=== PATIENT | male | born 1960 | race Caucasian/White ===

== ENCOUNTER → 2018-09-19 | Outpatient (CLI) | payer BC ==
--- NOTE | 2018-09-19 14:36 | CT ---
EXAMINATION TYPE: CT chest wo con DATE OF EXAM: 09/19/2018 COMPARISON: None HISTORY: Chest discomfort and difficulty breathing in cold weather. CT DLP: 776.6 mGycm, Automated exposure control for dose reduction was used. CONTRAST: Performed injected with 0 mL of Isovue 300. TECHNIQUE: Axial images were obtained at 5 mm thick sections. Reconstructed images are reviewed on [employer] computer in the coronal plane. FINDINGS: Portion of the thyroid visualized is normal. No suspicious lung nodules or focal infiltrates are present. Pneumatoceles may be within the right mi dlung. There is a 1.2 cm lymph node in the pretracheal space. This is a large fatty hilum and may be reacti ve lymph node. The ascending aorta diameter at the level of the main pulmonary artery is 3.7 cm. The main pulmonary artery diameter at the bifurcation is 3.3 cm. Moderate coronary artery calcifications present Limited CT sections are obtained through the upper abdomen. Cholelithiasis is present. IMPRESSIONS: 1. Cholelithiasis. 2. Enlarged pretracheal lymph node. 3. No suspicious acute abnormality within the chest.
== END ==
LOC: RADCTMAIN 11:30
PROVIDERS: ATTEND Internal Medicine Pulmonary Disease
DX: R59.0 Localized enlarged lymph nodes (principal)
CPT/HCPCS: 71250

== ENCOUNTER 2018-09-23 07:31 | Inpatient (IN) | payer BC ==
[2018-09-23] MEDS ORDERED: HEPARIN SODIUM,PORCINE 5,000 UNIT/ML 1 ML VIAL IV ONE (07:49)
[2018-09-23] MEDS ORDERED: ASPIRIN 81 MG PO STA (07:49)
--- NOTE | 2018-09-23 07:51 | ED ---
General Adult HPI - General Chief complaint: Shortness of Breath Stated complaint: Chest pain, SOB Time Seen by Provider: 09/23/18 07:38 Source: patient Mode of arrival: wheelchair Limitations: no limitations - Related Data Home Medications Medication Instructions Recorded Confirmed Canagliflozin [Invokana] 300 mg PO HS 10/14/15 09/23/18 Glimepiride [Amaryl] 4 mg PO DIRECTED 10/14/15 09/23/18 Losartan Potassium 100 mg PO QAM 10/14/15 09/23/18 metFORMIN HCL [Glucophage] 500 mg PO AC-BRKFST 10/14/15 09/23/18 Omeprazole [PriLOSEC] 20 mg PO BID 06/06/16 09/23/18 Dulaglutide [Trulicity] 1.5 mg SQ HARRISON 09/23/18 09/23/18 Fenofibrate 160 mg PO DAILY 09/23/18 09/23/18 Fexofenadine/Pseudoephedrine 1 tab PO DAILY 09/23/18 09/23/18 [Deysi-D 24 Hour Tablet] Multivitamins, Thera [Multivitamin 1 tab PO DAILY 09/23/18 09/23/18 (formulary)] amLODIPine [Norvasc] 10 mg PO DAILY 09/23/18 09/23/18 Allergies Allergy/AdvReac Type Severity Reaction Status Date / Time Tlhlbbc-Jeb-Lim Reductase AdvReac muscle Verified 09/23/18 09:42 Inhibitor cramps Review of Systems ROS Statement: Those systems with pertinent positive or pertinent negative responses have been documented in the HPI. ROS Other: All systems not noted in ROS Statement are negative. Past Medical History Past Medical History: Diabetes Mellitus, GERD/Reflux, Hyperlipidemia, Hypertension, Osteoarthritis (OA), Sleep Apnea/CPAP/BIPAP Additional Past Medical History / Comment(s): seasonal allergies History of Any Multi-Drug Resistant Organisms: None Reported Past Surgical History: Joint Replacement, Orthopedic Surgery Additional Past Surgical History / Comment(s): right knee replaced, left shoulder surg., right arm surg., pilonidal cyst surg., multiple myringotomies. LEFT TOTAL KNEE ON 05/30/14. screws/plates in right arm Additional Past Anesthesia/Blood Transfusion Reaction / Comment(s): states has small airway, has had problems w/intubation in the past Past Psychological History: No Psychological Hx Reported Smoking Status: Never smoker Past Alcohol Use History: None Reported Past Drug Use History: None Reported - Past Family History Father Family Medical History: Diabetes Mellitus Additional Family Medical History / Comment(s): father at age 74-drowning. Mother Family Medical History: No Reported History Additional Family Medical History / Comment(s): MOTHER AT AGE 70 OF UNKNOWN CAUSES. General Exam Limitations: no limitations Course Vital Signs 09/23/18 09/23/18 09/23/18 07:32 07:44 08:00 Temperature 98.2 F Pulse Rate 77 Respiratory 18 25 H Rate Blood Pressure 113/65 128/69 O2 Sat by Pulse 96 95 98 Oximetry 09/23/18 09/23/18 08:30 09:00 Temperature Pulse Rate Respiratory Rate Blood Pressure 107/73 107/73 O2 Sat by Pulse Oximetry Medical Decision Making - Medical Decision Making Dictation was produced using [employer] dictation software. please excuse any grammatical, word or spelling errors. Chief Complaint: 58-year-old male past medical history of diabetes, hypertension, dyslipidemia, sleep apnea presents with progressive shortness of breath. History of Present Illness: She is a 50-year-old male. He states that he's been having worsening exertional shortness of breath. He reports that his symptoms are rapidly progressing. He states symptoms started initially during the onset of the cold weather. He saw his primary care physician who ordered a computed tomography scan showed no acute processes. Patient reports that over the last couple weeks his shortness of breath has been occurring quicker with exertional activity. Furthermore, patient has been complaining of some chest tightness with exertion. Patient will reports the chest tightness is as of some bloody is sitting on his chest. He does state that it radiates slightly to the shoulder area. No associated diaphoresis. The ROS documented in this emergency department record has been reviewed and confirmed by me. Those systems with pertinent positive or negative responses have been documented in the HPI. All other systems are other negative and/or noncontributory. PHYSICAL EXAM: General Impression: Alert and oriented x3, not in acute distress HEENT: Normocephalic atraumatic, extra-ocular movements intact, pupils equal and reactive to light bilaterally, mucous membranes moist. Cardiovascular: Heart regular rate and rhythm, S1&S2 audible, no murmurs, rubs or gallops Chest: Lungs clear to auscultation bilaterally, no rhonchi, no wheeze, no rales Abdomen: Bowel sounds present, abdomen soft, non-tender, non-distended, no organomegaly Musculoskeletal: Pulses present and equal in all extremities, no peripheral edema Motor: Power 5/5 bilaterally, no focal deficits noted Neurological: CN II-XII grossly intact, no focal motor or sensory deficits noted Skin: Intact with no visualized rashes Psych: Normal affect and mood ED course: 58-year-old male with HPI concerning for unstable angina. Vital signs upon arrival are within acceptable limits. Patient appears well at this time. Physical examination is benign. Laboratory evaluation obtained. CBC, coag panel, d-dimer negative. Blood gases are within acceptable limits. Metabolic panel is negative. Troponin 0.287. B natruretic peptide is 5280. Chest x-ray shows perihilar basilar infiltrate. Patient's symptoms concerning for acute coronary syndrome. Patient reevaluated. Patient is asymptomatic at this time. Patient would benefit from cardiology consultation likely invasive intervention. EKG interpretation: Ventricular rate 78, VT interval 184, care is 124, QTC 471, normal sinus rhythm with left bundle branch block. No scar Boso criteria met.. No VT prolongation, no QTC prolongation, no ST or T-wave changes noted. Overall, this EKG is unremarkable - Lab Data Result diagrams: 09/23/18 08:06 09/23/18 08:06 Lab Results 09/23/18 09/23/18 09/23/18 Range/Units 08:06 08:06 08:06 WBC 6.6 (3.8-10.6) k/uL RBC 5.31 (4.30-5.90) m/uL Hgb 16.1 (13.0-17.5) gm/dL Hct 49.3 (39.0-53.0) % MCV 92.8 (80.0-100.0) fL MCH 30.2 (25.0-35.0) pg MCHC 32.6 (31.0-37.0) g/dL RDW 12.7 (11.5-15.5) % Plt Count 223 (150-450) k/uL Neutrophils % 62 % Lymphocytes % 26 % Monocytes % 6 % Eosinophils % 3 % Basophils % 0 % Neutrophils # 4.1 (1.3-7.7) k/uL Lymphocytes # 1.7 (1.0-4.8) k/uL Monocytes # 0.4 (0-1.0) k/uL Eosinophils # 0.2 (0-0.7) k/uL Basophils # 0.0 (0-0.2) k/uL PT (9.0-12.0) sec INR (<1.2) APTT (22.0-30.0) sec D-Dimer (<0.60) mg/L FEU VBG pH (7.31-7.41) VBG pCO2 (37-51) mmHg VBG HCO3 (24-28) mmol/L Sodium 142 (137-145) mmol/L Potassium 4.6 (3.5-5.1) mmol/L Chloride 109 H (98-107) mmol/L Carbon Dioxide 23 (22-30) mmol/L Anion Gap 10 mmol/L BUN 22 H (9-20) mg/dL Creatinine 1.22 (0.66-1.25) mg/dL Est GFR (CKD-EPI)AfAm 75 (>60 ml/min/1.73 sqM) Est GFR (CKD-EPI)NonAf 65 (>60 ml/min/1.73 sqM) Glucose 145 H (74-99) mg/dL Calcium 10.4 H (8.4-10.2) mg/dL Magnesium 1.9 (1.6-2.3) mg/dL Total Bilirubin 0.8 (0.2-1.3) mg/dL AST 26 (17-59) U/L ALT 30 (21-72) U/L Alkaline Phosphatase 31 L (38-126) U/L Total Creatine Kinase 81 (55-170) U/L CK-MB (CK-2) 2.2 (0.0-2.4) ng/mL CK-MB (CK-2) Rel Index 2.7 Troponin I 0.287 H* (0.000-0.034) ng/mL NT-Pro-B Natriuret Pep pg/mL Total Protein 6.9 (6.3-8.2) g/dL Albumin 4.3 (3.5-5.0) g/dL 09/23/18 09/23/18 09/23/18 Range/Units 08:06 08:06 08:06 WBC (3.8-10.6) k/uL RBC (4.30-5.90) m/uL Hgb (13.0-17.5) gm/dL Hct (39.0-53.0) % MCV (80.0-100.0) fL MCH (25.0-35.0) pg MCHC (31.0-37.0) g/dL RDW (11.5-15.5) % Plt Count (150-450) k/uL Neutrophils % % Lymphocytes % % Monocytes % % Eosinophils % % Basophils % % Neutrophils # (1.3-7.7) k/uL Lymphocytes # (1.0-4.8) k/uL Monocytes # (0-1.0) k/uL Eosinophils # (0-0.7) k/uL Basophils # (0-0.2) k/uL PT 10.4 (9.0-12.0) sec INR 1.0 (<1.2) APTT 22.1 (22.0-30.0) sec D-Dimer 0.32 (<0.60) mg/L FEU VBG pH (7.31-7.41) VBG pCO2 (37-51) mmHg VBG HCO3 (24-28) mmol/L Sodium (137-145) mmol/L Potassium (3.5-5.1) mmol/L Chloride (98-107) mmol/L Carbon Dioxide (22-30) mmol/L Anion Gap mmol/L BUN (9-20) mg/dL Creatinine (0.66-1.25) mg/dL Est GFR (CKD-EPI)AfAm (>60 ml/min/1.73 sqM) Est GFR (CKD-EPI)NonAf (>60 ml/min/1.73 sqM) Glucose (74-99) mg/dL Calcium (8.4-10.2) mg/dL Magnesium (1.6-2.3) mg/dL Total Bilirubin (0.2-1.3) mg/dL AST (17-59) U/L ALT (21-72) U/L Alkaline Phosphatase (38-126) U/L Total Creatine Kinase (55-170) U/L CK-MB (CK-2) (0.0-2.4) ng/mL CK-MB (CK-2) Rel Index Troponin I (0.000-0.034) ng/mL NT-Pro-B Natriuret Pep 5280 pg/mL Total Protein (6.3-8.2) g/dL Albumin (3.5-5.0) g/dL 09/23/18 Range/Units 09:32 WBC (3.8-10.6) k/uL RBC (4.30-5.90) m/uL Hgb (13.0-17.5) gm/dL Hct (39.0-53.0) % MCV (80.0-100.0) fL MCH (25.0-35.0) pg MCHC (31.0-37.0) g/dL RDW (11.5-15.5) % Plt Count (150-450) k/uL Neutrophils % % Lymphocytes % % Monocytes % % Eosinophils % % Basophils % % Neutrophils # (1.3-7.7) k/uL Lymphocytes # (1.0-4.8) k/uL Monocytes # (0-1.0) k/uL Eosinophils # (0-0.7) k/uL Basophils # (0-0.2) k/uL PT (9.0-12.0) sec INR (<1.2) APTT (22.0-30.0) sec D-Dimer (<0.60) mg/L FEU VBG pH 7.41 (7.31-7.41) VBG pCO2 38 (37-51) mmHg VBG HCO3 24 (24-28) mmol/L Sodium (137-145) mmol/L Potassium (3.5-5.1) mmol/L Chloride (98-107) mmol/L Carbon Dioxide (22-30) mmol/L Anion Gap mmol/L BUN (9-20) mg/dL Creatinine (0.66-1.25) mg/dL Est GFR (CKD-EPI)AfAm (>60 ml/min/1.73 sqM) Est GFR (CKD-EPI)NonAf (>60 ml/min/1.73 sqM) Glucose (74-99) mg/dL Calcium (8.4-10.2) mg/dL Magnesium (1.6-2.3) mg/dL Total Bilirubin (0.2-1.3) mg/dL AST (17-59) U/L ALT (21-72) U/L Alkaline Phosphatase (38-126) U/L Total Creatine Kinase (55-170) U/L CK-MB (CK-2) (0.0-2.4) ng/mL CK-MB (CK-2) Rel Index Troponin I (0.000-0.034) ng/mL NT-Pro-B Natriuret Pep pg/mL Total Protein (6.3-8.2) g/dL Albumin (3.5-5.0) g/dL Disposition Clinical Impression: Acute coronary syndrome Disposition: ADMITTED IP TO THIS HOSP Is patient prescribed a controlled substance at d/c from ED?: No Referrals: Ro Duke DO [Primary Care Provider] - 1-2 days Decision Time: 11:11
[2018-09-23] MEDS: HEPARIN SOD,PORK IN 0.45% NACL 25,000 UNIT in 0.45% NACL 1 250ML.BAG IV SCH (08:19)
[2018-09-23 08:26] LABS: Basophils % (A) 0 %; Eosinophils # (A) 0.2 k/uL (0-0.7); Eosinophils % (A) 3 %; HCT 49.3 % (39.0-53.0); HGB 16.1 gm/dL (13.0-17.5); Lymphocytes # (A) 1.7 k/uL (1.0-4.8); Lymphocytes % (A) 26 %; MCH 30.2 pg (25.0-35.0); MCHC 32.6 g/dL (31.0-37.0); MCV 92.8 fL (80.0-100.0); Monocytes # (A) 0.4 k/uL (0-1.0); Monocytes % (A) 6 %; Neutrophils # (A) 4.1 k/uL (1.3-7.7); Neutrophils % (A) 62 %; Platelet Count 223 k/uL (150-450); RBC 5.31 m/uL (4.30-5.90); RDW 12.7 % (11.5-15.5); WBC 6.6 k/uL (3.8-10.6)
[2018-09-23 08:36] LABS: Partial Thromboplastin Time 22.1 sec (22.0-30.0); Prothrombin Time 10.4 sec (9.0-12.0)
[2018-09-23 08:41] LABS: Albumin 4.3 g/dL (3.5-5.0); Calcium 10.4 mg/dL (8.4-10.2); Magnesium 1.9 mg/dL (1.6-2.3); Potassium 4.6 mmol/L (3.5-5.1); Total Bilirubin 0.8 mg/dL (0.2-1.3); Total Protein 6.9 g/dL (6.3-8.2)
--- NOTE | 2018-09-23 08:48 | XR ---
EXAMINATION TYPE: XR chest 2V DATE OF EXAM: 09/23/2018 COMPARISON: NONE HISTORY: Shortness of breath TECHNIQUE: Frontal and lateral views of the chest are obtained. FINDINGS: Scattered senescent parenchymal changes noted. Hyperinflation compatible with COPD. There is patchy perihilar and basilar infiltrate noted. Correlate for underlying pneumonia. Heart size is stable. Mediastinal structures are stable and grossly unremarkable. No evidence for hilar prominence. Degenerative changes dorsal spine. IMPRESSION: 1. There is patchy perihilar and basilar infiltrate noted. Correlate for underlying pneumonia.
[2018-09-23 09:03] LABS: Creatine Kinase MB 2.2 ng/mL (0.0-2.4)
[2018-09-23 09:04] LABS: Troponin I 0.287 ng/mL (0.000-0.034)
[2018-09-23 09:48] LABS: VBG PH 7.41 (7.31-7.41)
[2018-09-23] MEDS ORDERED: NITROGLYCERIN SL TABS 0.4 MG TAB SUBLINGUAL PRN (11:12)
--- NOTE | 2018-09-23 12:45 | P.HPIM ---
History of Present Illness H&P Date: 09/23/18 This is a 58-year-old male patient of Dr. Duke. Patient presented to the emergency room with complaints of chest pain. Patient reports this chest pain has been occurring for over a year. Patient does report that since pain has significantly increased. With chest pain patient also experiences shortness of breath. She does have a past medical history of diverticulitis mellitus, GERD, hyperlipidemia, hypertension, osteoporosis, sleep apnea, seasonal ALLERGIES and ex-smoker. Patient states he quit in . EKG completed emergency room showing normal sinus rhythm, possible left atrial enlargement. Patient also reports that he had seen Dr. SAILAJA Bermeo for pulmonary due to increasing shortness of breath. Chest x-ray completed emergency room showing patchy perihilar and basal infiltrate noted. Correlate for underlying pneumonia. troponin 0.287. [facility]ology services have been consulted. At this time patient is resting comfortably bed. Patient denies any chest pain or shortness breath. Denies nausea vomiting or diarrhea. Patient denies any urinary burning or frequency. Review of Systems Please refer to HPI otherwise unremarkable Past Medical History Past Medical History: Diabetes Mellitus, GERD/Reflux, Hyperlipidemia, Hypertension, Osteoarthritis (OA), Sleep Apnea/CPAP/BIPAP Additional Past Medical History / Comment(s): seasonal allergies History of Any Multi-Drug Resistant Organisms: None Reported Past Surgical History: Joint Replacement, Orthopedic Surgery Additional Past Surgical History / Comment(s): right knee replaced, left shoulder surg., right arm surg., pilonidal cyst surg., multiple myringotomies. LEFT TOTAL KNEE ON 05/30/14. screws/plates in right arm Additional Past Anesthesia/Blood Transfusion Reaction / Comment(s): states has small airway, has had problems w/intubation in the past Past Psychological History: No Psychological Hx Reported Smoking Status: Never smoker Past Alcohol Use History: None Reported Past Drug Use History: None Reported - Past Family History Father Family Medical History: Diabetes Mellitus Additional Family Medical History / Comment(s): father at age 74-drowning. Mother Family Medical History: No Reported History Additional Family Medical History / Comment(s): MOTHER AT AGE 70 OF UNKNOWN CAUSES. Medications and Allergies Home Medications Medication Instructions Recorded Confirmed Type Canagliflozin [Invokana] 300 mg PO HS 10/14/15 09/23/18 History Glimepiride [Amaryl] 4 mg PO DIRECTED 10/14/15 09/23/18 History Losartan Potassium 100 mg PO QAM 10/14/15 09/23/18 History metFORMIN HCL [Glucophage] 500 mg PO AC-BRKFST 10/14/15 09/23/18 History Omeprazole [PriLOSEC] 20 mg PO BID 06/06/16 09/23/18 History Dulaglutide [Trulicity] 1.5 mg SQ HARRISON 09/23/18 09/23/18 History Fenofibrate 160 mg PO DAILY 09/23/18 09/23/18 History Fexofenadine/Pseudoephedrine 1 tab PO DAILY 09/23/18 09/23/18 History [Deysi-D 24 Hour Tablet] Multivitamins, Thera [Multivitamin 1 tab PO DAILY 09/23/18 09/23/18 History (formulary)] amLODIPine [Norvasc] 10 mg PO DAILY 09/23/18 09/23/18 History Allergies Allergy/AdvReac Type Severity Reaction Status Date / Time Tpvtigl-Rrd-Ksl Reductase AdvReac muscle Verified 09/23/18 09:42 Inhibitor cramps Physical Exam Vitals: Vital Signs Temp Pulse Resp BP Pulse Ox 09/23/18 12:23 18 99/60 96 09/23/18 12:00 99/60 96 09/23/18 11:30 84 21 125/70 96 09/23/18 11:00 82 15 112/57 96 09/23/18 10:30 79 12 93/76 95 09/23/18 10:00 107/73 09/23/18 09:30 107/73 09/23/18 09:00 107/73 09/23/18 08:30 107/73 09/23/18 08:00 128/69 98 09/23/18 07:44 25 H 95 09/23/18 07:32 98.2 F 77 18 113/65 96 Intake and Output 09/22/18 09/23/18 09/23/18 22:59 06:59 14:59 Other: Weight 120.202 kg Head normocephalic Neck supple Lungs diminished bilateral Heart regular rate and rhythm S1-S2, no rub or gallop Abdomen is soft nontender nondistended positive bowel sounds no hepatosplenomegaly Extremities no edema Neuro alert and orientated to 3 Results CBC & Chem 7: 09/23/18 08:06 09/23/18 08:06 Labs: Abnormal Lab Results - Last 24 Hours (Table) 09/23/18 09/23/18 Range/Units 08:06 08:06 Chloride 109 H (98-107) mmol/L BUN 22 H (9-20) mg/dL Glucose 145 H (74-99) mg/dL Calcium 10.4 H (8.4-10.2) mg/dL Alkaline Phosphatase 31 L (38-126) U/L Troponin I 0.287 H* (0.000-0.034) ng/mL Assessment and Plan Assessment: 1. Chest pain. EKG completed showing normal sinus rhythm possible left atrial enlargement troponin elevated at 0.32. Cardiology services consulted. Patient started on heparin drip. D-dimer normal at 0.32. 2. Possible pneumonia. completed showing patchy perihilar and basal infiltrate noted. Correlate for underlying pneumonia. Patient currently follows with Dr. SAILAJA Bermeo outpatient. Patient has been started on Rocephin and Zithromax for antibiotics. Dr. SAILAJA Bermeo has been consulted 3. Diabetes mellitus type 2. Pulmonary is currently on hold. Scale insulin ordered. Hemoglobin A1c ordered 4. History of GERD 5. History of essential hypertension. 6. History of hyperlipidemia 7. History of osteoarthritis 8. History of sleep apnea. Patient reports he wears CPAP machine 9. History of seasonal ALLERGIES. Cardiology and pulmonary service is consulted. Labs ordered Time with Patient: Greater than 30 (Greater than 60% of the total time spent in counseling and coordination of care. I performed an examination of the patient and discussed their management with the Nurse Practitioner. I have reviewed the Nurse Practitioner's notes and agree with the documented findings and plan of care)
[2018-09-23 12:51] LABS: Glucose,Whole Blood 111 mg/dL (75-99)
[2018-09-23] MEDS: INSULIN ASPART (NovoLOG) 100 UNIT/ML VIAL SQ SCH ×3 (13:00→20:47)
[2018-09-23] MEDS: HEPARIN SODIUM,PORCINE 5,000 UNIT/ML 1 ML VIAL IV PRN ×2 (14:40→22:18)
[2018-09-23 14:42] LABS: Creatine Kinase MB 1.9 ng/mL (0.0-2.4)
[2018-09-23 14:44] LABS: Troponin I 0.293 ng/mL (0.000-0.034)
[2018-09-23 17:17] LABS: Glucose,Whole Blood 91 mg/dL (75-99)
[2018-09-23] MEDS: NITROGLYCERIN OINT 1 INCH/GM PACKET TOPICAL SCH (17:27)
[2018-09-23] MEDS: PANTOPRAZOLE 40 MG TABLET PO SCH (17:31)
--- NOTE | 2018-09-23 17:50 | CONS ---
CONSULTATION HISTORY: Mr. Kumar is a 58-year-old male with a history of hypertension, hyperlipidemia, diabetes mellitus, who presented with symptoms of progressive dyspnea and chest discomfort. His symptoms started about a year ago in the cold weather, whenever he exerts himself he gets chest tightness and dyspnea. According to him, he has underwent cardiac workup including a stress test and echo and there were no significant abnormalities. He felt better during the warm weather months but started over the last few months complaining of progressive dyspnea with minimal activity as well as tightness in the chest. This morning the discomfort was much worse, radiating across the chest, with the severe dyspnea. He came into the emergency room and was subsequently admitted. The patient was seen by Dr. Roseanna Bermeo recently and underwent a CT scan of the chest on September 19 that showed cholelithiasis with enlarged pretracheal lymph node, with moderate coronary artery calcification. The patient has a cough, nonproductive, that has not increased. He has no fever her. He has no history of documented obstructive lung disease. He has no significant peripheral edema. No clear PND. No orthopnea. No palpitations. No syncope. His coronary risk factors are remarkable for hypertension, hyperlipidemia and diabetes. He has stopped smoking many years ago. MEDICATION: 1. Amaryl. 2. Metformin 500 mg twice a day. 3. Multivitamin. 4. Norvasc 10 mg daily. 5. Prilosec 20 mg twice a day. 6. Losartan 100 mg daily. 7. Fenofibrate 160 mg daily. 8. Trulicity and Invokana 300 mg daily. REVIEW OF SYSTEMS: RESPIRATORY SYSTEM: He has the dyspnea on exertion and cough. GI SYSTEM: He has no recent GI bleed. No peptic ulcer disease. SYSTEM: No dysuria or hematuria. NERVOUS SYSTEM: No stroke or seizure. PHYSICAL EXAMINATION: He is a 58-year-old male, alert, oriented, in no apparent distress. Blood pressure 114/60 with a heart rate in the 80s. HEAD: Normocephalic. Eyes sclerae anicteric. NECK: Good upstroke. No bruit. LUNGS: Few crackles at the bases. HEART: Regular rate and rhythm. S1, S2. No S3. Systolic murmur 2/6, mid peaking. No diastolic murmur, no rub. ABDOMEN: Soft, nontender. Positive bowel sounds. No organomegaly. EXTREMITIES: No edema. +2 distal pulses. DIAGNOSTIC STUDIES: EKG revealed a sinus mechanism with evidence of left ventricle hypertrophy and nonspecific ST-T wave changes. Chest x-ray showed patchy infiltrate. Lab data revealed BUN and creatinine 22 and 1.22. Troponin 0.287 and 0.293. NT proBNP of 5280. Hemoglobin of 16.1. IMPRESSION: 1. Symptoms of progressive dyspnea on exertion with chest discomfort and evidence consistent with non ST-segment elevation myocardial infarction. The patient is in high risk to have significant coronary artery disease. Calcification of his coronary arteries noted on his CT scan. 2. Hypertension. 3. Hyperlipidemia. 4. Diabetes mellitus. RECOMMENDATIONS: I will give the patient IV Lasix at this time. We will obtain echocardiogram and doppler. I will add nitrate to his regimen. An echocardiogram with Doppler will be obtained to evaluate his aortic valve in view of the murmur. I would recommend to proceed with coronary angiography to assess his status and guide his treatment. The rationale behind the procedures as well as the risks and complication were discussed with the patient who is in full understanding and agreement. Thank you for this consult. We will follow with you. MMODL / IJN: [id number] /
[2018-09-23] MEDS ORDERED: AZITHROMYCIN 500 MG in SODIUM CHLORIDE 0.9% 250 ML IVPB SCH (18:00)
[2018-09-23 20:44] LABS: Glucose,Whole Blood 115 mg/dL (75-99)
[2018-09-23] MEDS: METOPROLOL TARTRATE 25 MG TAB PO SCH (20:56)
[2018-09-23] MEDS: FUROSEMIDE 10 MG/ML 4 ML VIAL IV SCH (20:56)
[2018-09-23] MEDS ORDERED: ACETAMINOPHEN TAB 325 MG TAB PO PRN (22:21)
[2018-09-23 22:55] LABS: Troponin I 0.322 ng/mL (0.000-0.034)
[2018-09-24] MEDS: NITROGLYCERIN OINT 1 INCH/GM PACKET TOPICAL SCH ×3 (00:40→16:29)
[2018-09-24] MEDS: HEPARIN SOD,PORK IN 0.45% NACL 25,000 UNIT in 0.45% NACL 1 250ML.BAG IV SCH (02:32)
[2018-09-24 05:14] LABS: Basophils % (A) 0 %; Eosinophils # (A) 0.2 k/uL (0-0.7); Eosinophils % (A) 3 %; HCT 47.9 % (39.0-53.0); HGB 15.4 gm/dL (13.0-17.5); Lymphocytes # (A) 2.4 k/uL (1.0-4.8); Lymphocytes % (A) 30 %; MCH 30.4 pg (25.0-35.0); MCHC 32.2 g/dL (31.0-37.0); MCV 94.4 fL (80.0-100.0); Mean Platelet Volume 7.5; Monocytes # (A) 0.5 k/uL (0-1.0); Monocytes % (A) 7 %; Neutrophils # (A) 4.9 k/uL (1.3-7.7); Neutrophils % (A) 60 %; Platelet Count 204 k/uL (150-450); RBC 5.07 m/uL (4.30-5.90); RDW 12.7 % (11.5-15.5); WBC 8.2 k/uL (3.8-10.6)
[2018-09-24 05:34] LABS: Albumin 3.7 g/dL (3.5-5.0); Total Protein 6.1 g/dL (6.3-8.2)
[2018-09-24 05:42] LABS: Calcium 9.8 mg/dL (8.4-10.2); Total Bilirubin 0.7 mg/dL (0.2-1.3)
[2018-09-24 05:46] LABS: Potassium 4.1 mmol/L (3.5-5.1)
[2018-09-24] MEDS: HEPARIN SODIUM,PORCINE 5,000 UNIT/ML 1 ML VIAL IV PRN (05:51)
[2018-09-24] MEDS: FUROSEMIDE 10 MG/ML 4 ML VIAL IV SCH (07:06)
[2018-09-24 07:31] LABS: Glucose,Whole Blood 139 mg/dL (75-99)
[2018-09-24] MEDS: INSULIN ASPART (NovoLOG) 100 UNIT/ML VIAL SQ SCH ×4 (07:32→21:15)
[2018-09-24] MEDS ORDERED: ALPRAZolam 0.25 MG TAB PO PRN (07:50)
[2018-09-24] MEDS ORDERED: ASPIRIN 325 MG TAB PO STA (07:50)
[2018-09-24] MEDS ORDERED: ALPRAZolam 0.5 MG TAB PO PRN (07:50)
[2018-09-24] MEDS ORDERED: NITROGLYCERIN SL TABS 0.4 MG TAB SUBLINGUAL PRN (07:50)
[2018-09-24] MEDS ORDERED: SODIUM CHLORIDE 0.9% 1,000 ML in EMPTY BAG 1 BAG IV ONE (07:50)
[2018-09-24] MEDS ORDERED: ATORVASTATIN 80 MG TAB PO STA (07:50)
[2018-09-24] MEDS: PANTOPRAZOLE 40 MG TABLET PO SCH ×2 (08:20→17:55)
[2018-09-24] MEDS: METOPROLOL TARTRATE 25 MG TAB PO SCH ×2 (08:24→21:16)
[2018-09-24] MEDS ORDERED: ATORVASTATIN 80 MG TAB PO SCH (09:00)
[2018-09-24] MEDS ORDERED: amLODIPine 10 MG TAB PO SCH (09:00)
[2018-09-24] MEDS ORDERED: FENOFIBRATE 160 MG TAB PO SCH (09:00)
[2018-09-24] MEDS ORDERED: ASPIRIN 325 MG TAB PO SCH (09:00)
[2018-09-24] MEDS ORDERED: ASPIRIN 81 MG PO SCH (09:00)
[2018-09-24] MEDS: LOSARTAN 50 MG TAB PO SCH (09:21)
[2018-09-24] MEDS ORDERED: BIVALIRUDIN 250 MG VIAL IV ONE (09:51)
[2018-09-24] MEDS ORDERED: SODIUM CHLORIDE 0.9% 50 ML BAG ONE (09:51)
[2018-09-24] MEDS ORDERED: VERAPAMIL 2.5 MG/ML 2 ML AMP ONE (10:44)
[2018-09-24] MEDS ORDERED: fentaNYL (PF) 50 MCG/ML 2 ML AMP ONE (10:44)
[2018-09-24] MEDS ORDERED: LIDOCAINE 1% INJ 10MG/ML (20 ML MDV) ONE (10:44)
[2018-09-24] MEDS ORDERED: HEPARIN SODIUM 1,000 UN/ML (10ML VL) ONE (10:44)
--- NOTE | 2018-09-24 11:12 | ECHOF ---
Referral Reason:ky MEASUREMENTS -------- HEIGHT: 180.3 cm WEIGHT: 118.8 kg BP: 112/62 RVIDd: 2.8 cm (< 3.3) IVSd: 1.5 cm (0.6 - 1.1) LVIDd: 6.8 cm (3.9 - 5.3) LVPWd: 1.7 cm (0.6 - 1.1) IVSs: 1.6 cm LVIDs: 5.9 cm LVPWs: 1.9 cm LAESV Index (A-L): 32.73 ml/m Ao Diam: 3.2 cm (2.0 - 3.7) AV Cusp: 1.1 cm (1.5 - 2.6) LA Diam: 4.7 cm (2.7 - 3.8) MV EXCURSION: 25.141 mm (> 18.000) MV EF SLOPE: 233 mm/s (70 - 150) EPSS: 1.8 cm MV E Fred: 0.82 m/s MV DecT: 179 ms MV A Fred: 0.46 m/s MV E/A Ratio: 1.76 AV maxP.20 mmHg AV meanP.41 mmHg AR PHT: 307 ms RAP: 5.00 mmHg RVSP: 22.89 mmHg FINDINGS -------- Sinus rhythm. This was a technically difficult study with suboptimal views. The left ventricle is mildly dilated. There is severe global hypokinesis of LV . Overall left jacek tricular systolic function is severely impaired with, an EF between 25 - 30 %.only basal inf lateral segment is devan. Restrictive LV filling pattern, consistent with elevated LA pressure 15.94. The right ventricle is normal in size and function. LA is midly dilated 29-33ml/m2. The right atrium is normal in size. Lumason used Aortic valve is trileaflet and is severely thickened. There is ykwngcpz-[id number]-wifhws aortic regurgitat ion. There is severe aortic stenosis present. Peak/mean gradient across the Aortic Valve is 54.20 mmHg / 36.41mmHg. Mild mitral regurgitation is present. Mild tricuspid regurgitation present. The right ventricular systolic pressure, as measured by Doppl er, is 22.89mmHg. Pulmonic valve appears structurally normal. The aortic root size is normal. The pericardium is normal. CONCLUSIONS -------- 1. Sinus rhythm. 2. This was a technically difficult study with suboptimal views. 3. The left ventricle is mildly dilated. 4. There is severe global hypokinesis of LV . 5. Overall left ventricular systolic function is severely impaired with, an EF between 25 - 30 %. 6. Restrictive LV filling pattern, consistent with elevated LA pressure 15.94. 7. The right ventricle is normal in size and function. 8. LA is midly dilated 29-33ml/m2. 9. The right atrium is normal in size. 10. Lumason used 11. Aortic valve is trileaflet and is severely thickened. 12. There is lwrjlmiz-xk-kkjcgs aortic regurgitation. 13. There is severe aortic stenosis present. 14. Peak/mean gradient across the Aortic Valve is 54.20mmHg / 36.41mmHg. 15. Mild mitral regurgitation is present. 16. Mild tricuspid regurgitation present. 17. The right ventricular systolic pressure, as measured by Doppler, is 22.89mmHg. 18. Pulmonic valve appears structurally normal. 19. The aortic root size is normal. 20. The pericardium is normal. SEWING MACHINE ATTACHMENT TESTER: Roselia Walker RDCS
[2018-09-24] MEDS ORDERED: fentaNYL (PF) 50 MCG/ML 2 ML AMP IV ONE (11:20)
[2018-09-24] MEDS ORDERED: MIDAZOLAM 2 MG/2 ML VIAL IVP ONE (11:20)
[2018-09-24] MEDS ORDERED: LIDOCAINE 1% INJ 10MG/ML (20 ML MDV) SQ ONE (11:23)
[2018-09-24] MEDS ORDERED: IV FLUID CONTINUATION 900 ML IV ONE (11:25)
[2018-09-24] MEDS ORDERED: VERAPAMIL SYRINGE (5 MG/10 ML) INTRAARTER ONE ×2 (11:25→11:31)
--- NOTE | 2018-09-24 11:25 | P.CNPUL ---
History of Present Illness Consult date: 09/24/18 Requesting physician: Chelo Potts Reason for consult: pneumonia Chief complaint: shortness of breath, chest pain History of present illness: HPI: This is a 58-year-old male patient being seen examined and evaluated today for consultation who is well-known to our services. This patient came into the emergency room yesterday with complaints of chest pain. His chest pain had been ongoing intermittently over the past year. Since the patient has significantly increased. The patient was being worked up in the outpatient setting with pulmonary and cardiology services. His EKG in the emergency room did show normal sinus rhythm. Chest x-ray did show patchy perihilar and basilar infiltrates. He did have elevated troponins and cardiology is following the patient as well. The patient is scheduled to go for a heart catheterization today with cardiology. Upon examination the patient is resting up in bed on room air. He has occasional shortness of breath with exertion. Occasional nonproductive cough. Echocardiogram reviewed and does show an EF of 25-30% with RVSP of 22. He is also noted to have moderate to severe aortic regurgitation and severe aortic stenosis. Daughter is at bedside updated on plan of care. He currently is waiting to go down for his cardiac catheterization. He has been nothing by mouth since midnight. Review of Systems 14 point review of systems was completed and is negative unless noted above in the HPI. Past Medical History Past Medical History: Diabetes Mellitus, GERD/Reflux, Hyperlipidemia, Hypertension, Osteoarthritis (OA), Sleep Apnea/CPAP/BIPAP Additional Past Medical History / Comment(s): seasonal allergies History of Any Multi-Drug Resistant Organisms: None Reported Past Surgical History: Joint Replacement, Orthopedic Surgery Additional Past Surgical History / Comment(s): right knee replaced, left shoulder surg., right arm surg., pilonidal cyst surg., multiple myringotomies. LEFT TOTAL KNEE ON 05/30/14. screws/plates in right arm Additional Past Anesthesia/Blood Transfusion Reaction / Comment(s): states has small airway, has had problems w/intubation in the past Past Psychological History: No Psychological Hx Reported Smoking Status: Former smoker Past Alcohol Use History: None Reported Past Drug Use History: None Reported - Past Family History Father Family Medical History: Diabetes Mellitus Additional Family Medical History / Comment(s): father at age 74-drowning. Mother History Unknown: Yes Family Medical History: No Reported History Additional Family Medical History / Comment(s): MOTHER AT AGE 70 OF UNKNOWN CAUSES. Medications and Allergies Home Medications Medication Instructions Recorded Confirmed Type Canagliflozin [Invokana] 300 mg PO HS 10/14/15 09/23/18 History Glimepiride [Amaryl] 4 mg PO DAILY 10/14/15 09/23/18 History Losartan Potassium 100 mg PO QAM 10/14/15 09/23/18 History metFORMIN HCL [Glucophage] 500 mg PO BID 10/14/15 09/23/18 History Omeprazole [PriLOSEC] 20 mg PO BID 06/06/16 09/23/18 History Dulaglutide [Trulicity] 1.5 mg SQ HARRISON 09/23/18 09/23/18 History Fenofibrate 160 mg PO DAILY 09/23/18 09/23/18 History Glimepiride [Amaryl] 2 mg PO HS 09/23/18 09/23/18 History Multivitamins, Thera [Multivitamin 1 tab PO BID 09/23/18 09/23/18 History (formulary)] amLODIPine [Norvasc] 10 mg PO DAILY 09/23/18 09/23/18 History Allergies Allergy/AdvReac Type Severity Reaction Status Date / Time Ovoiudt-Wih-Uhr Reductase AdvReac muscle Verified 09/23/18 09:42 Inhibitor cramps Physical Exam Vitals: Vital Signs Temp Pulse Resp BP Pulse Ox 09/24/18 04:00 97.9 F 64 16 112/62 94 L 09/24/18 00:00 98.4 F 69 14 100/57 90 L 09/23/18 23:45 71 88/52 09/23/18 23:30 69 09/23/18 23:15 80 09/23/18 23:00 67 09/23/18 22:45 77 09/23/18 22:30 73 09/23/18 22:15 81 09/23/18 22:00 69 09/23/18 21:45 70 09/23/18 21:30 80 09/23/18 21:15 81 09/23/18 21:00 77 09/23/18 20:45 78 09/23/18 20:00 97.9 F 92 16 111/61 09/23/18 16:02 78 18 122/74 95 09/23/18 13:00 98.1 F 87 14 114/64 93 L 09/23/18 12:50 98.2 F 84 18 99/60 96 09/23/18 12:23 18 99/60 96 09/23/18 12:00 99/60 96 09/23/18 11:30 84 21 125/70 96 Intake and Output 09/23/18 09/24/18 09/24/18 22:59 06:59 14:59 Intake Total 889.587 7003.709 Balance 191.856 4309.709 Intake: IV 100 160 NS 100 160 Intake, IV Titration 152.982 129.709 Amount Heparin Sod,Pork in 0.45% 102.982 129.709 NaCl 25,000 unit In 0.45 % NaCl 1 250ml.bag @ 8.3 UNITS/KG/HR 9.97 mls/hr IV .Q24H NANCY Rx#: [id number] cefTRIAXone 1,000 mg In 50 Sodium Chloride 0.9% 50 ml @ 100 mls/hr IVPB Q24H NANCY Rx#:[id number] Oral 1300 Other: # Voids 1 2 Weight 118.9 kg GENERAL EXAM: Alert, comfortable in no apparent distress. HEAD: Normocephalic. EYES: Normal reaction of pupils, equal size. NOSE: Clear with pink turbinates. THROAT: No erythema or exudates. NECK: No masses, no JVD. CHEST: No chest wall deformity. LUNGS: Equal air entry with no crackles, wheeze, rhonchi or dullness. Bases diminished CVS: S1 and S2 normal with no audible mumurs, regular rhythm. ABDOMEN: No hepatosplenomegaly, normal bowel sounds, no guarding or rigidity. EXTREMITIES: No edema noted, pedal pulses palpable. CENTRAL NERVOUS SYSTEM: No focal deficits, tone is normal in all 4 extremities. Results - Laboratory Findings CBC and BMP: 09/24/18 04:32 09/24/18 04:32 PT/INR, D-dimer PT 10.4 sec (9.0-12.0) 09/23/18 08:06 INR 1.0 (<1.2) 09/23/18 08:06 D-Dimer 0.32 mg/L FEU (<0.60) 02/03/19 08:06 Abnormal lab findings: Abnormal Labs 09/23/18 09/23/18 09/23/18 08:06 08:06 12:49 APTT Chloride 109 H BUN 22 H Creatinine Glucose 145 H POC Glucose (mg/dL) 111 H Calcium 10.4 H Alkaline Phosphatase 31 L Troponin I 0.287 H* Total Protein Triglycerides 09/23/18 09/23/18 09/23/18 13:58 20:43 21:21 APTT Chloride BUN Creatinine Glucose POC Glucose (mg/dL) 115 H Calcium Alkaline Phosphatase Troponin I 0.293 H* 0.322 H* Total Protein Triglycerides 09/24/18 09/24/18 09/24/18 04:32 04:32 04:32 APTT 43.6 H Chloride BUN 22 H Creatinine 1.37 H Glucose 143 H POC Glucose (mg/dL) Calcium Alkaline Phosphatase 36 L Troponin I 0.327 H* Total Protein 6.1 L Triglycerides 299 H 09/24/18 07:29 APTT Chloride BUN Creatinine Glucose POC Glucose (mg/dL) 139 H Calcium Alkaline Phosphatase Troponin I Total Protein Triglycerides - Diagnostic Findings Chest x-ray: report reviewed, image reviewed Assessment and Plan Assessment: Acute hypoxic respiratory failure requiring supplemental oxygen NSTEMI Possible early pneumonia Diabetes mellitus type 2 GERD Hypertension Hyperlipidemia Obstructive sleep apnea on CPAP Plan Chest x-ray reviewed and looks more like pulmonary vascular congestion and pulmonary edema, less likely pneumonia Medications have been reviewed and will be continued as ordered. Continue with antibiotics Cardiology on consult patient will be going for a cardiac catheterization today Heparin drip per cardiology Echocardiogram reviewed and does show an EF of 25-30% Initiate and encourage incentive spirometer Continue with pulmonary hygiene, coughing and deep breathing exercises, and supportive care. Supplemental oxygen to maintain oxygen saturations of 92% or better. Continue nebulizer treatments. GI and DVT prophylaxis. We will continue to monitor labs/results and adjust treatment as necessary. Further recommendations pending. I, the signing physician performed an examination of the patient, discussed and directed their management with the nurse practitioner. I have reviewed the nurse practitioner's note and agree with the documented findings, orders and plan of care. Nurse practitioner acting as a scribe for the signing physician.
[2018-09-24] MEDS ORDERED: IOPAMIDOL-370 125ML BTL INJ ONE ×2 (11:51→12:11)
[2018-09-24] MEDS ORDERED: HYDROmorphone 2 MG/ML 1 ML SYRINGE IVP ONE (11:57)
[2018-09-24] MEDS ORDERED: RX INFO: IV CONTRAST WAS GIVEN 1 EACH MISC MISCELLANE PRN (12:35)
[2018-09-24 12:45] LABS: O2 Sat Blood Gas 70.1 %
[2018-09-24] MEDS ORDERED: SODIUM CHLORIDE 0.9% 1,000 ML IV SCH (12:45)
[2018-09-24 12:47] LABS: O2 Sat Blood Gas 66.8 %
[2018-09-24 12:48] LABS: O2 Sat Blood Gas 97.4 %
--- NOTE | 2018-09-24 13:36 | CC ---
CARDIAC CATHETERIZATION REPORT Mr. Kumar is a 58-year-old male with known history of hypertension, hyperlipidemia, diabetes mellitus, who presented with symptoms of progressive dyspnea and mild elevation of troponin. In view of that, recommendation made regarding cardiac catheterization. The procedure as well as the risks and complications were discussed with the patient who is in full understanding and agreement. PROCEDURE: Patient was brought to propagator laborer in a fasting semi-sedated state after receiving fentanyl and Benadryl and achieving moderate conscious sedated state. Using Xylocaine anesthesia in the Seldinger technique, a 6-Guatemalan sheath was introduced in the right radial artery. Attempt to cannulate the coronary arteries using a 5-Guatemalan 3.5 bend right and left Nilay catheter were unsuccessful. Subsequently the left circumflex was cannulated using a 5-Guatemalan 4 bend left Nilay catheter and the LAD was cannulated using a 6-Guatemalan Dottie catheter. The right coronary artery was cannulated using a 6- [place]alan 5 bend right Nilay catheter. Images of the coronary artery including hemiaxial views were obtained. Following that, the aortic valve was crossed and 5-[place]atemalan tight pigtail catheter introduced in the left ventricle and a 30-degree ARCE view of the left ventricle was obtained. Following that, catheters were removed. Following that , using Xylocaine anesthesia in the Seldinger technique 8-Guatemalan sheath was introduced in the right femoral vein. Right heart catheterization was performed using [place]-Shaun catheter. Multiple pressure and samples were obtained. Cardiac output by thermodilution was calculated. Following that, catheter and sheaths were removed. Hemostasis was obtained with compression of the right femoral vein and placement of a TR band on the right radial artery. Of note, the patient received 5000 units of intravenous heparin as well as intra-arterial verapamil. FINDINGS: HEMODYNAMICS: Pulmonary artery systolic pressure of 44 with a diastolic of 26 with a mean of 32 mmHg. Pulmonary capillary wedge pressure A-wave of 21, V-wave of 28 with a mean of 24 mmHg. Right ventricular systolic pressure of 42 with an end- diastolic of 10 mmHg. Right atrial A-wave of 8, V-wave of 8 with a mean of 6 mmHg. Left ventricle end- diastolic pressure of 34 to 38 mmHg. Left ventricle systolic pressure of 160 mmHg with an ascending aortic pressure of 125 mmHg with a peak gradient of 35 mmHg. Cardiac output by thermodilution of 6 L/minute. Right atrial saturation of 70%, pulmonary saturation 69%, arterial saturation of 97%, aortic valve area calculated as 1 centimeter square. CORONARIES: FLUOROSCOPY: There was severe calcification involving the aortic valve. LEFT MAIN: This is a very short size vessel bifurcating immediately to left anterior descending artery and left circumflex. LEFT ANTERIOR DESCENDING ARTERY: This is a large-sized vessel reaching toward the apex tapers down the distal third, giving rise to 2 diagonal branches. After the takeoff of the first diagonal branch, there is a 70% plaque. The rest of the vessel has no evidence of high-grade stenosis. LEFT CIRCUMFLEX: This is a nondominant large vessel giving rise to a large obtuse marginal branch. The obtuse marginal branch has a 70% to 80% plaque in the proximal segment. RIGHT CORONARY ARTERY: This is a dominant vessel, small in caliber. The right coronary artery in mid segment has a tubular long lesion of 95% to 99% stenosis. There is slow flow into the distal PDA and a PLV with some ipsilateral collaterals. LEFT VENTRICULOGRAM: Left ventriculogram is performed in 30-degree ARCE view and revealed a dilated ventricle with severely impaired left ventricular systolic function. The ejection fraction is estimated at 20% to 25%. The ascending aorta appears to be dilated. CONCLUSION: 1. Triple-vessel coronary disease. 2. Severely impaired left ventricular systolic function with severe aortic stenosis. 3. Mild pulmonary hypertension. RECOMMENDATION: In view of findings in the anatomy, I have recommend proceeding with evaluation for coronary artery bypass grafting and aortic valve replacement. The patient will undergo transesophageal echocardiogram to further evaluate his status and guide his treatment. Those findings and recommendation were discussed with the patient and his family who are in full understanding and agreement. Duration of procedure is 68 minutes. MMODL / IJN: [id number] / MTDD
[2018-09-24] MEDS: LORATADINE-PSEUDOEPH 5-120 MG 1 EACH TAB.ER.12H PO SCH (13:38)
[2018-09-24 13:52] LABS: Hemoglobin A1C 7.5 % (4.0-6.0)
--- NOTE | 2018-09-24 14:35 | P.PN ---
Subjective Progress Note Date: 09/24/18 This is a 58-year-old male patient of Dr. Duke. Patient presented to the emergency room with complaints of chest pain. Patient reports this chest pain has been occurring for over a year. Patient does report that since pain has significantly increased. With chest pain patient also experiences shortness of breath. She does have a past medical history of diverticulitis mellitus, GERD, hyperlipidemia, hypertension, osteoporosis, sleep apnea, seasonal ALLERGIES and ex-smoker. Patient states he quit in . EKG completed emergency room showing normal sinus rhythm, possible left atrial enlargement. Patient also reports that he had seen Dr. SAILAJA Bermeo for pulmonary due to increasing shortness of breath. Chest x-ray completed emergency room showing patchy perihilar and basal infiltrate noted. Correlate for underlying pneumonia. troponin 0.287. cardiology services have been consulted. At this time patient is resting comfortably bed. Patient denies any chest pain or shortness breath. Denies nausea vomiting or diarrhea. Patient denies any urinary burning or frequency. 09/24/2018 patient underwent cardiac catheterization today showing triple- vessel coronary disease. Severely impaired left ventricle systolic function with severe aortic stenosis. And mild pulmonary hypertension. Cardiology is recommending proceeding with evaluation for coronary artery bypass grafting and aortic valve replacement. And they have scheduled the patient for a VAISHNAVI. Is currently chest pain-free. He does report he gets pain with activity. Echo shows an EF of 25-30%. Creatinine is at 1.37. He did receive a dose of IV Lasix yesterday for BNP in the 5000. Objective - Vital Signs Vital signs: Vital Signs Temp 97.5 F L 09/24/18 13:15 Pulse 86 09/24/18 13:45 Resp 20 09/24/18 13:45 BP 107/67 09/24/18 13:45 Pulse Ox 94 L 09/24/18 13:45 Intake & Output 09/23/18 09/24/18 09/24/18 18:59 06:59 18:59 Intake Total 296.359 6335.691 Balance 115.849 6728.691 Weight 120.202 kg 118.9 kg Intake: IV 80 200 NS 80 200 Amount of Fluid Infused ( 150 ml) Intake, IV Titration 113.808 232.691 Amount Heparin Sod,Pork in 0.45% 63.808 232.691 NaCl 25,000 unit In 0.45 % NaCl 1 250ml.bag @ 8.3 UNITS/KG/HR 9.97 mls/hr IV .Q24H NANCY Rx#: [id number] cefTRIAXone 1,000 mg In 50 Sodium Chloride 0.9% 50 ml @ 100 mls/hr IVPB Q24H NANCY Rx#:[id number] Oral 1300 Other: # Voids 1 2 3 - Exam Head normocephalic Neck supple Lungs clear to auscultation bilaterally no wheezing or crackles Heart regular rate and rhythm S1-S2, no rub or gallop Abdomen is soft nontender nondistended positive bowel sounds no hepatosplenomegaly Extremities no edema Neuro alert and orientated to 3 - Labs CBC & Chem 7: 09/24/18 04:32 09/24/18 04:32 Labs: Abnormal Lab Results - Last 24 Hours (Table) 09/23/18 09/23/18 09/23/18 Range/Units 13:58 20:43 21:21 APTT (22.0-30.0) sec BUN (9-20) mg/dL Creatinine (0.66-1.25) mg/dL Glucose (74-99) mg/dL POC Glucose (mg/dL) 115 H (75-99) mg/dL Hemoglobin A1c (4.0-6.0) % Alkaline Phosphatase (38-126) U/L Troponin I 0.293 H* 0.322 H* (0.000-0.034) ng/mL Total Protein (6.3-8.2) g/dL Triglycerides (<150) mg/dL 09/24/18 09/24/18 09/24/18 Range/Units 04:32 04:32 04:32 APTT 43.6 H (22.0-30.0) sec BUN 22 H (9-20) mg/dL Creatinine 1.37 H (0.66-1.25) mg/dL Glucose 143 H (74-99) mg/dL POC Glucose (mg/dL) (75-99) mg/dL Hemoglobin A1c 7.5 H (4.0-6.0) % Alkaline Phosphatase 36 L (38-126) U/L Troponin I (0.000-0.034) ng/mL Total Protein 6.1 L (6.3-8.2) g/dL Triglycerides 299 H (<150) mg/dL 09/24/18 09/24/18 Range/Units 04:32 07:29 APTT (22.0-30.0) sec BUN (9-20) mg/dL Creatinine (0.66-1.25) mg/dL Glucose (74-99) mg/dL POC Glucose (mg/dL) 139 H (75-99) mg/dL Hemoglobin A1c (4.0-6.0) % Alkaline Phosphatase (38-126) U/L Troponin I 0.327 H* (0.000-0.034) ng/mL Total Protein (6.3-8.2) g/dL Triglycerides (<150) mg/dL Assessment and Plan Assessment: 1. Chest pain with non-ST elevated myocardial infarction present on admission. Status post heart catheterization with triple-vessel disease and severe aortic stenosis. Echo shows an EF of 25-30%. VAISHNAVI has been ordered. Cardiology is recommending evaluation for coronary artery bypass grafting. 2. Possible pneumonia. completed showing patchy perihilar and basal infiltrate noted. Correlate for underlying pneumonia. Patient currently follows with Dr. SAILAJA Bermeo outpatient. Patient has been started on Rocephin and Zithromax for antibiotics. Dr. SAILAJA Bermeo has been consulted 3. Diabetes mellitus type 2. Pulmonary is currently on hold. Scale insulin ordered. Hemoglobin A1c ordered 4. History of GERD 5. History of essential hypertension. 6. History of hyperlipidemia 7. History of osteoarthritis 8. History of sleep apnea. Patient reports he wears CPAP machine 9. History of seasonal ALLERGIES. 10. Acute kidney injury creatinine is 1.37 patient did receive a dose of IV Lasix yesterday for some fluid overload. Continue with fluid hydration and monitoring kidney functions closely. Patient also underwent heart catheterization today. Continue to monitor effects on the kidneys. GI prophylaxis Protonix and DVT prophylaxis awaiting cardiology recommendations regarding continuing the IV heparin. I performed an examination of the patient and discussed their management with the physician Log Sorting Supervisor. I have reviewed the Physician Log Sorting Supervisor's notes and agree with the documented findings and plan of care
--- NOTE | 2018-09-24 17:38 | US ---
EXAMINATION TYPE: US carotid duplex BILAT DATE OF EXAM: 09/24/2018 COMPARISON: NONE CLINICAL HISTORY: Pre-Op Surgery. Pre op cardiac surgery EXAM MEASUREMENTS: RIGHT: Peak Systolic Velocity (PSV) cm/sec ----- Right CCA: 49.1 ----- Right ICA: 60.3 ----- Right ECA: 83.2 ICA/CCA ratio: 1.23 RIGHT: End Diastole cm/sec ----- Right CCA: 10.6 ----- Right ICA: 21.1 ----- Right ECA: 11.8 LEFT: Peak Systolic Velocity (PSV) cm/sec ----- Left CCA: 67.7 ----- Left ICA: 90.7 ----- Left ECA: 72.1 ICA/CCA ratio: 1.34 LEFT: End Diastole cm/sec ----- Left CCA: 17.4 ----- Left ICA: 27.3 ----- Left ECA: 9.9 VERTEBRALS (direction of flow): Right Vertebral: Antegrade Left Vertebral: Antegrade Rhythm: Normal Tang scale images show mild eccentric plaque bilaterally at carotid bulb level. Velocity measurements and ratios remain within normal limits and visualized portions of both internal carotid arteries. IMPRESSION: No hemodynamically significant stenosis is seen in either internal carotid artery. Criteria for Assigning % of Stenosis / Diameter reduction (Estimation based on the indirect measurements of the internal carotid artery velocities (ICA PSV). 1. Normal (no stenosis)=ICA PSV < 125 cm/s: ratio < 2.0: ICA EDV<40 cm/s. 2. Less than 50% stenosis=ICA PSV < 125 cm/s: ratio < 2.0: ICA EDV<40 cm/s. 3. 50 to 69% stenosis=ICA PSV of 125 to 230 cm/s: ration 2.0 ? 4.0: ICA EDV 40-100 cm/s. 4. Greater than 70% stenosis to near occlusion= ICA PSV > 230 cm/s: ratio > 4.0: ICA EDV > 100 cm/s. 5. Near occlusion= ICA PSV velocities may be low or undetectable: variable ratio and ICA EDV. 6. Total occlusion=unable to detect flow.
[2018-09-24] MEDS: AZITHROMYCIN 500 MG TAB PO SCH (17:55)
[2018-09-24 17:56] LABS: Glucose,Whole Blood 139 mg/dL (75-99)
[2018-09-24 18:12] LABS: Appearance,Urine Clear (Clear); Bilirubin,Urine Negative (Negative); Blood,Urine Negative (Negative); Color,Urine Yellow; Glucose,Urine (UA) 4+ (Negative); Ketones,Urine Negative (Negative); Leukocyte Esterase,Urine Negative (Negative); Nitrite,Urine Negative (Negative); Protein,Urine Negative (Negative); Urobilinogen,Urine <2.0 mg/dL (<2.0)
[2018-09-24 21:12] LABS: Glucose,Whole Blood 188 mg/dL (75-99)
[2018-09-25] MEDS: NITROGLYCERIN OINT 1 INCH/GM PACKET TOPICAL SCH ×3 (01:04→17:16)
[2018-09-25 05:12] LABS: Partial Thromboplastin Time 22.6 sec (22.0-30.0); Prothrombin Time 10.7 sec (9.0-12.0)
[2018-09-25 05:13] LABS: Albumin 3.5 g/dL (3.5-5.0); Calcium 9.5 mg/dL (8.4-10.2); Magnesium 2.1 mg/dL (1.6-2.3); Potassium 4.2 mmol/L (3.5-5.1); Total Bilirubin 0.7 mg/dL (0.2-1.3); Total Protein 5.8 g/dL (6.3-8.2)
[2018-09-25 05:17] LABS: Basophils % (A) 0 %; Eosinophils # (A) 0.2 k/uL (0-0.7); Eosinophils % (A) 3 %; HCT 45.6 % (39.0-53.0); Lymphocytes # (A) 1.7 k/uL (1.0-4.8); Lymphocytes % (A) 27 %; MCV 93.9 fL (80.0-100.0); Monocytes # (A) 0.4 k/uL (0-1.0); Monocytes % (A) 7 %; Neutrophils % (A) 62 %; Platelet Count 207 k/uL (150-450); RBC 4.85 m/uL (4.30-5.90); RDW 12.8 % (11.5-15.5); WBC 6.3 k/uL (3.8-10.6)
[2018-09-25 07:06] LABS: Glucose,Whole Blood 172 mg/dL (75-99)
[2018-09-25] MEDS ORDERED: fentaNYL (PF) 50 MCG/ML 2 ML AMP ONE (07:11)
[2018-09-25] MEDS: INSULIN ASPART (NovoLOG) 100 UNIT/ML VIAL SQ SCH ×4 (07:20→21:52)
[2018-09-25] MEDS: BENZOCAINE SPRAY 1 CAN MUCOUS MEM ONE ×2 (07:25→07:30)
[2018-09-25] MEDS ORDERED: IV FLUID CONTINUATION 100 ML IV ONE (07:30)
[2018-09-25] MEDS ORDERED: fentaNYL (PF) 50 MCG/ML 2 ML AMP IVP ONE (07:32)
[2018-09-25] MEDS ORDERED: MIDAZOLAM 2 MG/2 ML VIAL IVP ONE ×2 (07:32→07:35)
--- NOTE | 2018-09-25 08:16 | PN ---
PROGRESS NOTE Mr. Kumar is a 58-year-old male with history of diabetes, hypertension, who presented to the hospital with symptoms of progressive dyspnea and chest discomfort. He had mild elevation of the troponin. He underwent a transthoracic echocardiogram that revealed a severely impaired left ventricular systolic function with evidence of severe aortic regurgitation and stenosis. Underwent cardiac catheterization, was found to have severe triple-vessel disease with severe aortic stenosis. He is doing well this morning. His breathing is stable. He denies any dizziness, palpitation. Continues to be on aspirin once a day, Lipitor 80 mg daily, metoprolol tartrate 25 mg twice a day, losartan 100 mg daily, nitro paste 1 inch q.8 hours. PHYSICAL EXAMINATION: Blood pressure 109/60 with a heart in the 60s. LUNGS: Clear. HEART: Regular rate and rhythm, S1, S2. No S3 with systolic ejection murmur, mid to late peaking with an early diastolic murmur. ABDOMEN: Soft, nontender, obese. EXTREMITIES: No edema, right radial pulse intact. Right groin, no hematoma. IMPRESSION: 1. Severe triple-vessel coronary artery disease. 2. Severe cardiomyopathy with severe aortic stenosis and regurgitation. 3. Hypertension. 4. Diabetes mellitus. 5. Hyperlipidemia. RECOMMENDATION: Patient will undergo a transesophageal echocardiogram. He will be evaluated by the Cardiovascular Surgical Team to undergo aortic valve replacement and coronary artery bypass grafting. I have discussed those finding with the patient and he is in full understanding. Depending on his progress, further recommendation will be made. MMODL / IJN: [id number] /
--- NOTE | 2018-09-25 08:31 | ECHOT ---
TRANSESOPHAGEAL ECHOCARDIOGRAM INDICATION: Evaluation of aortic valve. PROCEDURE: After explaining the procedure to the patient, its risks and the complications, his blood pressure, heart rate, O2 saturation was monitored. The throat was sprayed with Cetacaine. He received 50 mcg intravenous fentanyl and 4 mg intravenous Versed the probe was introduced into the esophagus without difficulty. Images were obtained. Following that, the probe was removed. There was no immediate complication. FINDINGS: Left atrial size is dilated. Left atrial appendage is normal. Left ventricular size is dilated with evidence of severe global hypokinesis. The estimated ejection fraction is 20% to 25%. The aortic valve revealed severe fibrocalcific changes of the aortic cusp with reduced opening. It appears to be a bicuspid valve with a rhaphe. By planimetry the valve area is measuring 1.4 centimeter square, although the opening was not well visualized. The mitral valve appears to be normal. Tricuspid valve is normal. Descending thoracic aorta appears to be normal. No pericardial effusion was noted. Contrast bubble study revealed no shunting across the interatrial septum. Doppler pulse wave and color Doppler obtained revealed a severe aortic regurgitation with mild mitral and tricuspid regurgitation. The peak gradient across the aortic valve was 51 mmHg with a mean of 39 mmHg. There was no shunting by color Doppler study. CONCLUSION: 1. Dilated to atrium with normal appearance left atrial appendage. 2. Dilated left ventricle with severe global hypokinesis. 3. Severe aortic regurgitation with moderate severe aortic stenosis with a severely calcified valve and the possibility of bicuspid aortic valve with rhaphe. 4. Mild mitral and tricuspid regurgitation. 5. No shunting across the interatrial septum. 6. Normal appearance of the descending thoracic aorta. MMODL / IJN: [id number] /
[2018-09-25] MEDS: LOSARTAN 50 MG TAB PO SCH (08:44)
[2018-09-25] MEDS: METOPROLOL TARTRATE 25 MG TAB PO SCH ×2 (08:49→21:50)
[2018-09-25] MEDS: ATORVASTATIN 80 MG TAB PO SCH (08:49)
[2018-09-25] MEDS: PANTOPRAZOLE 40 MG TABLET PO SCH ×2 (08:49→17:16)
[2018-09-25] MEDS: ASPIRIN 81 MG PO SCH (08:49)
[2018-09-25] MEDS: LORATADINE-PSEUDOEPH 5-120 MG 1 EACH TAB.ER.12H PO SCH (08:51)
--- NOTE | 2018-09-25 11:46 | P.PN ---
Subjective Progress Note Date: 09/25/18 HPI: This is a 58-year-old male patient being seen examined and evaluated today for consultation who is well-known to our services. This patient came into the emergency room yesterday with complaints of chest pain. His chest pain had been ongoing intermittently over the past year. Since the patient has significantly increased. The patient was being worked up in the outpatient setting with pulmonary and cardiology services. His EKG in the emergency room did show normal sinus rhythm. Chest x-ray did show patchy perihilar and basilar infiltrates. He did have elevated troponins and cardiology is following the patient as well. The patient is scheduled to go for a heart catheterization today with cardiology. Upon examination the patient is resting up in bed on room air. He has occasional shortness of breath with exertion. Occasional nonproductive cough. Echocardiogram reviewed and does show an EF of 25-30% with RVSP of 22. He is also noted to have moderate to severe aortic regurgitation and severe aortic stenosis. Daughter is at bedside updated on plan of care. He currently is waiting to go down for his cardiac catheterization. He has been nothing by mouth since midnight. Interval History: 09/25/18- patient is being seen examined and evaluated today on rounds. He did undergo a VAISHNAVI which did show severely impaired left ventricular function with severe aortic regurgitation and stenosis. He has triple-vessel disease and will require a CABG. Cardiothoracic surgeon has been consulted. The patient will go for many preoperative studies including an ultrasound of the renal arteries CT of the chest, CT of the facial bones, vein mapping. The patient did recently have a PFT in our office last Monday. We will have those results faxed over to the hospital. Upon examination is resting up in bed on room air. Does have some shortness of breath with exertion denies any cough or congestion. Afebrile no further complaints. Objective - Vital Signs Vital signs: Vital Signs Temp 98.5 F 09/25/18 08:00 Pulse 67 09/25/18 08:00 Resp 15 09/25/18 08:00 BP 102/64 09/25/18 08:00 Pulse Ox 93 L 09/25/18 08:00 Intake & Output 09/24/18 09/25/18 09/25/18 18:59 06:59 18:59 Intake Total 800 1095 600 Balance 800 1095 600 Weight 119.7 kg Intake: IV 300 375 100 NS 300 375 Oral 500 720 500 Other: # Voids 3 0 1 - Exam GENERAL EXAM: Alert, comfortable in no apparent distress. HEAD: Normocephalic. EYES: Normal reaction of pupils, equal size. NOSE: Clear with pink turbinates. THROAT: No erythema or exudates. NECK: No masses, no JVD. CHEST: No chest wall deformity. LUNGS: Equal air entry with no crackles, wheeze, rhonchi or dullness. Bases diminished CVS: S1 and S2 normal with no audible mumurs, regular rhythm. ABDOMEN: No hepatosplenomegaly, normal bowel sounds, no guarding or rigidity. EXTREMITIES: No edema noted, pedal pulses palpable. CENTRAL NERVOUS SYSTEM: No focal deficits, tone is normal in all 4 extremities. - Labs CBC & Chem 7: 09/25/18 04:45 09/25/18 04:45 Labs: Abnormal Lab Results - Last 24 Hours (Table) 09/24/18 09/24/18 09/24/18 Range/Units 04:32 17:54 18:00 BUN (9-20) mg/dL Glucose (74-99) mg/dL POC Glucose (mg/dL) 139 H (75-99) mg/dL Hemoglobin A1c 7.5 H (4.0-6.0) % Alkaline Phosphatase (38-126) U/L Total Protein (6.3-8.2) g/dL Triglycerides (<150) mg/dL Ur Specific [place] 1.050 H (1.001-1.035) Urine Glucose (UA) 4+ H (Negative) 09/24/18 09/25/18 09/25/18 Range/Units 21:11 04:45 07:05 BUN 26 H (9-20) mg/dL Glucose 147 H (74-99) mg/dL POC Glucose (mg/dL) 188 H 172 H (75-99) mg/dL Hemoglobin A1c (4.0-6.0) % Alkaline Phosphatase 29 L (38-126) U/L Total Protein 5.8 L (6.3-8.2) g/dL Triglycerides 201 H (<150) mg/dL Ur Specific [place] (1.001-1.035) Urine Glucose (UA) (Negative) Microbiology - Last 24 Hours (Table) 09/24/18 20:30 Nasal Screen MRSA/MSSA - Preliminary Nasal Swab 09/24/18 18:00 Urine Culture - Preliminary Urine,Clean Catch Assessment and Plan Assessment: Acute hypoxic respiratory failure requiring supplemental oxygen NSTEMI Possible early pneumonia, however less likely Diabetes mellitus type 2 GERD Hypertension Hyperlipidemia Obstructive sleep apnea on CPAP Plan Chest x-ray reviewed and looks more like pulmonary vascular congestion and pulmonary edema, less likely pneumonia Medications have been reviewed and will be continued as ordered. Continue with antibiotics Cardiology on consult patient will be going for a cardiac catheterization today VAISHNAVI reviewed Echocardiogram reviewed and does show an EF of 25-30% Initiate and encourage incentive spirometer Continue with pulmonary hygiene, coughing and deep breathing exercises, and supportive care. Supplemental oxygen to maintain oxygen saturations of 92% or better. Cardiothoracic workup underway We will have patient's recent PFT results faxed over to the hospital GI and DVT prophylaxis. We will continue to monitor labs/results and adjust treatment as necessary. Further recommendations pending. I, the signing physician performed an examination of the patient, discussed and directed their management with the nurse practitioner. I have reviewed the nurse practitioner's note and agree with the documented findings, orders and plan of care. Nurse practitioner acting as a scribe for the signing physician.
[2018-09-25 11:57] LABS: Glucose,Whole Blood 231 mg/dL (75-99)
--- NOTE | 2018-09-25 12:07 | P.GSCN ---
History of Present Illness Consult date: 09/25/18 Reason for Consult: Coronary artery disease, severe aortic stenosis with aortic insufficiency, surgical recommendations. Requesting physician: Dioni Arce History of present illness: This is a 58-year-old active gentleman who follows on an outpatient basis with Dr. Ro Duke. He has a previous medical history of hypertension, hyperlipidemia, diabetes mellitus, GERD, obstructive sleep apnea with CPAP use, and previous tobacco dependence with FEV1 on recent pulmonary function test 80% of predicted with moderate restriction noted. He presented to [facility] emergency room on September 23 with complaints of shortness of breath and chest pain. He described his symptoms as exertional dyspnea for the previous year, especially in cold weather. Since he has noticed his exertional dyspnea has begun to occur even with minimal activity and he also reports chest tightness radiating across his entire chest. Associated symptoms include nonproductive cough. He denies any fever, edema, paroxysmal nocturnal dyspnea, orthopnea, palpitations, or syncope. He has followed on an outpatient basis with Dr. SAILAJA Bermeo for his shortness of breath, computed tomography scan was completed September 19 demonstrating enlarged pretracheal lymph node 1.2 cm, ascending aorta measuring 3.7 cm, and moderate coronary artery calcification. In the emergency room he had a chest x-ray completed which demonstrated patchy perihilar and basilar infiltrates, questionable pneumonia. He was placed on IV ceftriaxone and Zithromax per Dr. Potts. EKG was performed demonstrating normal sinus rhythm with possible left atrial enlargement and nonspecific STT wave changes. Troponins were drawn and were slightly elevated and the patient was ruled in for non-STEMI. BNP was also elevated at 5280. He was admitted for evaluation and treatment. Transthoracic echocardiogram was completed demonstrating dilated left ventricle with severe global hypokinesis and impaired function with EF 25-30%, dilated left atrium, thickened aortic valve with moderate to severe aortic regurgitation and severe aortic stenosis with peak/mean gradient 54.20 mmHg/36.41 mmHg, mild mitral regurgitation, and mild tricuspid regurgitation. He was recommended to undergo heart catheterization which was completed yesterday by Dr. Arce and which demonstrated triple- vessel coronary artery disease with 70% stenosis of the LAD after the first diagonal branch, obtuse marginal branch of the left circumflex with 70-80% stenosis, mid RCA with a long tubular lesion 95-99%, and LV gram completed demonstrating ejection fraction 20-25%. Dr. Arce performed transesophageal echocardiogram this morning which confirmed left atrial dilation, left ventricular dilation with severe global hypokinesis and ejection fraction 20-25% , bicuspid aortic valve with raphe, severe aortic stenosis with valve area measuring 1.4 cm and peak/mean gradient 51 mmHg/39 mmHg with severe aortic regurgitation, mild mitral and tricuspid regurgitation. Consultation was placed to Dr. Alejandre from cardiothoracic surgery for recommendations regarding aortic valve replacement and coronary artery bypass graft surgery. Of note prior to hospitalization patient was not on aspirin, statin, beta irasema therapy. Review of Systems Review of systems was completed and was negative except as noted. - Cardiovascular Reports chest pain, Reports dyspnea on exertion Past Medical History Past Medical History: Chest Pain / Angina, Diabetes Mellitus, GERD/Reflux, Hyperlipidemia, Hypertension, Osteoarthritis (OA), Sleep Apnea/CPAP/BIPAP Additional Past Medical History / Comment(s): seasonal allergies History of Any Multi-Drug Resistant Organisms: None Reported Past Surgical History: Joint Replacement, Orthopedic Surgery Additional Past Surgical History / Comment(s): right knee replaced, left shoulder surg., right arm surg., pilonidal cyst surg., multiple myringotomies. LEFT TOTAL KNEE ON 05/30/14. screws/plates in right arm Additional Past Anesthesia/Blood Transfusion Reaction / Comm: states has small airway, has had problems w/intubation in the past Past Psychological History: No Psychological Hx Reported Smoking Status: Former smoker Past Alcohol Use History: None Reported Past Drug Use History: None Reported - Past Family History Father Family Medical History: Diabetes Mellitus Additional Family Medical History / Comment(s): father at age 74-drowning. Mother History Unknown: Yes Family Medical History: No Reported History Additional Family Medical History / Comment(s): MOTHER AT AGE 70 OF UNKNOWN CAUSES. Medications and Allergies Home Medications Medication Instructions Recorded Confirmed Type Canagliflozin [Invokana] 300 mg PO HS 10/14/15 09/23/18 History Glimepiride [Amaryl] 4 mg PO DAILY 10/14/15 09/23/18 History Losartan Potassium 100 mg PO QAM 10/14/15 09/23/18 History metFORMIN HCL [Glucophage] 500 mg PO BID 10/14/15 09/23/18 History Omeprazole [PriLOSEC] 20 mg PO BID 06/06/16 09/23/18 History Dulaglutide [Trulicity] 1.5 mg SQ HARRISON 09/23/18 09/23/18 History Fenofibrate 160 mg PO DAILY 09/23/18 09/23/18 History Glimepiride [Amaryl] 2 mg PO HS 09/23/18 09/23/18 History Multivitamins, Thera [Multivitamin 1 tab PO BID 09/23/18 09/23/18 History (formulary)] amLODIPine [Norvasc] 10 mg PO DAILY 09/23/18 09/23/18 History Allergies Allergy/AdvReac Type Severity Reaction Status Date / Time [id number]-[id number] Reductase AdvReac muscle Verified 09/23/18 09:42 Inhibitor cramps Surgical - Exam Vital Signs Temp Pulse Resp BP Pulse Ox 98.2 F 77 18 113/65 96 09/23/18 07:32 09/23/18 07:32 09/23/18 07:32 09/23/18 07:32 09/23/18 07:32 - General well developed, well nourished, no distress, no pain, obese - Eyes PERRL, normal ocular movement - ENT no hearing loss - Neck no masses, no bruits, trachea midline - Respiratory Lungs sounds clear but diminished bilaterally. Respirations even, nonlabored. Currently on 3 L nasal cannula with oxygen saturation 94%. No chest wall deformities. - Cardiovascular S1, S2 present. Systolic murmur heard. Regular rate and rhythm, sinus rhythm on telemetry. Palpable peripheral pulses bilaterally. No edema present. No calf pain or tenderness noted. Negative Antoine's test left radial artery. No varicosities noted. - Abdomen Abdomen: soft, non tender, bowel sounds - Genitourinary Deferred - Rectum Deferred - Integumentary Right radial artery puncture site well approximated, no drainage. no rash, no growths - Neurologic normal coordination, normal sensation - Musculoskeletal normal gait, normal posture - Psychiatric oriented to time, oriented to person, oriented to place, speech is normal, memory intact Results - Labs 09/25/18 04:45 09/25/18 04:45 Abnormal Lab Results - Last 24 Hours (Table) 09/24/18 09/24/18 09/24/18 Range/Units 04:32 17:54 18:00 BUN (9-20) mg/dL Glucose (74-99) mg/dL POC Glucose (mg/dL) 139 H (75-99) mg/dL Hemoglobin A1c 7.5 H (4.0-6.0) % Alkaline Phosphatase (38-126) U/L Total Protein (6.3-8.2) g/dL Triglycerides (<150) mg/dL Ur Specific [place] 1.050 H (1.001-1.035) Urine Glucose (UA) 4+ H (Negative) 09/24/18 09/25/18 09/25/18 Range/Units 21:11 04:45 07:05 BUN 26 H (9-20) mg/dL Glucose 147 H (74-99) mg/dL POC Glucose (mg/dL) 188 H 172 H (75-99) mg/dL Hemoglobin A1c (4.0-6.0) % Alkaline Phosphatase 29 L (38-126) U/L Total Protein 5.8 L (6.3-8.2) g/dL Triglycerides 201 H (<150) mg/dL Ur Specific [place] (1.001-1.035) Urine Glucose (UA) (Negative) Microbiology - Last 24 Hours (Table) 09/24/18 20:30 Nasal Screen MRSA/MSSA - Preliminary Nasal Swab 09/24/18 18:00 Urine Culture - Preliminary Urine,Clean Catch Diabetes panel 09/24/18 09/25/18 Range/Units 04:32 04:45 Sodium 138 (137-145) mmol/L Potassium 4.2 (3.5-5.1) mmol/L Chloride 107 (98-107) mmol/L Carbon Dioxide 24 (22-30) mmol/L BUN 26 H (9-20) mg/dL Creatinine 1.21 (0.66-1.25) mg/dL Glucose 147 H (74-99) mg/dL Hemoglobin A1c 7.5 H (4.0-6.0) % Calcium 9.5 (8.4-10.2) mg/dL AST 19 (17-59) U/L ALT 24 (21-72) U/L Alkaline Phosphatase 29 L (38-126) U/L Total Protein 5.8 L (6.3-8.2) g/dL Albumin 3.5 (3.5-5.0) g/dL Triglycerides 201 H (<150) mg/dL HDL Cholesterol 43 (40-60) mg/dL Thyroid panel 09/25/18 Range/Units 04:45 TSH 2.330 (0.465-4.680) mIU/L Calcium panel 09/25/18 Range/Units 04:45 Calcium 9.5 (8.4-10.2) mg/dL Albumin 3.5 (3.5-5.0) g/dL Pituitary panel 09/25/18 Range/Units 04:45 Sodium 138 (137-145) mmol/L Potassium 4.2 (3.5-5.1) mmol/L Chloride 107 (98-107) mmol/L Carbon Dioxide 24 (22-30) mmol/L BUN 26 H (9-20) mg/dL Creatinine 1.21 (0.66-1.25) mg/dL Glucose 147 H (74-99) mg/dL Calcium 9.5 (8.4-10.2) mg/dL TSH 2.330 (0.465-4.680) mIU/L Adrenal panel 09/25/18 Range/Units 04:45 Sodium 138 (137-145) mmol/L Potassium 4.2 (3.5-5.1) mmol/L Chloride 107 (98-107) mmol/L Carbon Dioxide 24 (22-30) mmol/L BUN 26 H (9-20) mg/dL Creatinine 1.21 (0.66-1.25) mg/dL Glucose 147 H (74-99) mg/dL Calcium 9.5 (8.4-10.2) mg/dL Total Bilirubin 0.7 (0.2-1.3) mg/dL AST 19 (17-59) U/L ALT 24 (21-72) U/L Alkaline Phosphatase 29 L (38-126) U/L Total Protein 5.8 L (6.3-8.2) g/dL Albumin 3.5 (3.5-5.0) g/dL - Imaging Chest x-ray: report reviewed, image reviewed EKG: image reviewed Additional studies: Cardiac catheterization films, echocardiogram films reviewed Assessment and Plan (1) Non-STEMI (non-ST elevated myocardial infarction) Current Visit: Yes Status: Acute Code(s): I21.4 - NON-ST ELEVATION (NSTEMI) MYOCARDIAL INFARCTION SNOMED Code(s): 14248843 (2) Acute systolic heart failure Current Visit: Yes Status: Acute Code(s): I50.21 - ACUTE SYSTOLIC ( CONGESTIVE) HEART FAILURE SNOMED Code(s): 503901506 (3) Severe aortic stenosis Current Visit: Yes Status: Acute Code(s): I35.0 - NONRHEUMATIC AORTIC (VALVE ) STENOSIS SNOMED Code(s): 87234936 (4) Severe aortic insufficiency Current Visit: Yes Status: Acute Code(s): I35.1 - NONRHEUMATIC AORTIC (VALVE ) INSUFFICIENCY SNOMED Code(s): 10219036 Plan: The patient was seen and examined at the bedside with Dr. Alejandre. Chart/ diagnostics reviewed including heart catheterization films, surface echocardiogram, and transesophageal echocardiogram. The usual perioperative course was discussed in detail with the patient and his daughter at the bedside. Risks and benefits were discussed in detail, all questions were answered. Preoperative testing was ordered, radial artery dependency studies and dentist consult for clearance remain pending. We recommend maximizing medical therapy with aspirin, statin, beta irasema therapy, however patient does state that he is completely intolerant of all statins with resultant severe lower extremity muscle pain and inability to walk. Our plan is for aortic valve replacement with coronary artery bypass graft surgery in the early part of next week to allow patient to recover from non-STEMI and to gain time on medical therapy assuming patient receives dental clearance for valve surgery. This was discussed with the patient and his daughter and they are agreeable. To be discussed with Dr. Arce. Continued medical management per Dr. Potts and Dr. Arce. More recommendations to follow. Thank you Dr. Arce for this consult. We look forward to working with you in the care of your patient. Time with Patient: Greater than 30
--- NOTE | 2018-09-25 13:34 | P.PN ---
Subjective Progress Note Date: 09/25/18 This is a 58-year-old male patient of Dr. Duke. Patient presented to the emergency room with complaints of chest pain. Patient reports this chest pain has been occurring for over a year. Patient does report that since pain has significantly increased. With chest pain patient also experiences shortness of breath. She does have a past medical history of diverticulitis mellitus, GERD, hyperlipidemia, hypertension, osteoporosis, sleep apnea, seasonal ALLERGIES and ex-smoker. Patient states he quit in . EKG completed emergency room showing normal sinus rhythm, possible left atrial enlargement. Patient also reports that he had seen Dr. SAILAJA Bermeo for pulmonary due to increasing shortness of breath. Chest x-ray completed emergency room showing patchy perihilar and basal infiltrate noted. Correlate for underlying pneumonia. troponin 0.287. cardiology services have been consulted. At this time patient is resting comfortably bed. Patient denies any chest pain or shortness breath. Denies nausea vomiting or diarrhea. Patient denies any urinary burning or frequency. 09/24/2018 patient underwent cardiac catheterization today showing triple- vessel coronary disease. Severely impaired left ventricle systolic function with severe aortic stenosis. And mild pulmonary hypertension. Cardiology is recommending proceeding with evaluation for coronary artery bypass grafting and aortic valve replacement. And they have scheduled the patient for a VAISHNAVI. Is currently chest pain-free. He does report he gets pain with activity. Echo shows an EF of 25-30%. Creatinine is at 1.37. He did receive a dose of IV Lasix yesterday for BNP in the 5000. 09/25/2018 patient seen by cardiothoracic service. Cardiothoracic has ordered preoperative testing. He also recommending dental clearance consult has already been placed. Patient did have a VAISHNAVI today showing dilated left ventricle with severe global hypokinesis severe aortic regurgitation with moderate to severe aortic stenosis. Carotid Doppler was negative for any significant hemodynamic stenosis. Creatinine has decreased from 1.37-1.21. Blood sugar this morning was 147 blood sugar this afternoon 231. Glipizide 5 mg twice a day has been ordered. Patient remains in the ICU. Currently chest pain-free. Reports a small post bowel movement yesterday. Colace will be added. Objective - Vital Signs Vital signs: Vital Signs Temp 98.4 F 09/25/18 12:00 Pulse 72 09/25/18 12:00 Resp 19 09/25/18 12:00 BP 116/60 09/25/18 12:00 Pulse Ox 93 L 09/25/18 08:00 Intake & Output 09/24/18 09/25/18 09/25/18 18:59 06:59 18:59 Intake Total 800 1095 600 Balance 800 1095 600 Weight 119.7 kg Intake: IV 300 375 100 NS 300 375 Oral 500 720 500 Other: # Voids 3 0 1 - Exam Head normocephalic Neck supple Lungs clear to auscultation bilaterally no wheezing or crackles Heart regular rate and rhythm S1-S2, no rub or gallop Abdomen is soft nontender nondistended positive bowel sounds no hepatosplenomegaly Extremities no edema Neuro alert and orientated to 3 - Labs CBC & Chem 7: 09/25/18 04:45 09/25/18 04:45 Labs: Abnormal Lab Results - Last 24 Hours (Table) 09/24/18 09/24/18 09/24/18 Range/Units 04:32 17:54 18:00 BUN (9-20) mg/dL Glucose (74-99) mg/dL POC Glucose (mg/dL) 139 H (75-99) mg/dL Hemoglobin A1c 7.5 H (4.0-6.0) % Alkaline Phosphatase (38-126) U/L Total Protein (6.3-8.2) g/dL Triglycerides (<150) mg/dL Ur Specific [place] 1.050 H (1.001-1.035) Urine Glucose (UA) 4+ H (Negative) 09/24/18 09/25/18 09/25/18 Range/Units 21:11 04:45 07:05 BUN 26 H (9-20) mg/dL Glucose 147 H (74-99) mg/dL POC Glucose (mg/dL) 188 H 172 H (75-99) mg/dL Hemoglobin A1c (4.0-6.0) % Alkaline Phosphatase 29 L (38-126) U/L Total Protein 5.8 L (6.3-8.2) g/dL Triglycerides 201 H (<150) mg/dL Ur Specific [place] (1.001-1.035) Urine Glucose (UA) (Negative) 09/25/18 Range/Units 11:54 BUN (9-20) mg/dL Glucose (74-99) mg/dL POC Glucose (mg/dL) 231 H (75-99) mg/dL Hemoglobin A1c (4.0-6.0) % Alkaline Phosphatase (38-126) U/L Total Protein (6.3-8.2) g/dL Triglycerides (<150) mg/dL Ur Specific [place] (1.001-1.035) Urine Glucose (UA) (Negative) Microbiology - Last 24 Hours (Table) 09/24/18 20:30 Nasal Screen MRSA/MSSA - Preliminary Nasal Swab 09/24/18 18:00 Urine Culture - Preliminary Urine,Clean Catch Assessment and Plan Assessment: 1. Chest pain with non-ST elevated myocardial infarction present on admission. Status post heart catheterization with triple-vessel disease and severe aortic stenosis. Echo shows an EF of 25-30%. Patient had VAISHNAVI completed today results as stated above. Patient evaluated by cardiothoracic team for possible coronary artery bypass graft. Preoperative testing has been initiated by cardiothoracic team. Patient will require dental clearance prior to any procedures. Continue aspirin, beta irasema and statin 2. Possible pneumonia. completed showing patchy perihilar and basal infiltrate noted. Correlate for underlying pneumonia. Patient currently follows with Dr. SAILAJA Bermeo outpatient. Patient has been started on Rocephin and Zithromax for antibiotics. Dr. SAILAJA Bermeo has been consulted 3. Diabetes mellitus type 2. Continue NovoLog sliding scale coverage. A1c is 7.5. Patient is having some elevated blood sugars. We'll start patient on glipizide 5 mg twice a day and monitor 4. History of GERD 5. History of essential hypertension. 6. History of hyperlipidemia 7. History of osteoarthritis 8. History of sleep apnea. Patient reports he wears CPAP machine 9. History of seasonal ALLERGIES. 10. Acute kidney injury creatinine is 1.37 patient did receive a dose of IV Lasix yesterday for some fluid overload. Continue with fluid hydration and monitoring kidney functions closely. Creatinine is improving it's down to 1.21 I performed an examination of the patient and discussed their management with the physician Economics Analyst. I have reviewed the Physician Economics Analyst's notes and agree with the documented findings and plan of care
[2018-09-25 14:00] LABS: Hepatitis A Antibody IgM Non-Reactive (Non-Reactive); Hepatitis B Core IgM Non-Reactive (Non-Reactive)
--- NOTE | 2018-09-25 14:05 | P.GSCN ---
History of Present Illness Consult date: 09/25/18 Reason for Consult: Dental Clearance for open heart surgery Past Medical History Past Medical History: Chest Pain / Angina, Diabetes Mellitus, GERD/Reflux, Hyperlipidemia, Hypertension, Osteoarthritis (OA), Sleep Apnea/CPAP/BIPAP Additional Past Medical History / Comment(s): seasonal allergies History of Any Multi-Drug Resistant Organisms: None Reported Past Surgical History: Joint Replacement, Orthopedic Surgery Additional Past Surgical History / Comment(s): right knee replaced, left shoulder surg., right arm surg., pilonidal cyst surg., multiple myringotomies. LEFT TOTAL KNEE ON 05/30/14. screws/plates in right arm Additional Past Anesthesia/Blood Transfusion Reaction / Comm: states has small airway, has had problems w/intubation in the past Past Psychological History: No Psychological Hx Reported Smoking Status: Former smoker Past Alcohol Use History: None Reported Past Drug Use History: None Reported - Past Family History Father Family Medical History: Diabetes Mellitus Additional Family Medical History / Comment(s): father at age 74-drowning. Mother History Unknown: Yes Family Medical History: No Reported History Additional Family Medical History / Comment(s): MOTHER AT AGE 70 OF UNKNOWN CAUSES. Medications and Allergies Home Medications Medication Instructions Recorded Confirmed Type Canagliflozin [Invokana] 300 mg PO HS 10/14/15 09/23/18 History Glimepiride [Amaryl] 4 mg PO DAILY 10/14/15 09/23/18 History Losartan Potassium 100 mg PO QAM 10/14/15 09/23/18 History metFORMIN HCL [Glucophage] 500 mg PO BID 10/14/15 09/23/18 History Omeprazole [PriLOSEC] 20 mg PO BID 06/06/16 09/23/18 History Dulaglutide [Trulicity] 1.5 mg SQ HARRISON 09/23/18 09/23/18 History Fenofibrate 160 mg PO DAILY 09/23/18 09/23/18 History Glimepiride [Amaryl] 2 mg PO HS 09/23/18 09/23/18 History Multivitamins, Thera [Multivitamin 1 tab PO BID 09/23/18 09/23/18 History (formulary)] amLODIPine [Norvasc] 10 mg PO DAILY 09/23/18 09/23/18 History Allergies Allergy/AdvReac Type Severity Reaction Status Date / Time Lzubuve-Plk-Lxl Reductase AdvReac muscle Verified 09/23/18 09:42 Inhibitor cramps Surgical - Exam Vital Signs Temp Pulse Resp BP Pulse Ox 98.2 F 77 18 113/65 96 09/23/18 07:32 09/23/18 07:32 09/23/18 07:32 09/23/18 07:32 09/23/18 07:32 Results Patient is not cleared dentally for surgery. Patient currently has an abscess on tooth #18 with a buccal fistula present, that patient reports "drains and fills up over time". Tooth #18 also has a mobile loose gold inlay. The tooth will require extraction prior to open heart surgery. Will schedule for extraction with the hospital as soon as possible. - Labs 09/25/18 04:45 09/25/18 04:45 Abnormal Lab Results - Last 24 Hours (Table) 09/24/18 09/24/18 09/24/18 Range/Units 17:54 18:00 21:11 BUN (9-20) mg/dL Glucose (74-99) mg/dL POC Glucose (mg/dL) 139 H 188 H (75-99) mg/dL Alkaline Phosphatase (38-126) U/L Total Protein (6.3-8.2) g/dL Triglycerides (<150) mg/dL Ur Specific Preston 1.050 H (1.001-1.035) Urine Glucose (UA) 4+ H (Negative) 09/25/18 09/25/18 09/25/18 Range/Units 04:45 07:05 11:54 BUN 26 H (9-20) mg/dL Glucose 147 H (74-99) mg/dL POC Glucose (mg/dL) 172 H 231 H (75-99) mg/dL Alkaline Phosphatase 29 L (38-126) U/L Total Protein 5.8 L (6.3-8.2) g/dL Triglycerides 201 H (<150) mg/dL Ur Specific Preston (1.001-1.035) Urine Glucose (UA) (Negative) Microbiology - Last 24 Hours (Table) 09/24/18 20:30 Nasal Screen MRSA/MSSA - Preliminary Nasal Swab 09/24/18 18:00 Urine Culture - Preliminary Urine,Clean Catch Diabetes panel 09/25/18 Range/Units 04:45 Sodium 138 (137-145) mmol/L Potassium 4.2 (3.5-5.1) mmol/L Chloride 107 (98-107) mmol/L Carbon Dioxide 24 (22-30) mmol/L BUN 26 H (9-20) mg/dL Creatinine 1.21 (0.66-1.25) mg/dL Glucose 147 H (74-99) mg/dL Calcium 9.5 (8.4-10.2) mg/dL AST 19 (17-59) U/L ALT 24 (21-72) U/L Alkaline Phosphatase 29 L (38-126) U/L Total Protein 5.8 L (6.3-8.2) g/dL Albumin 3.5 (3.5-5.0) g/dL Triglycerides 201 H (<150) mg/dL HDL Cholesterol 43 (40-60) mg/dL Thyroid panel 09/25/18 Range/Units 04:45 TSH 2.330 (0.465-4.680) mIU/L Calcium panel 09/25/18 Range/Units 04:45 Calcium 9.5 (8.4-10.2) mg/dL Albumin 3.5 (3.5-5.0) g/dL Pituitary panel 09/25/18 Range/Units 04:45 Sodium 138 (137-145) mmol/L Potassium 4.2 (3.5-5.1) mmol/L Chloride 107 (98-107) mmol/L Carbon Dioxide 24 (22-30) mmol/L BUN 26 H (9-20) mg/dL Creatinine 1.21 (0.66-1.25) mg/dL Glucose 147 H (74-99) mg/dL Calcium 9.5 (8.4-10.2) mg/dL TSH 2.330 (0.465-4.680) mIU/L Adrenal panel 09/25/18 Range/Units 04:45 Sodium 138 (137-145) mmol/L Potassium 4.2 (3.5-5.1) mmol/L Chloride 107 (98-107) mmol/L Carbon Dioxide 24 (22-30) mmol/L BUN 26 H (9-20) mg/dL Creatinine 1.21 (0.66-1.25) mg/dL Glucose 147 H (74-99) mg/dL Calcium 9.5 (8.4-10.2) mg/dL Total Bilirubin 0.7 (0.2-1.3) mg/dL AST 19 (17-59) U/L ALT 24 (21-72) U/L Alkaline Phosphatase 29 L (38-126) U/L Total Protein 5.8 L (6.3-8.2) g/dL Albumin 3.5 (3.5-5.0) g/dL Assessment and Plan Assessment: Abscessed tooth #18 will require extraction prior to surgery
[2018-09-25] MEDS: AZITHROMYCIN 500 MG TAB PO SCH (17:16)
[2018-09-25 17:23] LABS: Glucose,Whole Blood 163 mg/dL (75-99)
[2018-09-25] MEDS ORDERED: glipiZIDE 5 MG TAB PO SCH (17:30)
[2018-09-25] MEDS: PENICILLIN V POTASSIUM 250 MG TAB PO SCH ×2 (17:54→21:50)
[2018-09-25 21:16] LABS: Glucose,Whole Blood 181 mg/dL (75-99)
[2018-09-25] MEDS: GLIMEPIRIDE 2 MG TAB PO SCH (21:51)
[2018-09-25] MEDS: DOCUSATE 100 MG CAP PO SCH (21:51)
[2018-09-25] MEDS: MUPIROCIN 2% OINT 22 GM TUBE TOPICAL SCH (21:52)
--- NOTE | 2018-09-25 22:25 | CT ---
EXAMINATION TYPE: CT facial bones wo con DATE OF EXAM: 09/25/2018 COMPARISON: None HISTORY: Preop valve surgery. Panorex view. CT DLP: 733.6 mGycm Automated exposure control for dose reduction was used. TECHNIQUE: CT scan of the sinuses is performed without contrast, axial and sagittal and coronal image s are obtained; a Panorex view also included. FINDINGS: The paranasal sinuses including the frontal, ethmoid, sphenoid, and maxillary sinuses bila terally are well-aerated without abnormal opacification. The ostiomeatal complex is patent bilateral ly on the coronal images. The middle ear cavities and mastoid air cells are clear. The globes are intact bilaterally. IMPRESSION: No acute process.
[2018-09-26] MEDS: NITROGLYCERIN OINT 1 INCH/GM PACKET TOPICAL SCH
[2018-09-26 05:31] LABS: Potassium 4.3 mmol/L (3.5-5.1)
[2018-09-26 05:32] LABS: Albumin 3.8 g/dL (3.5-5.0); Calcium 9.7 mg/dL (8.4-10.2); Total Bilirubin 0.7 mg/dL (0.2-1.3); Total Protein 6.3 g/dL (6.3-8.2)
[2018-09-26 05:43] LABS: Basophils % (A) 1 %; Eosinophils # (A) 0.2 k/uL (0-0.7); Eosinophils % (A) 3 %; HCT 47.4 % (39.0-53.0); HGB 15.3 gm/dL (13.0-17.5); Lymphocytes # (A) 1.9 k/uL (1.0-4.8); Lymphocytes % (A) 30 %; MCH 30.4 pg (25.0-35.0); MCHC 32.2 g/dL (31.0-37.0); MCV 94.3 fL (80.0-100.0); Mean Platelet Volume 6.5; Monocytes # (A) 0.4 k/uL (0-1.0); Monocytes % (A) 6 %; Neutrophils # (A) 3.7 k/uL (1.3-7.7); Neutrophils % (A) 59 %; Platelet Count 227 k/uL (150-450); RBC 5.02 m/uL (4.30-5.90); RDW 12.7 % (11.5-15.5); WBC 6.3 k/uL (3.8-10.6)
[2018-09-26] MEDS: INSULIN ASPART (NovoLOG) 100 UNIT/ML VIAL SQ SCH ×4 (07:00→21:33)
[2018-09-26 07:11] LABS: Glucose,Whole Blood 133 mg/dL (75-99)
[2018-09-26] MEDS ORDERED: glipiZIDE 5 MG TAB PO SCH (07:30)
--- NOTE | 2018-09-26 07:47 | PN ---
PROGRESS NOTE Mr. Kumar is 58-year-old male who presented with symptoms of progressive dyspnea and chest discomfort, was found to have severe cardiomyopathy in addition to severe aortic stenosis and regurgitation with severe coronary artery disease. He is scheduled to undergo coronary artery bypass grafting. He was found to have an abscess on tooth #18 and scheduled to undergo extraction today. He is doing well. He is denying any chest pain. His breathing has been stable. He denies any dizziness or palpitation. He denies any nausea. He continued to be on aspirin 81 mg daily, Lipitor 80 mg daily, glimepiride, losartan 100 mg daily, metoprolol tartrate 25 mg twice a day, nitro paste. PHYSICAL EXAMINATION: Blood pressure 110/60 with the heart rate in the 60s. LUNGS: Clear. HEART: Regular rate and rhythm. S1, S2 with systolic ejection murmur and a diastolic murmur heard at the base. No rub. ABDOMEN: Soft, nontender, obese. EXTREMITIES: No edema. LAB DATA: Lab data revealed BUN and creatinine 28 and 1.17, potassium 4.3. Hemoglobin 15.3, white blood cell 6.3. IMPRESSION: 1. Severe cardiomyopathy with severe mixed aortic valve disease. 2. Severe coronary artery disease. 3. Hypertension. 4. Hyperlipidemia. 5. Diabetes mellitus. RECOMMENDATION: Patient will undergo the tooth extraction today. Continue on the present therapy. We will increase his level of activity. Depending on his progress, he may be able to be discharged home in 24 to 48 hours to be readmitted electively to undergo surgery early next week. MMODL / IJN: [id number] /
[2018-09-26] MEDS: PENICILLIN V POTASSIUM 250 MG TAB PO SCH ×4 (08:16→22:35)
[2018-09-26] MEDS: ATORVASTATIN 80 MG TAB PO SCH (08:16)
[2018-09-26] MEDS: METOPROLOL TARTRATE 25 MG TAB PO SCH ×2 (08:16→21:32)
[2018-09-26] MEDS: DOCUSATE 100 MG CAP PO SCH ×2 (08:17→21:32)
[2018-09-26] MEDS: PANTOPRAZOLE 40 MG TABLET PO SCH ×2 (08:17→17:08)
[2018-09-26] MEDS: ASPIRIN 81 MG PO SCH (08:17)
[2018-09-26] MEDS: GLIMEPIRIDE 4 MG TAB PO SCH (08:19)
[2018-09-26] MEDS: MUPIROCIN 2% OINT 22 GM TUBE TOPICAL SCH ×2 (08:20→21:33)
[2018-09-26] MEDS: LORATADINE-PSEUDOEPH 5-120 MG 1 EACH TAB.ER.12H PO SCH (08:20)
[2018-09-26] MEDS ORDERED: LACTATED RINGERS 1,000 ML IV ONE (09:12)
--- NOTE | 2018-09-26 09:41 | P.GSCN ---
History of Present Illness Consult date: 09/26/18 Reason for Consult: Pt presented with an absessed tooth #18. Tooth needs to be extracted before scheduling the open heart surgery. Xray was taken yesterday and shows radiolucency on the D root, and clinically shows the active absess. Citanest Forte 4% , 2 carpules, regional block, and local infiltration. -#18 Surgical extraction of an erupted tooth. Post op instructions given verbally and in writing. Patient tolerated the procedure well and was dismissed in a satisfactory manner. Pt was given oral sedation as well. Past Medical History Past Medical History: Chest Pain / Angina, Diabetes Mellitus, GERD/Reflux, Hyperlipidemia, Hypertension, Osteoarthritis (OA), Sleep Apnea/CPAP/BIPAP Additional Past Medical History / Comment(s): seasonal allergies History of Any Multi-Drug Resistant Organisms: None Reported Past Surgical History: Joint Replacement, Orthopedic Surgery Additional Past Surgical History / Comment(s): right knee replaced, left shoulder surg., right arm surg., pilonidal cyst surg., multiple myringotomies. LEFT TOTAL KNEE ON 05/30/14. screws/plates in right arm Additional Past Anesthesia/Blood Transfusion Reaction / Comm: states has small airway, has had problems w/intubation in the past Past Psychological History: No Psychological Hx Reported Smoking Status: Former smoker Past Alcohol Use History: None Reported Past Drug Use History: None Reported - Past Family History Father Family Medical History: Diabetes Mellitus Additional Family Medical History / Comment(s): father at age 74-drowning. Mother History Unknown: Yes Family Medical History: No Reported History Additional Family Medical History / Comment(s): MOTHER AT AGE 70 OF UNKNOWN CAUSES. Medications and Allergies Home Medications Medication Instructions Recorded Confirmed Type Canagliflozin [Invokana] 300 mg PO HS 10/14/15 09/23/18 History Glimepiride [Amaryl] 4 mg PO DAILY 10/14/15 09/23/18 History Losartan Potassium 100 mg PO QAM 10/14/15 09/23/18 History metFORMIN HCL [Glucophage] 500 mg PO BID 10/14/15 09/23/18 History Omeprazole [PriLOSEC] 20 mg PO BID 06/06/16 09/23/18 History Dulaglutide [Trulicity] 1.5 mg SQ HARRISON 09/23/18 09/23/18 History Fenofibrate 160 mg PO DAILY 09/23/18 09/23/18 History Glimepiride [Amaryl] 2 mg PO HS 09/23/18 09/23/18 History Multivitamins, Thera [Multivitamin 1 tab PO BID 09/23/18 09/23/18 History (formulary)] amLODIPine [Norvasc] 10 mg PO DAILY 09/23/18 09/23/18 History Allergies Allergy/AdvReac Type Severity Reaction Status Date / Time Vrqyouv-Lkf-Nea Reductase AdvReac muscle Verified 09/23/18 09:42 Inhibitor cramps Surgical - Exam Vital Signs Temp Pulse Resp BP Pulse Ox 98.2 F 77 18 113/65 96 09/23/18 07:32 09/23/18 07:32 09/23/18 07:32 09/23/18 07:32 09/23/18 07:32 Results - Labs 09/26/18 04:46 09/26/18 04:46 Abnormal Lab Results - Last 24 Hours (Table) 09/25/18 09/25/18 09/25/18 Range/Units 11:54 12:44 17:22 Chloride (98-107) mmol/L BUN (9-20) mg/dL Glucose (74-99) mg/dL POC Glucose (mg/dL) 231 H 163 H (75-99) mg/dL Alkaline Phosphatase (38-126) U/L Troponin I 0.152 H* (0.000-0.034) ng/mL 09/25/18 09/26/18 09/26/18 Range/Units 21:14 04:46 07:09 Chloride 109 H (98-107) mmol/L BUN 28 H (9-20) mg/dL Glucose 146 H (74-99) mg/dL POC Glucose (mg/dL) 181 H 133 H (75-99) mg/dL Alkaline Phosphatase 29 L (38-126) U/L Troponin I (0.000-0.034) ng/mL Microbiology - Last 24 Hours (Table) 09/24/18 18:00 Urine Culture - Final Urine,Clean Catch Diabetes panel 09/26/18 Range/Units 04:46 Sodium 141 (137-145) mmol/L Potassium 4.3 (3.5-5.1) mmol/L Chloride 109 H (98-107) mmol/L Carbon Dioxide 24 (22-30) mmol/L BUN 28 H (9-20) mg/dL Creatinine 1.17 (0.66-1.25) mg/dL Glucose 146 H (74-99) mg/dL Calcium 9.7 (8.4-10.2) mg/dL AST 29 (17-59) U/L ALT 33 (21-72) U/L Alkaline Phosphatase 29 L (38-126) U/L Total Protein 6.3 (6.3-8.2) g/dL Albumin 3.8 (3.5-5.0) g/dL Calcium panel 09/26/18 Range/Units 04:46 Calcium 9.7 (8.4-10.2) mg/dL Albumin 3.8 (3.5-5.0) g/dL Pituitary panel 09/26/18 Range/Units 04:46 Sodium 141 (137-145) mmol/L Potassium 4.3 (3.5-5.1) mmol/L Chloride 109 H (98-107) mmol/L Carbon Dioxide 24 (22-30) mmol/L BUN 28 H (9-20) mg/dL Creatinine 1.17 (0.66-1.25) mg/dL Glucose 146 H (74-99) mg/dL Calcium 9.7 (8.4-10.2) mg/dL Adrenal panel 09/26/18 Range/Units 04:46 Sodium 141 (137-145) mmol/L Potassium 4.3 (3.5-5.1) mmol/L Chloride 109 H (98-107) mmol/L Carbon Dioxide 24 (22-30) mmol/L BUN 28 H (9-20) mg/dL Creatinine 1.17 (0.66-1.25) mg/dL Glucose 146 H (74-99) mg/dL Calcium 9.7 (8.4-10.2) mg/dL Total Bilirubin 0.7 (0.2-1.3) mg/dL AST 29 (17-59) U/L ALT 33 (21-72) U/L Alkaline Phosphatase 29 L (38-126) U/L Total Protein 6.3 (6.3-8.2) g/dL Albumin 3.8 (3.5-5.0) g/dL
--- NOTE | 2018-09-26 10:49 | P.PN ---
Subjective Progress Note Date: 09/26/18 This is a 58-year-old male patient of Dr. Duke. Patient presented to the emergency room with complaints of chest pain. Patient reports this chest pain has been occurring for over a year. Patient does report that since pain has significantly increased. With chest pain patient also experiences shortness of breath. She does have a past medical history of diverticulitis mellitus, GERD, hyperlipidemia, hypertension, osteoporosis, sleep apnea, seasonal ALLERGIES and ex-smoker. Patient states he quit in . EKG completed emergency room showing normal sinus rhythm, possible left atrial enlargement. Patient also reports that he had seen Dr. SAILAJA Bermeo for pulmonary due to increasing shortness of breath. Chest x-ray completed emergency room showing patchy perihilar and basal infiltrate noted. Correlate for underlying pneumonia. troponin 0.287. cardiology services have been consulted. At this time patient is resting comfortably bed. Patient denies any chest pain or shortness breath. Denies nausea vomiting or diarrhea. Patient denies any urinary burning or frequency. 09/24/2018 patient underwent cardiac catheterization today showing triple- vessel coronary disease. Severely impaired left ventricle systolic function with severe aortic stenosis. And mild pulmonary hypertension. Cardiology is recommending proceeding with evaluation for coronary artery bypass grafting and aortic valve replacement. And they have scheduled the patient for a VAISHNAVI. Is currently chest pain-free. He does report he gets pain with activity. Echo shows an EF of 25-30%. Creatinine is at 1.37. He did receive a dose of IV Lasix yesterday for BNP in the 5000. 09/25/2018 patient seen by cardiothoracic service. Cardiothoracic has ordered preoperative testing. He also recommending dental clearance consult has already been placed. Patient did have a VAISHNAVI today showing dilated left ventricle with severe global hypokinesis severe aortic regurgitation with moderate to severe aortic stenosis. Carotid Doppler was negative for any significant hemodynamic stenosis. Creatinine has decreased from 1.37-1.21. Blood sugar this morning was 147 blood sugar this afternoon 231. Glipizide 5 mg twice a day has been ordered. Patient remains in the ICU. Currently chest pain-free. Reports a small post bowel movement yesterday. Colace will be added. 09/26/2018 patient currently resting comfortably in bed. Patient status post tooth extraction with Dr. Gilbert today. Blood sugars have improved. This time patient denies chest pain or shortness breath. Patient denies nausea vomiting or diarrhea. Patient denies any urinary burning or frequency. Objective - Vital Signs Vital signs: Vital Signs Temp 97.8 F 09/26/18 08:00 Pulse 67 09/26/18 08:00 Resp 18 09/26/18 08:00 BP 110/86 09/26/18 08:00 Pulse Ox 95 09/26/18 08:00 Intake & Output 09/25/18 09/26/18 09/26/18 18:59 06:59 18:59 Intake Total 1200 700 250 Output Total 1 Balance 1200 700 249 Weight 120.4 kg Intake: IV 200 250 cefriaxone 100 Oral 1000 700 0 Output: Estimated Blood Loss 1 Other: # Voids 2 1 # Bowel Movements 1 - Exam Head normocephalic Neck supple Lungs clear to auscultation bilaterally no wheezing or crackles Heart regular rate and rhythm S1-S2, no rub or gallop Abdomen is soft nontender nondistended positive bowel sounds no hepatosplenomegaly Extremities no edema Neuro alert and orientated to 3 - Labs CBC & Chem 7: 09/26/18 04:46 09/26/18 04:46 Labs: Abnormal Lab Results - Last 24 Hours (Table) 09/25/18 09/25/18 09/25/18 Range/Units 11:54 12:44 17:22 Chloride (98-107) mmol/L BUN (9-20) mg/dL Glucose (74-99) mg/dL POC Glucose (mg/dL) 231 H 163 H (75-99) mg/dL Alkaline Phosphatase (38-126) U/L Troponin I 0.152 H* (0.000-0.034) ng/mL 09/25/18 09/26/18 09/26/18 Range/Units 21:14 04:46 07:09 Chloride 109 H (98-107) mmol/L BUN 28 H (9-20) mg/dL Glucose 146 H (74-99) mg/dL POC Glucose (mg/dL) 181 H 133 H (75-99) mg/dL Alkaline Phosphatase 29 L (38-126) U/L Troponin I (0.000-0.034) ng/mL Microbiology - Last 24 Hours (Table) 09/24/18 20:30 Nasal Screen MRSA/MSSA - Final Nasal Swab 09/24/18 18:00 Urine Culture - Final Urine,Clean Catch Assessment and Plan Assessment: 1. Chest pain with non-ST elevated myocardial infarction present on admission. Status post heart catheterization with triple-vessel disease and severe aortic stenosis. Echo shows an EF of 25-30%. Patient had VAISHNAVI completed today results as stated above. Patient evaluated by cardiothoracic team for possible coronary artery bypass graft. Preoperative testing has been initiated by cardiothoracic team. Patient will require dental clearance prior to any procedures. Continue aspirin, beta irasema and statin 2. Possible pneumonia. completed showing patchy perihilar and basal infiltrate noted. Correlate for underlying pneumonia. Patient currently follows with Dr. SAILAJA Bermeo outpatient. Patient has been started on Rocephin and Zithromax for antibiotics. Pulmonary services likely pulmonary vascular congestion and pulmonary edema, less likely pneumonia. Antibiotics discontinued 3. Diabetes mellitus type 2. Continue NovoLog sliding scale coverage. A1c is 7.5. Patient is having some elevated blood sugars. We'll start patient on glipizide 5 mg twice a day and monitor 4. History of GERD 5. History of essential hypertension. 6. History of hyperlipidemia 7. History of osteoarthritis 8. History of sleep apnea. Patient reports he wears CPAP machine 9. History of seasonal ALLERGIES. 10. Acute kidney injury creatinine is 1.37 patient did receive a dose of IV Lasix yesterday for some fluid overload. Continue with fluid hydration and monitoring kidney functions closely. Creatinine is improving it's down to 1.17 11. Tooth abscess. #18 surgical extraction of erupted tooth per Dr. Gilbert on 09/26/2018 patient started on Penicillin VK. I performed an examination of the patient and discussed their management with the Nurse Practitioner. I have reviewed the Nurse Practitioner's notes and agree with the documented findings and plan of care
--- NOTE | 2018-09-26 11:00 | P.PN ---
Subjective Progress Note Date: 09/26/18 Principal diagnosis: Non-STEMI, acute systolic heart failure with EF 20-25 %, severe coronary artery disease, severe aortic stenosis with aortic insufficiency, previous medical history of hypertension, hyperlipidemia, diabetes mellitus with hemoglobin A1c 7.5%, GERD, obstructive sleep apnea with CPAP use, and previous tobacco dependence with recent FEV1 80% of predicted, moderate restriction. The patient was ambulating in his room this morning in no acute distress. Denies any pain or shortness of breath. Patient did have infected tooth which was extracted this morning by Dr. Klein. No new questions at this time. Patient has been noncompliant with heart healthy diet, ordered pizza to be delivered from local [employer] yesterday for lunch. Objective - Vital Signs Vital signs: Vital Signs Temp 97.8 F 09/26/18 08:00 Pulse 67 09/26/18 08:00 Resp 18 09/26/18 08:00 BP 110/86 09/26/18 08:00 Pulse Ox 95 09/26/18 08:00 Intake & Output 09/25/18 09/26/18 09/26/18 18:59 06:59 18:59 Intake Total 1200 700 250 Output Total 1 Balance 1200 700 249 Weight 120.4 kg Intake: IV 200 250 cefriaxone 100 Oral 1000 700 0 Output: Estimated Blood Loss 1 Other: # Voids 2 1 # Bowel Movements 1 - Constitutional General appearance: Present: no acute distress, obese - Respiratory Details: Lungs sounds clear but diminished bilaterally. Respirations even, nonlabored. Currently on room air with oxygen saturation 94%. Able to achieve 2500 mL on his incentive spirometry. Strong cough. - Cardiovascular Details: S1, S2 present. Positive systolic murmur. Regular rate and rhythm, sinus rhythm on telemetry. Palpable peripheral pulses bilaterally. No edema present. No calf pain or tenderness noted. - Gastrointestinal Gastrointestinal Comment(s): Abdomen soft, nontender, nondistended. Active bowel sounds present 4 quadrants. Tolerating diet. - Genitourinary Genitourinary Comment(s): Continues to void clear, yellow urine. - Integumentary Integumentary Comment(s): Skin is warm and dry with evidence of good perfusion. - Neurologic Neurologic: Present: CNII-XII intact - Musculoskeletal Musculoskeletal: Present: gait normal, strength equal bilaterally - Psychiatric Psychiatric: Present: A&O x's 3, appropriate affect, intact judgment & insight - Allied health notes Allied health notes reviewed: nursing - Labs CBC & Chem 7: 09/26/18 04:46 09/26/18 04:46 Labs: Abnormal Lab Results - Last 24 Hours (Table) 09/25/18 09/25/18 09/25/18 Range/Units 11:54 12:44 17:22 Chloride (98-107) mmol/L BUN (9-20) mg/dL Glucose (74-99) mg/dL POC Glucose (mg/dL) 231 H 163 H (75-99) mg/dL Alkaline Phosphatase (38-126) U/L Troponin I 0.152 H* (0.000-0.034) ng/mL 09/25/18 09/26/18 09/26/18 Range/Units 21:14 04:46 07:09 Chloride 109 H (98-107) mmol/L BUN 28 H (9-20) mg/dL Glucose 146 H (74-99) mg/dL POC Glucose (mg/dL) 181 H 133 H (75-99) mg/dL Alkaline Phosphatase 29 L (38-126) U/L Troponin I (0.000-0.034) ng/mL Microbiology - Last 24 Hours (Table) 09/24/18 20:30 Nasal Screen MRSA/MSSA - Final Nasal Swab 09/24/18 18:00 Urine Culture - Final Urine,Clean Catch Assessment and Plan (1) Non-STEMI (non-ST elevated myocardial infarction) Current Visit: Yes Status: Acute Code(s): I21.4 - NON-ST ELEVATION (NSTEMI) MYOCARDIAL INFARCTION SNOMED Code(s): 74039671 (2) Acute systolic heart failure Current Visit: Yes Status: Acute Code(s): I50.21 - ACUTE SYSTOLIC ( CONGESTIVE) HEART FAILURE SNOMED Code(s): 346360507 (3) Severe aortic stenosis Current Visit: Yes Status: Acute Code(s): I35.0 - NONRHEUMATIC AORTIC (VALVE ) STENOSIS SNOMED Code(s): 30956674 (4) Severe aortic insufficiency Current Visit: Yes Status: Acute Code(s): I35.1 - NONRHEUMATIC AORTIC (VALVE ) INSUFFICIENCY SNOMED Code(s): 14704647 Plan: 1. Continue aspirin, statin, beta irasema therapy. Patient does state he is not able to tolerate any statin for any length of time due to extreme muscle pain and inability to walk, however he is agreeable to continue on statin for a short time period pre-and postoperatively. 2. Would discontinue ARB 48 hours prior to surgery to reduce hypotension intraoperatively. 3. Encourage incentive spirometry use. 4. Encourage continued smoking cessation. 5. Our plan at this time is for bioprosthetic aortic valve replacement and coronary artery bypass graft surgery early part of next week, likely Monday. This is agreeable to the patient and Dr. Arce. 6. Continue preoperative teaching. 7. From our standpoint patient could be discharged to home to come back in as an outpatient, however we will defer to cardiology for discharge plans. 8. More recommendations to follow. Time with Patient: Greater than 30
--- NOTE | 2018-09-26 11:35 | P.PN ---
Subjective Progress Note Date: 09/26/18 HPI: This is a 58-year-old male patient being seen examined and evaluated today for consultation who is well-known to our services. This patient came into the emergency room yesterday with complaints of chest pain. His chest pain had been ongoing intermittently over the past year. Since the patient has significantly increased. The patient was being worked up in the outpatient setting with pulmonary and cardiology services. His EKG in the emergency room did show normal sinus rhythm. Chest x-ray did show patchy perihilar and basilar infiltrates. He did have elevated troponins and cardiology is following the patient as well. The patient is scheduled to go for a heart catheterization today with cardiology. Upon examination the patient is resting up in bed on room air. He has occasional shortness of breath with exertion. Occasional nonproductive cough. Echocardiogram reviewed and does show an EF of 25-30% with RVSP of 22. He is also noted to have moderate to severe aortic regurgitation and severe aortic stenosis. Daughter is at bedside updated on plan of care. He currently is waiting to go down for his cardiac catheterization. He has been nothing by mouth since midnight. Interval History: 09/25/18- patient is being seen examined and evaluated today on rounds. He did undergo a VAISHNAVI which did show severely impaired left ventricular function with severe aortic regurgitation and stenosis. He has triple-vessel disease and will require a CABG. Cardiothoracic surgeon has been consulted. The patient will go for many preoperative studies including an ultrasound of the renal arteries CT of the chest, CT of the facial bones, vein mapping. The patient did recently have a PFT in our office last Monday. We will have those results faxed over to the hospital. Upon examination is resting up in bed on room air. Does have some shortness of breath with exertion denies any cough or congestion. Afebrile no further complaints. 09/26/18- patient is being seen examined and evaluated today on rounds. He did go for a dental extraction of an abscessed tooth this morning. Please see procedure notes for those details. He is undergoing workup for cardiothoracic surgery in the near future. FEV1 80% of predicted with moderate restriction. All labs and reports have been reviewed. He is hemodynamically stable. Objective - Vital Signs Vital signs: Vital Signs Temp 97.8 F 09/26/18 08:00 Pulse 67 09/26/18 08:00 Resp 18 09/26/18 08:00 BP 110/86 09/26/18 08:00 Pulse Ox 95 09/26/18 08:00 Intake & Output 09/25/18 09/26/18 09/26/18 18:59 06:59 18:59 Intake Total 1200 700 250 Output Total 1 Balance 1200 700 249 Weight 120.4 kg Intake: IV 200 250 cefriaxone 100 Oral 1000 700 0 Output: Estimated Blood Loss 1 Other: # Voids 2 1 # Bowel Movements 1 - Exam GENERAL EXAM: Alert, comfortable in no apparent distress. HEAD: Normocephalic. EYES: Normal reaction of pupils, equal size. NOSE: Clear with pink turbinates. THROAT: No erythema or exudates. NECK: No masses, no JVD. CHEST: No chest wall deformity. LUNGS: Equal air entry with no crackles, wheeze, rhonchi or dullness. Bases diminished CVS: S1 and S2 normal with no audible mumurs, regular rhythm. ABDOMEN: No hepatosplenomegaly, normal bowel sounds, no guarding or rigidity. EXTREMITIES: No edema noted, pedal pulses palpable. CENTRAL NERVOUS SYSTEM: No focal deficits, tone is normal in all 4 extremities. - Labs CBC & Chem 7: 09/26/18 04:46 09/26/18 04:46 Labs: Abnormal Lab Results - Last 24 Hours (Table) 09/25/18 09/25/18 09/25/18 Range/Units 11:54 12:44 17:22 Chloride (98-107) mmol/L BUN (9-20) mg/dL Glucose (74-99) mg/dL POC Glucose (mg/dL) 231 H 163 H (75-99) mg/dL Alkaline Phosphatase (38-126) U/L Troponin I 0.152 H* (0.000-0.034) ng/mL 09/25/18 09/26/18 09/26/18 Range/Units 21:14 04:46 07:09 Chloride 109 H (98-107) mmol/L BUN 28 H (9-20) mg/dL Glucose 146 H (74-99) mg/dL POC Glucose (mg/dL) 181 H 133 H (75-99) mg/dL Alkaline Phosphatase 29 L (38-126) U/L Troponin I (0.000-0.034) ng/mL Microbiology - Last 24 Hours (Table) 09/24/18 20:30 Nasal Screen MRSA/MSSA - Final Nasal Swab 09/24/18 18:00 Urine Culture - Final Urine,Clean Catch Assessment and Plan Assessment: Acute hypoxic respiratory failure requiring supplemental oxygen NSTEMI Possible early pneumonia, however less likely Diabetes mellitus type 2 GERD Hypertension Hyperlipidemia Obstructive sleep apnea on CPAP Plan Status post abscessed tooth extraction Chest x-ray reviewed and looks more like pulmonary vascular congestion and pulmonary edema, less likely pneumonia FEV1 80% of predicted with moderate restriction Medications have been reviewed and will be continued as ordered. Continue with antibiotics Cardiology on consult patient will be going for a cardiac catheterization today VAISHNAVI reviewed Echocardiogram reviewed and does show an EF of 25-30% Initiate and encourage incentive spirometer Continue with pulmonary hygiene, coughing and deep breathing exercises, and supportive care. Supplemental oxygen to maintain oxygen saturations of 92% or better. Cardiothoracic workup underway GI and DVT prophylaxis. We will continue to monitor labs/results and adjust treatment as necessary. Further recommendations pending. I, the signing physician performed an examination of the patient, discussed and directed their management with the nurse practitioner. I have reviewed the nurse practitioner's note and agree with the documented findings, orders and plan of care. Nurse practitioner acting as a scribe for the signing physician.
[2018-09-26 12:09] LABS: Glucose,Whole Blood 119 mg/dL (75-99)
[2018-09-26] MEDS: LOSARTAN 50 MG TAB PO SCH (13:23)
[2018-09-26 17:03] LABS: Glucose,Whole Blood 134 mg/dL (75-99)
[2018-09-26 20:26] LABS: Glucose,Whole Blood 178 mg/dL (75-99)
[2018-09-26] MEDS: GLIMEPIRIDE 2 MG TAB PO SCH (21:32)
[2018-09-27 06:08] LABS: Glucose,Whole Blood 120 mg/dL (75-99)
[2018-09-27 07:45] LABS: Basophils % (A) 0 %; Eosinophils # (A) 0.2 k/uL (0-0.7); Eosinophils % (A) 3 %; HCT 51.5 % (39.0-53.0); HGB 16.1 gm/dL (13.0-17.5); Lymphocytes % (A) 28 %; MCH 29.7 pg (25.0-35.0); MCHC 31.2 g/dL (31.0-37.0); MCV 95.3 fL (80.0-100.0); Mean Platelet Volume 7.3; Monocytes # (A) 0.4 k/uL (0-1.0); Monocytes % (A) 6 %; Neutrophils # (A) 4.5 k/uL (1.3-7.7); Neutrophils % (A) 62 %; Platelet Count 207 k/uL (150-450); RBC 5.41 m/uL (4.30-5.90); RDW 12.9 % (11.5-15.5); WBC 7.3 k/uL (3.8-10.6)
[2018-09-27] MEDS: INSULIN ASPART (NovoLOG) 100 UNIT/ML VIAL SQ SCH ×4 (07:45→20:33)
[2018-09-27] MEDS: LOSARTAN 50 MG TAB PO SCH (07:53)
[2018-09-27] MEDS: PANTOPRAZOLE 40 MG TABLET PO SCH ×2 (07:53→17:08)
[2018-09-27] MEDS: ASPIRIN 81 MG PO SCH (07:53)
--- NOTE | 2018-09-27 07:53 | P.PN ---
Subjective Progress Note Date: 09/27/18 Principal diagnosis: Non-STEMI, acute systolic heart failure with EF 20-25 %, severe coronary artery disease, severe aortic stenosis with aortic insufficiency, previous medical history of hypertension, hyperlipidemia, diabetes mellitus with hemoglobin A1c 7.5%, GERD, obstructive sleep apnea with CPAP use, and previous tobacco dependence with recent FEV1 80% of predicted, moderate restriction. The patient is currently sitting up in a recliner eating breakfast in no acute distress. Was transferred to 3 S cardiac stepdown unit yesterday, also had tooth extracted yesterday. Did complain of episode of shortness of breath when ambulating to the bathroom this morning around 4 am, lasted about an hour, did state he had a little chest tightness, resolved with rest and no other intervention. Of note, patient is not wearing his prescribed CPAP at night, and is wearing 2 LNC at night instead. Objective - Vital Signs Vital signs: Vital Signs Temp 98.3 F 09/27/18 04:00 Pulse 71 09/27/18 04:00 Resp 22 09/27/18 04:00 BP 127/60 09/27/18 04:00 Pulse Ox 97 09/27/18 04:00 Intake & Output 09/26/18 09/27/18 09/27/18 18:59 06:59 18:59 Intake Total 750 100 Output Total 1 1 300 Balance 749 -1 -200 Weight 122.3 kg Intake: IV 250 Oral 500 100 Output: Urine 1 300 Estimated Blood Loss 1 Other: # Voids 1 1 1 - Constitutional General appearance: Present: cooperative, no acute distress, obese - Respiratory Details: Lungs sounds clear but diminished bilaterally. Respirations even, nonlabored. Currently on 2 LNC with oxygen saturation 97%. Able to achieve 2250 mL on his incentive spirometry. Strong productive cough. - Cardiovascular Details: S1, S2 present. Positive systolic murmur. Regular rate and rhythm, sinus rhythm on telemetry. Palpable peripheral pulses bilaterally. No edema present. No calf pain or tenderness noted. - Gastrointestinal Gastrointestinal Comment(s): Abdomen soft, nontender, nondistended, obese. Active bowel sounds present 4 quadrants. Tolerating diet. - Genitourinary Genitourinary Comment(s): Continues to void clear, yellow urine. - Integumentary Integumentary Comment(s): Skin is warm and dry with evidence of good perfusion. - Neurologic Neurologic: Present: CNII-XII intact - Musculoskeletal Musculoskeletal: Present: gait normal, strength equal bilaterally - Psychiatric Psychiatric: Present: A&O x's 3, appropriate affect, intact judgment & insight - Allied health notes Allied health notes reviewed: nursing - Labs CBC & Chem 7: 09/26/18 04:46 09/26/18 04:46 Labs: Abnormal Lab Results - Last 24 Hours (Table) 09/26/18 09/26/18 09/26/18 Range/Units 12:08 16:42 20:25 POC Glucose (mg/dL) 119 H 134 H 178 H (75-99) mg/dL 09/27/18 Range/Units 06:07 POC Glucose (mg/dL) 120 H (75-99) mg/dL Microbiology - Last 24 Hours (Table) 09/24/18 20:30 Nasal Screen MRSA/MSSA - Final Nasal Swab Assessment and Plan (1) Non-STEMI (non-ST elevated myocardial infarction) Current Visit: Yes Status: Acute Code(s): I21.4 - NON-ST ELEVATION (NSTEMI) MYOCARDIAL INFARCTION SNOMED Code(s): 53253067 (2) Acute systolic heart failure Current Visit: Yes Status: Acute Code(s): I50.21 - ACUTE SYSTOLIC ( CONGESTIVE) HEART FAILURE SNOMED Code(s): 534624427 (3) Severe aortic stenosis Current Visit: Yes Status: Acute Code(s): I35.0 - NONRHEUMATIC AORTIC (VALVE ) STENOSIS SNOMED Code(s): 32354341 (4) Severe aortic insufficiency Current Visit: Yes Status: Acute Code(s): I35.1 - NONRHEUMATIC AORTIC (VALVE ) INSUFFICIENCY SNOMED Code(s): 75409172 Plan: 1. Continue aspirin, statin, beta irasema therapy. Patient does state he is not able to tolerate any statin for any length of time due to extreme muscle pain and inability to walk, however he is agreeable to continue on statin for a short time period pre-and postoperatively. 2. Would discontinue ARB 48 hours prior to surgery to reduce hypotension intraoperatively. 3. Encourage incentive spirometry use. 4. Encourage continued smoking cessation. 5. Our plan at this time is for bioprosthetic aortic valve replacement and coronary artery bypass graft surgery with bilateral mammary artery and endovein harvest early part of next week, likely [place]. 6. Continue preoperative teaching. 7. From our standpoint patient could be discharged to home to come back in as an outpatient, however we will defer to cardiology for discharge plans. 8. Encourage healthier diet, preferably the Mediterranean diet. Will consult dietitian for teaching. 9. More recommendations to follow. Time with Patient: Greater than 30
[2018-09-27] MEDS: METOPROLOL TARTRATE 25 MG TAB PO SCH ×3 (07:54→20:28)
[2018-09-27] MEDS: GLIMEPIRIDE 4 MG TAB PO SCH (07:54)
[2018-09-27] MEDS: ATORVASTATIN 80 MG TAB PO SCH (07:54)
[2018-09-27] MEDS: DOCUSATE 100 MG CAP PO SCH ×2 (07:54→20:28)
[2018-09-27] MEDS: MUPIROCIN 2% OINT 22 GM TUBE TOPICAL SCH ×2 (07:55→20:34)
[2018-09-27] MEDS: PENICILLIN V POTASSIUM 250 MG TAB PO SCH ×4 (07:55→20:28)
[2018-09-27 08:07] LABS: Albumin 4.2 g/dL (3.5-5.0); Magnesium 1.9 mg/dL (1.6-2.3); Potassium 4.4 mmol/L (3.5-5.1); Total Bilirubin 0.8 mg/dL (0.2-1.3); Total Protein 6.6 g/dL (6.3-8.2)
--- NOTE | 2018-09-27 10:42 | P.PN ---
Subjective Progress Note Date: 09/27/18 HPI: This is a 58-year-old male patient being seen examined and evaluated today for consultation who is well-known to our services. This patient came into the emergency room yesterday with complaints of chest pain. His chest pain had been ongoing intermittently over the past year. Since the patient has significantly increased. The patient was being worked up in the outpatient setting with pulmonary and cardiology services. His EKG in the emergency room did show normal sinus rhythm. Chest x-ray did show patchy perihilar and basilar infiltrates. He did have elevated troponins and cardiology is following the patient as well. The patient is scheduled to go for a heart catheterization today with cardiology. Upon examination the patient is resting up in bed on room air. He has occasional shortness of breath with exertion. Occasional nonproductive cough. Echocardiogram reviewed and does show an EF of 25-30% with RVSP of 22. He is also noted to have moderate to severe aortic regurgitation and severe aortic stenosis. Daughter is at bedside updated on plan of care. He currently is waiting to go down for his cardiac catheterization. He has been nothing by mouth since midnight. Interval History: 09/25/18- patient is being seen examined and evaluated today on rounds. He did undergo a VAISHNAVI which did show severely impaired left ventricular function with severe aortic regurgitation and stenosis. He has triple-vessel disease and will require a CABG. Cardiothoracic surgeon has been consulted. The patient will go for many preoperative studies including an ultrasound of the renal arteries CT of the chest, CT of the facial bones, vein mapping. The patient did recently have a PFT in our office last Monday. We will have those results faxed over to the hospital. Upon examination is resting up in bed on room air. Does have some shortness of breath with exertion denies any cough or congestion. Afebrile no further complaints. 09/26/18- patient is being seen examined and evaluated today on rounds. He did go for a dental extraction of an abscessed tooth this morning. Please see procedure notes for those details. He is undergoing workup for cardiothoracic surgery in the near future. FEV1 80% of predicted with moderate restriction. All labs and reports have been reviewed. He is hemodynamically stable. 09/27/18- patient is being seen examined and evaluated today on rounds. He was downgraded to the stepdown unit yesterday. He continues his workup for his cardiothoracic surgery potentially scheduled for next Monday10/02/18. The patient has not uses home CPAP overnight he states he is afraid of breaking at when he started on the bedside table. He would feel more comfortable if he had something that was stationary like he does at his house. He is even installed a lip around the outside of his bedside table so that it doesn't fall off when he tosses and turns. The patient states he is very restless when he sleeps and is not willing to risk breaking his CPAP machine. Instead the patient has been using 2 L of supplemental oxygen overnight which seems to be working well for him. He has been able to maintain his oxygen saturations. He is afebrile no further complaints all labs and reports have been reviewed. Objective - Vital Signs Vital signs: Vital Signs Temp 97.3 F L 09/27/18 08:00 Pulse 78 09/27/18 08:14 Resp 20 09/27/18 08:14 BP 131/68 09/27/18 08:00 Pulse Ox 93 L 09/27/18 08:00 Intake & Output 09/26/18 09/27/18 09/27/18 18:59 06:59 18:59 Intake Total 750 340 Output Total 1 1 300 Balance 749 -1 40 Weight 122.3 kg Intake: IV 250 Oral 500 340 Output: Urine 1 300 Estimated Blood Loss 1 Other: Voiding Method Toilet Urinal # Voids 1 1 1 - Exam GENERAL EXAM: Alert, comfortable in no apparent distress. HEAD: Normocephalic. EYES: Normal reaction of pupils, equal size. NOSE: Clear with pink turbinates. THROAT: No erythema or exudates. NECK: No masses, no JVD. CHEST: No chest wall deformity. LUNGS: Equal air entry with no crackles, wheeze, rhonchi or dullness. Bases diminished CVS: S1 and S2 normal with no audible mumurs, regular rhythm. ABDOMEN: No hepatosplenomegaly, normal bowel sounds, no guarding or rigidity. EXTREMITIES: No edema noted, pedal pulses palpable. CENTRAL NERVOUS SYSTEM: No focal deficits, tone is normal in all 4 extremities. - Labs CBC & Chem 7: 09/27/18 06:20 09/27/18 06:20 Labs: Abnormal Lab Results - Last 24 Hours (Table) 09/26/18 09/26/18 09/26/18 Range/Units 12:08 16:42 20:25 BUN (9-20) mg/dL Creatinine (0.66-1.25) mg/dL Glucose (74-99) mg/dL POC Glucose (mg/dL) 119 H 134 H 178 H (75-99) mg/dL Alkaline Phosphatase (38-126) U/L 09/27/18 09/27/18 Range/Units 06:07 06:20 BUN 34 H (9-20) mg/dL Creatinine 1.38 H (0.66-1.25) mg/dL Glucose 136 H (74-99) mg/dL POC Glucose (mg/dL) 120 H (75-99) mg/dL Alkaline Phosphatase 33 L (38-126) U/L Microbiology - Last 24 Hours (Table) 09/24/18 20:30 Nasal Screen MRSA/MSSA - Final Nasal Swab Assessment and Plan Assessment: Acute hypoxic respiratory failure requiring supplemental oxygen NSTEMI Possible early pneumonia, however less likely Diabetes mellitus type 2 GERD Hypertension Hyperlipidemia Obstructive sleep apnea on CPAP Plan Status post abscessed tooth extraction Chest x-ray reviewed and looks more like pulmonary vascular congestion and pulmonary edema, less likely pneumonia FEV1 80% of predicted with moderate restriction Medications have been reviewed and will be continued as ordered. Continue with antibiotics Cardiology on consult patient will be going for a cardiac catheterization today VAISHNAVI reviewed Echocardiogram reviewed and does show an EF of 25-30% Initiate and encourage incentive spirometer Continue with pulmonary hygiene, coughing and deep breathing exercises, and supportive care. Supplemental oxygen to maintain oxygen saturations of 92% or better. Cardiothoracic workup underway GI and DVT prophylaxis. We will continue to monitor labs/results and adjust treatment as necessary. Further recommendations pending. I, the signing physician performed an examination of the patient, discussed and directed their management with the nurse practitioner. I have reviewed the nurse practitioner's note and agree with the documented findings, orders and plan of care. Nurse practitioner acting as a scribe for the signing physician.
[2018-09-27] MEDS: LORATADINE-PSEUDOEPH 5-120 MG 1 EACH TAB.ER.12H PO SCH (11:41)
[2018-09-27 12:11] LABS: Glucose,Whole Blood 161 mg/dL (75-99)
--- NOTE | 2018-09-27 12:39 | P.PN ---
Subjective Progress Note Date: 09/27/18 This is a 58-year-old male patient of Dr. Duke. Patient presented to the emergency room with complaints of chest pain. Patient reports this chest pain has been occurring for over a year. Patient does report that since pain has significantly increased. With chest pain patient also experiences shortness of breath. She does have a past medical history of diverticulitis mellitus, GERD, hyperlipidemia, hypertension, osteoporosis, sleep apnea, seasonal ALLERGIES and ex-smoker. Patient states he quit in . EKG completed emergency room showing normal sinus rhythm, possible left atrial enlargement. Patient also reports that he had seen Dr. SAILAJA Bermeo for pulmonary due to increasing shortness of breath. Chest x-ray completed emergency room showing patchy perihilar and basal infiltrate noted. Correlate for underlying pneumonia. troponin 0.287. cardiology services have been consulted. At this time patient is resting comfortably bed. Patient denies any chest pain or shortness breath. Denies nausea vomiting or diarrhea. Patient denies any urinary burning or frequency. 09/24/2018 patient underwent cardiac catheterization today showing triple- vessel coronary disease. Severely impaired left ventricle systolic function with severe aortic stenosis. And mild pulmonary hypertension. Cardiology is recommending proceeding with evaluation for coronary artery bypass grafting and aortic valve replacement. And they have scheduled the patient for a VAISHNAVI. Is currently chest pain-free. He does report he gets pain with activity. Echo shows an EF of 25-30%. Creatinine is at 1.37. He did receive a dose of IV Lasix yesterday for BNP in the 5000. 09/25/2018 patient seen by cardiothoracic service. Cardiothoracic has ordered preoperative testing. He also recommending dental clearance consult has already been placed. Patient did have a VAISHNAVI today showing dilated left ventricle with severe global hypokinesis severe aortic regurgitation with moderate to severe aortic stenosis. Carotid Doppler was negative for any significant hemodynamic stenosis. Creatinine has decreased from 1.37-1.21. Blood sugar this morning was 147 blood sugar this afternoon 231. Glipizide 5 mg twice a day has been ordered. Patient remains in the ICU. Currently chest pain-free. Reports a small post bowel movement yesterday. Colace will be added. 09/26/2018 patient currently resting comfortably in bed. Patient status post tooth extraction with Dr. Gilbetr today. Blood sugars have improved. This time patient denies chest pain or shortness breath. Patient denies nausea vomiting or diarrhea. Patient denies any urinary burning or frequency. 09/27/2018 patient had shortness of breath and diaphoresis and some chest tightness with ambulating earlier this morning. Cardiology is aware. They recommend that patient remain in the hospital at this time. Patient had his tooth extracted yesterday. Denies any nausea or vomiting. Denies any bowel movement changes or urinary symptoms. Creatinine is up at 1.38. Objective - Vital Signs Vital signs: Vital Signs Temp 97.3 F L 09/27/18 08:00 Pulse 71 09/27/18 12:00 Resp 20 09/27/18 12:00 BP 128/68 09/27/18 11:56 Pulse Ox 97 09/27/18 11:56 Intake & Output 09/26/18 09/27/18 09/27/18 18:59 06:59 18:59 Intake Total 750 340 Output Total 1 1 300 Balance 749 -1 40 Weight 122.3 kg 122.3 kg Intake: IV 250 Oral 500 340 Output: Urine 1 300 Estimated Blood Loss 1 Other: Voiding Method Toilet Urinal # Voids 1 1 1 - Exam Head normocephalic Neck supple Lungs clear to auscultation bilaterally no wheezing or crackles Heart regular rate and rhythm S1-S2, no rub or gallop positive murmur Abdomen is soft nontender nondistended positive bowel sounds no hepatosplenomegaly Extremities no edema Neuro alert and orientated to 3 - Labs CBC & Chem 7: 09/27/18 06:20 09/27/18 06:20 Labs: Abnormal Lab Results - Last 24 Hours (Table) 09/26/18 09/26/18 09/27/18 Range/Units 16:42 20:25 06:07 BUN (9-20) mg/dL Creatinine (0.66-1.25) mg/dL Glucose (74-99) mg/dL POC Glucose (mg/dL) 134 H 178 H 120 H (75-99) mg/dL Alkaline Phosphatase (38-126) U/L 09/27/18 09/27/18 Range/Units 06:20 11:52 BUN 34 H (9-20) mg/dL Creatinine 1.38 H (0.66-1.25) mg/dL Glucose 136 H (74-99) mg/dL POC Glucose (mg/dL) 161 H (75-99) mg/dL Alkaline Phosphatase 33 L (38-126) U/L Microbiology - Last 24 Hours (Table) 09/24/18 20:30 Nasal Screen MRSA/MSSA - Final Nasal Swab Assessment and Plan Assessment: 1. Chest pain with non-ST elevated myocardial infarction present on admission. Status post heart catheterization with triple-vessel disease and severe aortic stenosis. Echo shows an EF of 25-30%. Patient had VAISHNAVI completed today results as stated above. Patient evaluated by cardiothoracic team for possible coronary artery bypass graft. Preoperative testing has been initiated by cardiothoracic team. Patient will require dental clearance prior to any procedures. Continue aspirin, beta irasema and statin. Per cardiothoracic team the planning CABG and aortic valve replacement possibly on Monday 2. Pneumonia ruled out. completed showing patchy perihilar and basal infiltrate noted. Antibiotics discontinued. Palmar service felt likely patient 's symptoms were due to pulmonary vascular congestion and less likely pneumonia 3. Diabetes mellitus type 2. Continue NovoLog sliding scale coverage. A1c is 7.5. But sugars stable. Continue Amaryl 4. History of GERD 5. History of essential hypertension. 6. History of hyperlipidemia 7. History of osteoarthritis 8. History of sleep apnea. Patient reports he wears CPAP machine 9. History of seasonal ALLERGIES. 10. Acute kidney injury creatinine is 1.37 patient did receive a dose of IV Lasix yesterday for some fluid overload. Creatinine is back up to 1.38 continue to monitor kidney functions closely 11. Tooth abscess. #18 surgical extraction of erupted tooth per Dr. Gilbert on 09/26/2018 patient started on Penicillin VK. I performed an examination of the patient and discussed their management with the physician Brake Coupler Dinkey. I have reviewed the Physician Brake Coupler Dinkey's notes and agree with the documented findings and plan of care
[2018-09-27] MEDS ORDERED: HEPARIN SODIUM,PORCINE 5,000 UNIT/ML 1 ML VIAL IV PRN (13:26)
[2018-09-27] MEDS ORDERED: ENOXAPARIN 40 MG/0.4 ML SYRINGE SQ SCH (13:30)
--- NOTE | 2018-09-27 14:00 | PN ---
PROGRESS NOTE Mr. Kumar is a 58-year-old male who presented with non ST-segment elevation myocardial infarction, was found to have severely impaired left ventricular systolic function with severe aortic stenosis and regurgitation as well history of severe triple- vessel coronary disease. He underwent dental extraction for abscess tooth yesterday. He is scheduled to undergo aortic valve replacement and coronary artery bypass grafting. He continues to be quite dyspneic with minimal activity and has occasional chest discomfort. He denies any dizziness or palpitation. He has no syncope. He continues to be at this time on aspirin 81 mg daily, Lipitor 80 mg daily, Lovenox 40 mg subcu daily, glimepiride, losartan 100 mg daily, metoprolol tartrate 25 mg twice a day. PHYSICAL EXAMINATION: Blood pressure 128/60 with a heart rate in the 70s. LUNGS: Clear. HEART: Regular rate and rhythm, S1, S2 with systolic ejection murmur and diastolic murmur and rub at the base. ABDOMEN: Soft, obese, nontender. EXTREMITIES: No edema. LAB DATA: Revealed BUN and creatinine are 34 and 1.38, potassium of 4.4 hemoglobin of 16.1. IMPRESSION: 1. Severe triple-vessel coronary artery disease and severe cardiomyopathy. 2. 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 3. Hypertension. 4. Diabetes mellitus. RECOMMENDATION: I will start the patient on IV heparin. I will stop the Lovenox. I will talk to the surgeon to see if they can do surgery earlier. Patient is very limited in his physical activity and has symptoms with minimal movement. Will follow his renal function closely and depending on his progress, further recommendation will be made. MMODL / IJN: [id number] /
[2018-09-27 14:33] LABS: Basophils % (A) 1 %; Eosinophils # (A) 0.2 k/uL (0-0.7); Eosinophils % (A) 3 %; HCT 51.4 % (39.0-53.0); HGB 16.1 gm/dL (13.0-17.5); Lymphocytes # (A) 1.5 k/uL (1.0-4.8); Lymphocytes % (A) 24 %; MCH 29.9 pg (25.0-35.0); MCHC 31.4 g/dL (31.0-37.0); MCV 95.2 fL (80.0-100.0); Mean Platelet Volume 7.5; Monocytes # (A) 0.3 k/uL (0-1.0); Monocytes % (A) 5 %; Neutrophils # (A) 4.1 k/uL (1.3-7.7); Neutrophils % (A) 67 %; Platelet Count 220 k/uL (150-450); RBC 5.39 m/uL (4.30-5.90); RDW 12.9 % (11.5-15.5); WBC 6.1 k/uL (3.8-10.6)
[2018-09-27 14:37] LABS: Partial Thromboplastin Time 23.3 sec (22.0-30.0); Prothrombin Time 10.4 sec (9.0-12.0)
[2018-09-27] MEDS: HEPARIN SOD,PORK IN 0.45% NACL 25,000 UNIT in 0.45% NACL 1 250ML.BAG IV SCH (15:11)
[2018-09-27 17:06] LABS: Glucose,Whole Blood 132 mg/dL (75-99)
[2018-09-27 20:24] LABS: Glucose,Whole Blood 171 mg/dL (75-99)
[2018-09-27] MEDS: GLIMEPIRIDE 2 MG TAB PO SCH (20:28)
[2018-09-28 01:04] LABS: Glucose,Whole Blood 98 mg/dL (75-99)
[2018-09-28] MEDS ORDERED: NITROGLYCERIN OINT 1 INCH/GM PACKET TOPICAL STA (02:52)
[2018-09-28 06:04] LABS: Glucose,Whole Blood 129 mg/dL (75-99)
[2018-09-28] MEDS: INSULIN ASPART (NovoLOG) 100 UNIT/ML VIAL SQ SCH ×3 (06:08→17:11)
[2018-09-28] MEDS: PANTOPRAZOLE 40 MG TABLET PO SCH ×2 (06:34→17:18)
[2018-09-28] MEDS: GLIMEPIRIDE 4 MG TAB PO SCH (06:35)
[2018-09-28 06:38] LABS: Basophils % (A) 0 %; Eosinophils # (A) 0.2 k/uL (0-0.7); Eosinophils % (A) 3 %; HCT 46.5 % (39.0-53.0); HGB 15.1 gm/dL (13.0-17.5); Lymphocytes % (A) 27 %; MCH 30.6 pg (25.0-35.0); MCHC 32.6 g/dL (31.0-37.0); Mean Platelet Volume 6.6; Monocytes # (A) 0.4 k/uL (0-1.0); Monocytes % (A) 5 %; Neutrophils # (A) 4.7 k/uL (1.3-7.7); Neutrophils % (A) 63 %; Platelet Count 217 k/uL (150-450); RBC 4.95 m/uL (4.30-5.90); RDW 12.7 % (11.5-15.5); WBC 7.5 k/uL (3.8-10.6)
[2018-09-28 07:03] LABS: Albumin 3.4 g/dL (3.5-5.0); Calcium 9.7 mg/dL (8.4-10.2); Magnesium 1.8 mg/dL (1.6-2.3); Potassium 4.4 mmol/L (3.5-5.1); Total Bilirubin 0.7 mg/dL (0.2-1.3); Total Protein 5.7 g/dL (6.3-8.2)
[2018-09-28] MEDS: PENICILLIN V POTASSIUM 250 MG TAB PO SCH ×4 (08:56→21:16)
[2018-09-28] MEDS: LOSARTAN 50 MG TAB PO SCH (08:57)
[2018-09-28] MEDS: METOPROLOL TARTRATE 25 MG TAB PO SCH ×3 (08:57→21:16)
[2018-09-28] MEDS: DOCUSATE 100 MG CAP PO SCH ×2 (08:59→21:27)
[2018-09-28] MEDS: MUPIROCIN 2% OINT 22 GM TUBE TOPICAL SCH ×2 (08:59→21:16)
[2018-09-28] MEDS ORDERED: LOSARTAN 50 MG TAB PO SCH (09:00)
[2018-09-28] MEDS: ASPIRIN 81 MG PO SCH (09:00)
[2018-09-28] MEDS: ATORVASTATIN 80 MG TAB PO SCH (09:00)
[2018-09-28] MEDS: LORATADINE-PSEUDOEPH 5-120 MG 1 EACH TAB.ER.12H PO SCH (09:02)
[2018-09-28] MEDS: FUROSEMIDE 10 MG/ML 2 ML VIAL IV SCH ×2 (09:54→21:16)
--- NOTE | 2018-09-28 10:10 | PN ---
PROGRESS NOTE Mr. Kumar is a 58-year-old male who presented with symptoms of progressive dyspnea and chest discomfort, had evidence of non ST-segment elevation myocardial infarction, underwent cardiac catheterization, was found to have severe triple-vessel coronary artery disease with severely impaired left ventricular systolic function, severe aortic and mitral valve regurgitation. He continues to have dyspnea. No PND or orthopnea. He has dyspnea on exertion with minimal activity and occasional chest discomfort. He denies any pounding. He has no syncope. He has no clear evidence of peripheral edema. He is hemodynamically stable. He continues to be on IV heparin, aspirin 81 mg daily, Lipitor 80 mg daily, glimepiride, metoprolol tartrate 25 mg 3 times a day, losartan 100 mg daily. PHYSICAL EXAMINATION: Blood pressure 101/50 with a heart rate in 90s. LUNGS: A few crackles at the bases. HEART: Regular rate and rhythm, S1, S2. No S3 with systolic murmur, ejection type, no diastolic murmur, no rub. ABDOMEN: Soft, obese, nontender. EXTREMITIES: No edema. LAB DATA: Revealed BUN and creatinine 31 and 1.16, potassium 4.4, hemoglobin of 15.1. IMPRESSION: 1. There is severe coronary artery disease with non ST-segment elevation myocardial infarction. 2. Severe cardiomyopathy. 3. Severe aortic stenosis and regurgitation. 4. Episode of PND and orthopnea with very limited physical activity. RECOMMENDATION: I will cut down the dose of his losartan, start him on diuretics. Will await the input of the surgeon regarding the time of his surgical intervention. MMODL / IJN: [id number] /
--- NOTE | 2018-09-28 10:28 | P.PN ---
Subjective Progress Note Date: 09/28/18 Principal diagnosis: Non-STEMI, acute systolic heart failure with EF 20-25 %, severe coronary artery disease, severe aortic stenosis with aortic insufficiency, previous medical history of hypertension, hyperlipidemia, diabetes mellitus with hemoglobin A1c 7.5%, GERD, obstructive sleep apnea with CPAP use, and previous tobacco dependence with recent FEV1 80% of predicted, moderate restriction. The patient is currently sitting up in a recliner eating breakfast in no acute distress. Patient has had increased episodes of shortness of breath with significant diaphoresis, started out with activity, now occurring at rest. In addition patient had paroxysmal nocturnal dyspnea and orthopnea last night. He did wear his CPAP machine last night. He states every time he starts to fall asleep he feels like he is drowning and like he might in his sleep. IV heparin was started yesterday per cardiology. Objective - Vital Signs Vital signs: Vital Signs Temp 96.6 F L 09/28/18 09:08 Pulse 77 09/28/18 09:09 Resp 20 09/28/18 09:09 BP 110/60 09/28/18 09:08 Pulse Ox 94 L 09/28/18 09:08 Intake & Output 09/27/18 09/28/18 09/28/18 18:59 06:59 18:59 Intake Total 1042 700.785 411.8 Output Total 800 Balance 242 700.785 411.8 Weight 122.3 kg 121.8 kg Intake: IV 240 150 NS 240 150 Intake, IV Titration 70.785 111.8 Amount Heparin Sod,Pork in 0.45% 70.785 111.8 NaCl 25,000 unit In 0.45 % NaCl 1 250ml.bag @ 8.1 UNITS/KG/HR 9.9 mls/hr IV .Q24H [facility] Rx#:[id number] Oral 802 480 300 Output: Urine 800 Other: Voiding Method Toilet Toilet Toilet Urinal Urinal Urinal # Voids 1 3 - Constitutional General appearance: Present: cooperative, no acute distress, obese - Respiratory Details: Lungs sounds diminished bilaterally with coarse breath sounds in the bases. Respirations even, nonlabored at the time of my exam. Currently on room air with oxygen saturation 95%. Able to achieve 1750 mL on his incentive spirometry. Strong productive cough. - Cardiovascular Details: S1, S2 present. Positive systolic murmur. Regular rate and rhythm, sinus rhythm on telemetry. Palpable peripheral pulses bilaterally. No edema present. No calf pain or tenderness noted. - Gastrointestinal Gastrointestinal Comment(s): Abdomen soft, nontender, nondistended, obese. Active bowel sounds present 4 quadrants. Tolerating diet. - Genitourinary Genitourinary Comment(s): Continues to void clear, yellow urine. - Integumentary Integumentary Comment(s): Skin is warm and dry with evidence of good perfusion. - Neurologic Neurologic: Present: CNII-XII intact - Musculoskeletal Musculoskeletal: Present: gait normal, strength equal bilaterally - Psychiatric Psychiatric: Present: A&O x's 3, appropriate affect, intact judgment & insight - Allied health notes Allied health notes reviewed: nursing - Labs CBC & Chem 7: 09/28/18 06:00 09/28/18 06:00 Labs: Abnormal Lab Results - Last 24 Hours (Table) 09/27/18 09/27/18 09/27/18 Range/Units 11:52 16:46 20:22 APTT (22.0-30.0) sec Chloride (98-107) mmol/L BUN (9-20) mg/dL Glucose (74-99) mg/dL POC Glucose (mg/dL) 161 H 132 H 171 H (75-99) mg/dL Alkaline Phosphatase (38-126) U/L Total Protein (6.3-8.2) g/dL Albumin (3.5-5.0) g/dL 09/28/18 09/28/18 09/28/18 Range/Units 06:00 06:00 06:03 APTT 33.9 H (22.0-30.0) sec Chloride 113 H (98-107) mmol/L BUN 31 H (9-20) mg/dL Glucose 144 H (74-99) mg/dL POC Glucose (mg/dL) 129 H (75-99) mg/dL Alkaline Phosphatase 33 L (38-126) U/L Total Protein 5.7 L (6.3-8.2) g/dL Albumin 3.4 L (3.5-5.0) g/dL - Imaging and Cardiology Chest x-ray: pending Assessment and Plan (1) Non-STEMI (non-ST elevated myocardial infarction) Current Visit: Yes Status: Acute Code(s): I21.4 - NON-ST ELEVATION (NSTEMI) MYOCARDIAL INFARCTION SNOMED Code(s): 85058642 (2) Acute systolic heart failure Current Visit: Yes Status: Acute Code(s): I50.21 - ACUTE SYSTOLIC ( CONGESTIVE) HEART FAILURE SNOMED Code(s): 979393965 (3) Severe aortic stenosis Current Visit: Yes Status: Acute Code(s): I35.0 - NONRHEUMATIC AORTIC (VALVE ) STENOSIS SNOMED Code(s): 70946124 (4) Severe aortic insufficiency Current Visit: Yes Status: Acute Code(s): I35.1 - NONRHEUMATIC AORTIC (VALVE ) INSUFFICIENCY SNOMED Code(s): 68756722 Plan: 1. Continue aspirin, statin, beta irasema therapy. Patient does state he is not able to tolerate any statin for any length of time due to extreme muscle pain and inability to walk, however he is agreeable to continue on statin for a short time period pre-and postoperatively. 2. Would discontinue ARB 48 hours prior to surgery to reduce hypotension intraoperatively. 3. Encourage incentive spirometry use. 4. Encourage continued smoking cessation. 5. Our plan at this time is for bioprosthetic aortic valve replacement and coronary artery bypass graft surgery with bilateral mammary artery and endovein harvest. 6. As patient has become symptomatic, we likely will remove his surgery date up. Chest x-ray ordered secondary to shortness of breath. 7. Continue preoperative teaching. 8. Encourage healthier diet, preferably the Mediterranean diet. Dietitian consulted for teaching. 9. More recommendations to follow. Time with Patient: Greater than 30
[2018-09-28] MEDS: HEPARIN SOD,PORK IN 0.45% NACL 25,000 UNIT in 0.45% NACL 1 250ML.BAG IV SCH ×2 (10:42→23:42)
--- NOTE | 2018-09-28 11:05 | XR ---
EXAMINATION TYPE: XR chest 1V portable DATE OF EXAM: 09/28/2018 COMPARISON: 09/23/2018 HISTORY: Shortness of breath TECHNIQUE: Single frontal view of the chest is obtained. FINDINGS: There is improved aeration of the lungs with strand-like densities at the lung bases, like ly atelectasis. Remainder the lungs are clear. Cardiomediastinal silhouette is mildly enlarged. No si zable pneumothorax or pleural effusion. Osseous structures appear intact. IMPRESSION: 1. Improved but minimal remaining strand-like bibasilar subsegmental atelectasis 2. Enlargement of of the cardiomediastinal silhouette, similar to the prior.
--- NOTE | 2018-09-28 11:53 | P.PN ---
<Kinjal Iniguez E - Last Filed: 09/28/18 11:47> Subjective Progress Note Date: 09/28/18 HPI: This is a 58-year-old male patient being seen examined and evaluated today for consultation who is well-known to our services. This patient came into the emergency room yesterday with complaints of chest pain. His chest pain had been ongoing intermittently over the past year. Since [place] the patient has significantly increased. The patient was being worked up in the outpatient setting with pulmonary and cardiology services. His EKG in the emergency room did show normal sinus rhythm. Chest x-ray did show patchy perihilar and basilar infiltrates. He did have elevated troponins and cardiology is following the patient as well. The patient is scheduled to go for a heart catheterization today with cardiology. Upon examination the patient is resting up in bed on room air. He has occasional shortness of breath with exertion. Occasional nonproductive cough. Echocardiogram reviewed and does show an EF of 25-30% with RVSP of 22. He is also noted to have moderate to severe aortic regurgitation and severe aortic stenosis. Daughter is at bedside updated on plan of care. He currently is waiting to go down for his cardiac catheterization. He has been nothing by mouth since midnight. Interval History: 09/25/18- patient is being seen examined and evaluated today on rounds. He did undergo a VAISHNAVI which did show severely impaired left ventricular function with severe aortic regurgitation and stenosis. He has triple-vessel disease and will require a CABG. Cardiothoracic surgeon has been consulted. The patient will go for many preoperative studies including an ultrasound of the renal arteries CT of the chest, CT of the facial bones, vein mapping. The patient did recently have a PFT in our office last Monday. We will have those results faxed over to the hospital. Upon examination is resting up in bed on room air. Does have some shortness of breath with exertion denies any cough or congestion. Afebrile no further complaints. 09/26/18- patient is being seen examined and evaluated today on rounds. He did go for a dental extraction of an abscessed tooth this morning. Please see procedure notes for those details. He is undergoing workup for cardiothoracic surgery in the near future. FEV1 80% of predicted with moderate restriction. All labs and reports have been reviewed. He is hemodynamically stable. 09/27/18- patient is being seen examined and evaluated today on rounds. He was downgraded to the stepdown unit yesterday. He continues his workup for his cardiothoracic surgery potentially scheduled for next Monday10/02/18. The patient has not uses home CPAP overnight he states he is afraid of breaking at when he started on the bedside table. He would feel more comfortable if he had something that was stationary like he does at his house. He is even installed a lip around the outside of his bedside table so that it doesn't fall off when he tosses and turns. The patient states he is very restless when he sleeps and is not willing to risk breaking his CPAP machine. Instead the patient has been using 2 L of supplemental oxygen overnight which seems to be working well for him. He has been able to maintain his oxygen saturations. He is afebrile no further complaints all labs and reports have been reviewed. 09/28/18- patient is being seen examined and evaluated today on rounds. The patient did have some symptomatic episodes of shortness of breath and chest pain yesterday with exertion and again at rest as well. The patient did wear his CPAP machine last night. IV heparin drip was started per cardiology. Cardiothoracic is potentially going to be moving his surgery date sooner rather than later. Awaiting official input. Objective - Vital Signs Vital signs: Vital Signs Temp 97.2 F L 09/28/18 11:22 Pulse 78 09/28/18 11:23 Resp 20 09/28/18 11:23 BP 125/62 09/28/18 11:22 Pulse Ox 97 09/28/18 11:22 Intake & Output 09/27/18 09/28/18 09/28/18 18:59 06:59 18:59 Intake Total 1042 700.785 470.63 Output Total 800 Balance 242 700.785 470.63 Weight 122.3 kg 121.8 kg Intake: IV 240 150 NS 240 150 Intake, IV Titration 70.785 170.63 Amount Heparin Sod,Pork in 0.45% 70.785 170.63 NaCl 25,000 unit In 0.45 % NaCl 1 250ml.bag @ 8.1 UNITS/KG/HR 9.9 mls/hr IV .Q24H [facility] Rx#:[id number] Oral 802 480 300 Output: Urine 800 Other: Voiding Method Toilet Toilet Toilet Urinal Urinal Urinal # Voids 1 3 - Exam GENERAL EXAM: Alert, comfortable in no apparent distress. HEAD: Normocephalic. EYES: Normal reaction of pupils, equal size. NOSE: Clear with pink turbinates. THROAT: No erythema or exudates. NECK: No masses, no JVD. CHEST: No chest wall deformity. LUNGS: Equal air entry with no crackles, wheeze, rhonchi or dullness. Bases diminished CVS: S1 and S2 normal with no audible mumurs, regular rhythm. ABDOMEN: No hepatosplenomegaly, normal bowel sounds, no guarding or rigidity. EXTREMITIES: No edema noted, pedal pulses palpable. CENTRAL NERVOUS SYSTEM: No focal deficits, tone is normal in all 4 extremities. - Labs CBC & Chem 7: 09/28/18 06:00 09/28/18 06:00 Labs: Abnormal Lab Results - Last 24 Hours (Table) 09/27/18 09/27/18 09/27/18 Range/Units 11:52 16:46 20:22 APTT (22.0-30.0) sec Chloride (98-107) mmol/L BUN (9-20) mg/dL Glucose (74-99) mg/dL POC Glucose (mg/dL) 161 H 132 H 171 H (75-99) mg/dL Alkaline Phosphatase (38-126) U/L Total Protein (6.3-8.2) g/dL Albumin (3.5-5.0) g/dL 09/28/18 09/28/18 09/28/18 Range/Units 06:00 06:00 06:03 APTT 33.9 H (22.0-30.0) sec Chloride 113 H (98-107) mmol/L BUN 31 H (9-20) mg/dL Glucose 144 H (74-99) mg/dL POC Glucose (mg/dL) 129 H (75-99) mg/dL Alkaline Phosphatase 33 L (38-126) U/L Total Protein 5.7 L (6.3-8.2) g/dL Albumin 3.4 L (3.5-5.0) g/dL Assessment and Plan Assessment: Acute hypoxic respiratory failure requiring supplemental oxygen NSTEMI Possible early pneumonia, however less likely Diabetes mellitus type 2 GERD Hypertension Hyperlipidemia Obstructive sleep apnea on CPAP Plan Cardiothoracic to determine potential surgical date Status post abscessed tooth extraction Chest x-ray reviewed and looks more like pulmonary vascular congestion and pulmonary edema, less likely pneumonia FEV1 80% of predicted with moderate restriction Medications have been reviewed and will be continued as ordered. Continue with antibiotics Cardiology on consult patient will be going for a cardiac catheterization today VAISHNAVI reviewed Echocardiogram reviewed and does show an EF of 25-30% Initiate and encourage incentive spirometer Continue with pulmonary hygiene, coughing and deep breathing exercises, and supportive care. Supplemental oxygen to maintain oxygen saturations of 92% or better. Cardiothoracic workup underway GI and DVT prophylaxis. We will continue to monitor labs/results and adjust treatment as necessary. Further recommendations pending. I, the signing physician performed an examination of the patient, discussed and directed their management with the nurse practitioner. I have reviewed the nurse practitioner's note and agree with the documented findings, orders and plan of care. Nurse practitioner acting as a scribe for the signing physician. <Mena Keys - Last Filed: 09/28/18 15:33> Objective - Vital Signs Vital signs: Vital Signs Temp 97.4 F L 09/28/18 15:22 Pulse 70 09/28/18 15:22 Resp 20 09/28/18 15:22 BP 121/71 09/28/18 15:22 Pulse Ox 97 09/28/18 15:22 Intake & Output 09/27/18 09/28/18 09/28/18 18:59 06:59 18:59 Intake Total 1042 700.785 975.805 Output Total 800 Balance 242 700.785 975.805 Weight 122.3 kg 121.8 kg 121.8 kg Intake: IV 240 150 240 NS 240 150 240 Intake, IV Titration 70.785 195.805 Amount Heparin Sod,Pork in 0.45% 70.785 195.805 NaCl 25,000 unit In 0.45 % NaCl 1 250ml.bag @ 8.1 UNITS/KG/HR 9.9 mls/hr IV .Q24H [facility] Rx#:[id number] Oral 802 480 540 Output: Urine 800 Other: Voiding Method Toilet Toilet Toilet Urinal Urinal Urinal # Voids 1 3 - Labs CBC & Chem 7: 09/28/18 06:00 09/28/18 06:00 Labs: Abnormal Lab Results - Last 24 Hours (Table) 09/27/18 09/27/18 09/28/18 Range/Units 16:46 20:22 06:00 APTT (22.0-30.0) sec Chloride 113 H (98-107) mmol/L BUN 31 H (9-20) mg/dL Glucose 144 H (74-99) mg/dL POC Glucose (mg/dL) 132 H 171 H (75-99) mg/dL Alkaline Phosphatase 33 L (38-126) U/L Total Protein 5.7 L (6.3-8.2) g/dL Albumin 3.4 L (3.5-5.0) g/dL 09/28/18 09/28/18 09/28/18 Range/Units 06:00 06:03 11:43 APTT 33.9 H 32.4 H (22.0-30.0) sec Chloride (98-107) mmol/L BUN (9-20) mg/dL Glucose (74-99) mg/dL POC Glucose (mg/dL) 129 H (75-99) mg/dL Alkaline Phosphatase (38-126) U/L Total Protein (6.3-8.2) g/dL Albumin (3.5-5.0) g/dL 09/28/18 Range/Units 11:52 APTT (22.0-30.0) sec Chloride (98-107) mmol/L BUN (9-20) mg/dL Glucose (74-99) mg/dL POC Glucose (mg/dL) 169 H (75-99) mg/dL Alkaline Phosphatase (38-126) U/L Total Protein (6.3-8.2) g/dL Albumin (3.5-5.0) g/dL Assessment and Plan Plan: Patient seen and examined. Agree with Lasix. Plan for CABG in a.m. Encourage incentive spirometry. We will follow in the ICU post CABG. ~Mena Keys DO
--- NOTE | 2018-09-28 12:01 | P.PN ---
Subjective Progress Note Date: 09/28/18 This is a 58-year-old male patient of Dr. Duke. Patient presented to the emergency room with complaints of chest pain. Patient reports this chest pain has been occurring for over a year. Patient does report that since pain has significantly increased. With chest pain patient also experiences shortness of breath. She does have a past medical history of diverticulitis mellitus, GERD, hyperlipidemia, hypertension, osteoporosis, sleep apnea, seasonal ALLERGIES and ex-smoker. Patient states he quit in . EKG completed emergency room showing normal sinus rhythm, possible left atrial enlargement. Patient also reports that he had seen Dr. SAILAJA Bermeo for pulmonary due to increasing shortness of breath. Chest x-ray completed emergency room showing patchy perihilar and basal infiltrate noted. Correlate for underlying pneumonia. troponin 0.287. cardiology services have been consulted. At this time patient is resting comfortably bed. Patient denies any chest pain or shortness breath. Denies nausea vomiting or diarrhea. Patient denies any urinary burning or frequency. 09/24/2018 patient underwent cardiac catheterization today showing triple- vessel coronary disease. Severely impaired left ventricle systolic function with severe aortic stenosis. And mild pulmonary hypertension. Cardiology is recommending proceeding with evaluation for coronary artery bypass grafting and aortic valve replacement. And they have scheduled the patient for a VAISHNAVI. Is currently chest pain-free. He does report he gets pain with activity. Echo shows an EF of 25-30%. Creatinine is at 1.37. He did receive a dose of IV Lasix yesterday for BNP in the 5000. 09/25/2018 patient seen by cardiothoracic service. Cardiothoracic has ordered preoperative testing. He also recommending dental clearance consult has already been placed. Patient did have a VAISHNAVI today showing dilated left ventricle with severe global hypokinesis severe aortic regurgitation with moderate to severe aortic stenosis. Carotid Doppler was negative for any significant hemodynamic stenosis. Creatinine has decreased from 1.37-1.21. Blood sugar this morning was 147 blood sugar this afternoon 231. Glipizide 5 mg twice a day has been ordered. Patient remains in the ICU. Currently chest pain-free. Reports a small post bowel movement yesterday. Colace will be added. 09/26/2018 patient currently resting comfortably in bed. Patient status post tooth extraction with Dr. Gilbert today. Blood sugars have improved. This time patient denies chest pain or shortness breath. Patient denies nausea vomiting or diarrhea. Patient denies any urinary burning or frequency. 09/27/2018 patient had shortness of breath and diaphoresis and some chest tightness with ambulating earlier this morning. Cardiology is aware. They recommend that patient remain in the hospital at this time. Patient had his tooth extracted yesterday. Denies any nausea or vomiting. Denies any bowel movement changes or urinary symptoms. Creatinine is up at 1.38. 09/28/2018 patient has had about 4 episodes of shortness of breath with chest pain and diaphoresis with activity and some at rest as well. He was given nitro that did help relieve symptoms. Cardiology is following closely as well as cardiothoracic team. The date of cardiac surgery will likely be sooner than Monday. Cardiology did start IV heparin drip yesterday. Objective - Vital Signs Vital signs: Vital Signs Temp 97.2 F L 09/28/18 11:22 Pulse 78 09/28/18 11:23 Resp 20 09/28/18 11:23 BP 125/62 09/28/18 11:22 Pulse Ox 97 09/28/18 11:22 Intake & Output 09/27/18 09/28/18 09/28/18 18:59 06:59 18:59 Intake Total 1042 700.785 470.63 Output Total 800 Balance 242 700.785 470.63 Weight 122.3 kg 121.8 kg Intake: IV 240 150 NS 240 150 Intake, IV Titration 70.785 170.63 Amount Heparin Sod,Pork in 0.45% 70.785 170.63 NaCl 25,000 unit In 0.45 % NaCl 1 250ml.bag @ 8.1 UNITS/KG/HR 9.9 mls/hr IV .Q24H [facility] Rx#:[id number] Oral 802 480 300 Output: Urine 800 Other: Voiding Method Toilet Toilet Toilet Urinal Urinal Urinal # Voids 1 3 - Exam Head normocephalic Neck supple Lungs clear to auscultation bilaterally no wheezing or crackles Heart regular rate and rhythm S1-S2, no rub or gallop positive murmur Abdomen is soft nontender nondistended positive bowel sounds no hepatosplenomegaly Extremities no edema Neuro alert and orientated to 3 - Labs CBC & Chem 7: 09/28/18 06:00 09/28/18 06:00 Labs: Abnormal Lab Results - Last 24 Hours (Table) 09/27/18 09/27/18 09/27/18 Range/Units 11:52 16:46 20:22 APTT (22.0-30.0) sec Chloride (98-107) mmol/L BUN (9-20) mg/dL Glucose (74-99) mg/dL POC Glucose (mg/dL) 161 H 132 H 171 H (75-99) mg/dL Alkaline Phosphatase (38-126) U/L Total Protein (6.3-8.2) g/dL Albumin (3.5-5.0) g/dL 09/28/18 09/28/18 09/28/18 Range/Units 06:00 06:00 06:03 APTT 33.9 H (22.0-30.0) sec Chloride 113 H (98-107) mmol/L BUN 31 H (9-20) mg/dL Glucose 144 H (74-99) mg/dL POC Glucose (mg/dL) 129 H (75-99) mg/dL Alkaline Phosphatase 33 L (38-126) U/L Total Protein 5.7 L (6.3-8.2) g/dL Albumin 3.4 L (3.5-5.0) g/dL Assessment and Plan Assessment: 1. Chest pain with non-ST elevated myocardial infarction present on admission. Status post heart catheterization with triple-vessel disease and severe aortic stenosis. Echo shows an EF of 25-30%. Patient had VAISHNAVI completed today results as stated above. Patient evaluated by cardiothoracic team for possible coronary artery bypass graft. Preoperative testing has been initiated by cardiothoracic team. Patient will require dental clearance prior to any procedures. Continue aspirin, beta irasema and statin. Per cardiothoracic team the planning CABG and aortic valve replacement. Date of surgery likely be moved up. Patient currently on IV heparin 2. Pneumonia ruled out. completed showing patchy perihilar and basal infiltrate noted. Antibiotics discontinued. Pulmonary service felt likely patient's symptoms were due to pulmonary vascular congestion and less likely pneumonia 3. Diabetes mellitus type 2. Continue NovoLog sliding scale coverage. A1c is 7.5. But sugars stable. Continue Amaryl 4. History of GERD 5. History of essential hypertension. 6. History of hyperlipidemia 7. History of osteoarthritis 8. History of sleep apnea. Patient reports he wears CPAP machine 9. History of seasonal ALLERGIES. 10. Acute kidney injury: Resolved. 11. Tooth abscess. #18 surgical extraction of erupted tooth per Dr. Gilbert on 09/26/2018 patient started on Penicillin VK. I performed an examination of the patient and discussed their management with the physician Retail Wireless Sales Representative. I have reviewed the Physician Retail Wireless Sales Representative's notes and agree with the documented findings and plan of care
[2018-09-28 12:05] LABS: Glucose,Whole Blood 169 mg/dL (75-99)
[2018-09-28] MEDS ORDERED: MD COMMUNICATION TO PHARMACY 1 EACH MISC PO ONE ×2 (13:49→13:54)
[2018-09-28] MEDS: NITROGLYCERIN OINT 1 INCH/GM PACKET TOPICAL SCH ×2 (15:16→23:05)
[2018-09-28 17:30] LABS: Glucose,Whole Blood 93 mg/dL (75-99)
[2018-09-28 21:07] LABS: Glucose,Whole Blood 154 mg/dL (75-99)
[2018-09-28] MEDS: GLIMEPIRIDE 2 MG TAB PO SCH (21:16)
[2018-09-28 21:23] LABS: Glucose,Whole Blood 138 mg/dL (75-99)
[2018-09-29 05:00] LABS: Basophils % (A) 0 %; Eosinophils # (A) 0.2 k/uL (0-0.7); Eosinophils % (A) 3 %; HCT 46.2 % (39.0-53.0); HGB 15.2 gm/dL (13.0-17.5); Lymphocytes # (A) 2.1 k/uL (1.0-4.8); Lymphocytes % (A) 26 %; MCH 30.9 pg (25.0-35.0); MCHC 32.9 g/dL (31.0-37.0); MCV 93.9 fL (80.0-100.0); Mean Platelet Volume 6.5; Monocytes # (A) 0.5 k/uL (0-1.0); Monocytes % (A) 6 %; Neutrophils # (A) 5.1 k/uL (1.3-7.7); Neutrophils % (A) 63 %; Platelet Count 206 k/uL (150-450); RBC 4.92 m/uL (4.30-5.90); RDW 12.8 % (11.5-15.5); WBC 8.1 k/uL (3.8-10.6)
[2018-09-29] MEDS ORDERED: ATORVASTATIN 10 MG TAB PO ONE (05:00)
[2018-09-29] MEDS ORDERED: TRANEXAMIC ACID 2,000 MG in SODIUM CHLORIDE 0.9% 80 ML IV ONE (05:00)
[2018-09-29] MEDS ORDERED: MAGNESIUM SULFATE SYG 4.06 MEQ/ML SYRINGE IV ONE (05:00)
[2018-09-29] MEDS ORDERED: HEPARIN SODIUM,PORCINE 5,000 UNIT in SODIUM CHLORIDE 0.9% 500 ML 500 ML IV ONE (05:00)
[2018-09-29] MEDS ORDERED: HEPARIN SODIUM 1,000 UN/ML (10ML VL) IV ONE (05:00)
[2018-09-29] MEDS ORDERED: METOPROLOL TARTRATE 12.5 MG TAB PO ONE (05:00)
[2018-09-29] MEDS ORDERED: DILTIAZEM 50 MG in SODIUM CHLORIDE 0.9% 40 ML IV SCH (05:00)
[2018-09-29] MEDS ORDERED: PAPAVERINE 360 MG in SODIUM CHLORIDE 0.9% 90 ML IV ONE (05:00)
[2018-09-29] MEDS ORDERED: PROTAMINE SULFATE 10 MG/ML 25 ML VIAL IV ONE (05:00)
[2018-09-29] MEDS ORDERED: ALBUMIN HUMAN 25% 50 ML in EMPTY BAG 1 BAG IVPB ONE (05:00)
[2018-09-29] MEDS ORDERED: CLEVIDIPINE BUTYRATE 25 MG in EMPTY BAG 1 BAG IV ONE (05:00)
[2018-09-29] MEDS ORDERED: DILTIAZEM 125 MG in SODIUM CHLORIDE 0.9% 100 ML IV SCH (05:00)
[2018-09-29] MEDS ORDERED: MANNITOL 25% 12.5 GM/50 ML VIAL IV ONE ×2 (05:00)
[2018-09-29] MEDS ORDERED: PHENYLEPHRINE-0.9% NACL SYG 1 MG/10 ML SYRINGE IV ONE ×4 (05:00)
[2018-09-29] MEDS ORDERED: DEXTROSE 5% IN WATER 1,000 ML with POTASSIUM CHLORIDE 25 MEQ, SODIUM CHLORIDE 2.5MEQ/ML... IV SCH ×6 (05:00)
[2018-09-29] MEDS ORDERED: PHENYLEPHRINE 40 MG in SODIUM CHLORIDE 0.9% 250 ML IV ONE (05:00)
[2018-09-29] MEDS ORDERED: SODIUM BICARB 8.4% 50 ML SYR (1 MEQ/ML) IV ONE (05:00)
[2018-09-29] MEDS ORDERED: CEFAZOLIN IVPB ONE (05:00)
[2018-09-29] MEDS ORDERED: PROPOFOL 1,000 MG in EMPTY BAG 1 BAG IV ONE (05:00)
[2018-09-29] MEDS ORDERED: ALBUMIN HUMAN 5% 500 ML in EMPTY BAG 1 BAG IVPB ONE (05:00)
[2018-09-29] MEDS ORDERED: NITROGLYCERIN-D5W PMX 25 MG/250 ML BTL IV ONE (05:00)
[2018-09-29] MEDS ORDERED: PROTAMINE SULFATE 250 MG in EMPTY BAG 1 BAG IV ONE (05:00)
[2018-09-29] MEDS ORDERED: CHLORHEXIDINE GLUCONATE 15 ML CUP MUCOUS MEM ONE (05:00)
[2018-09-29] MEDS ORDERED: ceFAZolin 3 GM in SODIUM CHLORIDE 0.9% 30 ML IVPB ONE (05:00)
[2018-09-29] MEDS ORDERED: NOREPINEPHRINE 4 MG in SODIUM CHLORIDE 0.9% 250 ML IV SCH (05:00)
[2018-09-29] MEDS ORDERED: LACTATED RINGERS 1,000 ML IV SCH (05:00)
[2018-09-29] MEDS ORDERED: NITROGLYCERIN-D5W PMX 50 MG in DEXTROSE/WATER 1 250ML.BAG IV ONE (05:00)
[2018-09-29] MEDS ORDERED: DEXTROSE 5% IN WATER 1,000 ML with POTASSIUM CHLORIDE 110 MEQ, MAGNESIUM SULFATE 16 MEQ... IV SCH ×5 (05:00)
[2018-09-29] MEDS ORDERED: INSULIN REGULAR 100 UNIT in SODIUM CHLORIDE 0.9% 100 ML IV ONE (05:00)
[2018-09-29] MEDS ORDERED: CALCIUM CHLORIDE 100 MG/ML 10 ML SYRINGE IVP ONE (05:00)
[2018-09-29] MEDS ORDERED: ASPIRIN 325 MG TAB PO ONE (05:00)
[2018-09-29] MEDS ORDERED: ceFAZolin 1,000 MG in SODIUM CHLORIDE 0.9% IRRIGATIO 1,000 ML IRRIGATION ONE (05:00)
[2018-09-29] MEDS ORDERED: SODIUM CHLORIDE 0.9% IVPB ONE (05:00)
[2018-09-29 05:09] LABS: Partial Thromboplastin Time 54.4 sec (22.0-30.0)
[2018-09-29 05:11] LABS: Albumin 3.5 g/dL (3.5-5.0); Calcium 9.7 mg/dL (8.4-10.2); Magnesium 1.8 mg/dL (1.6-2.3); Potassium 4.3 mmol/L (3.5-5.1); Total Bilirubin 0.8 mg/dL (0.2-1.3); Total Protein 5.9 g/dL (6.3-8.2)
[2018-09-29 06:38] LABS: Glucose,Whole Blood 204 mg/dL (75-99)
[2018-09-29] MEDS ORDERED: SODIUM CHLORIDE 0.9% 250 ML BAG ONE (09:11)
[2018-09-29] MEDS ORDERED: MAGNESIUM SULFATE 4 MEQ/ML 10ML VIAL ONE (09:11)
[2018-09-29] MEDS ORDERED: HEPARIN SODIUM,PORCINE 10,000 UNIT/ML 1 ML VIAL ONE (09:11)
[2018-09-29] MEDS ORDERED: LIDOCAINE 2% SYG (PF) 100 MG/5 ML ONE (09:11)
[2018-09-29] MEDS ORDERED: SUCCINYLCHOLINE CHLORIDE VIAL 200 MG/10 ML VIAL IV ONE (09:11)
[2018-09-29] MEDS ORDERED: VECURONIUM 10 MG VIAL IV ONE (09:11)
[2018-09-29] MEDS ORDERED: MIDAZOLAM 2 MG/2 ML VIAL ONE (09:11)
[2018-09-29] MEDS ORDERED: fentaNYL (PF) 50 MCG/ML 50 ML VIAL ONE (09:11)
[2018-09-29] MEDS ORDERED: fentaNYL (PF) 50 MCG/ML 2 ML AMP ONE (09:11)
[2018-09-29] MEDS ORDERED: SODIUM CHLORIDE 0.9% IRRIG 1,000 ML BTL IRRIGATION ONE (09:11)
[2018-09-29] MEDS ORDERED: ELECTROLYTE-R (PH 7.4) 1,000 ML IV.SOLN IV ONE (09:11)
[2018-09-29] MEDS ORDERED: PROPOFOL 10 MG/ML 20 ML VIAL IV ONE (09:11)
[2018-09-29] MEDS ORDERED: TRANEXAMIC ACID 1,000 MG/10 ML VIAL ONE (09:11)
[2018-09-29 09:44] LABS: ABG Base Excess -0.7 mmol/L; ABG HCO3 25 mmol/L (21-25); ABG PCO2 45 mmHg (35-45); ABG PH 7.36 (7.35-7.45); ABG PO2 353 mmHg (83-108); ABG Potassium Whole Blood 4.2 mmol/L (3.4-4.5); ABG Sodium Whole Blood 141 mmol/L (135-146); ABG TCO2 27 mmol/L (19-24)
[2018-09-29 11:23] LABS: ABG Base Excess -2.4 mmol/L; ABG HCO3 25 mmol/L (21-25); ABG Oxygen Saturation 94.7 % (94-97); ABG PCO2 55 mmHg (35-45); ABG PH 7.27 (7.35-7.45); ABG PO2 84 mmHg (83-108); ABG Potassium Whole Blood 4.2 mmol/L (3.4-4.5); ABG Sodium Whole Blood 141 mmol/L (135-146); ABG TCO2 27 mmol/L (19-24)
[2018-09-29 13:03] LABS: ABG Base Excess -2.9 mmol/L; ABG HCO3 23 mmol/L (21-25); ABG PCO2 46 mmHg (35-45); ABG PH 7.31 (7.35-7.45); ABG Potassium Whole Blood 5.3 mmol/L (3.4-4.5); ABG Sodium Whole Blood 138 mmol/L (135-146); ABG TCO2 25 mmol/L (19-24)
[2018-09-29 13:37] LABS: ABG Base Excess -3.9 mmol/L; ABG HCO3 22 mmol/L (21-25); ABG PCO2 42 mmHg (35-45); ABG PH 7.33 (7.35-7.45); ABG PO2 406 mmHg (83-108); ABG Potassium Whole Blood 4.1 mmol/L (3.4-4.5); ABG Sodium Whole Blood 138 mmol/L (135-146); ABG TCO2 23 mmol/L (19-24)
[2018-09-29 14:14] LABS: ABG Base Excess -1.5 mmol/L; ABG HCO3 24 mmol/L (21-25); ABG Oxygen Saturation 99.9 % (94-97); ABG PCO2 44 mmHg (35-45); ABG PH 7.35 (7.35-7.45); ABG PO2 219 mmHg (83-108); ABG Sodium Whole Blood 140 mmol/L (135-146); ABG TCO2 26 mmol/L (19-24)
[2018-09-29 14:49] LABS: ABG Base Excess -1.6 mmol/L; ABG HCO3 24 mmol/L (21-25); ABG PCO2 44 mmHg (35-45); ABG PH 7.35 (7.35-7.45); ABG PO2 313 mmHg (83-108); ABG Potassium Whole Blood 4.4 mmol/L (3.4-4.5); ABG Sodium Whole Blood 139 mmol/L (135-146); ABG TCO2 25 mmol/L (19-24)
--- NOTE | 2018-09-29 15:23 | P.PN ---
Progress Note - Text Progress Note Date: 09/29/18 Attempted to see patient in ICU, patient is still in OR.
[2018-09-29 15:26] LABS: ABG Base Excess -3.4 mmol/L; ABG HCO3 23 mmol/L (21-25); ABG Oxygen Saturation 99.8 % (94-97); ABG PCO2 48 mmHg (35-45); ABG PO2 195 mmHg (83-108); ABG Potassium Whole Blood 4.6 mmol/L (3.4-4.5); ABG Sodium Whole Blood 140 mmol/L (135-146); ABG TCO2 25 mmol/L (19-24)
[2018-09-29 16:27] LABS: ABG Base Excess -2.4 mmol/L; ABG HCO3 25 mmol/L (21-25); ABG Oxygen Saturation 86.8 % (94-97); ABG PCO2 52 mmHg (35-45); ABG PH 7.29 (7.35-7.45); ABG PO2 60 mmHg (83-108); ABG Potassium Whole Blood 3.9 mmol/L (3.4-4.5); ABG Sodium Whole Blood 141 mmol/L (135-146); ABG TCO2 26 mmol/L (19-24)
[2018-09-29 16:35] LABS: ABG PO2 >420 mmHg (83-108)
--- NOTE | 2018-09-29 16:43 | P.PN ---
Subjective Progress Note Date: 09/29/18 Attempted to see patient twice today he is still in the operating room He was not seen or examined by me today Please no billing on this date Objective - Vital Signs Vital signs: Vital Signs Temp 96.9 F L 09/29/18 04:00 Pulse 81 09/29/18 04:00 Resp 18 09/29/18 04:00 BP 122/62 09/29/18 04:00 Pulse Ox 98 09/29/18 04:00 Intake & Output 09/28/18 09/29/18 09/29/18 18:59 06:59 18:59 Intake Total 1205.805 295.775 33 Output Total 800 Balance 1205.805 -504.225 33 Weight 121.8 kg 120.5 kg Intake: IV 240 80 33 NS 240 80 Intake, IV Titration 195.805 215.775 Amount Heparin Sod,Pork in 0.45% 195.805 215.775 NaCl 25,000 unit In 0.45 % NaCl 1 250ml.bag @ 8.1 UNITS/KG/HR 9.9 mls/hr IV .Q24H [facility] Rx#:[id number] Oral 770 Output: Urine 800 Other: Voiding Method Toilet Toilet Urinal Urinal # Voids 1 - Labs CBC & Chem 7: 09/29/18 04:27 09/29/18 04:27 Labs: Abnormal Lab Results - Last 24 Hours (Table) 09/28/18 09/28/18 09/28/18 Range/Units 18:09 18:09 21:06 APTT 46.7 H (22.0-30.0) sec ABG pH (7.35-7.45) ABG pCO2 (35-45) mmHg ABG pO2 (83-108) mmHg ABG Total CO2 (19-24) mmol/L ABG O2 Saturation (94-97) % ABG Hematocrit (34.0-46.0) % ABG Potassium (3.4-4.5) mmol/L ABG Ionized Calcium (4.5-5.3) mg/dL ABG Glucose (75-99) mg/dL ABG Lactic Acid (0.5-1.6) mmol/L Hemoglobin (13.0-17.5) gm/dL Chloride (98-107) mmol/L BUN (9-20) mg/dL Creatinine (0.66-1.25) mg/dL Glucose (74-99) mg/dL POC Glucose (mg/dL) 154 H (75-99) mg/dL Alkaline Phosphatase (38-126) U/L Total Protein (6.3-8.2) g/dL Arterial Blood Potassium (3.4-4.5) mmol/L Arterial Blood Glucose (75-99) mg/dL Crossmatch See Detail 09/28/18 09/29/18 09/29/18 Range/Units 21:09 04:27 04:27 APTT 54.4 H (22.0-30.0) sec ABG pH (7.35-7.45) ABG pCO2 (35-45) mmHg ABG pO2 (83-108) mmHg ABG Total CO2 (19-24) mmol/L ABG O2 Saturation (94-97) % ABG Hematocrit (34.0-46.0) % ABG Potassium (3.4-4.5) mmol/L ABG Ionized Calcium (4.5-5.3) mg/dL ABG Glucose (75-99) mg/dL ABG Lactic Acid (0.5-1.6) mmol/L Hemoglobin (13.0-17.5) gm/dL Chloride 108 H (98-107) mmol/L BUN 32 H (9-20) mg/dL Creatinine 1.31 H (0.66-1.25) mg/dL Glucose 131 H (74-99) mg/dL POC Glucose (mg/dL) 138 H (75-99) mg/dL Alkaline Phosphatase 33 L (38-126) U/L Total Protein 5.9 L (6.3-8.2) g/dL Arterial Blood Potassium (3.4-4.5) mmol/L Arterial Blood Glucose (75-99) mg/dL Crossmatch 09/29/18 09/29/18 09/29/18 Range/Units 06:37 09:43 11:22 APTT (22.0-30.0) sec ABG pH 7.27 L (7.35-7.45) ABG pCO2 55 H (35-45) mmHg ABG pO2 353 H (83-108) mmHg ABG Total CO2 27 H 27 H (19-24) mmol/L ABG O2 Saturation 100.0 H (94-97) % ABG Hematocrit (34.0-46.0) % ABG Potassium (3.4-4.5) mmol/L ABG Ionized Calcium (4.5-5.3) mg/dL ABG Glucose 157 H 172 H (75-99) mg/dL ABG Lactic Acid (0.5-1.6) mmol/L Hemoglobin (13.0-17.5) gm/dL Chloride (98-107) mmol/L BUN (9-20) mg/dL Creatinine (0.66-1.25) mg/dL Glucose (74-99) mg/dL POC Glucose (mg/dL) 204 H (75-99) mg/dL Alkaline Phosphatase (38-126) U/L Total Protein (6.3-8.2) g/dL Arterial Blood Potassium (3.4-4.5) mmol/L Arterial Blood Glucose 157 H 172 H (75-99) mg/dL Crossmatch 09/29/18 09/29/18 09/29/18 Range/Units 13:03 13:36 14:13 APTT (22.0-30.0) sec ABG pH 7.31 L 7.33 L (7.35-7.45) ABG pCO2 46 H (35-45) mmHg ABG pO2 >420 H 406 H 219 H (83-108) mmHg ABG Total CO2 25 H 26 H (19-24) mmol/L ABG O2 Saturation 100.0 H 100.0 H 99.9 H (94-97) % ABG Hematocrit (34.0-46.0) % ABG Potassium 5.3 H (3.4-4.5) mmol/L ABG Ionized Calcium 4.4 L (4.5-5.3) mg/dL ABG Glucose 240 H 241 H 228 H (75-99) mg/dL ABG Lactic Acid (0.5-1.6) mmol/L Hemoglobin 11.1 L 11.7 L 11.3 L (13.0-17.5) gm/dL Chloride (98-107) mmol/L BUN (9-20) mg/dL Creatinine (0.66-1.25) mg/dL Glucose (74-99) mg/dL POC Glucose (mg/dL) (75-99) mg/dL Alkaline Phosphatase (38-126) U/L Total Protein (6.3-8.2) g/dL Arterial Blood Potassium 5.3 H (3.4-4.5) mmol/L Arterial Blood Glucose 240 H 241 H 228 H (75-99) mg/dL Crossmatch 09/29/18 09/29/18 09/29/18 Range/Units 14:49 15:26 16:26 APTT (22.0-30.0) sec ABG pH 7.30 L 7.29 L (7.35-7.45) ABG pCO2 48 H 52 H (35-45) mmHg ABG pO2 313 H 195 H 60 L (83-108) mmHg ABG Total CO2 25 H 25 H 26 H (19-24) mmol/L ABG O2 Saturation 100.0 H 99.8 H 86.8 L (94-97) % ABG Hematocrit 33 L 31 L (34.0-46.0) % ABG Potassium 4.6 H (3.4-4.5) mmol/L ABG Ionized Calcium (4.5-5.3) mg/dL ABG Glucose 216 H 204 H 146 H (75-99) mg/dL ABG Lactic Acid 2.1 H 3.3 H* 2.3 H* (0.5-1.6) mmol/L Hemoglobin 10.8 L 10.0 L 12.6 L (13.0-17.5) gm/dL Chloride (98-107) mmol/L BUN (9-20) mg/dL Creatinine (0.66-1.25) mg/dL Glucose (74-99) mg/dL POC Glucose (mg/dL) (75-99) mg/dL Alkaline Phosphatase (38-126) U/L Total Protein (6.3-8.2) g/dL Arterial Blood Potassium 4.6 H (3.4-4.5) mmol/L Arterial Blood Glucose 216 H 204 H 146 H (75-99) mg/dL Crossmatch
[2018-09-29 16:50] LABS: ABG HCO3 24 mmol/L (21-25); ABG Oxygen Saturation 92.8 % (94-97); ABG PCO2 40 mmHg (35-45); ABG PH 7.39 (7.35-7.45); ABG PO2 66 mmHg (83-108); ABG Potassium Whole Blood 4.2 mmol/L (3.4-4.5); ABG Sodium Whole Blood 140 mmol/L (135-146); ABG TCO2 25 mmol/L (19-24)
[2018-09-29] MEDS ORDERED: NITROGLYCERIN-D5W PMX 50 MG in DEXTROSE/WATER 1 250ML.BAG IV SCH (17:26)
[2018-09-29] MEDS ORDERED: Potassium Replacement Protocol 1 EACH MISC MISCELLANE PRN (17:26)
[2018-09-29] MEDS ORDERED: ONDANSETRON 4 MG/2 ML VIAL IVP PRN (17:26)
[2018-09-29] MEDS ORDERED: BENZOCAINE/MENTHOL LOZENG 1 EACH LOZENGE MUCOUS MEM PRN (17:26)
[2018-09-29] MEDS ORDERED: METOCLOPRAMIDE 5 MG/ML 2 ML VIAL IVP PRN (17:26)
[2018-09-29] MEDS ORDERED: Phosphorus Replacement Protoco 1 EACH MISC MISCELLANE PRN (17:26)
[2018-09-29] MEDS ORDERED: Magnesium Replacement Protocol 1 EACH MISC MISCELLANE PRN (17:26)
[2018-09-29] MEDS ORDERED: IPRATROPIUM-ALBUTEROL 3 ML NEB INHALATION SCH (17:26)
[2018-09-29 17:56] LABS: Glucose,Whole Blood 141 mg/dL (75-99)
[2018-09-29] MEDS ORDERED: AMIODARONE 360 MG in DEXTROSE 5% IN WATER 200 ML IV PRN ×2 (18:00)
[2018-09-29 18:04] LABS: ABG Base Excess -1.8 mmol/L; ABG HCO3 26 mmol/L (21-25); ABG Oxygen Saturation 93.4 % (94-97); ABG PCO2 60 mmHg (35-45); ABG PH 7.24 (7.35-7.45); ABG PO2 79 mmHg (83-108); ABG TCO2 27 mmol/L (19-24)
--- NOTE | 2018-09-29 18:10 | XR ---
EXAMINATION TYPE: XR chest 1V portable DATE OF EXAM: 09/29/2018 COMPARISON: 09/30/2018 HISTORY: Postop cardiac surgery TECHNIQUE: Single frontal view of the chest is obtained. FINDINGS: There is a Cumberland-Shaun catheter with the Sissel tip in the pulmonary outflow tract. Patient status post CABG with median sternotomy wires and mediastinal clips. Left-sided external pacing devic e overlies the left hemidiaphragm. Aortic valvular replacement is noted. Mediastinal drain is questio nably present suboptimally visualized. Endotracheal tube terminates appropriately with the Sissel tip at the level of the aortic arch. Enteric tube has its fenestrated portion beyond the gastroesophagea l junction, appropriately placed. Mild patchy airspace disease is seen likely on the basis of subsegmental atelectasis. Cardiomediastin al silhouette is again enlarged, similar to the prior. IMPRESSION: Line and tube placement as described above status post cardiac surgery. Multifocal subse gmental atelectasis.
[2018-09-29 18:13] LABS: Glucose,Whole Blood 148 mg/dL (75-99)
[2018-09-29 18:16] LABS: Basophils % (A) 0 %; Eosinophils # (A) 0.1 k/uL (0-0.7); Eosinophils % (A) 0 %; HCT 37.4 % (39.0-53.0); Lymphocytes % (A) 9 %; MCH 30.5 pg (25.0-35.0); MCV 95.2 fL (80.0-100.0); Mean Platelet Volume 6.8; Monocytes # (A) 1.1 k/uL (0-1.0); Monocytes % (A) 10 %; Neutrophils # (A) 9.3 k/uL (1.3-7.7); Neutrophils % (A) 80 %; Platelet Count 165 k/uL (150-450); RBC 3.93 m/uL (4.30-5.90); RDW 12.7 % (11.5-15.5); WBC 11.7 k/uL (3.8-10.6)
[2018-09-29 18:18] LABS: Ionized Calcium 5.2 mg/dL (4.5-5.3)
[2018-09-29] MEDS ORDERED: DEXTROSE 5% IN WATER 100 ML with AMIODARONE 150 MG IV PRN (18:20)
[2018-09-29 18:22] LABS: INR 1.2 (<1.2); Partial Thromboplastin Time 29.7 sec (22.0-30.0); Prothrombin Time 12.3 sec (9.0-12.0)
[2018-09-29 18:26] LABS: ALT 41 U/L (21-72); AST 70 U/L (17-59); Albumin 2.4 g/dL (3.5-5.0); Alkaline Phosphatase <20 U/L (38-126); Anion Gap 3 mmol/L; Blood Urea Nitrogen 27 mg/dL (9-20); Calcium 8.2 mg/dL (8.4-10.2); Carbon Dioxide 24 mmol/L (22-30); Chloride 111 mmol/L (98-107); Glucose 145 mg/dL (74-99); Magnesium 2.2 mg/dL (1.6-2.3); Potassium 4.1 mmol/L (3.5-5.1); Sodium 138 mmol/L (137-145); Total Bilirubin 0.9 mg/dL (0.2-1.3); Total Protein 4.2 g/dL (6.3-8.2)
[2018-09-29] MEDS: LACTATED RINGERS 1,000 ML IV SCH (18:38)
[2018-09-29] MEDS: ACETAMINOPHEN IV (For NPO) 1,000 MG in EMPTY BAG 1 BAG IVPB SCH (18:38)
[2018-09-29] MEDS: PROPOFOL 1,000 MG in EMPTY BAG 1 BAG IV SCH ×2 (18:39→21:20)
[2018-09-29] MEDS: INSULIN REGULAR 100 UNIT in SODIUM CHLORIDE 0.9% 100 ML IV SCH ×2 (18:40→21:34)
[2018-09-29] MEDS: CLEVIDIPINE BUTYRATE 25 MG in EMPTY BAG 1 BAG IV SCH (18:49)
[2018-09-29] MEDS ORDERED: CALCIUM CHLORIDE 1 GM in SODIUM CHLORIDE 0.9% 50 ML IVPB PRN (19:00)
[2018-09-29] MEDS: IPRATROPIUM-ALBUTEROL 3 ML NEB INHALATION SCH ×2 (19:09→20:11)
[2018-09-29 19:24] LABS: Glucose,Whole Blood 178 mg/dL (75-99)
[2018-09-29] MEDS: ALBUMIN HUMAN 5% 250 ML in EMPTY BAG 1 BAG IVPB PRN ×4 (19:34→22:19)
[2018-09-29] MEDS: MORPHINE SULFATE 2 MG/ML SYRINGE IVP PRN (19:42)
[2018-09-29 20:08] LABS: ABG Base Excess -1.9 mmol/L; ABG HCO3 24 mmol/L (21-25); ABG Oxygen Saturation 96.1 % (94-97); ABG PCO2 43 mmHg (35-45); ABG PH 7.35 (7.35-7.45); ABG PO2 82 mmHg (83-108); ABG TCO2 25 mmol/L (19-24)
[2018-09-29] MEDS: ceFAZolin 3 GM in SODIUM CHLORIDE 0.9% 100 ML IVPB SCH (20:17)
[2018-09-29 20:32] LABS: Basophils % (A) 0 %; Eosinophils % (A) 0 %; HCT 35.6 % (39.0-53.0); HGB 11.5 gm/dL (13.0-17.5); Lymphocytes # (A) 0.5 k/uL (1.0-4.8); Lymphocytes % (A) 5 %; MCH 30.4 pg (25.0-35.0); MCHC 32.2 g/dL (31.0-37.0); MCV 94.3 fL (80.0-100.0); Mean Platelet Volume 7.6; Monocytes # (A) 0.8 k/uL (0-1.0); Monocytes % (A) 8 %; Neutrophils # (A) 8.8 k/uL (1.3-7.7); Neutrophils % (A) 86 %; Platelet Count 176 k/uL (150-450); RBC 3.78 m/uL (4.30-5.90); RDW 12.9 % (11.5-15.5); WBC 10.2 k/uL (3.8-10.6)
[2018-09-29 20:55] LABS: Glucose,Whole Blood 175 mg/dL (75-99)
[2018-09-29 21:46] LABS: Glucose,Whole Blood 155 mg/dL (75-99)
[2018-09-29 22:46] LABS: ABG Base Excess -1.6 mmol/L; ABG HCO3 23 mmol/L (21-25); ABG Oxygen Saturation 97.9 % (94-97); ABG PCO2 39 mmHg (35-45); ABG PH 7.38 (7.35-7.45); ABG PO2 93 mmHg (83-108); ABG TCO2 25 mmol/L (19-24)
[2018-09-29] MEDS: NOREPINEPHRINE 32 MG in SODIUM CHLORIDE 0.9% 218 ML IV SCH (23:00)
[2018-09-29 23:03] LABS: Glucose,Whole Blood 147 mg/dL (75-99)
[2018-09-29] MEDS: IPRATROPIUM-ALBUTEROL 3 ML NEB INHALATION PRN (23:09)
[2018-09-29 23:48] LABS: Glucose,Whole Blood 168 mg/dL (75-99)
[2018-09-29 23:49] LABS: Calcium 8.3 mg/dL (8.4-10.2); Magnesium 2.1 mg/dL (1.6-2.3); Potassium 4.8 mmol/L (3.5-5.1)
[2018-09-30] MEDS ORDERED: AMIODARONE 300 MG in DEXTROSE 5% IN WATER 250 ML IV PRN ×2
[2018-09-30] MEDS: MORPHINE SULFATE 2 MG/ML SYRINGE IVP PRN ×4 (00:12→18:30)
--- NOTE | 2018-09-30 00:50 | OP ---
OPERATIVE REPORT DATE OF PROCEDURE: 09/29/2018. SURGEON: Dr. Alejandre. VULNERABILITY RESEARCHER: Wyatt Tapia and Stella HERRERA. PREOPERATIVE DIAGNOSES: Severe aortic valve regurgitation with moderate stenosis, severe triple-vessel coronary artery disease, non-ST elevation myocardial infarction, severe left ventricular dysfunction, obesity, hypertension, hyperlipidemia, diabetes, obstructive sleep apnea. POSTOPERATIVE DIAGNOSES: Severe aortic valve regurgitation with moderate stenosis, severe triple-vessel coronary artery disease, non-ST elevation myocardial infarction, severe left ventricular dysfunction, obesity, hypertension, hyperlipidemia, diabetes, obstructive sleep apnea. Bicuspid, heavily calcified aortic valve. PROCEDURE PERFORMED: 1. Triple coronary artery bypass grafting using the left internal mammary artery to the left anterior descending artery, the left radial artery taken as Y- graft from the left internal mammary artery to the 1st obtuse marginal artery, reverse saphenous vein graft from the aorta to the posterior descending artery. 2. Aortic valve replacement using a 29 mm Magna Ease pericardial bioprosthesis. 3. Endoscopic harvesting of the left radial artery. 4. Endoscopic harvesting of the left greater saphenous vein from groin to knee level. 5. Intraoperative transesophageal echocardiogram and epiaortic scanning. 6. Intraoperative graft flow measurements using the locr-Stim system. INDICATION FOR SURGERY: The patient is a 58-year-old gentleman admitted with non ST elevation myocardial infarction with symptoms also of severe shortness of breath. Workup included a 2D echo and a VAISHNAVI that showed severe aortic valve regurgitation and moderate aortic valve stenosis and a bicuspid aortic valve, severe left ventricular dysfunction, mild mitral valve regurgitation. Cardiac catheterization followed and that showed a totally occluded right coronary artery and severe stenosis of the LAD after the takeoff of a 1st diagonal artery, as well as stenosis of the obtuse marginal artery. PLAN: Multiple arterial coronary artery bypass grafting along with a bioprosthesis for the aortic valve. The choice of valve has been discussed with him. The STS risk was discussed with him and his daughter who is a nurse, then they understood it and agreed to proceed. DESCRIPTION OF THE PROCEDURE: The patient in supine position, right internal jugular Gheens-Shaun catheter and right brachial arterial line were placed. The patient cardiac index was 3 and PA pressure was 45/20. Subsequently, he was brought to the operating room where general endotracheal anesthesia was induced uneventfully and the patient received 3 grams of cefazolin intravenously. A Villa catheter was inserted. The chest, abdomen and both lower extremities and left upper extremity were prepped and draped using ChloraPrep. Ioban was used to cover the skin. Transesophageal echocardiogram showed moderate left ventricular dysfunction with inferior hypokinesia to akinesia with mild mitral valve regurgitation and severe aortic valve regurgitation and moderate stenosis. Midline sternotomy was performed and the bone was mildly osteoporotic. No bone wax was used. The left hemisternum was elevated. The left internal mammary artery was harvested in a somewhat skeletonized fashion. The left pleura was intentionally opened in this process and was drained with a 19-Nauruan Gerardo drain. The right pleura remained grossly intact. In the same setting, the left radial artery was harvested using endoscopic technique after clamping trial at the wrist that revealed preserved pulsatile signal at the level of the left index to saturation probe. The forearm incisions was closed over a drain. Also in the same setting, the left greater saphenous vein was harvested endoscopically from groin to knee level after administration of 5000 units of heparin. The branches were tied and the leg incisions were closed over a drain. Mediastinal fat was transected between 2 ties and epiaortic scanning revealed concentric intimal thickening but no protruding atheroma in the ascending aorta. Pericardium was opened in an inverted T-fashion and a pericardial cradle was created. Findings included soft relatively short aorta and enlarged heart. After systemic heparinization and placement of respective pledgeted pursestring , aortic cannulation with a 21-Nauruan soft flow cannula, venous cannulation via the right atrial appendage was performed. Antegrade as well as retrograde cardioplegia catheter were placed. The radial artery was prepared by incising the fascia all along its volar aspect. It was around 2.5 mm in diameter. The vein was also prepared and appeared to be of good quality around 4 mm in diameter. The mammary artery was prepared, was around 2 mm in diameter and had excellent pulsatile flow in it. Cardiopulmonary bypass was initiated and with the heart empty, we looked at the target. It appeared that there was a posterior descending artery that is a good target, the LAD beyond the takeoff of the 2nd diagonal artery and obtuse marginal artery would be the site for bypass. The radial artery would not reach from the aorta to the obtuse marginal artery. For that reason, I elected to anastomose the radial artery to the left internal mammary artery for inflow. We weaned quickly off bypass and with the patient off bypass, I performed the radial to left internal mammary artery anastomosis at the level of the left pericardial reflection using Prolene 7-0 in continuous fashion. There was excellent pulsatile flow from both arterial and at the end of this anastomosis. At this point, we re-initiated cardiopulmonary bypass and allowed the patient temperature to drift down to 34 degrees Celsius. The aorta was clamped and during aortic clamping myocardial protection was achieved with initial dose of 500 mL of antegrade cold blood plegia. However, in view of severe aortic valve regurgitation, we switched to retrograde cardioplegia and achieved adequate arrest at around 800 mL. A total of 1.5 L were given initially. Subsequent doses were given retrograde at 15 minute interval and as well as through the constructed vein graft to the posterior descending artery to achieve optimal right ventricular protection. The first part of the surgery was to perform all distal anastomosis. The 1st anastomosis was between a segment of reverse saphenous vein and the 1.5 mm thin- walled posterior descending artery using Prolene 7-0 in continuous fashion. That vein was connected to the side-arm of the retrograde cardioplegia delivery system as mentioned above. The 2nd distal anastomosis was between the radial artery and the 1.5 mm obtuse marginal artery that was thin-walled using Prolene 7-0 in continuous fashion. The third and last distal anastomosis was between the left internal mammary artery and the left anterior descending artery beyond the takeoff of the 2nd diagonal artery. That artery was around 1.75 mm thin-walled at that level and the anastomosis was completed using Prolene 7-0 in continuous fashion. The left atrial appendage was not excluded with a clip to avoid any potential mechanical compression of the nearby radial artery graft. Attention was moved at this point at performing the aortic valve replacement part. The aorta was opened in a transverse fashion 1 cm above the sinotubular junction. Exploration revealed a heavily calcified bicuspid aortic valve with fusion of the right and the left cusps. There were calcifications into the anulus and the septum. Coronary ostiae were in normal position. We proceeded at a tedious resection of the valve and decalcification of the anulus to pliable tissue. The membranous septum area was spared. Thorough irrigation performed. The valve anulus was sized to a 29 mm Magna Ease, which was selected and was prepared on the back table as we passed a total of 19 sutures of Tycron 2-0 pledgeted in a horizontal mattress fashion with the pledgets on the ventricular side. All those sutures were passed symmetrically into the cuff of the valve which seated nicely supra- annularly. The needles were cut and the suture tied using the core knot device. Both coronary ostia were clear. Thorough irrigation performed one more time. CO2 was flowing over the aorta as long as it was opened. Subsequently, we proceeded at closing the aortotomy using Prolene 3-0 in 2 layers. The 1st layer in a horizontal mattress and the 2nd layer in an [id number] technique. Rewarming was started as we punched out a button of 5 mm each above the aortotomy and performed a single proximal anastomosis of the vein graft to the aorta using Prolene 6-0 in continuous fashion. The patient was loaded with Primacor and was given lidocaine and magnesium before unclamping the aorta. He regained spontaneous sinus rhythm after a period of reperfusion. Two monopolar atrial pacing wires were affixed to the respective pursestring of the right atrium. One bipolar ventricular pacing wire was driven via the inferior aspect of the right ventricle. After a period of reperfusion, we were able to wean off cardiopulmonary bypass with low support on 0.2 Primacor and low -dose Levophed. De-airing was guided by VAISHNAVI, which showed improved left ventricular function and especially improved inferior wall function. The aortic valve prosthesis was functioning normally with no paravalvular leak and minimal gradient. With that , test was then full dose protamine was given. Decannulation followed. The venous cannulation site was reinforced with a running Prolene 4-0. A groove was made in the left pleura pericardial fat to accommodate the mammary artery medial to the lung and away from the posterior sternal table. Two Gerardo drains were placed, 1 substernally and 1 in the posterior pericardium. The pericardial fat was approximated over the heart and grafts. After ensuring adequate hemostasis and hemodynamic and after correct sponge, instrument, and needle count, the sternum was closed using a combination of 3 [place] cables and 3 Tritium plates fixed with 14 mm screws. Thorough irrigation performed. The rest of the closure proceeded in layers. Skin glue was applied. The patient did not receive any blood bank product but received 1 L of Cell Saver blood. He was transferred to the ICU in stable condition. Normal sinus rhythm , PA pressure 26/18, mean arterial pressure of 78 on low-dose Primacor. MMODL / IJN: [id number] / DANII
[2018-09-30] MEDS: ACETAMINOPHEN IV (For NPO) 1,000 MG in EMPTY BAG 1 BAG IVPB SCH ×4 (01:01→18:07)
[2018-09-30 01:11] LABS: Glucose,Whole Blood 179 mg/dL (75-99)
[2018-09-30 02:31] LABS: Glucose,Whole Blood 181 mg/dL (75-99)
[2018-09-30] MEDS: MILRINONE-D5W PMX 20 MG in DEXTROSE/WATER 1 100ML.BAG IV SCH ×2 (02:35→16:11)
[2018-09-30] MEDS: PROPOFOL 1,000 MG in EMPTY BAG 1 BAG IV SCH ×3 (02:36→11:33)
[2018-09-30] MEDS: MUPIROCIN 2% OINT 22 GM TUBE NASAL SCH ×3 (02:37→20:53)
[2018-09-30] MEDS: HEPARIN SODIUM,PORCINE 5,000 UNIT/ML 1 ML VIAL SQ SCH ×3 (02:38→17:16)
[2018-09-30 03:12] LABS: Glucose,Whole Blood 183 mg/dL (75-99)
[2018-09-30] MEDS: IPRATROPIUM-ALBUTEROL 3 ML NEB INHALATION PRN (03:13)
[2018-09-30 04:22] LABS: Glucose,Whole Blood 174 mg/dL (75-99)
[2018-09-30] MEDS: ceFAZolin 3 GM in SODIUM CHLORIDE 0.9% 100 ML IVPB SCH ×3 (04:37→20:52)
[2018-09-30 04:39] LABS: Basophils % (A) 0 %; Eosinophils % (A) 0 %; HCT 26.2 % (39.0-53.0); Lymphocytes # (A) 0.6 k/uL (1.0-4.8); Lymphocytes % (A) 8 %; MCH 31.5 pg (25.0-35.0); MCHC 33.4 g/dL (31.0-37.0); MCV 94.2 fL (80.0-100.0); Mean Platelet Volume 7.6; Monocytes # (A) 0.4 k/uL (0-1.0); Monocytes % (A) 6 %; Neutrophils # (A) 5.9 k/uL (1.3-7.7); Neutrophils % (A) 84 %; Platelet Count 138 k/uL (150-450); RBC 2.78 m/uL (4.30-5.90); RDW 12.9 % (11.5-15.5)
[2018-09-30 04:51] LABS: INR 1.1 (<1.2); Ionized Calcium 4.9 mg/dL (4.5-5.3); Partial Thromboplastin Time 30.9 sec (22.0-30.0); Prothrombin Time 11.7 sec (9.0-12.0)
[2018-09-30 05:05] LABS: ALT 31 U/L (21-72); AST 65 U/L (17-59); Albumin 2.9 g/dL (3.5-5.0); Alkaline Phosphatase <20 U/L (38-126); Anion Gap 5 mmol/L; Blood Urea Nitrogen 32 mg/dL (9-20); Calcium 8.2 mg/dL (8.4-10.2); Carbon Dioxide 23 mmol/L (22-30); Chloride 109 mmol/L (98-107); Glucose 158 mg/dL (74-99); Potassium 4.6 mmol/L (3.5-5.1); Sodium 137 mmol/L (137-145); Total Bilirubin 0.5 mg/dL (0.2-1.3); Total Protein 4.4 g/dL (6.3-8.2)
[2018-09-30 05:12] LABS: Glucose,Whole Blood 155 mg/dL (75-99)
[2018-09-30 05:48] LABS: ABG Base Excess -1.8 mmol/L; ABG HCO3 23 mmol/L (21-25); ABG PCO2 37 mmHg (35-45); ABG PH 7.41 (7.35-7.45); ABG PO2 66 mmHg (83-108); ABG TCO2 24 mmol/L (19-24)
[2018-09-30 06:08] LABS: HGB 8.8 gm/dL (13.0-17.5)
[2018-09-30 06:42] LABS: Glucose,Whole Blood 155 mg/dL (75-99)
[2018-09-30 07:14] LABS: Glucose,Whole Blood 156 mg/dL (75-99)
[2018-09-30] MEDS: ALBUMIN HUMAN 5% 250 ML in EMPTY BAG 1 BAG IVPB PRN ×4 (08:00→14:19)
[2018-09-30 08:17] LABS: Glucose,Whole Blood 160 mg/dL (75-99)
[2018-09-30] MEDS: ASPIRIN 325 MG TAB PO SCH (08:59)
[2018-09-30] MEDS: CLOPIDOGREL 75 MG TAB PO SCH (09:00)
[2018-09-30] MEDS ORDERED: ATORVASTATIN 40 MG TAB PO SCH (09:00)
[2018-09-30] MEDS: METOPROLOL TARTRATE 12.5 MG TAB PO SCH ×2 (09:02→20:52)
[2018-09-30] MEDS: PANTOPRAZOLE 40 MG/10 ML VIAL IVP SCH (09:02)
--- NOTE | 2018-09-30 09:17 | XR ---
EXAMINATION TYPE: XR chest 1V portable DATE OF EXAM: 09/30/2018 COMPARISON: 09/29/2018 INDICATION: Postop cardiac surgery TECHNIQUE: Single frontal view of the chest is obtained. FINDINGS: The heart size is enlarged. The pulmonary vasculature is upper limits of normal. There is opacification at the left lung base. Some silhouetting of the right diaphragm is present at the right. Multiple lines and catheters are present. The endotracheal tube has its tip above the laurita. Nasogas tric tube transverses the thorax the tip in left upper quadrant of the abdomen. Killingworth-Shanu catheter alfaro s the tip in the region of the main pulmonary artery. IMPRESSION: 1. Lines and catheters discussed above. 2. Developing opacification at the bilateral lung bases, more so at the left than the right. Correlat e for pleural effusions. Atelectasis could be considered.
--- NOTE | 2018-09-30 09:23 | P.PN ---
Subjective Progress Note Date: 09/30/18 Principal diagnosis: Non-STEMI, severe left ventricular dysfunction, acute systolic heart failure with EF 20-25 %, severe triple vessel coronary artery disease , severe aortic regurgitation with moderate aortic stenosis, bicuspid, heavily calcified aortic valve, previous medical history of morbid obesity, hypertension, hyperlipidemia , diabetes mellitus with hemoglobin A1c 7.5%, GERD, obstructive sleep apnea with CPAP use, and previous tobacco dependence with recent FEV1 80% of predicted , moderate restriction. POD #1 urgent triple coronary artery bypass grafting using the left internal mammary artery to the left anterior descending artery, the left radial artery taken as a Y graft from the left internal mammary artery to the first obtuse marginal artery, reverse saphenous vein graft from the aorta to the posterior descending artery. Aortic valve replacement using a 29 mm Magna Ease pericardial bioprosthesis. Endoscopic harvesting of the left radial artery. Endoscopic harvesting of the left greater saphenous vein from the groin to the knee level. Intraoperative transesophageal echocardiogram and epi-aortic scanning. Intraoperative graft flow measurements using the Igenicastim system. Postoperative acute blood loss anemia, an expected outcome of surgery given cardiopulmonary bypass pump and hemodilution. The patient is currently lying in bed in the intensive care unit in no acute distress, still mechanically ventilated. Remains on IV Primacor, low-dose levo , nitro, amiodarone. Sinus rhythm with occasional PACs and PVCs. Objective - Vital Signs Vital signs: Vital Signs Temp 99.5 F 09/30/18 04:00 Pulse 75 09/30/18 04:00 Resp 26 H 09/30/18 04:00 BP 104/50 09/30/18 04:00 Pulse Ox 96 09/30/18 04:00 Intake & Output 09/29/18 09/30/18 09/30/18 18:59 06:59 18:59 Intake Total 233 2930.173 359 Output Total 3965 1133 66 Balance -3732 1797.173 293 Weight 132 kg Intake: IV 233 1139 109 ACETAMINOPHEN IV (For NPO 100 200 ) 1,000 mg In Empty Bag 1 bag @ 400 mls/hr IVPB Q6HR NANCY Rx#:[id number] CO/CI 120 30 Lactated Ringers 1,000 ml 100 690 70 @ 50 mls/hr IV .Q20H NANCY Rx#:[id number] Pressure bags 129 9 Intake, IV Titration 1791.173 250 Amount Albumin Human 5% 250 ml 1250 In Empty Bag 1 bag @ 250 mls/hr IVPB Q1HR PRN Rx#: [id number] Amiodarone 360 mg In 169.58 Dextrose 5% in Water 200 ml @ 1 MG/MIN 33.36 mls/ hr IV .Q6H1M PRN Rx#: [id number] Dextrose 5% in Water 100 100 250 ml @ 618 mls/hr IV .Q10M PRN with Amiodarone 150 mg Rx#:[id number] Insulin Regular 100 unit 15.702 In Sodium Chloride 0.9% 100 ml @ Per Protocol IV .Q0M NANCY Rx#:[id number] Norepinephrine 32 mg In 1.973 Sodium Chloride 0.9% 218 ml @ 0.05 MCG/KG/MIN 2.82 mls/hr IV .Q24H NANCY Rx#: [id number] Propofol 1,000 mg In 153.918 Empty Bag 1 bag @ Titrate IV .Q0M NANCY Rx#: [id number] ceFAZolin 3,000 mg In 100 Sodium Chloride 0.9% 30 ml @ 999 mls/hr IVPB ONCE ONE Rx#:[id number] Output: Chest Tube Drainage 570 750 40 Left Pleural 180 340 20 Mediastinal X2 390 410 20 Urine 395 383 26 Estimated Blood Loss 3000 Other: Voiding Method Indwelling Catheter ABP, PAP, CO, CI - Last Documented Arterial Blood Pressure 95/51 Pulmonary Artery Pressure 31/20 Cardiac Output 6.1 Cardiac Index 2.6 - Constitutional General appearance: Present: morbidly obese, no acute distress - Respiratory Details: Lungs sounds diminished bilaterally. Respirations even, nonlabored on mechanical ventilation. Current ventilator settings assist control mode, FiO2 50%, tidal volume 600, respiratory rate 16, PEEP 5. ABGs this morning 7.41/37/ 66/23/94%/-1.8 on 50% FiO2 with 5 of PEEP. 9.0 ET tube present, 24 at the lip. Patient is breathing over the vent at about 24 breaths per minute. Mediastinal chest tube to continuous wall suction, 270 mL serosanguineous drainage overnight, 1050 mL since surgery. Left pleural chest tube to continuous wall suction, 270 mL serosanguineous drainage overnight, 600 mL since surgery. No air leaks present. - Cardiovascular Details: S1, S2 present. Regular rate and rhythm, sinus rhythm on telemetry with occasional PACs and PVCs. Sternum is stable. A/V epicardial pacemaker wires present, connected to generator, VVI mode with backup rate 50 bpm. Palpable peripheral pulses bilaterally. Bilateral trace up her extremity edema present. Right internal jugular Champion/Cordis, right brachial arterial line present. Last CO/CI 5.2/2.2 on 0.2 mcg/kg/min of Primacor, 0.03 mcg/kg/min of levo, 0.5 mg/min of amiodarone, 5 mcg/min of nitro. Heart hugger, antiembolism stockings , SCDs present. - Gastrointestinal Gastrointestinal Comment(s): Abdomen soft, nontender, nondistended, obese. Hypoactive bowel sounds present 4 quadrants. OG tube present to low intermittent suction, minimal drainage. - Genitourinary Genitourinary Comment(s): Villa present draining clear, yellow urine. Urine output 25-30 mL/h overnight. - Integumentary Integumentary Comment(s): Skin is warm and dry with evidence of good perfusion. Anterior chest incision well approximated and covered with dry intact dressing. Left lower extremity EVH site well approximated. Left radial harvest site well approximated, JAYLON drain present with minimal drainage. - Neurologic Neurologic Comment(s): Currently sedated with propofol on mechanical ventilation. Patient is quite restless when taken off sedation. - Labs CBC & Chem 7: 09/30/18 04:00 09/30/18 04:00 Labs: Abnormal Lab Results - Last 24 Hours (Table) 09/28/18 09/29/18 09/29/18 Range/Units 18:09 09:43 11:22 WBC (3.8-10.6) k/uL RBC (4.30-5.90) m/uL Hgb (13.0-17.5) gm/dL Hct (39.0-53.0) % Plt Count (150-450) k/uL Neutrophils # (1.3-7.7) k/uL Lymphocytes # (1.0-4.8) k/uL Monocytes # (0-1.0) k/uL PT (9.0-12.0) sec INR (<1.2) APTT (22.0-30.0) sec ABG pH 7.27 L (7.35-7.45) ABG pCO2 55 H (35-45) mmHg ABG pO2 353 H (83-108) mmHg ABG HCO3 (21-25) mmol/L ABG Total CO2 27 H 27 H (19-24) mmol/L ABG O2 Saturation 100.0 H (94-97) % ABG Hematocrit (34.0-46.0) % ABG Potassium (3.4-4.5) mmol/L ABG Ionized Calcium (4.5-5.3) mg/dL ABG Glucose 157 H 172 H (75-99) mg/dL ABG Lactic Acid (0.5-1.6) mmol/L Hemoglobin (13.0-17.5) gm/dL Chloride (98-107) mmol/L BUN (9-20) mg/dL Creatinine (0.66-1.25) mg/dL Glucose (74-99) mg/dL POC Glucose (mg/dL) (75-99) mg/dL Calcium (8.4-10.2) mg/dL AST (17-59) U/L Alkaline Phosphatase (38-126) U/L Total Protein (6.3-8.2) g/dL Albumin (3.5-5.0) g/dL Arterial Blood Potassium (3.4-4.5) mmol/L Arterial Blood Glucose 157 H 172 H (75-99) mg/dL Crossmatch See Detail 09/29/18 09/29/18 09/29/18 Range/Units 13:03 13:36 14:13 WBC (3.8-10.6) k/uL RBC (4.30-5.90) m/uL Hgb (13.0-17.5) gm/dL Hct (39.0-53.0) % Plt Count (150-450) k/uL Neutrophils # (1.3-7.7) k/uL Lymphocytes # (1.0-4.8) k/uL Monocytes # (0-1.0) k/uL PT (9.0-12.0) sec INR (<1.2) APTT (22.0-30.0) sec ABG pH 7.31 L 7.33 L (7.35-7.45) ABG pCO2 46 H (35-45) mmHg ABG pO2 >420 H 406 H 219 H (83-108) mmHg ABG HCO3 (21-25) mmol/L ABG Total CO2 25 H 26 H (19-24) mmol/L ABG O2 Saturation 100.0 H 100.0 H 99.9 H (94-97) % ABG Hematocrit (34.0-46.0) % ABG Potassium 5.3 H (3.4-4.5) mmol/L ABG Ionized Calcium 4.4 L (4.5-5.3) mg/dL ABG Glucose 240 H 241 H 228 H (75-99) mg/dL ABG Lactic Acid (0.5-1.6) mmol/L Hemoglobin 11.1 L 11.7 L 11.3 L (13.0-17.5) gm/dL Chloride (98-107) mmol/L BUN (9-20) mg/dL Creatinine (0.66-1.25) mg/dL Glucose (74-99) mg/dL POC Glucose (mg/dL) (75-99) mg/dL Calcium (8.4-10.2) mg/dL AST (17-59) U/L Alkaline Phosphatase (38-126) U/L Total Protein (6.3-8.2) g/dL Albumin (3.5-5.0) g/dL Arterial Blood Potassium 5.3 H (3.4-4.5) mmol/L Arterial Blood Glucose 240 H 241 H 228 H (75-99) mg/dL Crossmatch 09/29/18 09/29/18 09/29/18 Range/Units 14:49 15:26 16:26 WBC (3.8-10.6) k/uL RBC (4.30-5.90) m/uL Hgb (13.0-17.5) gm/dL Hct (39.0-53.0) % Plt Count (150-450) k/uL Neutrophils # (1.3-7.7) k/uL Lymphocytes # (1.0-4.8) k/uL Monocytes # (0-1.0) k/uL PT (9.0-12.0) sec INR (<1.2) APTT (22.0-30.0) sec ABG pH 7.30 L 7.29 L (7.35-7.45) ABG pCO2 48 H 52 H (35-45) mmHg ABG pO2 313 H 195 H 60 L (83-108) mmHg ABG HCO3 (21-25) mmol/L ABG Total CO2 25 H 25 H 26 H (19-24) mmol/L ABG O2 Saturation 100.0 H 99.8 H 86.8 L (94-97) % ABG Hematocrit 33 L 31 L (34.0-46.0) % ABG Potassium 4.6 H (3.4-4.5) mmol/L ABG Ionized Calcium (4.5-5.3) mg/dL ABG Glucose 216 H 204 H 146 H (75-99) mg/dL ABG Lactic Acid 2.1 H 3.3 H* 2.3 H* (0.5-1.6) mmol/L Hemoglobin 10.8 L 10.0 L 12.6 L (13.0-17.5) gm/dL Chloride (98-107) mmol/L BUN (9-20) mg/dL Creatinine (0.66-1.25) mg/dL Glucose (74-99) mg/dL POC Glucose (mg/dL) (75-99) mg/dL Calcium (8.4-10.2) mg/dL AST (17-59) U/L Alkaline Phosphatase (38-126) U/L Total Protein (6.3-8.2) g/dL Albumin (3.5-5.0) g/dL Arterial Blood Potassium 4.6 H (3.4-4.5) mmol/L Arterial Blood Glucose 216 H 204 H 146 H (75-99) mg/dL Crossmatch 09/29/18 09/29/18 09/29/18 Range/Units 16:50 17:45 17:45 WBC 11.7 H (3.8-10.6) k/uL RBC 3.93 L (4.30-5.90) m/uL Hgb 12.0 L D (13.0-17.5) gm/dL Hct 37.4 L (39.0-53.0) % Plt Count (150-450) k/uL Neutrophils # 9.3 H (1.3-7.7) k/uL Lymphocytes # (1.0-4.8) k/uL Monocytes # 1.1 H (0-1.0) k/uL PT (9.0-12.0) sec INR (<1.2) APTT (22.0-30.0) sec ABG pH (7.35-7.45) ABG pCO2 (35-45) mmHg ABG pO2 66 L (83-108) mmHg ABG HCO3 (21-25) mmol/L ABG Total CO2 25 H (19-24) mmol/L ABG O2 Saturation 92.8 L (94-97) % ABG Hematocrit (34.0-46.0) % ABG Potassium (3.4-4.5) mmol/L ABG Ionized Calcium (4.5-5.3) mg/dL ABG Glucose 135 H (75-99) mg/dL ABG Lactic Acid 2.2 H* (0.5-1.6) mmol/L Hemoglobin 12.6 L (13.0-17.5) gm/dL Chloride (98-107) mmol/L BUN (9-20) mg/dL Creatinine (0.66-1.25) mg/dL Glucose (74-99) mg/dL POC Glucose (mg/dL) 141 H (75-99) mg/dL Calcium (8.4-10.2) mg/dL AST (17-59) U/L Alkaline Phosphatase (38-126) U/L Total Protein (6.3-8.2) g/dL Albumin (3.5-5.0) g/dL Arterial Blood Potassium (3.4-4.5) mmol/L Arterial Blood Glucose 135 H (75-99) mg/dL Crossmatch 09/29/18 09/29/18 09/29/18 Range/Units 17:45 17:45 18:02 WBC (3.8-10.6) k/uL RBC (4.30-5.90) m/uL Hgb (13.0-17.5) gm/dL Hct (39.0-53.0) % Plt Count (150-450) k/uL Neutrophils # (1.3-7.7) k/uL Lymphocytes # (1.0-4.8) k/uL Monocytes # (0-1.0) k/uL PT 12.3 H (9.0-12.0) sec INR 1.2 H (<1.2) APTT (22.0-30.0) sec ABG pH 7.24 L (7.35-7.45) ABG pCO2 60 H (35-45) mmHg ABG pO2 79 L (83-108) mmHg ABG HCO3 26 H (21-25) mmol/L ABG Total CO2 27 H (19-24) mmol/L ABG O2 Saturation 93.4 L (94-97) % ABG Hematocrit (34.0-46.0) % ABG Potassium (3.4-4.5) mmol/L ABG Ionized Calcium (4.5-5.3) mg/dL ABG Glucose (75-99) mg/dL ABG Lactic Acid (0.5-1.6) mmol/L Hemoglobin (13.0-17.5) gm/dL Chloride 111 H (98-107) mmol/L BUN 27 H (9-20) mg/dL Creatinine (0.66-1.25) mg/dL Glucose 145 H (74-99) mg/dL POC Glucose (mg/dL) (75-99) mg/dL Calcium 8.2 L (8.4-10.2) mg/dL AST 70 H (17-59) U/L Alkaline Phosphatase <20 L (38-126) U/L Total Protein 4.2 L (6.3-8.2) g/dL Albumin 2.4 L (3.5-5.0) g/dL Arterial Blood Potassium (3.4-4.5) mmol/L Arterial Blood Glucose (75-99) mg/dL Crossmatch 09/29/18 09/29/18 09/29/18 Range/Units 18:02 19:13 20:04 WBC (3.8-10.6) k/uL RBC (4.30-5.90) m/uL Hgb (13.0-17.5) gm/dL Hct (39.0-53.0) % Plt Count (150-450) k/uL Neutrophils # (1.3-7.7) k/uL Lymphocytes # (1.0-4.8) k/uL Monocytes # (0-1.0) k/uL PT (9.0-12.0) sec INR (<1.2) APTT (22.0-30.0) sec ABG pH (7.35-7.45) ABG pCO2 (35-45) mmHg ABG pO2 82 L (83-108) mmHg ABG HCO3 (21-25) mmol/L ABG Total CO2 25 H (19-24) mmol/L ABG O2 Saturation (94-97) % ABG Hematocrit (34.0-46.0) % ABG Potassium (3.4-4.5) mmol/L ABG Ionized Calcium (4.5-5.3) mg/dL ABG Glucose (75-99) mg/dL ABG Lactic Acid (0.5-1.6) mmol/L Hemoglobin (13.0-17.5) gm/dL Chloride (98-107) mmol/L BUN (9-20) mg/dL Creatinine (0.66-1.25) mg/dL Glucose (74-99) mg/dL POC Glucose (mg/dL) 148 H 178 H (75-99) mg/dL Calcium (8.4-10.2) mg/dL AST (17-59) U/L Alkaline Phosphatase (38-126) U/L Total Protein (6.3-8.2) g/dL Albumin (3.5-5.0) g/dL Arterial Blood Potassium (3.4-4.5) mmol/L Arterial Blood Glucose (75-99) mg/dL Crossmatch 09/29/18 09/29/18 09/29/18 Range/Units 20:12 20:20 21:15 WBC (3.8-10.6) k/uL RBC 3.78 L (4.30-5.90) m/uL Hgb 11.5 L (13.0-17.5) gm/dL Hct 35.6 L (39.0-53.0) % Plt Count (150-450) k/uL Neutrophils # 8.8 H (1.3-7.7) k/uL Lymphocytes # 0.5 L (1.0-4.8) k/uL Monocytes # (0-1.0) k/uL PT (9.0-12.0) sec INR (<1.2) APTT (22.0-30.0) sec ABG pH (7.35-7.45) ABG pCO2 (35-45) mmHg ABG pO2 (83-108) mmHg ABG HCO3 (21-25) mmol/L ABG Total CO2 (19-24) mmol/L ABG O2 Saturation (94-97) % ABG Hematocrit (34.0-46.0) % ABG Potassium (3.4-4.5) mmol/L ABG Ionized Calcium (4.5-5.3) mg/dL ABG Glucose (75-99) mg/dL ABG Lactic Acid (0.5-1.6) mmol/L Hemoglobin (13.0-17.5) gm/dL Chloride (98-107) mmol/L BUN (9-20) mg/dL Creatinine (0.66-1.25) mg/dL Glucose (74-99) mg/dL POC Glucose (mg/dL) 175 H 155 H (75-99) mg/dL Calcium (8.4-10.2) mg/dL AST (17-59) U/L Alkaline Phosphatase (38-126) U/L Total Protein (6.3-8.2) g/dL Albumin (3.5-5.0) g/dL Arterial Blood Potassium (3.4-4.5) mmol/L Arterial Blood Glucose (75-99) mg/dL Crossmatch 09/29/18 09/29/18 09/29/18 Range/Units 22:18 22:42 23:10 WBC (3.8-10.6) k/uL RBC (4.30-5.90) m/uL Hgb (13.0-17.5) gm/dL Hct (39.0-53.0) % Plt Count (150-450) k/uL Neutrophils # (1.3-7.7) k/uL Lymphocytes # (1.0-4.8) k/uL Monocytes # (0-1.0) k/uL PT (9.0-12.0) sec INR (<1.2) APTT (22.0-30.0) sec ABG pH (7.35-7.45) ABG pCO2 (35-45) mmHg ABG pO2 (83-108) mmHg ABG HCO3 (21-25) mmol/L ABG Total CO2 25 H (19-24) mmol/L ABG O2 Saturation 97.9 H (94-97) % ABG Hematocrit (34.0-46.0) % ABG Potassium (3.4-4.5) mmol/L ABG Ionized Calcium (4.5-5.3) mg/dL ABG Glucose (75-99) mg/dL ABG Lactic Acid (0.5-1.6) mmol/L Hemoglobin (13.0-17.5) gm/dL Chloride 110 H (98-107) mmol/L BUN 30 H (9-20) mg/dL Creatinine 1.54 H (0.66-1.25) mg/dL Glucose 151 H (74-99) mg/dL POC Glucose (mg/dL) 147 H (75-99) mg/dL Calcium 8.3 L (8.4-10.2) mg/dL AST (17-59) U/L Alkaline Phosphatase (38-126) U/L Total Protein (6.3-8.2) g/dL Albumin (3.5-5.0) g/dL Arterial Blood Potassium (3.4-4.5) mmol/L Arterial Blood Glucose (75-99) mg/dL Crossmatch 09/29/18 09/30/18 09/30/18 Range/Units 23:18 00:58 02:20 WBC (3.8-10.6) k/uL RBC (4.30-5.90) m/uL Hgb (13.0-17.5) gm/dL Hct (39.0-53.0) % Plt Count (150-450) k/uL Neutrophils # (1.3-7.7) k/uL Lymphocytes # (1.0-4.8) k/uL Monocytes # (0-1.0) k/uL PT (9.0-12.0) sec INR (<1.2) APTT (22.0-30.0) sec ABG pH (7.35-7.45) ABG pCO2 (35-45) mmHg ABG pO2 (83-108) mmHg ABG HCO3 (21-25) mmol/L ABG Total CO2 (19-24) mmol/L ABG O2 Saturation (94-97) % ABG Hematocrit (34.0-46.0) % ABG Potassium (3.4-4.5) mmol/L ABG Ionized Calcium (4.5-5.3) mg/dL ABG Glucose (75-99) mg/dL ABG Lactic Acid (0.5-1.6) mmol/L Hemoglobin (13.0-17.5) gm/dL Chloride (98-107) mmol/L BUN (9-20) mg/dL Creatinine (0.66-1.25) mg/dL Glucose (74-99) mg/dL POC Glucose (mg/dL) 168 H 179 H 181 H (75-99) mg/dL Calcium (8.4-10.2) mg/dL AST (17-59) U/L Alkaline Phosphatase (38-126) U/L Total Protein (6.3-8.2) g/dL Albumin (3.5-5.0) g/dL Arterial Blood Potassium (3.4-4.5) mmol/L Arterial Blood Glucose (75-99) mg/dL Crossmatch 09/30/18 09/30/18 09/30/18 Range/Units 02:59 04:00 04:00 WBC (3.8-10.6) k/uL RBC 2.78 L (4.30-5.90) m/uL Hgb 8.8 L D (13.0-17.5) gm/dL Hct 26.2 L (39.0-53.0) % Plt Count 138 L (150-450) k/uL Neutrophils # (1.3-7.7) k/uL Lymphocytes # 0.6 L (1.0-4.8) k/uL Monocytes # (0-1.0) k/uL PT (9.0-12.0) sec INR (<1.2) APTT 30.9 H (22.0-30.0) sec ABG pH (7.35-7.45) ABG pCO2 (35-45) mmHg ABG pO2 (83-108) mmHg ABG HCO3 (21-25) mmol/L ABG Total CO2 (19-24) mmol/L ABG O2 Saturation (94-97) % ABG Hematocrit (34.0-46.0) % ABG Potassium (3.4-4.5) mmol/L ABG Ionized Calcium (4.5-5.3) mg/dL ABG Glucose (75-99) mg/dL ABG Lactic Acid (0.5-1.6) mmol/L Hemoglobin (13.0-17.5) gm/dL Chloride (98-107) mmol/L BUN (9-20) mg/dL Creatinine (0.66-1.25) mg/dL Glucose (74-99) mg/dL POC Glucose (mg/dL) 183 H (75-99) mg/dL Calcium (8.4-10.2) mg/dL AST (17-59) U/L Alkaline Phosphatase (38-126) U/L Total Protein (6.3-8.2) g/dL Albumin (3.5-5.0) g/dL Arterial Blood Potassium (3.4-4.5) mmol/L Arterial Blood Glucose (75-99) mg/dL Crossmatch 09/30/18 09/30/18 09/30/18 Range/Units 04:00 04:07 05:01 WBC (3.8-10.6) k/uL RBC (4.30-5.90) m/uL Hgb (13.0-17.5) gm/dL Hct (39.0-53.0) % Plt Count (150-450) k/uL Neutrophils # (1.3-7.7) k/uL Lymphocytes # (1.0-4.8) k/uL Monocytes # (0-1.0) k/uL PT (9.0-12.0) sec INR (<1.2) APTT (22.0-30.0) sec ABG pH (7.35-7.45) ABG pCO2 (35-45) mmHg ABG pO2 (83-108) mmHg ABG HCO3 (21-25) mmol/L ABG Total CO2 (19-24) mmol/L ABG O2 Saturation (94-97) % ABG Hematocrit (34.0-46.0) % ABG Potassium (3.4-4.5) mmol/L ABG Ionized Calcium (4.5-5.3) mg/dL ABG Glucose (75-99) mg/dL ABG Lactic Acid (0.5-1.6) mmol/L Hemoglobin (13.0-17.5) gm/dL Chloride 109 H (98-107) mmol/L BUN 32 H (9-20) mg/dL Creatinine 1.82 H (0.66-1.25) mg/dL Glucose 158 H (74-99) mg/dL POC Glucose (mg/dL) 174 H 155 H (75-99) mg/dL Calcium 8.2 L (8.4-10.2) mg/dL AST 65 H (17-59) U/L Alkaline Phosphatase <20 L (38-126) U/L Total Protein 4.4 L (6.3-8.2) g/dL Albumin 2.9 L (3.5-5.0) g/dL Arterial Blood Potassium (3.4-4.5) mmol/L Arterial Blood Glucose (75-99) mg/dL Crossmatch 09/30/18 09/30/18 09/30/18 Range/Units 05:35 06:13 06:55 WBC (3.8-10.6) k/uL RBC (4.30-5.90) m/uL Hgb (13.0-17.5) gm/dL Hct (39.0-53.0) % Plt Count (150-450) k/uL Neutrophils # (1.3-7.7) k/uL Lymphocytes # (1.0-4.8) k/uL Monocytes # (0-1.0) k/uL PT (9.0-12.0) sec INR (<1.2) APTT (22.0-30.0) sec ABG pH (7.35-7.45) ABG pCO2 (35-45) mmHg ABG pO2 66 L (83-108) mmHg ABG HCO3 (21-25) mmol/L ABG Total CO2 (19-24) mmol/L ABG O2 Saturation (94-97) % ABG Hematocrit (34.0-46.0) % ABG Potassium (3.4-4.5) mmol/L ABG Ionized Calcium (4.5-5.3) mg/dL ABG Glucose (75-99) mg/dL ABG Lactic Acid (0.5-1.6) mmol/L Hemoglobin (13.0-17.5) gm/dL Chloride (98-107) mmol/L BUN (9-20) mg/dL Creatinine (0.66-1.25) mg/dL Glucose (74-99) mg/dL POC Glucose (mg/dL) 155 H 156 H (75-99) mg/dL Calcium (8.4-10.2) mg/dL AST (17-59) U/L Alkaline Phosphatase (38-126) U/L Total Protein (6.3-8.2) g/dL Albumin (3.5-5.0) g/dL Arterial Blood Potassium (3.4-4.5) mmol/L Arterial Blood Glucose (75-99) mg/dL Crossmatch 09/30/18 Range/Units 08:06 WBC (3.8-10.6) k/uL RBC (4.30-5.90) m/uL Hgb (13.0-17.5) gm/dL Hct (39.0-53.0) % Plt Count (150-450) k/uL Neutrophils # (1.3-7.7) k/uL Lymphocytes # (1.0-4.8) k/uL Monocytes # (0-1.0) k/uL PT (9.0-12.0) sec INR (<1.2) APTT (22.0-30.0) sec ABG pH (7.35-7.45) ABG pCO2 (35-45) mmHg ABG pO2 (83-108) mmHg ABG HCO3 (21-25) mmol/L ABG Total CO2 (19-24) mmol/L ABG O2 Saturation (94-97) % ABG Hematocrit (34.0-46.0) % ABG Potassium (3.4-4.5) mmol/L ABG Ionized Calcium (4.5-5.3) mg/dL ABG Glucose (75-99) mg/dL ABG Lactic Acid (0.5-1.6) mmol/L Hemoglobin (13.0-17.5) gm/dL Chloride (98-107) mmol/L BUN (9-20) mg/dL Creatinine (0.66-1.25) mg/dL Glucose (74-99) mg/dL POC Glucose (mg/dL) 160 H (75-99) mg/dL Calcium (8.4-10.2) mg/dL AST (17-59) U/L Alkaline Phosphatase (38-126) U/L Total Protein (6.3-8.2) g/dL Albumin (3.5-5.0) g/dL Arterial Blood Potassium (3.4-4.5) mmol/L Arterial Blood Glucose (75-99) mg/dL Crossmatch - Imaging and Cardiology Chest x-ray: image reviewed Assessment and Plan (1) Non-STEMI (non-ST elevated myocardial infarction) Current Visit: Yes Status: Acute Code(s): I21.4 - NON-ST ELEVATION (NSTEMI) MYOCARDIAL INFARCTION SNOMED Code(s): 41704768 (2) Acute systolic heart failure Current Visit: Yes Status: Acute Code(s): I50.21 - ACUTE SYSTOLIC ( CONGESTIVE) HEART FAILURE SNOMED Code(s): 337942458 (3) Severe aortic stenosis Current Visit: Yes Status: Acute Code(s): I35.0 - NONRHEUMATIC AORTIC (VALVE ) STENOSIS SNOMED Code(s): 94026601 (4) Severe aortic insufficiency Current Visit: Yes Status: Acute Code(s): I35.1 - NONRHEUMATIC AORTIC (VALVE ) INSUFFICIENCY SNOMED Code(s): 86136376 Plan: 1. Continue aspirin, statin, Plavix, beta irasema therapy. Patient should receive beta irasema therapy despite IV levo to suppress ventricular ectopy. Patient will need Polo/ARB prior to discharge when blood pressure tolerates. May need Life Vest, will defer to cardiology. 2. Wean levo as tolerated. Continue Primacor at current rate. Discontinue IV nitro. Continue IV amiodarone. 3. Wean ventilator as tolerated. Management per Dr. Keys. Bronchodilators per pulmonology. 4. Once extubated encourage incentive spirometry use 10 times every hour while awake. Encourage continued smoking cessation. 5. Once extubated Will increase activity as tolerated. PT/OT/cardiac rehab following. 6. Will monitor daily labs and x-rays. Electrolyte replacement per protocol. No transfusion at this point. 7. Insulin management per primary care service. Patient needs tight blood sugar control. 8. Pain control current medication regimen. No Toradol. May use IV morphine until extubation. 9. GI prophylaxis with Protonix. DVT prophylaxis with subcu heparin, SCDs. 10. Keep Champion/Cordis, Villa catheter, chest tubes for another 24 hours. 11. More recommendations to follow as patient progresses. Time with Patient: Greater than 30
[2018-09-30 09:27] LABS: Glucose,Whole Blood 183 mg/dL (75-99)
[2018-09-30] MEDS: IPRATROPIUM-ALBUTEROL 3 ML NEB INHALATION SCH ×4 (09:49→19:58)
[2018-09-30] MEDS: DEXMEDETOMIDINE/0.9% NACL(PMX) 400 MCG in EMPTY BAG 1 BAG IV SCH ×2 (10:01→19:43)
--- NOTE | 2018-09-30 10:51 | PN ---
PROGRESS NOTE Mr. Kumar is a 58-year-old male who presented with non ST-segment elevation myocardial infarction, was found to have severe aortic regurgitation with moderate to severe mitral and aortic stenosis. Severely impaired left ventricular systolic function with severe triple-vessel coronary artery disease. Underwent coronary artery bypass grafting yesterday with aortic valve replacement with placement of a RAO to LAD, Y-graft radial to the first obtuse marginal branch and saphenous vein graft to the PDA. He remains intubated and sedated. Hemodynamically, he is on no pressor. He is on Primacor. He is in sinus mechanism. He had arrhythmia initially with burst of atrial fibrillation and ventricular ectopic activity and has been on IV amiodarone. His urine output is stable. He is in sinus mechanism at this time. PHYSICAL EXAMINATION: Blood pressure 104/47 with a PA pressure in the 30s. Heart rate in the 70s. LUNGS: Clear anteriorly. HEART: Regular rhythm S1, S2. No S3 with systolic murmur. No diastolic murmur no rub. ABDOMEN: Soft. No organomegaly. EXTREMITIES: No edema. LAB DATA: Lab data revealed a hemoglobin of 8.8, BUN and creatinine 32 and 1.82. Potassium 4.6. IMPRESSION: 1. Status post coronary artery bypass grafting with aortic valve replacement. 2. Severe cardiomyopathy. 3. History of diabetes. 4. Hyperlipidemia. 5. Hypertension. 6. Abnormal renal function. RECOMMENDATION: From the cardiac standpoint, we will continue present supportive care. We will continue attempt to wean. Once he is weaned and extubated and depending on his blood pressure, he will need to be re-initiated on the beta irasema and the angiotensin receptor irasema in view of the cardiomyopathy. Depending on his progress, further recommendations will be made. MMODL / IJN: [id number] /
[2018-09-30] MEDS ORDERED: LORazepam 2 MG/ML INJ IV STA (10:55)
[2018-09-30 10:59] LABS: Glucose,Whole Blood 176 mg/dL (75-99)
[2018-09-30] MEDS ORDERED: BISACODYL 10 MG SUPP RECTAL PRN (11:02)
[2018-09-30] MEDS ORDERED: MAGNESIUM HYDROXIDE 2,400 MG/10 ML CUP PO PRN (11:02)
[2018-09-30 11:49] LABS: Glucose,Whole Blood 171 mg/dL (75-99)
--- NOTE | 2018-09-30 12:06 | P.PN ---
Subjective Progress Note Date: 09/30/18 HPI: This is a 58-year-old male patient being seen examined and evaluated today for consultation who is well-known to our services. This patient came into the emergency room yesterday with complaints of chest pain. His chest pain had been ongoing intermittently over the past year. Since the patient has significantly increased. The patient was being worked up in the outpatient setting with pulmonary and cardiology services. His EKG in the emergency room did show normal sinus rhythm. Chest x-ray did show patchy perihilar and basilar infiltrates. He did have elevated troponins and cardiology is following the patient as well. The patient is scheduled to go for a heart catheterization today with cardiology. Upon examination the patient is resting up in bed on room air. He has occasional shortness of breath with exertion. Occasional nonproductive cough. Echocardiogram reviewed and does show an EF of 25-30% with RVSP of 22. He is also noted to have moderate to severe aortic regurgitation and severe aortic stenosis. Daughter is at bedside updated on plan of care. He currently is waiting to go down for his cardiac catheterization. He has been nothing by mouth since midnight. Interval History: 09/25/18- patient is being seen examined and evaluated today on rounds. He did undergo a VAISHNAVI which did show severely impaired left ventricular function with severe aortic regurgitation and stenosis. He has triple-vessel disease and will require a CABG. Cardiothoracic surgeon has been consulted. The patient will go for many preoperative studies including an ultrasound of the renal arteries CT of the chest, CT of the facial bones, vein mapping. The patient did recently have a PFT in our office last Monday. We will have those results faxed over to the hospital. Upon examination is resting up in bed on room air. Does have some shortness of breath with exertion denies any cough or congestion. Afebrile no further complaints. 09/26/18- patient is being seen examined and evaluated today on rounds. He did go for a dental extraction of an abscessed tooth this morning. Please see procedure notes for those details. He is undergoing workup for cardiothoracic surgery in the near future. FEV1 80% of predicted with moderate restriction. All labs and reports have been reviewed. He is hemodynamically stable. 09/27/18- patient is being seen examined and evaluated today on rounds. He was downgraded to the stepdown unit yesterday. He continues his workup for his cardiothoracic surgery potentially scheduled for next Monday10/02/18. The patient has not uses home CPAP overnight he states he is afraid of breaking at when he started on the bedside table. He would feel more comfortable if he had something that was stationary like he does at his house. He is even installed a lip around the outside of his bedside table so that it doesn't fall off when he tosses and turns. The patient states he is very restless when he sleeps and is not willing to risk breaking his CPAP machine. Instead the patient has been using 2 L of supplemental oxygen overnight which seems to be working well for him. He has been able to maintain his oxygen saturations. He is afebrile no further complaints all labs and reports have been reviewed. 09/28/18- patient is being seen examined and evaluated today on rounds. The patient did have some symptomatic episodes of shortness of breath and chest pain yesterday with exertion and again at rest as well. The patient did wear his CPAP machine last night. IV heparin drip was started per cardiology. Cardiothoracic is potentially going to be moving his surgery date sooner rather than later. Awaiting official input. 09/30/2018: Patient seen and examined in the intensive care unit with nursing staff at bedside. The patient did awaken with sedation holiday however he became agitated and diaphoretic. The patient was given Ativan and started on Precedex. He did tolerate CPAP trial on the ventilator. The patient was extubated to BiPAP. He does have a known history of obstructive sleep apnea. Objective - Vital Signs Vital signs: Vital Signs Temp 99.9 F H 09/30/18 08:00 Pulse 67 09/30/18 11:00 Resp 28 H 09/30/18 11:00 BP 96/55 09/30/18 11:00 Pulse Ox 94 L 09/30/18 11:00 Intake & Output 09/29/18 09/30/18 09/30/18 18:59 06:59 18:59 Intake Total 233 3030.173 810.242 Output Total 3965 1133 358 Balance -3732 1897.173 452.242 Weight 132 kg Intake: IV 233 1139 505 ACETAMINOPHEN IV (For NPO 100 200 ) 1,000 mg In Empty Bag 1 bag @ 400 mls/hr IVPB Q6HR [facility] Rx#:[id number] CO/CI 120 30 Lactated Ringers 1,000 ml 100 690 430 @ 50 mls/hr IV .Q20H [facility] Rx#:[id number] Pressure bags 129 45 Intake, IV Titration 1891.173 305.242 Amount Albumin Human 5% 250 ml 1250 In Empty Bag 1 bag @ 250 mls/hr IVPB Q1HR PRN Rx#: [id number] Amiodarone 360 mg In 169.58 Dextrose 5% in Water 200 ml @ 1 MG/MIN 33.36 mls/ hr IV .Q6H1M PRN Rx#: [id number] Dextrose 5% in Water 100 100 250 ml @ 618 mls/hr IV .Q10M PRN with Amiodarone 150 mg Rx#:[id number] Insulin Regular 100 unit 15.702 In Sodium Chloride 0.9% 100 ml @ Per Protocol IV .Q0M [facility] Rx#:[id number] Norepinephrine 32 mg In 1.973 Sodium Chloride 0.9% 218 ml @ 0.05 MCG/KG/MIN 2.82 mls/hr IV .Q24H [facility] Rx#: [id number] Propofol 1,000 mg In 253.918 55.242 Empty Bag 1 bag @ Titrate IV .Q0M [facility] Rx#: [id number] ceFAZolin 3,000 mg In 100 Sodium Chloride 0.9% 30 ml @ 999 mls/hr IVPB ONCE ONE Rx#:[id number] Output: Chest Tube Drainage 570 750 180 Left Pleural 180 340 60 Mediastinal X2 390 410 120 Urine 395 383 178 Estimated Blood Loss 3000 Other: Voiding Method Indwelling Catheter Indwelling Catheter # Voids 1 ABP, PAP, CO, CI - Last Documented Arterial Blood Pressure 86/42 Pulmonary Artery Pressure 33/14 Cardiac Output 5.2 Cardiac Index 2.2 - Exam GENERAL EXAM: Alert, agitated without sedation, patient more comfortable with precedex and Ativan HEAD: Normocephalic. EYES: Normal reaction of pupils, equal size. NOSE: Clear with pink turbinates. THROAT: No erythema or exudates. NECK: No masses, no JVD. CHEST: No chest wall deformity. LUNGS: Equal air entry with no crackles, wheeze, rhonchi or dullness. Bases diminished CVS: S1 and S2 normal with no audible mumurs, regular rhythm. ABDOMEN: No hepatosplenomegaly, normal bowel sounds, no guarding or rigidity. EXTREMITIES: No edema noted, pedal pulses palpable. CENTRAL NERVOUS SYSTEM: No focal deficits, tone is normal in all 4 extremities. - Labs CBC & Chem 7: 09/30/18 04:00 09/30/18 04:00 Labs: Abnormal Lab Results - Last 24 Hours (Table) 09/28/18 09/29/18 09/29/18 Range/Units 18:09 09:43 11:22 WBC (3.8-10.6) k/uL RBC (4.30-5.90) m/uL Hgb (13.0-17.5) gm/dL Hct (39.0-53.0) % Plt Count (150-450) k/uL Neutrophils # (1.3-7.7) k/uL Lymphocytes # (1.0-4.8) k/uL Monocytes # (0-1.0) k/uL PT (9.0-12.0) sec INR (<1.2) APTT (22.0-30.0) sec ABG pH 7.27 L (7.35-7.45) ABG pCO2 55 H (35-45) mmHg ABG pO2 353 H (83-108) mmHg ABG HCO3 (21-25) mmol/L ABG Total CO2 27 H 27 H (19-24) mmol/L ABG O2 Saturation 100.0 H (94-97) % ABG Hematocrit (34.0-46.0) % ABG Potassium (3.4-4.5) mmol/L ABG Ionized Calcium (4.5-5.3) mg/dL ABG Glucose 157 H 172 H (75-99) mg/dL ABG Lactic Acid (0.5-1.6) mmol/L Hemoglobin (13.0-17.5) gm/dL Chloride (98-107) mmol/L BUN (9-20) mg/dL Creatinine (0.66-1.25) mg/dL Glucose (74-99) mg/dL POC Glucose (mg/dL) (75-99) mg/dL Calcium (8.4-10.2) mg/dL AST (17-59) U/L Alkaline Phosphatase (38-126) U/L Total Protein (6.3-8.2) g/dL Albumin (3.5-5.0) g/dL Arterial Blood Potassium (3.4-4.5) mmol/L Arterial Blood Glucose 157 H 172 H (75-99) mg/dL Crossmatch See Detail 09/29/18 09/29/18 09/29/18 Range/Units 13:03 13:36 14:13 WBC (3.8-10.6) k/uL RBC (4.30-5.90) m/uL Hgb (13.0-17.5) gm/dL Hct (39.0-53.0) % Plt Count (150-450) k/uL Neutrophils # (1.3-7.7) k/uL Lymphocytes # (1.0-4.8) k/uL Monocytes # (0-1.0) k/uL PT (9.0-12.0) sec INR (<1.2) APTT (22.0-30.0) sec ABG pH 7.31 L 7.33 L (7.35-7.45) ABG pCO2 46 H (35-45) mmHg ABG pO2 >420 H 406 H 219 H (83-108) mmHg ABG HCO3 (21-25) mmol/L ABG Total CO2 25 H 26 H (19-24) mmol/L ABG O2 Saturation 100.0 H 100.0 H 99.9 H (94-97) % ABG Hematocrit (34.0-46.0) % ABG Potassium 5.3 H (3.4-4.5) mmol/L ABG Ionized Calcium 4.4 L (4.5-5.3) mg/dL ABG Glucose 240 H 241 H 228 H (75-99) mg/dL ABG Lactic Acid (0.5-1.6) mmol/L Hemoglobin 11.1 L 11.7 L 11.3 L (13.0-17.5) gm/dL Chloride (98-107) mmol/L BUN (9-20) mg/dL Creatinine (0.66-1.25) mg/dL Glucose (74-99) mg/dL POC Glucose (mg/dL) (75-99) mg/dL Calcium (8.4-10.2) mg/dL AST (17-59) U/L Alkaline Phosphatase (38-126) U/L Total Protein (6.3-8.2) g/dL Albumin (3.5-5.0) g/dL Arterial Blood Potassium 5.3 H (3.4-4.5) mmol/L Arterial Blood Glucose 240 H 241 H 228 H (75-99) mg/dL Crossmatch 09/29/18 09/29/18 09/29/18 Range/Units 14:49 15:26 16:26 WBC (3.8-10.6) k/uL RBC (4.30-5.90) m/uL Hgb (13.0-17.5) gm/dL Hct (39.0-53.0) % Plt Count (150-450) k/uL Neutrophils # (1.3-7.7) k/uL Lymphocytes # (1.0-4.8) k/uL Monocytes # (0-1.0) k/uL PT (9.0-12.0) sec INR (<1.2) APTT (22.0-30.0) sec ABG pH 7.30 L 7.29 L (7.35-7.45) ABG pCO2 48 H 52 H (35-45) mmHg ABG pO2 313 H 195 H 60 L (83-108) mmHg ABG HCO3 (21-25) mmol/L ABG Total CO2 25 H 25 H 26 H (19-24) mmol/L ABG O2 Saturation 100.0 H 99.8 H 86.8 L (94-97) % ABG Hematocrit 33 L 31 L (34.0-46.0) % ABG Potassium 4.6 H (3.4-4.5) mmol/L ABG Ionized Calcium (4.5-5.3) mg/dL ABG Glucose 216 H 204 H 146 H (75-99) mg/dL ABG Lactic Acid 2.1 H 3.3 H* 2.3 H* (0.5-1.6) mmol/L Hemoglobin 10.8 L 10.0 L 12.6 L (13.0-17.5) gm/dL Chloride (98-107) mmol/L BUN (9-20) mg/dL Creatinine (0.66-1.25) mg/dL Glucose (74-99) mg/dL POC Glucose (mg/dL) (75-99) mg/dL Calcium (8.4-10.2) mg/dL AST (17-59) U/L Alkaline Phosphatase (38-126) U/L Total Protein (6.3-8.2) g/dL Albumin (3.5-5.0) g/dL Arterial Blood Potassium 4.6 H (3.4-4.5) mmol/L Arterial Blood Glucose 216 H 204 H 146 H (75-99) mg/dL Crossmatch 09/29/18 09/29/18 09/29/18 Range/Units 16:50 17:45 17:45 WBC 11.7 H (3.8-10.6) k/uL RBC 3.93 L (4.30-5.90) m/uL Hgb 12.0 L D (13.0-17.5) gm/dL Hct 37.4 L (39.0-53.0) % Plt Count (150-450) k/uL Neutrophils # 9.3 H (1.3-7.7) k/uL Lymphocytes # (1.0-4.8) k/uL Monocytes # 1.1 H (0-1.0) k/uL PT (9.0-12.0) sec INR (<1.2) APTT (22.0-30.0) sec ABG pH (7.35-7.45) ABG pCO2 (35-45) mmHg ABG pO2 66 L (83-108) mmHg ABG HCO3 (21-25) mmol/L ABG Total CO2 25 H (19-24) mmol/L ABG O2 Saturation 92.8 L (94-97) % ABG Hematocrit (34.0-46.0) % ABG Potassium (3.4-4.5) mmol/L ABG Ionized Calcium (4.5-5.3) mg/dL ABG Glucose 135 H (75-99) mg/dL ABG Lactic Acid 2.2 H* (0.5-1.6) mmol/L Hemoglobin 12.6 L (13.0-17.5) gm/dL Chloride (98-107) mmol/L BUN (9-20) mg/dL Creatinine (0.66-1.25) mg/dL Glucose (74-99) mg/dL POC Glucose (mg/dL) 141 H (75-99) mg/dL Calcium (8.4-10.2) mg/dL AST (17-59) U/L Alkaline Phosphatase (38-126) U/L Total Protein (6.3-8.2) g/dL Albumin (3.5-5.0) g/dL Arterial Blood Potassium (3.4-4.5) mmol/L Arterial Blood Glucose 135 H (75-99) mg/dL Crossmatch 09/29/18 09/29/18 09/29/18 Range/Units 17:45 17:45 18:02 WBC (3.8-10.6) k/uL RBC (4.30-5.90) m/uL Hgb (13.0-17.5) gm/dL Hct (39.0-53.0) % Plt Count (150-450) k/uL Neutrophils # (1.3-7.7) k/uL Lymphocytes # (1.0-4.8) k/uL Monocytes # (0-1.0) k/uL PT 12.3 H (9.0-12.0) sec INR 1.2 H (<1.2) APTT (22.0-30.0) sec ABG pH 7.24 L (7.35-7.45) ABG pCO2 60 H (35-45) mmHg ABG pO2 79 L (83-108) mmHg ABG HCO3 26 H (21-25) mmol/L ABG Total CO2 27 H (19-24) mmol/L ABG O2 Saturation 93.4 L (94-97) % ABG Hematocrit (34.0-46.0) % ABG Potassium (3.4-4.5) mmol/L ABG Ionized Calcium (4.5-5.3) mg/dL ABG Glucose (75-99) mg/dL ABG Lactic Acid (0.5-1.6) mmol/L Hemoglobin (13.0-17.5) gm/dL Chloride 111 H (98-107) mmol/L BUN 27 H (9-20) mg/dL Creatinine (0.66-1.25) mg/dL Glucose 145 H (74-99) mg/dL POC Glucose (mg/dL) (75-99) mg/dL Calcium 8.2 L (8.4-10.2) mg/dL AST 70 H (17-59) U/L Alkaline Phosphatase <20 L (38-126) U/L Total Protein 4.2 L (6.3-8.2) g/dL Albumin 2.4 L (3.5-5.0) g/dL Arterial Blood Potassium (3.4-4.5) mmol/L Arterial Blood Glucose (75-99) mg/dL Crossmatch 09/29/18 09/29/18 09/29/18 Range/Units 18:02 19:13 20:04 WBC (3.8-10.6) k/uL RBC (4.30-5.90) m/uL Hgb (13.0-17.5) gm/dL Hct (39.0-53.0) % Plt Count (150-450) k/uL Neutrophils # (1.3-7.7) k/uL Lymphocytes # (1.0-4.8) k/uL Monocytes # (0-1.0) k/uL PT (9.0-12.0) sec INR (<1.2) APTT (22.0-30.0) sec ABG pH (7.35-7.45) ABG pCO2 (35-45) mmHg ABG pO2 82 L (83-108) mmHg ABG HCO3 (21-25) mmol/L ABG Total CO2 25 H (19-24) mmol/L ABG O2 Saturation (94-97) % ABG Hematocrit (34.0-46.0) % ABG Potassium (3.4-4.5) mmol/L ABG Ionized Calcium (4.5-5.3) mg/dL ABG Glucose (75-99) mg/dL ABG Lactic Acid (0.5-1.6) mmol/L Hemoglobin (13.0-17.5) gm/dL Chloride (98-107) mmol/L BUN (9-20) mg/dL Creatinine (0.66-1.25) mg/dL Glucose (74-99) mg/dL POC Glucose (mg/dL) 148 H 178 H (75-99) mg/dL Calcium (8.4-10.2) mg/dL AST (17-59) U/L Alkaline Phosphatase (38-126) U/L Total Protein (6.3-8.2) g/dL Albumin (3.5-5.0) g/dL Arterial Blood Potassium (3.4-4.5) mmol/L Arterial Blood Glucose (75-99) mg/dL Crossmatch 09/29/18 09/29/18 09/29/18 Range/Units 20:12 20:20 21:15 WBC (3.8-10.6) k/uL RBC 3.78 L (4.30-5.90) m/uL Hgb 11.5 L (13.0-17.5) gm/dL Hct 35.6 L (39.0-53.0) % Plt Count (150-450) k/uL Neutrophils # 8.8 H (1.3-7.7) k/uL Lymphocytes # 0.5 L (1.0-4.8) k/uL Monocytes # (0-1.0) k/uL PT (9.0-12.0) sec INR (<1.2) APTT (22.0-30.0) sec ABG pH (7.35-7.45) ABG pCO2 (35-45) mmHg ABG pO2 (83-108) mmHg ABG HCO3 (21-25) mmol/L ABG Total CO2 (19-24) mmol/L ABG O2 Saturation (94-97) % ABG Hematocrit (34.0-46.0) % ABG Potassium (3.4-4.5) mmol/L ABG Ionized Calcium (4.5-5.3) mg/dL ABG Glucose (75-99) mg/dL ABG Lactic Acid (0.5-1.6) mmol/L Hemoglobin (13.0-17.5) gm/dL Chloride (98-107) mmol/L BUN (9-20) mg/dL Creatinine (0.66-1.25) mg/dL Glucose (74-99) mg/dL POC Glucose (mg/dL) 175 H 155 H (75-99) mg/dL Calcium (8.4-10.2) mg/dL AST (17-59) U/L Alkaline Phosphatase (38-126) U/L Total Protein (6.3-8.2) g/dL Albumin (3.5-5.0) g/dL Arterial Blood Potassium (3.4-4.5) mmol/L Arterial Blood Glucose (75-99) mg/dL Crossmatch 09/29/18 09/29/18 09/29/18 Range/Units 22:18 22:42 23:10 WBC (3.8-10.6) k/uL RBC (4.30-5.90) m/uL Hgb (13.0-17.5) gm/dL Hct (39.0-53.0) % Plt Count (150-450) k/uL Neutrophils # (1.3-7.7) k/uL Lymphocytes # (1.0-4.8) k/uL Monocytes # (0-1.0) k/uL PT (9.0-12.0) sec INR (<1.2) APTT (22.0-30.0) sec ABG pH (7.35-7.45) ABG pCO2 (35-45) mmHg ABG pO2 (83-108) mmHg ABG HCO3 (21-25) mmol/L ABG Total CO2 25 H (19-24) mmol/L ABG O2 Saturation 97.9 H (94-97) % ABG Hematocrit (34.0-46.0) % ABG Potassium (3.4-4.5) mmol/L ABG Ionized Calcium (4.5-5.3) mg/dL ABG Glucose (75-99) mg/dL ABG Lactic Acid (0.5-1.6) mmol/L Hemoglobin (13.0-17.5) gm/dL Chloride 110 H (98-107) mmol/L BUN 30 H (9-20) mg/dL Creatinine 1.54 H (0.66-1.25) mg/dL Glucose 151 H (74-99) mg/dL POC Glucose (mg/dL) 147 H (75-99) mg/dL Calcium 8.3 L (8.4-10.2) mg/dL AST (17-59) U/L Alkaline Phosphatase (38-126) U/L Total Protein (6.3-8.2) g/dL Albumin (3.5-5.0) g/dL Arterial Blood Potassium (3.4-4.5) mmol/L Arterial Blood Glucose (75-99) mg/dL Crossmatch 09/29/18 09/30/18 09/30/18 Range/Units 23:18 00:58 02:20 WBC (3.8-10.6) k/uL RBC (4.30-5.90) m/uL Hgb (13.0-17.5) gm/dL Hct (39.0-53.0) % Plt Count (150-450) k/uL Neutrophils # (1.3-7.7) k/uL Lymphocytes # (1.0-4.8) k/uL Monocytes # (0-1.0) k/uL PT (9.0-12.0) sec INR (<1.2) APTT (22.0-30.0) sec ABG pH (7.35-7.45) ABG pCO2 (35-45) mmHg ABG pO2 (83-108) mmHg ABG HCO3 (21-25) mmol/L ABG Total CO2 (19-24) mmol/L ABG O2 Saturation (94-97) % ABG Hematocrit (34.0-46.0) % ABG Potassium (3.4-4.5) mmol/L ABG Ionized Calcium (4.5-5.3) mg/dL ABG Glucose (75-99) mg/dL ABG Lactic Acid (0.5-1.6) mmol/L Hemoglobin (13.0-17.5) gm/dL Chloride (98-107) mmol/L BUN (9-20) mg/dL Creatinine (0.66-1.25) mg/dL Glucose (74-99) mg/dL POC Glucose (mg/dL) 168 H 179 H 181 H (75-99) mg/dL Calcium (8.4-10.2) mg/dL AST (17-59) U/L Alkaline Phosphatase (38-126) U/L Total Protein (6.3-8.2) g/dL Albumin (3.5-5.0) g/dL Arterial Blood Potassium (3.4-4.5) mmol/L Arterial Blood Glucose (75-99) mg/dL Crossmatch 09/30/18 09/30/18 09/30/18 Range/Units 02:59 04:00 04:00 WBC (3.8-10.6) k/uL RBC 2.78 L (4.30-5.90) m/uL Hgb 8.8 L D (13.0-17.5) gm/dL Hct 26.2 L (39.0-53.0) % Plt Count 138 L (150-450) k/uL Neutrophils # (1.3-7.7) k/uL Lymphocytes # 0.6 L (1.0-4.8) k/uL Monocytes # (0-1.0) k/uL PT (9.0-12.0) sec INR (<1.2) APTT 30.9 H (22.0-30.0) sec ABG pH (7.35-7.45) ABG pCO2 (35-45) mmHg ABG pO2 (83-108) mmHg ABG HCO3 (21-25) mmol/L ABG Total CO2 (19-24) mmol/L ABG O2 Saturation (94-97) % ABG Hematocrit (34.0-46.0) % ABG Potassium (3.4-4.5) mmol/L ABG Ionized Calcium (4.5-5.3) mg/dL ABG Glucose (75-99) mg/dL ABG Lactic Acid (0.5-1.6) mmol/L Hemoglobin (13.0-17.5) gm/dL Chloride (98-107) mmol/L BUN (9-20) mg/dL Creatinine (0.66-1.25) mg/dL Glucose (74-99) mg/dL POC Glucose (mg/dL) 183 H (75-99) mg/dL Calcium (8.4-10.2) mg/dL AST (17-59) U/L Alkaline Phosphatase (38-126) U/L Total Protein (6.3-8.2) g/dL Albumin (3.5-5.0) g/dL Arterial Blood Potassium (3.4-4.5) mmol/L Arterial Blood Glucose (75-99) mg/dL Crossmatch 09/30/18 09/30/18 09/30/18 Range/Units 04:00 04:07 05:01 WBC (3.8-10.6) k/uL RBC (4.30-5.90) m/uL Hgb (13.0-17.5) gm/dL Hct (39.0-53.0) % Plt Count (150-450) k/uL Neutrophils # (1.3-7.7) k/uL Lymphocytes # (1.0-4.8) k/uL Monocytes # (0-1.0) k/uL PT (9.0-12.0) sec INR (<1.2) APTT (22.0-30.0) sec ABG pH (7.35-7.45) ABG pCO2 (35-45) mmHg ABG pO2 (83-108) mmHg ABG HCO3 (21-25) mmol/L ABG Total CO2 (19-24) mmol/L ABG O2 Saturation (94-97) % ABG Hematocrit (34.0-46.0) % ABG Potassium (3.4-4.5) mmol/L ABG Ionized Calcium (4.5-5.3) mg/dL ABG Glucose (75-99) mg/dL ABG Lactic Acid (0.5-1.6) mmol/L Hemoglobin (13.0-17.5) gm/dL Chloride 109 H (98-107) mmol/L BUN 32 H (9-20) mg/dL Creatinine 1.82 H (0.66-1.25) mg/dL Glucose 158 H (74-99) mg/dL POC Glucose (mg/dL) 174 H 155 H (75-99) mg/dL Calcium 8.2 L (8.4-10.2) mg/dL AST 65 H (17-59) U/L Alkaline Phosphatase <20 L (38-126) U/L Total Protein 4.4 L (6.3-8.2) g/dL Albumin 2.9 L (3.5-5.0) g/dL Arterial Blood Potassium (3.4-4.5) mmol/L Arterial Blood Glucose (75-99) mg/dL Crossmatch 09/30/18 09/30/18 09/30/18 Range/Units 05:35 06:13 06:55 WBC (3.8-10.6) k/uL RBC (4.30-5.90) m/uL Hgb (13.0-17.5) gm/dL Hct (39.0-53.0) % Plt Count (150-450) k/uL Neutrophils # (1.3-7.7) k/uL Lymphocytes # (1.0-4.8) k/uL Monocytes # (0-1.0) k/uL PT (9.0-12.0) sec INR (<1.2) APTT (22.0-30.0) sec ABG pH (7.35-7.45) ABG pCO2 (35-45) mmHg ABG pO2 66 L (83-108) mmHg ABG HCO3 (21-25) mmol/L ABG Total CO2 (19-24) mmol/L ABG O2 Saturation (94-97) % ABG Hematocrit (34.0-46.0) % ABG Potassium (3.4-4.5) mmol/L ABG Ionized Calcium (4.5-5.3) mg/dL ABG Glucose (75-99) mg/dL ABG Lactic Acid (0.5-1.6) mmol/L Hemoglobin (13.0-17.5) gm/dL Chloride (98-107) mmol/L BUN (9-20) mg/dL Creatinine (0.66-1.25) mg/dL Glucose (74-99) mg/dL POC Glucose (mg/dL) 155 H 156 H (75-99) mg/dL Calcium (8.4-10.2) mg/dL AST (17-59) U/L Alkaline Phosphatase (38-126) U/L Total Protein (6.3-8.2) g/dL Albumin (3.5-5.0) g/dL Arterial Blood Potassium (3.4-4.5) mmol/L Arterial Blood Glucose (75-99) mg/dL Crossmatch 09/30/18 09/30/18 09/30/18 Range/Units 08:06 09:15 10:29 WBC (3.8-10.6) k/uL RBC (4.30-5.90) m/uL Hgb (13.0-17.5) gm/dL Hct (39.0-53.0) % Plt Count (150-450) k/uL Neutrophils # (1.3-7.7) k/uL Lymphocytes # (1.0-4.8) k/uL Monocytes # (0-1.0) k/uL PT (9.0-12.0) sec INR (<1.2) APTT (22.0-30.0) sec ABG pH (7.35-7.45) ABG pCO2 (35-45) mmHg ABG pO2 (83-108) mmHg ABG HCO3 (21-25) mmol/L ABG Total CO2 (19-24) mmol/L ABG O2 Saturation (94-97) % ABG Hematocrit (34.0-46.0) % ABG Potassium (3.4-4.5) mmol/L ABG Ionized Calcium (4.5-5.3) mg/dL ABG Glucose (75-99) mg/dL ABG Lactic Acid (0.5-1.6) mmol/L Hemoglobin (13.0-17.5) gm/dL Chloride (98-107) mmol/L BUN (9-20) mg/dL Creatinine (0.66-1.25) mg/dL Glucose (74-99) mg/dL POC Glucose (mg/dL) 160 H 183 H 176 H (75-99) mg/dL Calcium (8.4-10.2) mg/dL AST (17-59) U/L Alkaline Phosphatase (38-126) U/L Total Protein (6.3-8.2) g/dL Albumin (3.5-5.0) g/dL Arterial Blood Potassium (3.4-4.5) mmol/L Arterial Blood Glucose (75-99) mg/dL Crossmatch 09/30/18 Range/Units 11:36 WBC (3.8-10.6) k/uL RBC (4.30-5.90) m/uL Hgb (13.0-17.5) gm/dL Hct (39.0-53.0) % Plt Count (150-450) k/uL Neutrophils # (1.3-7.7) k/uL Lymphocytes # (1.0-4.8) k/uL Monocytes # (0-1.0) k/uL PT (9.0-12.0) sec INR (<1.2) APTT (22.0-30.0) sec ABG pH (7.35-7.45) ABG pCO2 (35-45) mmHg ABG pO2 (83-108) mmHg ABG HCO3 (21-25) mmol/L ABG Total CO2 (19-24) mmol/L ABG O2 Saturation (94-97) % ABG Hematocrit (34.0-46.0) % ABG Potassium (3.4-4.5) mmol/L ABG Ionized Calcium (4.5-5.3) mg/dL ABG Glucose (75-99) mg/dL ABG Lactic Acid (0.5-1.6) mmol/L Hemoglobin (13.0-17.5) gm/dL Chloride (98-107) mmol/L BUN (9-20) mg/dL Creatinine (0.66-1.25) mg/dL Glucose (74-99) mg/dL POC Glucose (mg/dL) 171 H (75-99) mg/dL Calcium (8.4-10.2) mg/dL AST (17-59) U/L Alkaline Phosphatase (38-126) U/L Total Protein (6.3-8.2) g/dL Albumin (3.5-5.0) g/dL Arterial Blood Potassium (3.4-4.5) mmol/L Arterial Blood Glucose (75-99) mg/dL Crossmatch Assessment and Plan Assessment: s/p CABG NSTEMI Possible early pneumonia, however less likely Diabetes mellitus type 2 GERD Hypertension Hyperlipidemia Obstructive sleep apnea on CPAP Plan Chest x-ray reviewed Patient given Ativan and Precedex initiated Patient tolerated SBT, following commands, extubated to bipap Initiate and encourage incentive spirometer once patient is more alert Continue with pulmonary hygiene, coughing and deep breathing exercises, and supportive care. Supplemental oxygen to maintain oxygen saturations of 92% or better. Cardiothoracic to manage chest tubes, hemodynamics GI and DVT prophylaxis.
[2018-09-30 12:37] LABS: Glucose,Whole Blood 139 mg/dL (75-99)
[2018-09-30 13:21] LABS: Glucose,Whole Blood 161 mg/dL (75-99)
[2018-09-30] MEDS: HALOPERIDOL LACTATE 5 MG/ML 1 ML VIAL IVP PRN (13:40)
[2018-09-30] MEDS: LACTATED RINGERS 1,000 ML IV SCH (13:53)
[2018-09-30 13:57] LABS: ABG Base Excess -3.6 mmol/L; ABG HCO3 21 mmol/L (21-25); ABG Oxygen Saturation 93.6 % (94-97); ABG PCO2 31 mmHg (35-45); ABG PH 7.43 (7.35-7.45); ABG PO2 65 mmHg (83-108); ABG TCO2 22 mmol/L (19-24)
[2018-09-30 14:21] LABS: Glucose,Whole Blood 156 mg/dL (75-99)
[2018-09-30 15:22] LABS: Glucose,Whole Blood 146 mg/dL (75-99)
--- NOTE | 2018-09-30 15:57 | P.PN ---
Subjective Progress Note Date: 09/30/18 This is a 58-year-old male patient of Dr. Duke. Patient presented to the emergency room with complaints of chest pain. Patient reports this chest pain has been occurring for over a year. Patient does report that since pain has significantly increased. With chest pain patient also experiences shortness of breath. She does have a past medical history of diverticulitis mellitus, GERD, hyperlipidemia, hypertension, osteoporosis, sleep apnea, seasonal ALLERGIES and ex-smoker. Patient states he quit in . EKG completed emergency room showing normal sinus rhythm, possible left atrial enlargement. Patient also reports that he had seen Dr. SAILAJA Bermeo for pulmonary due to increasing shortness of breath. Chest x-ray completed emergency room showing patchy perihilar and basal infiltrate noted. Correlate for underlying pneumonia. troponin 0.287. cardiology services have been consulted. At this time patient is resting comfortably bed. Patient denies any chest pain or shortness breath. Denies nausea vomiting or diarrhea. Patient denies any urinary burning or frequency. 09/24/2018 patient underwent cardiac catheterization today showing triple- vessel coronary disease. Severely impaired left ventricle systolic function with severe aortic stenosis. And mild pulmonary hypertension. Cardiology is recommending proceeding with evaluation for coronary artery bypass grafting and aortic valve replacement. And they have scheduled the patient for a VAISHNAVI. Is currently chest pain-free. He does report he gets pain with activity. Echo shows an EF of 25-30%. Creatinine is at 1.37. He did receive a dose of IV Lasix yesterday for BNP in the 5000. 09/25/2018 patient seen by cardiothoracic service. Cardiothoracic has ordered preoperative testing. He also recommending dental clearance consult has already been placed. Patient did have a VAISHNAVI today showing dilated left ventricle with severe global hypokinesis severe aortic regurgitation with moderate to severe aortic stenosis. Carotid Doppler was negative for any significant hemodynamic stenosis. Creatinine has decreased from 1.37-1.21. Blood sugar this morning was 147 blood sugar this afternoon 231. Glipizide 5 mg twice a day has been ordered. Patient remains in the ICU. Currently chest pain-free. Reports a small post bowel movement yesterday. Colace will be added. 09/26/2018 patient currently resting comfortably in bed. Patient status post tooth extraction with Dr. Gilbert today. Blood sugars have improved. This time patient denies chest pain or shortness breath. Patient denies nausea vomiting or diarrhea. Patient denies any urinary burning or frequency. 09/27/2018 patient had shortness of breath and diaphoresis and some chest tightness with ambulating earlier this morning. Cardiology is aware. They recommend that patient remain in the hospital at this time. Patient had his tooth extracted yesterday. Denies any nausea or vomiting. Denies any bowel movement changes or urinary symptoms. Creatinine is up at 1.38. 09/28/2018 patient has had about 4 episodes of shortness of breath with chest pain and diaphoresis with activity and some at rest as well. He was given nitro that did help relieve symptoms. Cardiology is following closely as well as cardiothoracic team. The date of cardiac surgery will likely be sooner than Monday. Cardiology did start IV heparin drip yesterday. On 09/30/2018 patient was seen and examined in the ICU he is laying in bed he has BiPAP mask on he had episodes of agitation through the night blood pressure is marginal with mean blood pressure of around 55 patient denies any chest pain there is no fever or chills no headache or dizziness he has occasional cough no nausea or vomiting no abdominal pain no diarrhea and no urinary symptoms Objective - Vital Signs Vital signs: Vital Signs Temp 100 F H 09/30/18 12:00 Pulse 68 09/30/18 15:00 Resp 22 09/30/18 15:00 BP 79/43 09/30/18 15:00 Pulse Ox 99 09/30/18 15:00 Intake & Output 09/29/18 09/30/18 09/30/18 18:59 06:59 18:59 Intake Total 233 3030.173 2608.330 Output Total 3965 1133 728 Balance -3732 9527.831 2770.330 Weight 132 kg Intake: IV 233 1139 2101 ACETAMINOPHEN IV (For NPO 100 200 100 ) 1,000 mg In Empty Bag 1 bag @ 400 mls/hr IVPB Q6HR [facility] Rx#:[id number] Albumin Human 5% 500 ml 1000 In Empty Bag 1 bag @ 250 mls/hr IVPB ONCE ONE Rx#: [id number] CO/CI 120 70 Lactated Ringers 1,000 ml 100 690 750 @ 50 mls/hr IV .Q20H [facility] Rx#:[id number] Pressure bags 129 81 ceFAZolin 3 gm In Sodium 100 Chloride 0.9% 100 ml @ 100 mls/hr IVPB Q8H [facility] Rx#:[id number] Intake, IV Titration 1891.173 507.330 Amount Albumin Human 5% 250 ml 1250 In Empty Bag 1 bag @ 250 mls/hr IVPB Q1HR PRN Rx#: [id number] Amiodarone 360 mg In 169.58 Dextrose 5% in Water 200 ml @ 1 MG/MIN 33.36 mls/ hr IV .Q6H1M PRN Rx#: [id number] Dexmedetomidine/0.9% NaCl 45.677 (Pmx) 400 mcg In Empty Bag 1 bag @ Titrate IV . Q0M [facility] Rx#:[id number] Dextrose 5% in Water 100 100 250 ml @ 618 mls/hr IV .Q10M PRN with Amiodarone 150 mg Rx#:[id number] Insulin Regular 100 unit 15.702 51.575 In Sodium Chloride 0.9% 100 ml @ Per Protocol IV .Q0M [facility] Rx#:[id number] Norepinephrine 32 mg In 1.973 100.678 Sodium Chloride 0.9% 218 ml @ 0.05 MCG/KG/MIN 2.82 mls/hr IV .Q24H [facility] Rx#: [id number] Propofol 1,000 mg In 253.918 59.400 Empty Bag 1 bag @ Titrate IV .Q0M [facility] Rx#: [id number] ceFAZolin 3,000 mg In 100 Sodium Chloride 0.9% 30 ml @ 999 mls/hr IVPB ONCE ONE Rx#:[id number] Output: Chest Tube Drainage 570 750 390 Left Pleural 180 340 210 Mediastinal X2 390 410 180 Urine 395 383 338 Estimated Blood Loss 3000 Other: Voiding Method Indwelling Catheter Indwelling Catheter # Voids 1 ABP, PAP, CO, CI - Last Documented Arterial Blood Pressure 92/47 Pulmonary Artery Pressure 35/16 Cardiac Output 7.3 Cardiac Index 3.1 - Exam In general patient is alert and oriented slightly agitated in no apparent distress HEENT head normocephalic and atraumatic Neck is supple no JVD no goiter Chest exam reveals a few scattered rhonchi bilaterally no wheezing Cardiac exam reveals regular heart sounds S1 and S2 no gallops no murmurs Abdomen is soft nontender no organomegaly was normal bowel sounds Extremity exam reveals no edema no cyanosis or clubbing ulcers are palpable neurological examination reveals mild agitation otherwise no focal deficit - Labs CBC & Chem 7: 09/30/18 04:00 09/30/18 04:00 Labs: Abnormal Lab Results - Last 24 Hours (Table) 09/28/18 09/29/18 09/29/18 Range/Units 18:09 09:43 11:22 WBC (3.8-10.6) k/uL RBC (4.30-5.90) m/uL Hgb (13.0-17.5) gm/dL Hct (39.0-53.0) % Plt Count (150-450) k/uL Neutrophils # (1.3-7.7) k/uL Lymphocytes # (1.0-4.8) k/uL Monocytes # (0-1.0) k/uL PT (9.0-12.0) sec INR (<1.2) APTT (22.0-30.0) sec ABG pH 7.27 L (7.35-7.45) ABG pCO2 55 H (35-45) mmHg ABG pO2 353 H (83-108) mmHg ABG HCO3 (21-25) mmol/L ABG Total CO2 27 H 27 H (19-24) mmol/L ABG O2 Saturation 100.0 H (94-97) % ABG Hematocrit (34.0-46.0) % ABG Potassium (3.4-4.5) mmol/L ABG Ionized Calcium (4.5-5.3) mg/dL ABG Glucose 157 H 172 H (75-99) mg/dL ABG Lactic Acid (0.5-1.6) mmol/L Hemoglobin (13.0-17.5) gm/dL Chloride (98-107) mmol/L BUN (9-20) mg/dL Creatinine (0.66-1.25) mg/dL Glucose (74-99) mg/dL POC Glucose (mg/dL) (75-99) mg/dL Calcium (8.4-10.2) mg/dL AST (17-59) U/L Alkaline Phosphatase (38-126) U/L Total Protein (6.3-8.2) g/dL Albumin (3.5-5.0) g/dL Arterial Blood Potassium (3.4-4.5) mmol/L Arterial Blood Glucose 157 H 172 H (75-99) mg/dL Crossmatch See Detail 09/29/18 09/29/18 09/29/18 Range/Units 13:03 13:36 14:13 WBC (3.8-10.6) k/uL RBC (4.30-5.90) m/uL Hgb (13.0-17.5) gm/dL Hct (39.0-53.0) % Plt Count (150-450) k/uL Neutrophils # (1.3-7.7) k/uL Lymphocytes # (1.0-4.8) k/uL Monocytes # (0-1.0) k/uL PT (9.0-12.0) sec INR (<1.2) APTT (22.0-30.0) sec ABG pH 7.31 L 7.33 L (7.35-7.45) ABG pCO2 46 H (35-45) mmHg ABG pO2 >420 H 406 H 219 H (83-108) mmHg ABG HCO3 (21-25) mmol/L ABG Total CO2 25 H 26 H (19-24) mmol/L ABG O2 Saturation 100.0 H 100.0 H 99.9 H (94-97) % ABG Hematocrit (34.0-46.0) % ABG Potassium 5.3 H (3.4-4.5) mmol/L ABG Ionized Calcium 4.4 L (4.5-5.3) mg/dL ABG Glucose 240 H 241 H 228 H (75-99) mg/dL ABG Lactic Acid (0.5-1.6) mmol/L Hemoglobin 11.1 L 11.7 L 11.3 L (13.0-17.5) gm/dL Chloride (98-107) mmol/L BUN (9-20) mg/dL Creatinine (0.66-1.25) mg/dL Glucose (74-99) mg/dL POC Glucose (mg/dL) (75-99) mg/dL Calcium (8.4-10.2) mg/dL AST (17-59) U/L Alkaline Phosphatase (38-126) U/L Total Protein (6.3-8.2) g/dL Albumin (3.5-5.0) g/dL Arterial Blood Potassium 5.3 H (3.4-4.5) mmol/L Arterial Blood Glucose 240 H 241 H 228 H (75-99) mg/dL Crossmatch 09/29/18 09/29/18 09/29/18 Range/Units 14:49 15:26 16:26 WBC (3.8-10.6) k/uL RBC (4.30-5.90) m/uL Hgb (13.0-17.5) gm/dL Hct (39.0-53.0) % Plt Count (150-450) k/uL Neutrophils # (1.3-7.7) k/uL Lymphocytes # (1.0-4.8) k/uL Monocytes # (0-1.0) k/uL PT (9.0-12.0) sec INR (<1.2) APTT (22.0-30.0) sec ABG pH 7.30 L 7.29 L (7.35-7.45) ABG pCO2 48 H 52 H (35-45) mmHg ABG pO2 313 H 195 H 60 L (83-108) mmHg ABG HCO3 (21-25) mmol/L ABG Total CO2 25 H 25 H 26 H (19-24) mmol/L ABG O2 Saturation 100.0 H 99.8 H 86.8 L (94-97) % ABG Hematocrit 33 L 31 L (34.0-46.0) % ABG Potassium 4.6 H (3.4-4.5) mmol/L ABG Ionized Calcium (4.5-5.3) mg/dL ABG Glucose 216 H 204 H 146 H (75-99) mg/dL ABG Lactic Acid 2.1 H 3.3 H* 2.3 H* (0.5-1.6) mmol/L Hemoglobin 10.8 L 10.0 L 12.6 L (13.0-17.5) gm/dL Chloride (98-107) mmol/L BUN (9-20) mg/dL Creatinine (0.66-1.25) mg/dL Glucose (74-99) mg/dL POC Glucose (mg/dL) (75-99) mg/dL Calcium (8.4-10.2) mg/dL AST (17-59) U/L Alkaline Phosphatase (38-126) U/L Total Protein (6.3-8.2) g/dL Albumin (3.5-5.0) g/dL Arterial Blood Potassium 4.6 H (3.4-4.5) mmol/L Arterial Blood Glucose 216 H 204 H 146 H (75-99) mg/dL Crossmatch 09/29/18 09/29/18 09/29/18 Range/Units 16:50 17:45 17:45 WBC 11.7 H (3.8-10.6) k/uL RBC 3.93 L (4.30-5.90) m/uL Hgb 12.0 L D (13.0-17.5) gm/dL Hct 37.4 L (39.0-53.0) % Plt Count (150-450) k/uL Neutrophils # 9.3 H (1.3-7.7) k/uL Lymphocytes # (1.0-4.8) k/uL Monocytes # 1.1 H (0-1.0) k/uL PT (9.0-12.0) sec INR (<1.2) APTT (22.0-30.0) sec ABG pH (7.35-7.45) ABG pCO2 (35-45) mmHg ABG pO2 66 L (83-108) mmHg ABG HCO3 (21-25) mmol/L ABG Total CO2 25 H (19-24) mmol/L ABG O2 Saturation 92.8 L (94-97) % ABG Hematocrit (34.0-46.0) % ABG Potassium (3.4-4.5) mmol/L ABG Ionized Calcium (4.5-5.3) mg/dL ABG Glucose 135 H (75-99) mg/dL ABG Lactic Acid 2.2 H* (0.5-1.6) mmol/L Hemoglobin 12.6 L (13.0-17.5) gm/dL Chloride (98-107) mmol/L BUN (9-20) mg/dL Creatinine (0.66-1.25) mg/dL Glucose (74-99) mg/dL POC Glucose (mg/dL) 141 H (75-99) mg/dL Calcium (8.4-10.2) mg/dL AST (17-59) U/L Alkaline Phosphatase (38-126) U/L Total Protein (6.3-8.2) g/dL Albumin (3.5-5.0) g/dL Arterial Blood Potassium (3.4-4.5) mmol/L Arterial Blood Glucose 135 H (75-99) mg/dL Crossmatch 09/29/18 09/29/18 09/29/18 Range/Units 17:45 17:45 18:02 WBC (3.8-10.6) k/uL RBC (4.30-5.90) m/uL Hgb (13.0-17.5) gm/dL Hct (39.0-53.0) % Plt Count (150-450) k/uL Neutrophils # (1.3-7.7) k/uL Lymphocytes # (1.0-4.8) k/uL Monocytes # (0-1.0) k/uL PT 12.3 H (9.0-12.0) sec INR 1.2 H (<1.2) APTT (22.0-30.0) sec ABG pH 7.24 L (7.35-7.45) ABG pCO2 60 H (35-45) mmHg ABG pO2 79 L (83-108) mmHg ABG HCO3 26 H (21-25) mmol/L ABG Total CO2 27 H (19-24) mmol/L ABG O2 Saturation 93.4 L (94-97) % ABG Hematocrit (34.0-46.0) % ABG Potassium (3.4-4.5) mmol/L ABG Ionized Calcium (4.5-5.3) mg/dL ABG Glucose (75-99) mg/dL ABG Lactic Acid (0.5-1.6) mmol/L Hemoglobin (13.0-17.5) gm/dL Chloride 111 H (98-107) mmol/L BUN 27 H (9-20) mg/dL Creatinine (0.66-1.25) mg/dL Glucose 145 H (74-99) mg/dL POC Glucose (mg/dL) (75-99) mg/dL Calcium 8.2 L (8.4-10.2) mg/dL AST 70 H (17-59) U/L Alkaline Phosphatase <20 L (38-126) U/L Total Protein 4.2 L (6.3-8.2) g/dL Albumin 2.4 L (3.5-5.0) g/dL Arterial Blood Potassium (3.4-4.5) mmol/L Arterial Blood Glucose (75-99) mg/dL Crossmatch 09/29/18 09/29/18 09/29/18 Range/Units 18:02 19:13 20:04 WBC (3.8-10.6) k/uL RBC (4.30-5.90) m/uL Hgb (13.0-17.5) gm/dL Hct (39.0-53.0) % Plt Count (150-450) k/uL Neutrophils # (1.3-7.7) k/uL Lymphocytes # (1.0-4.8) k/uL Monocytes # (0-1.0) k/uL PT (9.0-12.0) sec INR (<1.2) APTT (22.0-30.0) sec ABG pH (7.35-7.45) ABG pCO2 (35-45) mmHg ABG pO2 82 L (83-108) mmHg ABG HCO3 (21-25) mmol/L ABG Total CO2 25 H (19-24) mmol/L ABG O2 Saturation (94-97) % ABG Hematocrit (34.0-46.0) % ABG Potassium (3.4-4.5) mmol/L ABG Ionized Calcium (4.5-5.3) mg/dL ABG Glucose (75-99) mg/dL ABG Lactic Acid (0.5-1.6) mmol/L Hemoglobin (13.0-17.5) gm/dL Chloride (98-107) mmol/L BUN (9-20) mg/dL Creatinine (0.66-1.25) mg/dL Glucose (74-99) mg/dL POC Glucose (mg/dL) 148 H 178 H (75-99) mg/dL Calcium (8.4-10.2) mg/dL AST (17-59) U/L Alkaline Phosphatase (38-126) U/L Total Protein (6.3-8.2) g/dL Albumin (3.5-5.0) g/dL Arterial Blood Potassium (3.4-4.5) mmol/L Arterial Blood Glucose (75-99) mg/dL Crossmatch 09/29/18 09/29/18 09/29/18 Range/Units 20:12 20:20 21:15 WBC (3.8-10.6) k/uL RBC 3.78 L (4.30-5.90) m/uL Hgb 11.5 L (13.0-17.5) gm/dL Hct 35.6 L (39.0-53.0) % Plt Count (150-450) k/uL Neutrophils # 8.8 H (1.3-7.7) k/uL Lymphocytes # 0.5 L (1.0-4.8) k/uL Monocytes # (0-1.0) k/uL PT (9.0-12.0) sec INR (<1.2) APTT (22.0-30.0) sec ABG pH (7.35-7.45) ABG pCO2 (35-45) mmHg ABG pO2 (83-108) mmHg ABG HCO3 (21-25) mmol/L ABG Total CO2 (19-24) mmol/L ABG O2 Saturation (94-97) % ABG Hematocrit (34.0-46.0) % ABG Potassium (3.4-4.5) mmol/L ABG Ionized Calcium (4.5-5.3) mg/dL ABG Glucose (75-99) mg/dL ABG Lactic Acid (0.5-1.6) mmol/L Hemoglobin (13.0-17.5) gm/dL Chloride (98-107) mmol/L BUN (9-20) mg/dL Creatinine (0.66-1.25) mg/dL Glucose (74-99) mg/dL POC Glucose (mg/dL) 175 H 155 H (75-99) mg/dL Calcium (8.4-10.2) mg/dL AST (17-59) U/L Alkaline Phosphatase (38-126) U/L Total Protein (6.3-8.2) g/dL Albumin (3.5-5.0) g/dL Arterial Blood Potassium (3.4-4.5) mmol/L Arterial Blood Glucose (75-99) mg/dL Crossmatch 09/29/18 09/29/18 09/29/18 Range/Units 22:18 22:42 23:10 WBC (3.8-10.6) k/uL RBC (4.30-5.90) m/uL Hgb (13.0-17.5) gm/dL Hct (39.0-53.0) % Plt Count (150-450) k/uL Neutrophils # (1.3-7.7) k/uL Lymphocytes # (1.0-4.8) k/uL Monocytes # (0-1.0) k/uL PT (9.0-12.0) sec INR (<1.2) APTT (22.0-30.0) sec ABG pH (7.35-7.45) ABG pCO2 (35-45) mmHg ABG pO2 (83-108) mmHg ABG HCO3 (21-25) mmol/L ABG Total CO2 25 H (19-24) mmol/L ABG O2 Saturation 97.9 H (94-97) % ABG Hematocrit (34.0-46.0) % ABG Potassium (3.4-4.5) mmol/L ABG Ionized Calcium (4.5-5.3) mg/dL ABG Glucose (75-99) mg/dL ABG Lactic Acid (0.5-1.6) mmol/L Hemoglobin (13.0-17.5) gm/dL Chloride 110 H (98-107) mmol/L BUN 30 H (9-20) mg/dL Creatinine 1.54 H (0.66-1.25) mg/dL Glucose 151 H (74-99) mg/dL POC Glucose (mg/dL) 147 H (75-99) mg/dL Calcium 8.3 L (8.4-10.2) mg/dL AST (17-59) U/L Alkaline Phosphatase (38-126) U/L Total Protein (6.3-8.2) g/dL Albumin (3.5-5.0) g/dL Arterial Blood Potassium (3.4-4.5) mmol/L Arterial Blood Glucose (75-99) mg/dL Crossmatch 09/29/18 09/30/18 09/30/18 Range/Units 23:18 00:58 02:20 WBC (3.8-10.6) k/uL RBC (4.30-5.90) m/uL Hgb (13.0-17.5) gm/dL Hct (39.0-53.0) % Plt Count (150-450) k/uL Neutrophils # (1.3-7.7) k/uL Lymphocytes # (1.0-4.8) k/uL Monocytes # (0-1.0) k/uL PT (9.0-12.0) sec INR (<1.2) APTT (22.0-30.0) sec ABG pH (7.35-7.45) ABG pCO2 (35-45) mmHg ABG pO2 (83-108) mmHg ABG HCO3 (21-25) mmol/L ABG Total CO2 (19-24) mmol/L ABG O2 Saturation (94-97) % ABG Hematocrit (34.0-46.0) % ABG Potassium (3.4-4.5) mmol/L ABG Ionized Calcium (4.5-5.3) mg/dL ABG Glucose (75-99) mg/dL ABG Lactic Acid (0.5-1.6) mmol/L Hemoglobin (13.0-17.5) gm/dL Chloride (98-107) mmol/L BUN (9-20) mg/dL Creatinine (0.66-1.25) mg/dL Glucose (74-99) mg/dL POC Glucose (mg/dL) 168 H 179 H 181 H (75-99) mg/dL Calcium (8.4-10.2) mg/dL AST (17-59) U/L Alkaline Phosphatase (38-126) U/L Total Protein (6.3-8.2) g/dL Albumin (3.5-5.0) g/dL Arterial Blood Potassium (3.4-4.5) mmol/L Arterial Blood Glucose (75-99) mg/dL Crossmatch 09/30/18 09/30/18 09/30/18 Range/Units 02:59 04:00 04:00 WBC (3.8-10.6) k/uL RBC 2.78 L (4.30-5.90) m/uL Hgb 8.8 L D (13.0-17.5) gm/dL Hct 26.2 L (39.0-53.0) % Plt Count 138 L (150-450) k/uL Neutrophils # (1.3-7.7) k/uL Lymphocytes # 0.6 L (1.0-4.8) k/uL Monocytes # (0-1.0) k/uL PT (9.0-12.0) sec INR (<1.2) APTT 30.9 H (22.0-30.0) sec ABG pH (7.35-7.45) ABG pCO2 (35-45) mmHg ABG pO2 (83-108) mmHg ABG HCO3 (21-25) mmol/L ABG Total CO2 (19-24) mmol/L ABG O2 Saturation (94-97) % ABG Hematocrit (34.0-46.0) % ABG Potassium (3.4-4.5) mmol/L ABG Ionized Calcium (4.5-5.3) mg/dL ABG Glucose (75-99) mg/dL ABG Lactic Acid (0.5-1.6) mmol/L Hemoglobin (13.0-17.5) gm/dL Chloride (98-107) mmol/L BUN (9-20) mg/dL Creatinine (0.66-1.25) mg/dL Glucose (74-99) mg/dL POC Glucose (mg/dL) 183 H (75-99) mg/dL Calcium (8.4-10.2) mg/dL AST (17-59) U/L Alkaline Phosphatase (38-126) U/L Total Protein (6.3-8.2) g/dL Albumin (3.5-5.0) g/dL Arterial Blood Potassium (3.4-4.5) mmol/L Arterial Blood Glucose (75-99) mg/dL Crossmatch 09/30/18 09/30/18 09/30/18 Range/Units 04:00 04:07 05:01 WBC (3.8-10.6) k/uL RBC (4.30-5.90) m/uL Hgb (13.0-17.5) gm/dL Hct (39.0-53.0) % Plt Count (150-450) k/uL Neutrophils # (1.3-7.7) k/uL Lymphocytes # (1.0-4.8) k/uL Monocytes # (0-1.0) k/uL PT (9.0-12.0) sec INR (<1.2) APTT (22.0-30.0) sec ABG pH (7.35-7.45) ABG pCO2 (35-45) mmHg ABG pO2 (83-108) mmHg ABG HCO3 (21-25) mmol/L ABG Total CO2 (19-24) mmol/L ABG O2 Saturation (94-97) % ABG Hematocrit (34.0-46.0) % ABG Potassium (3.4-4.5) mmol/L ABG Ionized Calcium (4.5-5.3) mg/dL ABG Glucose (75-99) mg/dL ABG Lactic Acid (0.5-1.6) mmol/L Hemoglobin (13.0-17.5) gm/dL Chloride 109 H (98-107) mmol/L BUN 32 H (9-20) mg/dL Creatinine 1.82 H (0.66-1.25) mg/dL Glucose 158 H (74-99) mg/dL POC Glucose (mg/dL) 174 H 155 H (75-99) mg/dL Calcium 8.2 L (8.4-10.2) mg/dL AST 65 H (17-59) U/L Alkaline Phosphatase <20 L (38-126) U/L Total Protein 4.4 L (6.3-8.2) g/dL Albumin 2.9 L (3.5-5.0) g/dL Arterial Blood Potassium (3.4-4.5) mmol/L Arterial Blood Glucose (75-99) mg/dL Crossmatch 09/30/18 09/30/18 09/30/18 Range/Units 05:35 06:13 06:55 WBC (3.8-10.6) k/uL RBC (4.30-5.90) m/uL Hgb (13.0-17.5) gm/dL Hct (39.0-53.0) % Plt Count (150-450) k/uL Neutrophils # (1.3-7.7) k/uL Lymphocytes # (1.0-4.8) k/uL Monocytes # (0-1.0) k/uL PT (9.0-12.0) sec INR (<1.2) APTT (22.0-30.0) sec ABG pH (7.35-7.45) ABG pCO2 (35-45) mmHg ABG pO2 66 L (83-108) mmHg ABG HCO3 (21-25) mmol/L ABG Total CO2 (19-24) mmol/L ABG O2 Saturation (94-97) % ABG Hematocrit (34.0-46.0) % ABG Potassium (3.4-4.5) mmol/L ABG Ionized Calcium (4.5-5.3) mg/dL ABG Glucose (75-99) mg/dL ABG Lactic Acid (0.5-1.6) mmol/L Hemoglobin (13.0-17.5) gm/dL Chloride (98-107) mmol/L BUN (9-20) mg/dL Creatinine (0.66-1.25) mg/dL Glucose (74-99) mg/dL POC Glucose (mg/dL) 155 H 156 H (75-99) mg/dL Calcium (8.4-10.2) mg/dL AST (17-59) U/L Alkaline Phosphatase (38-126) U/L Total Protein (6.3-8.2) g/dL Albumin (3.5-5.0) g/dL Arterial Blood Potassium (3.4-4.5) mmol/L Arterial Blood Glucose (75-99) mg/dL Crossmatch 09/30/18 09/30/18 09/30/18 Range/Units 08:06 09:15 10:29 WBC (3.8-10.6) k/uL RBC (4.30-5.90) m/uL Hgb (13.0-17.5) gm/dL Hct (39.0-53.0) % Plt Count (150-450) k/uL Neutrophils # (1.3-7.7) k/uL Lymphocytes # (1.0-4.8) k/uL Monocytes # (0-1.0) k/uL PT (9.0-12.0) sec INR (<1.2) APTT (22.0-30.0) sec ABG pH (7.35-7.45) ABG pCO2 (35-45) mmHg ABG pO2 (83-108) mmHg ABG HCO3 (21-25) mmol/L ABG Total CO2 (19-24) mmol/L ABG O2 Saturation (94-97) % ABG Hematocrit (34.0-46.0) % ABG Potassium (3.4-4.5) mmol/L ABG Ionized Calcium (4.5-5.3) mg/dL ABG Glucose (75-99) mg/dL ABG Lactic Acid (0.5-1.6) mmol/L Hemoglobin (13.0-17.5) gm/dL Chloride (98-107) mmol/L BUN (9-20) mg/dL Creatinine (0.66-1.25) mg/dL Glucose (74-99) mg/dL POC Glucose (mg/dL) 160 H 183 H 176 H (75-99) mg/dL Calcium (8.4-10.2) mg/dL AST (17-59) U/L Alkaline Phosphatase (38-126) U/L Total Protein (6.3-8.2) g/dL Albumin (3.5-5.0) g/dL Arterial Blood Potassium (3.4-4.5) mmol/L Arterial Blood Glucose (75-99) mg/dL Crossmatch 09/30/18 09/30/18 09/30/18 Range/Units 11:36 12:26 13:05 WBC (3.8-10.6) k/uL RBC (4.30-5.90) m/uL Hgb (13.0-17.5) gm/dL Hct (39.0-53.0) % Plt Count (150-450) k/uL Neutrophils # (1.3-7.7) k/uL Lymphocytes # (1.0-4.8) k/uL Monocytes # (0-1.0) k/uL PT (9.0-12.0) sec INR (<1.2) APTT (22.0-30.0) sec ABG pH (7.35-7.45) ABG pCO2 (35-45) mmHg ABG pO2 (83-108) mmHg ABG HCO3 (21-25) mmol/L ABG Total CO2 (19-24) mmol/L ABG O2 Saturation (94-97) % ABG Hematocrit (34.0-46.0) % ABG Potassium (3.4-4.5) mmol/L ABG Ionized Calcium (4.5-5.3) mg/dL ABG Glucose (75-99) mg/dL ABG Lactic Acid (0.5-1.6) mmol/L Hemoglobin (13.0-17.5) gm/dL Chloride (98-107) mmol/L BUN (9-20) mg/dL Creatinine (0.66-1.25) mg/dL Glucose (74-99) mg/dL POC Glucose (mg/dL) 171 H 139 H 161 H (75-99) mg/dL Calcium (8.4-10.2) mg/dL AST (17-59) U/L Alkaline Phosphatase (38-126) U/L Total Protein (6.3-8.2) g/dL Albumin (3.5-5.0) g/dL Arterial Blood Potassium (3.4-4.5) mmol/L Arterial Blood Glucose (75-99) mg/dL Crossmatch 09/30/18 09/30/18 09/30/18 Range/Units 13:55 14:09 15:04 WBC (3.8-10.6) k/uL RBC (4.30-5.90) m/uL Hgb (13.0-17.5) gm/dL Hct (39.0-53.0) % Plt Count (150-450) k/uL Neutrophils # (1.3-7.7) k/uL Lymphocytes # (1.0-4.8) k/uL Monocytes # (0-1.0) k/uL PT (9.0-12.0) sec INR (<1.2) APTT (22.0-30.0) sec ABG pH (7.35-7.45) ABG pCO2 31 L (35-45) mmHg ABG pO2 65 L (83-108) mmHg ABG HCO3 (21-25) mmol/L ABG Total CO2 (19-24) mmol/L ABG O2 Saturation 93.6 L (94-97) % ABG Hematocrit (34.0-46.0) % ABG Potassium (3.4-4.5) mmol/L ABG Ionized Calcium (4.5-5.3) mg/dL ABG Glucose (75-99) mg/dL ABG Lactic Acid (0.5-1.6) mmol/L Hemoglobin (13.0-17.5) gm/dL Chloride (98-107) mmol/L BUN (9-20) mg/dL Creatinine (0.66-1.25) mg/dL Glucose (74-99) mg/dL POC Glucose (mg/dL) 156 H 146 H (75-99) mg/dL Calcium (8.4-10.2) mg/dL AST (17-59) U/L Alkaline Phosphatase (38-126) U/L Total Protein (6.3-8.2) g/dL Albumin (3.5-5.0) g/dL Arterial Blood Potassium (3.4-4.5) mmol/L Arterial Blood Glucose (75-99) mg/dL Crossmatch Assessment and Plan Plan: 1. Chest pain with non-ST elevated myocardial infarction present on admission. Status post heart catheterization with triple-vessel disease and severe aortic stenosis. Echo shows an EF of 25-30%. Patient had VAISHNAVI completed today results as stated above. Patient evaluated by cardiothoracic team for possible coronary artery bypass graft. Preoperative testing has been initiated by cardiothoracic team. Patient will require dental clearance prior to any procedures. Continue aspirin, beta irasema and statin. Patient underwent CABG and aortic valve replacement yesterday he was seen postoperatively today in ICU 2. Pneumonia ruled out. completed showing patchy perihilar and basal infiltrate noted. Antibiotics discontinued. Pulmonary service felt likely patient's symptoms were due to pulmonary vascular congestion and less likely pneumonia 3. Diabetes mellitus type 2. Continue NovoLog sliding scale coverage. A1c is 7.5. But sugars stable. Continue Amaryl 4. History of GERD 5. History of essential hypertension. 6. History of hyperlipidemia 7. History of osteoarthritis 8. History of sleep apnea. Patient reports he wears CPAP machine 9. History of seasonal ALLERGIES. 10. Acute kidney injury: Resolved. 11. Tooth abscess. #18 surgical extraction of erupted tooth per Dr. Gilbert on 09/26/2018 patient started on Penicillin VK.
[2018-09-30 16:19] LABS: Glucose,Whole Blood 159 mg/dL (75-99)
[2018-09-30 17:19] LABS: Glucose,Whole Blood 152 mg/dL (75-99)
[2018-09-30] MEDS: CLEVIDIPINE BUTYRATE 25 MG in EMPTY BAG 1 BAG IV SCH (18:25)
[2018-09-30 18:41] LABS: Glucose,Whole Blood 145 mg/dL (75-99)
[2018-09-30 19:19] LABS: Glucose,Whole Blood 153 mg/dL (75-99)
[2018-09-30 20:29] LABS: Glucose,Whole Blood 132 mg/dL (75-99)
[2018-09-30] MEDS: SENNOSIDES-DOCUSATE SODIUM 1 EACH TAB PO SCH (20:51)
[2018-09-30] MEDS: HYDROcodone/APAP 5-325MG 1 EACH TAB PO PRN (20:55)
[2018-09-30 21:17] LABS: Glucose,Whole Blood 123 mg/dL (75-99)
[2018-09-30] MEDS: NOREPINEPHRINE 32 MG in SODIUM CHLORIDE 0.9% 218 ML IV SCH (22:20)
[2018-09-30 23:08] LABS: Glucose,Whole Blood 128 mg/dL (75-99)
[2018-10-01] MEDS: MORPHINE SULFATE 2 MG/ML SYRINGE IVP PRN ×3 (00:04→10:01)
[2018-10-01 00:18] LABS: Glucose,Whole Blood 111 mg/dL (75-99)
[2018-10-01] MEDS: HEPARIN SODIUM,PORCINE 5,000 UNIT/ML 1 ML VIAL SQ SCH ×3 (00:36→18:23)
[2018-10-01 01:17] LABS: Glucose,Whole Blood 102 mg/dL (75-99)
[2018-10-01 02:21] LABS: Glucose,Whole Blood 119 mg/dL (75-99)
[2018-10-01] MEDS: HYDROcodone/APAP 5-325MG 1 EACH TAB PO PRN ×2 (02:24→20:27)
[2018-10-01] MEDS ORDERED: HALOPERIDOL LACTATE 5 MG/ML 1 ML VIAL IVP PRN (02:48)
[2018-10-01] MEDS: INSULIN REGULAR 100 UNIT in SODIUM CHLORIDE 0.9% 100 ML IV SCH (03:20)
[2018-10-01] MEDS: HALOPERIDOL LACTATE 5 MG/ML 1 ML VIAL IVP PRN ×5 (03:24→22:13)
[2018-10-01 03:30] LABS: Glucose,Whole Blood 140 mg/dL (75-99)
[2018-10-01] MEDS: ceFAZolin 3 GM in SODIUM CHLORIDE 0.9% 100 ML IVPB SCH (03:51)
[2018-10-01 04:17] LABS: Glucose,Whole Blood 139 mg/dL (75-99)
[2018-10-01] MEDS: MILRINONE-D5W PMX 20 MG in DEXTROSE/WATER 1 100ML.BAG IV SCH (05:14)
[2018-10-01 05:19] LABS: Glucose,Whole Blood 136 mg/dL (75-99)
[2018-10-01] MEDS: DEXMEDETOMIDINE/0.9% NACL(PMX) 400 MCG in EMPTY BAG 1 BAG IV SCH ×2 (05:23→14:45)
[2018-10-01 05:38] LABS: MCH 31.7 pg (25.0-35.0); MCHC 33.4 g/dL (31.0-37.0); MCV 94.8 fL (80.0-100.0); Mean Platelet Volume 7.8; RBC 2.21 m/uL (4.30-5.90); RDW 13.1 % (11.5-15.5)
[2018-10-01 06:03] LABS: Band Neutrophils % 10 %; Lymphocytes # (M) 1.38 k/uL (1.0-4.8); Neutrophils % (M) 62 %; Nucleated Red Blood Cells 0 /100 WBC (0-0); Total Cells Counted 100
[2018-10-01 06:04] LABS: Platelet Count 82 k/uL (150-450)
[2018-10-01 06:09] LABS: Ionized Calcium 4.8 mg/dL (4.5-5.3)
[2018-10-01 06:12] LABS: Glucose,Whole Blood 126 mg/dL (75-99)
[2018-10-01 06:28] LABS: Calcium 8.1 mg/dL (8.4-10.2); Potassium 4.2 mmol/L (3.5-5.1); Total Bilirubin 1.9 mg/dL (0.2-1.3); Total Protein 4.8 g/dL (6.3-8.2)
[2018-10-01] MEDS ORDERED: FUROSEMIDE 10 MG/ML 4 ML VIAL IV STA (06:32)
[2018-10-01] MEDS: IPRATROPIUM-ALBUTEROL 3 ML NEB INHALATION SCH ×4 (07:12→19:02)
[2018-10-01 07:14] LABS: Glucose,Whole Blood 118 mg/dL (75-99)
--- NOTE | 2018-10-01 07:45 | XR ---
EXAMINATION TYPE: XR chest 1V portable DATE OF EXAM: 10/01/2018 COMPARISON: 09/30/2018 INDICATION: Postoperative cardiac surgery TECHNIQUE: Single frontal view of the chest is obtained. FINDINGS: The heart size is mildly prominent. The pulmonary vasculature is normal. Mild infiltrate is at the right base. Improving infiltrate is at the left base [place] catheter is present with the tip in the region of the main pulmonary artery. Sternotomy wir es from the cardiac valve surgery are evident. Nasogastric tube and endotracheal tube have been remov ed. IMPRESSION: 1. Mild improving bibasilar infiltrates. 2. [place] catheter remains present.
--- NOTE | 2018-10-01 07:46 | PN ---
PROGRESS NOTE Mr. Kumar is a 58-year-old male who presented with non ST-segment elevation myocardial infarction, underwent a cardiac catheterization that revealed severe triple- vessel disease with severe aortic regurgitation and moderate severe aortic stenosis and severely impaired left ventricular systolic function. He underwent coronary artery bypass grafting with a bypass to the LAD, obtuse marginal branch and the RCA with aortic valve replacement. He is extubated, awake, alert, anxious. In sinus mechanism on low-dose norepinephrine and continues to be on Primacor. He has some ventricular ectopic activity but no evidence of atrial fibrillation. He continued to be on aspirin, Lipitor 40 mg daily, Plavix 75 mg daily, metoprolol tartrate 12.5 mg twice a day. PHYSICAL EXAMINATION: Blood pressure running in the 120s with a heart rate in the 70s. Lungs with few crackles. HEART: Regular rate and rhythm, S1, S2. No S3. No rub appreciated. ABDOMEN: Soft, obese, nontender. EXTREMITIES: No significant edema. Chest x-ray consistent with fluid overload. LAB DATA: Revealed a BUN and creatinine 39 and 2.13. Potassium 4.2, ALT of 1289, hemoglobin of 7. IMPRESSION: 1. Status post aortic valve replacement and coronary artery bypass grafting. 2. Severe cardiomyopathy. 3. Anxiety. 4. Elevated liver function tests, probably related to congestion. 5. History of diabetes. 6. Hyperlipidemia. RECOMMENDATION: From the cardiac standpoint, I will try to wean the IV norepinephrine off. Continue incentive spirometry. I will increase the dose of his beta irasema and depending on his progress, further recommendation will be made. MMODL / IJN: [id number] /
[2018-10-01 08:16] LABS: Glucose,Whole Blood 98 mg/dL (75-99)
[2018-10-01] MEDS ORDERED: QUEtiapine 25 MG TAB PO SCH (09:00)
[2018-10-01] MEDS: PANTOPRAZOLE 40 MG/10 ML VIAL IVP SCH (09:07)
[2018-10-01] MEDS: CLOPIDOGREL 75 MG TAB PO SCH (09:07)
[2018-10-01] MEDS: ASPIRIN 325 MG TAB PO SCH (09:07)
[2018-10-01] MEDS: MUPIROCIN 2% OINT 22 GM TUBE NASAL SCH ×2 (09:16→20:29)
[2018-10-01 09:30] LABS: Glucose,Whole Blood 122 mg/dL (75-99)
[2018-10-01] MEDS: LACTATED RINGERS 1,000 ML IV SCH (09:53)
[2018-10-01] MEDS: METOPROLOL TARTRATE 25 MG TAB PO SCH ×2 (09:55→20:25)
[2018-10-01 10:39] LABS: Glucose,Whole Blood 118 mg/dL (75-99)
[2018-10-01 11:20] LABS: ABG Base Excess -5.9 mmol/L; ABG HCO3 18 mmol/L (21-25); ABG Oxygen Saturation 95.4 % (94-97); ABG PCO2 27 mmHg (35-45); ABG PH 7.44 (7.35-7.45); ABG PO2 74 mmHg (83-108); ABG TCO2 19 mmol/L (19-24)
[2018-10-01 11:47] LABS: Glucose,Whole Blood 132 mg/dL (75-99)
--- NOTE | 2018-10-01 12:01 | P.PN ---
Subjective Progress Note Date: 10/01/18 This is a 58-year-old male patient of Dr. Duke. Patient presented to the emergency room with complaints of chest pain. Patient reports this chest pain has been occurring for over a year. Patient does report that since pain has significantly increased. With chest pain patient also experiences shortness of breath. She does have a past medical history of diverticulitis mellitus, GERD, hyperlipidemia, hypertension, osteoporosis, sleep apnea, seasonal ALLERGIES and ex-smoker. Patient states he quit in . EKG completed emergency room showing normal sinus rhythm, possible left atrial enlargement. Patient also reports that he had seen Dr. SAILAJA Bermeo for pulmonary due to increasing shortness of breath. Chest x-ray completed emergency room showing patchy perihilar and basal infiltrate noted. Correlate for underlying pneumonia. troponin 0.287. cardiology services have been consulted. At this time patient is resting comfortably bed. Patient denies any chest pain or shortness breath. Denies nausea vomiting or diarrhea. Patient denies any urinary burning or frequency. 09/24/2018 patient underwent cardiac catheterization today showing triple- vessel coronary disease. Severely impaired left ventricle systolic function with severe aortic stenosis. And mild pulmonary hypertension. Cardiology is recommending proceeding with evaluation for coronary artery bypass grafting and aortic valve replacement. And they have scheduled the patient for a VAISHNAVI. Is currently chest pain-free. He does report he gets pain with activity. Echo shows an EF of 25-30%. Creatinine is at 1.37. He did receive a dose of IV Lasix yesterday for BNP in the 5000. 09/25/2018 patient seen by cardiothoracic service. Cardiothoracic has ordered preoperative testing. He also recommending dental clearance consult has already been placed. Patient did have a VAISHNAVI today showing dilated left ventricle with severe global hypokinesis severe aortic regurgitation with moderate to severe aortic stenosis. Carotid Doppler was negative for any significant hemodynamic stenosis. Creatinine has decreased from 1.37-1.21. Blood sugar this morning was 147 blood sugar this afternoon 231. Glipizide 5 mg twice a day has been ordered. Patient remains in the ICU. Currently chest pain-free. Reports a small post bowel movement yesterday. Colace will be added. 09/26/2018 patient currently resting comfortably in bed. Patient status post tooth extraction with Dr. Gilbert today. Blood sugars have improved. This time patient denies chest pain or shortness breath. Patient denies nausea vomiting or diarrhea. Patient denies any urinary burning or frequency. 09/27/2018 patient had shortness of breath and diaphoresis and some chest tightness with ambulating earlier this morning. Cardiology is aware. They recommend that patient remain in the hospital at this time. Patient had his tooth extracted yesterday. Denies any nausea or vomiting. Denies any bowel movement changes or urinary symptoms. Creatinine is up at 1.38. 09/28/2018 patient has had about 4 episodes of shortness of breath with chest pain and diaphoresis with activity and some at rest as well. He was given nitro that did help relieve symptoms. Cardiology is following closely as well as cardiothoracic team. The date of cardiac surgery will likely be sooner than Monday. Cardiology did start IV heparin drip yesterday. On 09/30/2018 patient was seen and examined in the ICU he is laying in bed he has BiPAP mask on he had episodes of agitation through the night blood pressure is marginal with mean blood pressure of around 55 patient denies any chest pain there is no fever or chills no headache or dizziness he has occasional cough no nausea or vomiting no abdominal pain no diarrhea and no urinary symptoms 10/01/2018. Patient was extubated yesterday and is currently on BiPAP mask. He had triple coronary artery bypass grafting and aortic valve replacement on . Patient is currently off the Levophed. He is still confused and agitated. He appears that he cannot comfortable. Seroquel was added to her [facility] thoracic team. Also patient is receiving pain medication. Radiology did increase the beta irasema for patient. Patient did have a temp of 100 and yesterday. Chest x-ray showing mild improving by basilar infiltrates. Hemoglobin is 7.0. Platelets are 82 and hit has been ordered. Creatinine has gone up to 2.13. Liver enzymes are elevated at AST is 3054 and ALT is 1289 total bili 1.9. Lipitor was discontinued antibiotics discontinued. Patient was given a dose of IV Lasix per cardiothoracic team. Objective - Vital Signs Vital signs: Vital Signs Temp 100 F H 09/30/18 16:00 Pulse 72 10/01/18 11:00 Resp 33 H 10/01/18 11:00 BP 119/77 10/01/18 09:30 Pulse Ox 99 10/01/18 11:00 Intake & Output 09/30/18 10/01/18 10/01/18 18:59 06:59 18:59 Intake Total 3128.557 1491.088 864.361 Output Total 923 1134 740 Balance 2205.557 357.088 124.361 Weight 136.3 kg Intake: IV 2468 968 236 ACETAMINOPHEN IV (For NPO 200 ) 1,000 mg In Empty Bag 1 bag @ 400 mls/hr IVPB Q6HR NANCY Rx#:[id number] Albumin Human 5% 500 ml 1000 In Empty Bag 1 bag @ 250 mls/hr IVPB ONCE ONE Rx#: [id number] CO/CI 100 60 Lactated Ringers 1,000 ml 960 600 200 @ 20 mls/hr IV .Q24H NANCY Rx#:[id number] Pressure bags 108 108 36 ceFAZolin 3 gm In Sodium 100 200 Chloride 0.9% 100 ml @ 100 mls/hr IVPB Q8H NANCY Rx#:[id number] Intake, IV Titration 660.557 523.088 28.361 Amount Amiodarone 300 mg In 256 Dextrose 5% in Water 250 ml @ 0.5 MG/MIN 25.6 mls/ hr IV .Q10H PRN Rx#: [id number] Dexmedetomidine/0.9% NaCl 63.250 110.23 (Pmx) 400 mcg In Empty Bag 1 bag @ Titrate IV . Q0M NANCY Rx#:[id number] Dextrose 5% in Water 100 250 ml @ 618 mls/hr IV .Q10M PRN with Amiodarone 150 mg Rx#:[id number] Insulin Regular 100 unit 71.970 24.788 27.657 In Sodium Chloride 0.9% 100 ml @ Per Protocol IV .Q0M NANCY Rx#:[id number] Milrinone-D5w Pmx 20 mg 98.328 104.836 In Dextrose/Water 1 100ml .bag @ 0.1 MCG/KG/MIN 3. 61 mls/hr IV .Q24H NANCY Rx #:[id number] Norepinephrine 32 mg In 117.609 27.234 0.704 Sodium Chloride 0.9% 218 ml @ 0.05 MCG/KG/MIN 2.82 mls/hr IV .Q24H NANCY Rx#: [id number] Propofol 1,000 mg In 59.400 Empty Bag 1 bag @ Titrate IV .Q0M NANCY Rx#: [id number] Oral 600 Output: Chest Tube Drainage 440 640 180 Left Pleural 250 430 130 Mediastinal X2 190 210 50 Drainage 30 Left Wrist 30 Urine 483 464 560 Other: Voiding Method Indwelling Catheter Indwelling Catheter # Voids 1 ABP, PAP, CO, CI - Last Documented Arterial Blood Pressure 136/65 Pulmonary Artery Pressure 46/20 Cardiac Output 8.4 Cardiac Index 3.1 - Exam Head normocephalic Neck supple Lungs clear to auscultation bilaterally no wheezing or crackles Heart regular rate and rhythm S1-S2, no rub or gallop positive murmur. Has [address] Abdomen is soft nontender nondistended positive bowel sounds no hepatosplenomegaly Extremities no edema Neuro alert and orientated to 3 - Labs CBC & Chem 7: 10/01/18 05:00 10/01/18 05:00 Labs: Abnormal Lab Results - Last 24 Hours (Table) 09/30/18 09/30/18 09/30/18 Range/Units 12:26 13:05 13:55 RBC (4.30-5.90) m/uL Hgb (13.0-17.5) gm/dL Hct (39.0-53.0) % Plt Count (150-450) k/uL ABG pCO2 31 L (35-45) mmHg ABG pO2 65 L (83-108) mmHg ABG HCO3 (21-25) mmol/L ABG O2 Saturation 93.6 L (94-97) % Chloride (98-107) mmol/L Carbon Dioxide (22-30) mmol/L BUN (9-20) mg/dL Creatinine (0.66-1.25) mg/dL Glucose (74-99) mg/dL POC Glucose (mg/dL) 139 H 161 H (75-99) mg/dL Calcium (8.4-10.2) mg/dL Total Bilirubin (0.2-1.3) mg/dL AST (17-59) U/L ALT (21-72) U/L Total Protein (6.3-8.2) g/dL Albumin (3.5-5.0) g/dL 09/30/18 09/30/18 09/30/18 Range/Units 14:09 15:04 16:07 RBC (4.30-5.90) m/uL Hgb (13.0-17.5) gm/dL Hct (39.0-53.0) % Plt Count (150-450) k/uL ABG pCO2 (35-45) mmHg ABG pO2 (83-108) mmHg ABG HCO3 (21-25) mmol/L ABG O2 Saturation (94-97) % Chloride (98-107) mmol/L Carbon Dioxide (22-30) mmol/L BUN (9-20) mg/dL Creatinine (0.66-1.25) mg/dL Glucose (74-99) mg/dL POC Glucose (mg/dL) 156 H 146 H 159 H (75-99) mg/dL Calcium (8.4-10.2) mg/dL Total Bilirubin (0.2-1.3) mg/dL AST (17-59) U/L ALT (21-72) U/L Total Protein (6.3-8.2) g/dL Albumin (3.5-5.0) g/dL 09/30/18 09/30/18 09/30/18 Range/Units 17:08 18:30 19:07 RBC (4.30-5.90) m/uL Hgb (13.0-17.5) gm/dL Hct (39.0-53.0) % Plt Count (150-450) k/uL ABG pCO2 (35-45) mmHg ABG pO2 (83-108) mmHg ABG HCO3 (21-25) mmol/L ABG O2 Saturation (94-97) % Chloride (98-107) mmol/L Carbon Dioxide (22-30) mmol/L BUN (9-20) mg/dL Creatinine (0.66-1.25) mg/dL Glucose (74-99) mg/dL POC Glucose (mg/dL) 152 H 145 H 153 H (75-99) mg/dL Calcium (8.4-10.2) mg/dL Total Bilirubin (0.2-1.3) mg/dL AST (17-59) U/L ALT (21-72) U/L Total Protein (6.3-8.2) g/dL Albumin (3.5-5.0) g/dL 09/30/18 09/30/18 09/30/18 Range/Units 20:17 21:05 22:57 RBC (4.30-5.90) m/uL Hgb (13.0-17.5) gm/dL Hct (39.0-53.0) % Plt Count (150-450) k/uL ABG pCO2 (35-45) mmHg ABG pO2 (83-108) mmHg ABG HCO3 (21-25) mmol/L ABG O2 Saturation (94-97) % Chloride (98-107) mmol/L Carbon Dioxide (22-30) mmol/L BUN (9-20) mg/dL Creatinine (0.66-1.25) mg/dL Glucose (74-99) mg/dL POC Glucose (mg/dL) 132 H 123 H 128 H (75-99) mg/dL Calcium (8.4-10.2) mg/dL Total Bilirubin (0.2-1.3) mg/dL AST (17-59) U/L ALT (21-72) U/L Total Protein (6.3-8.2) g/dL Albumin (3.5-5.0) g/dL 10/01/18 10/01/18 10/01/18 Range/Units 00:03 01:06 02:08 RBC (4.30-5.90) m/uL Hgb (13.0-17.5) gm/dL Hct (39.0-53.0) % Plt Count (150-450) k/uL ABG pCO2 (35-45) mmHg ABG pO2 (83-108) mmHg ABG HCO3 (21-25) mmol/L ABG O2 Saturation (94-97) % Chloride (98-107) mmol/L Carbon Dioxide (22-30) mmol/L BUN (9-20) mg/dL Creatinine (0.66-1.25) mg/dL Glucose (74-99) mg/dL POC Glucose (mg/dL) 111 H 102 H 119 H (75-99) mg/dL Calcium (8.4-10.2) mg/dL Total Bilirubin (0.2-1.3) mg/dL AST (17-59) U/L ALT (21-72) U/L Total Protein (6.3-8.2) g/dL Albumin (3.5-5.0) g/dL 10/01/18 10/01/18 10/01/18 Range/Units 03:19 04:05 05:00 RBC (4.30-5.90) m/uL Hgb (13.0-17.5) gm/dL Hct (39.0-53.0) % Plt Count (150-450) k/uL ABG pCO2 (35-45) mmHg ABG pO2 (83-108) mmHg ABG HCO3 (21-25) mmol/L ABG O2 Saturation (94-97) % Chloride 109 H (98-107) mmol/L Carbon Dioxide 21 L (22-30) mmol/L BUN 39 H (9-20) mg/dL Creatinine 2.13 H (0.66-1.25) mg/dL Glucose 127 H (74-99) mg/dL POC Glucose (mg/dL) 140 H 139 H (75-99) mg/dL Calcium 8.1 L (8.4-10.2) mg/dL Total Bilirubin 1.9 H (0.2-1.3) mg/dL AST 3059 H (17-59) U/L ALT 1289 H (21-72) U/L Total Protein 4.8 L (6.3-8.2) g/dL Albumin 3.0 L (3.5-5.0) g/dL 10/01/18 10/01/18 10/01/18 Range/Units 05:00 05:07 06:01 RBC 2.21 L (4.30-5.90) m/uL Hgb 7.0 L D (13.0-17.5) gm/dL Hct 21.0 L (39.0-53.0) % Plt Count 82 L (150-450) k/uL ABG pCO2 (35-45) mmHg ABG pO2 (83-108) mmHg ABG HCO3 (21-25) mmol/L ABG O2 Saturation (94-97) % Chloride (98-107) mmol/L Carbon Dioxide (22-30) mmol/L BUN (9-20) mg/dL Creatinine (0.66-1.25) mg/dL Glucose (74-99) mg/dL POC Glucose (mg/dL) 136 H 126 H (75-99) mg/dL Calcium (8.4-10.2) mg/dL Total Bilirubin (0.2-1.3) mg/dL AST (17-59) U/L ALT (21-72) U/L Total Protein (6.3-8.2) g/dL Albumin (3.5-5.0) g/dL 10/01/18 10/01/18 10/01/18 Range/Units 07:03 09:19 10:27 RBC (4.30-5.90) m/uL Hgb (13.0-17.5) gm/dL Hct (39.0-53.0) % Plt Count (150-450) k/uL ABG pCO2 (35-45) mmHg ABG pO2 (83-108) mmHg ABG HCO3 (21-25) mmol/L ABG O2 Saturation (94-97) % Chloride (98-107) mmol/L Carbon Dioxide (22-30) mmol/L BUN (9-20) mg/dL Creatinine (0.66-1.25) mg/dL Glucose (74-99) mg/dL POC Glucose (mg/dL) 118 H 122 H 118 H (75-99) mg/dL Calcium (8.4-10.2) mg/dL Total Bilirubin (0.2-1.3) mg/dL AST (17-59) U/L ALT (21-72) U/L Total Protein (6.3-8.2) g/dL Albumin (3.5-5.0) g/dL 10/01/18 10/01/18 Range/Units 11:15 11:18 RBC (4.30-5.90) m/uL Hgb (13.0-17.5) gm/dL Hct (39.0-53.0) % Plt Count (150-450) k/uL ABG pCO2 27 L (35-45) mmHg ABG pO2 74 L (83-108) mmHg ABG HCO3 18 L (21-25) mmol/L ABG O2 Saturation (94-97) % Chloride (98-107) mmol/L Carbon Dioxide (22-30) mmol/L BUN (9-20) mg/dL Creatinine (0.66-1.25) mg/dL Glucose (74-99) mg/dL POC Glucose (mg/dL) 132 H (75-99) mg/dL Calcium (8.4-10.2) mg/dL Total Bilirubin (0.2-1.3) mg/dL AST (17-59) U/L ALT (21-72) U/L Total Protein (6.3-8.2) g/dL Albumin (3.5-5.0) g/dL Assessment and Plan Assessment: 1. Chest pain with non-ST elevated myocardial infarction present on admission. Status post heart catheterization with triple-vessel disease and severe aortic stenosis. Echo shows an EF of 25-30%. Status post coronary artery bypass graft and aortic valve replacement on 09/29/2018 2. Pneumonia ruled out. completed showing patchy perihilar and basal infiltrate noted. Antibiotics discontinued. Pulmonary service felt likely patient's symptoms were due to pulmonary vascular congestion and less likely pneumonia 3. Diabetes mellitus type 2. Continue NovoLog sliding scale coverage. A1c is 7.5. But sugars stable. Continue Amaryl 4. History of GERD 5. History of essential hypertension. 6. History of hyperlipidemia 7. History of osteoarthritis 8. History of sleep apnea. Patient reports he wears CPAP machine 9. History of seasonal ALLERGIES. 10. Acute kidney injury: Kidney functions are worsening. Creatinine is at 2.13 11. Tooth abscess. #18 surgical extraction of erupted tooth per Dr. Gilbert on 09/26/2018 patient started on Penicillin VK. 12. Expected acute blood loss Anemia secondary to surgery. Hemoglobin is 7.0. Continue to monitor hemoglobin 13. Thrombocytopenia: HIT test has been ordered per cardiothoracic team 14. Elevated LFTs possibly related to fluid congestion or medications. Patient was given Lasix. Also Lipitor and Tylenol have been discontinued. Continue to monitor. DVT prophylaxis subcu heparin I performed an examination of the patient and discussed their management with the physician Candy Catcher. I have reviewed the Physician Candy Catcher's notes and agree with the documented findings and plan of care
[2018-10-01] MEDS ORDERED: SODIUM BICARB 8.4% 50 ML SYR (1 MEQ/ML) IV ONE (12:13)
[2018-10-01 12:29] LABS: Glucose,Whole Blood 122 mg/dL (75-99)
[2018-10-01 13:02] LABS: Lactic Acid, Venous 2.8 mmol/L (0.7-2.0)
--- NOTE | 2018-10-01 13:55 | P.PN ---
Subjective Progress Note Date: 10/01/18 Principal diagnosis: Non-STEMI, severe left ventricular dysfunction, acute systolic heart failure with EF 20-25 %, severe triple vessel coronary artery disease , severe aortic valve regurgitation with moderate aortic valve stenosis, bicuspid aortic valve, heavily calcified aortic valve, morbid obesity with a BMI of 43.1 kg/m, hypertension, hyperlipidemia, diabetes mellitus with hemoglobin A1c 7.5%, GERD, obstructive sleep apnea with CPAP use, and previous tobacco dependence with recent FEV1 80% of predicted, moderate restriction. POD #2 urgent triple coronary artery bypass grafting using the left internal mammary artery to the left anterior descending artery, the left radial artery taken as a Y graft from the left internal mammary artery to the first obtuse marginal artery, a reverse greater saphenous vein graft from the aorta to the posterior descending artery. Aortic valve replacement using a 29 mm Magna Ease pericardial bioprosthesis. Endoscopic harvesting of the left radial artery. Endoscopic harvesting of the left greater saphenous vein from the groin to the knee level. Intraoperative transesophageal echocardiogram and epi-aortic scanning. Intraoperative graft flow measurements using the [email or web address] system. Postoperative acute blood loss anemia, an expected outcome of surgery given cardiopulmonary bypass pump and hemodilution. The patient is currently lying in bed in the intensive care unit in no acute distress. The patient is restless and agitated, complaining of lower back pain rating his pain 10 out of 10 on the pain scale. He denies any complaints of shortness of breath. He remains on 8 L high flow nasal cannula. Remains on IV Primacor drip. Norepinephrine is off. Bedside telemetry showing normal sinus rhythm with bundle branch block and occasional PACs with a heart rate 89 BPM. Patient remains on Precedex drip. Objective - Vital Signs Vital signs: Vital Signs Temp 100 F H 09/30/18 16:00 Pulse 76 10/01/18 09:00 Resp 14 10/01/18 09:00 BP 119/77 10/01/18 08:00 Pulse Ox 97 10/01/18 09:00 Intake & Output 09/30/18 10/01/18 10/01/18 18:59 06:59 18:59 Intake Total 3128.557 1491.088 805.361 Output Total 923 1134 600 Balance 2205.557 357.088 205.361 Weight 136.3 kg Intake: IV 2468 968 177 ACETAMINOPHEN IV (For NPO 200 ) 1,000 mg In Empty Bag 1 bag @ 400 mls/hr IVPB Q6HR NANCY Rx#:[id number] Albumin Human 5% 500 ml 1000 In Empty Bag 1 bag @ 250 mls/hr IVPB ONCE ONE Rx#: [id number] CO/CI 100 60 Lactated Ringers 1,000 ml 960 600 150 @ 20 mls/hr IV .Q24H NANCY Rx#:[id number] Pressure bags 108 108 27 ceFAZolin 3 gm In Sodium 100 200 Chloride 0.9% 100 ml @ 100 mls/hr IVPB Q8H NANCY Rx#:[id number] Intake, IV Titration 660.557 523.088 28.361 Amount Amiodarone 300 mg In 256 Dextrose 5% in Water 250 ml @ 0.5 MG/MIN 25.6 mls/ hr IV .Q10H PRN Rx#: [id number] Dexmedetomidine/0.9% NaCl 63.250 110.23 (Pmx) 400 mcg In Empty Bag 1 bag @ Titrate IV . Q0M [facility] Rx#:[id number] Dextrose 5% in Water 100 250 ml @ 618 mls/hr IV .Q10M PRN with Amiodarone 150 mg Rx#:[id number] Insulin Regular 100 unit 71.970 24.788 27.657 In Sodium Chloride 0.9% 100 ml @ Per Protocol IV .Q0M NANCY Rx#:[id number] Milrinone-D5w Pmx 20 mg 98.328 104.836 In Dextrose/Water 1 100ml .bag @ 0.1 MCG/KG/MIN 3. 61 mls/hr IV .Q24H [facility] Rx #:[id number] Norepinephrine 32 mg In 117.609 27.234 0.704 Sodium Chloride 0.9% 218 ml @ 0.05 MCG/KG/MIN 2.82 mls/hr IV .Q24H [facility]ANC[facility] Rx#: [id number] Propofol 1,000 mg In 59.400 Empty Bag 1 bag @ Titrate IV .Q0M NANCY Rx#: [id number] Oral 600 Output: Chest Tube Drainage 440 640 140 Left Pleural 250 430 100 Mediastinal X2 190 210 40 Drainage 30 Left Wrist 30 Urine 483 464 460 Other: Voiding Method Indwelling Catheter Indwelling Catheter # Voids 1 ABP, PAP, CO, CI - Last Documented Arterial Blood Pressure 127/67 Pulmonary Artery Pressure 46/24 Cardiac Output 8.4 Cardiac Index 3.1 - Constitutional General appearance: Present: cooperative, morbidly obese, no acute distress - Respiratory Details: Lung sounds are diminished throughout, few scattered crackles to his bilateral bases. Respirations are symmetrical and nonlabored. Oxygen saturation are 97% on 8 L high flow nasal cannula. Achieving 250 mL on his incentive spirometry with much encouragement. Mediastinal and left pleural chest tubes in place to low continuous wall suction -20 cm H2O. No air leak is present. Draining thin serosanguineous drainage. Left pleural chest tube with 245 mL output in the last 8 hours, 700 mL output in the last 24 hours. Mediastinal chest tubes with 110 mL output in the last 8 hours, 400 mL output in the last 24 hours. - Cardiovascular Details: Regular rhythm and rate. S1 and S2 present, negative for S3, gallop or murmur. Bedside telemetry showing normal sinus rhythm with bundle branch block and occasional PACs, heart rate 89. Sternum is stable. Heart hugger is in place. Right IJ Cordis with [place]-Shaun catheter in place and functioning. Current cardiac output 8.4, cardiac index 3.6, PA pressures 52/28, CVP 18 mmHg. Right brachial arterial line in place and functioning. Primacor drip remains at 0.01 mcg/kg/m. Knee-high JUWAN hose and sequential compression devices in place to his bilateral lower extremities. Atrial and ventricular epicardial pacemaker wires in place and connected to bedside pacemaker generator VVI 50. - Gastrointestinal Gastrointestinal Comment(s): Abdomen is soft, nontender and nondistended. Hypoactive bowel sounds present on 4 abdominal quadrants. Obese. No guarding or rigidity. No organomegaly. - Genitourinary Genitourinary Comment(s): Villa catheter for accurate I&O. Draining clear yellow urine. 300 mL output in the last 8 hours. - Integumentary Integumentary Comment(s): Skin is warm and dry. No clubbing or cyanosis is present. Midline sternal incision is clean, dry and approximated. No drainage or redness present. Gauze dressing is clean and dry. Left lower extremity EVH sites clean, dry and approximated. No drainage or redness present. Left radial harvest sites clean , dry and approximated. No drainage or redness present. Left arm JAYLON drain in place draining thin serosanguineous drainage. - Neurologic Neurologic: Present: CNII-XII intact - Musculoskeletal Musculoskeletal: Present: generalized weakness, strength equal bilaterally - Psychiatric Psychiatric Comment(s): The patient is restless, agitated with episodes of confusion. Reports the year is 2019. - Allied health notes Allied health notes reviewed: nursing - Labs CBC & Chem 7: 10/01/18 05:00 10/01/18 12:12 Labs: Abnormal Lab Results - Last 24 Hours (Table) 09/30/18 09/30/18 09/30/18 Range/Units 10:29 11:36 12:26 RBC (4.30-5.90) m/uL Hgb (13.0-17.5) gm/dL Hct (39.0-53.0) % Plt Count (150-450) k/uL ABG pCO2 (35-45) mmHg ABG pO2 (83-108) mmHg ABG O2 Saturation (94-97) % Chloride (98-107) mmol/L Carbon Dioxide (22-30) mmol/L BUN (9-20) mg/dL Creatinine (0.66-1.25) mg/dL Glucose (74-99) mg/dL POC Glucose (mg/dL) 176 H 171 H 139 H (75-99) mg/dL Calcium (8.4-10.2) mg/dL Total Bilirubin (0.2-1.3) mg/dL AST (17-59) U/L ALT (21-72) U/L Total Protein (6.3-8.2) g/dL Albumin (3.5-5.0) g/dL 09/30/18 09/30/18 09/30/18 Range/Units 13:05 13:55 14:09 RBC (4.30-5.90) m/uL Hgb (13.0-17.5) gm/dL Hct (39.0-53.0) % Plt Count (150-450) k/uL ABG pCO2 31 L (35-45) mmHg ABG pO2 65 L (83-108) mmHg ABG O2 Saturation 93.6 L (94-97) % Chloride (98-107) mmol/L Carbon Dioxide (22-30) mmol/L BUN (9-20) mg/dL Creatinine (0.66-1.25) mg/dL Glucose (74-99) mg/dL POC Glucose (mg/dL) 161 H 156 H (75-99) mg/dL Calcium (8.4-10.2) mg/dL Total Bilirubin (0.2-1.3) mg/dL AST (17-59) U/L ALT (21-72) U/L Total Protein (6.3-8.2) g/dL Albumin (3.5-5.0) g/dL 09/30/18 09/30/18 09/30/18 Range/Units 15:04 16:07 17:08 RBC (4.30-5.90) m/uL Hgb (13.0-17.5) gm/dL Hct (39.0-53.0) % Plt Count (150-450) k/uL ABG pCO2 (35-45) mmHg ABG pO2 (83-108) mmHg ABG O2 Saturation (94-97) % Chloride (98-107) mmol/L Carbon Dioxide (22-30) mmol/L BUN (9-20) mg/dL Creatinine (0.66-1.25) mg/dL Glucose (74-99) mg/dL POC Glucose (mg/dL) 146 H 159 H 152 H (75-99) mg/dL Calcium (8.4-10.2) mg/dL Total Bilirubin (0.2-1.3) mg/dL AST (17-59) U/L ALT (21-72) U/L Total Protein (6.3-8.2) g/dL Albumin (3.5-5.0) g/dL 09/30/18 09/30/18 09/30/18 Range/Units 18:30 19:07 20:17 RBC (4.30-5.90) m/uL Hgb (13.0-17.5) gm/dL Hct (39.0-53.0) % Plt Count (150-450) k/uL ABG pCO2 (35-45) mmHg ABG pO2 (83-108) mmHg ABG O2 Saturation (94-97) % Chloride (98-107) mmol/L Carbon Dioxide (22-30) mmol/L BUN (9-20) mg/dL Creatinine (0.66-1.25) mg/dL Glucose (74-99) mg/dL POC Glucose (mg/dL) 145 H 153 H 132 H (75-99) mg/dL Calcium (8.4-10.2) mg/dL Total Bilirubin (0.2-1.3) mg/dL AST (17-59) U/L ALT (21-72) U/L Total Protein (6.3-8.2) g/dL Albumin (3.5-5.0) g/dL 09/30/18 09/30/18 10/01/18 Range/Units 21:05 22:57 00:03 RBC (4.30-5.90) m/uL Hgb (13.0-17.5) gm/dL Hct (39.0-53.0) % Plt Count (150-450) k/uL ABG pCO2 (35-45) mmHg ABG pO2 (83-108) mmHg ABG O2 Saturation (94-97) % Chloride (98-107) mmol/L Carbon Dioxide (22-30) mmol/L BUN (9-20) mg/dL Creatinine (0.66-1.25) mg/dL Glucose (74-99) mg/dL POC Glucose (mg/dL) 123 H 128 H 111 H (75-99) mg/dL Calcium (8.4-10.2) mg/dL Total Bilirubin (0.2-1.3) mg/dL AST (17-59) U/L ALT (21-72) U/L Total Protein (6.3-8.2) g/dL Albumin (3.5-5.0) g/dL 10/01/18 10/01/18 10/01/18 Range/Units 01:06 02:08 03:19 RBC (4.30-5.90) m/uL Hgb (13.0-17.5) gm/dL Hct (39.0-53.0) % Plt Count (150-450) k/uL ABG pCO2 (35-45) mmHg ABG pO2 (83-108) mmHg ABG O2 Saturation (94-97) % Chloride (98-107) mmol/L Carbon Dioxide (22-30) mmol/L BUN (9-20) mg/dL Creatinine (0.66-1.25) mg/dL Glucose (74-99) mg/dL POC Glucose (mg/dL) 102 H 119 H 140 H (75-99) mg/dL Calcium (8.4-10.2) mg/dL Total Bilirubin (0.2-1.3) mg/dL AST (17-59) U/L ALT (21-72) U/L Total Protein (6.3-8.2) g/dL Albumin (3.5-5.0) g/dL 10/01/18 10/01/18 10/01/18 Range/Units 04:05 05:00 05:00 RBC 2.21 L (4.30-5.90) m/uL Hgb 7.0 L D (13.0-17.5) gm/dL Hct 21.0 L (39.0-53.0) % Plt Count 82 L (150-450) k/uL ABG pCO2 (35-45) mmHg ABG pO2 (83-108) mmHg ABG O2 Saturation (94-97) % Chloride 109 H (98-107) mmol/L Carbon Dioxide 21 L (22-30) mmol/L BUN 39 H (9-20) mg/dL Creatinine 2.13 H (0.66-1.25) mg/dL Glucose 127 H (74-99) mg/dL POC Glucose (mg/dL) 139 H (75-99) mg/dL Calcium 8.1 L (8.4-10.2) mg/dL Total Bilirubin 1.9 H (0.2-1.3) mg/dL AST 3059 H (17-59) U/L ALT 1289 H (21-72) U/L Total Protein 4.8 L (6.3-8.2) g/dL Albumin 3.0 L (3.5-5.0) g/dL 10/01/18 10/01/18 10/01/18 Range/Units 05:07 06:01 07:03 RBC (4.30-5.90) m/uL Hgb (13.0-17.5) gm/dL Hct (39.0-53.0) % Plt Count (150-450) k/uL ABG pCO2 (35-45) mmHg ABG pO2 (83-108) mmHg ABG O2 Saturation (94-97) % Chloride (98-107) mmol/L Carbon Dioxide (22-30) mmol/L BUN (9-20) mg/dL Creatinine (0.66-1.25) mg/dL Glucose (74-99) mg/dL POC Glucose (mg/dL) 136 H 126 H 118 H (75-99) mg/dL Calcium (8.4-10.2) mg/dL Total Bilirubin (0.2-1.3) mg/dL AST (17-59) U/L ALT (21-72) U/L Total Protein (6.3-8.2) g/dL Albumin (3.5-5.0) g/dL 10/01/18 Range/Units 09:19 RBC (4.30-5.90) m/uL Hgb (13.0-17.5) gm/dL Hct (39.0-53.0) % Plt Count (150-450) k/uL ABG pCO2 (35-45) mmHg ABG pO2 (83-108) mmHg ABG O2 Saturation (94-97) % Chloride (98-107) mmol/L Carbon Dioxide (22-30) mmol/L BUN (9-20) mg/dL Creatinine (0.66-1.25) mg/dL Glucose (74-99) mg/dL POC Glucose (mg/dL) 122 H (75-99) mg/dL Calcium (8.4-10.2) mg/dL Total Bilirubin (0.2-1.3) mg/dL AST (17-59) U/L ALT (21-72) U/L Total Protein (6.3-8.2) g/dL Albumin (3.5-5.0) g/dL - Imaging and Cardiology Chest x-ray: report reviewed, image reviewed Assessment and Plan (1) Hypertension Current Visit: Yes Status: Chronic Code(s): I10 - ESSENTIAL (PRIMARY) HYPERTENSION SNOMED Code(s): 37648108 (2) Hyperlipidemia Current Visit: Yes Status: Chronic Code(s): E78.5 - HYPERLIPIDEMIA, UNSPECIFIED SNOMED Code(s): 02781386 (3) GERD (gastroesophageal reflux disease) Current Visit: Yes Status: Chronic Code(s): K21.9 - GASTRO-ESOPHAGEAL REFLUX DISEASE WITHOUT ESOPHAGITIS SNOMED Code(s): 369287912 (4) Obstructive sleep apnea Current Visit: Yes Status: Acute Code(s): G47.33 - OBSTRUCTIVE SLEEP APNEA ( ADULT) (PEDIATRIC) SNOMED Code(s): 31052239 (5) Morbid obesity with BMI of 40.0-44.9, adult Current Visit: Yes Status: Chronic Code(s): E66.01 - MORBID (SEVERE) OBESITY DUE TO EXCESS CALORIES; Z68.41 - BODY MASS INDEX (BMI) 40.0-44.9, ADULT SNOMED Code(s): 712128079 (6) Diabetes mellitus Current Visit: Yes Status: Chronic Code(s): E11.9 - TYPE 2 DIABETES MELLITUS WITHOUT COMPLICATIONS SNOMED Code(s): 94954996 (7) Acute systolic heart failure Current Visit: Yes Status: Acute Code(s): I50.21 - ACUTE SYSTOLIC ( CONGESTIVE) HEART FAILURE SNOMED Code(s): 359468049 (8) Non-STEMI (non-ST elevated myocardial infarction) Current Visit: Yes Status: Acute Code(s): I21.4 - NON-ST ELEVATION (NSTEMI) MYOCARDIAL INFARCTION SNOMED Code(s): 77180177 (9) Severe aortic insufficiency Current Visit: Yes Status: Acute Code(s): I35.1 - NONRHEUMATIC AORTIC (VALVE ) INSUFFICIENCY SNOMED Code(s): 75968206 (10) Severe aortic stenosis Current Visit: Yes Status: Acute Code(s): I35.0 - NONRHEUMATIC AORTIC (VALVE ) STENOSIS SNOMED Code(s): 51956867 Plan: 1. Continue aspirin, Plavix and beta irasema. We will increase the beta irasema as tolerated. The Patient will need an [place]o/ARB prior to discharge when blood pressure tolerates. May need Life Vest, preoperative ejection fraction 20 -25%, will defer to cardiology. 2. Continue Primacor at current rate. Once Primacor has been discontinued, we will need to start the patient on oral Norvasc to prevent radial artery spasm. 3. Bronchodilators per pulmonology management. 4. Encourage incentive spirometry use 10 times every hour while awake. Encourage continued smoking cessation. 5. Increase activity as tolerated. PT/OT/cardiac rehab following. 6. Will monitor daily labs and x-rays. Electrolyte replacement per protocol. 7. Insulin management per primary care service. The Patient needs tight blood sugar control. 8. Pain control current medication regimen. No Toradol due to his elevated BUN and creatinine. Discontinue morphine. 9. GI prophylaxis with Protonix. DVT prophylaxis with subcu heparin, SCDs. 10. Keep Hudson/Cordis, Villa catheter, chest tubes for another 24 hours. 11. Discontinue Lipitor due to his elevated AST/ALT. 12. Lasix 40 mg 1 now. 13. Use CPAP when sleeping. 14. Start Seroquel 25 mg by mouth daily, discontinue Haldol. 15. Avoid nephrotoxic agents. 16. Send HIT Assay. 17. More recommendations to follow based on patient's clinical course. Time with Patient: Greater than 30
[2018-10-01 14:28] LABS: Glucose,Whole Blood 123 mg/dL (75-99)
--- NOTE | 2018-10-01 14:36 | XR ---
EXAMINATION TYPE: XR chest 1V portable DATE OF EXAM: 10/01/2018 COMPARISON: 10/01/2018 earlier exam INDICATION: Shortness of breath TECHNIQUE: Single frontal view of the chest is obtained. FINDINGS: The heart size is enlarged. The pulmonary vasculature is normal. There is improving aeration present. Some residual remains at the lung bases. Small right pleural eff usion may be present. IMPRESSION: 1. Improving bibasilar infiltrates. 2. Stable appearance of the [place]-Shaun catheter. 3. Cardiomegaly
--- NOTE | 2018-10-01 15:04 | PN ---
PROGRESS NOTE DATE OF SERVICE: 10/01/2018 The patient is a 58-year-old male who is seen lying in bed, sleeping but arouses easily. Daughter is at the bedside. When patient does wake up, he does get agitated very easily. Daughter states that he feels like he cannot breathe so he freaks out when he wakes up. The patient is on BiPAP at this time and he is again sleeping and calm. Vital signs have been reviewed. PHYSICAL EXAM: GENERAL: He is an obese 58-year-old male who is seen lying in bed, sleeping on BiPAP. Vital signs: Temp is 100.2, heart rate is 76, respiratory rate is 18, blood pressure is 119/77, O2 saturation is 96% on high-flow oxygen, FiO2 50%. Head is normocephalic, atraumatic. Neck is short, thick, supple. Trachea is midline. Lungs diminished at the bases. No clear rales or wheezes. Heart S1, S2 heard. Intermittently tachycardic. ABDOMEN: Soft. Bowel sounds are heard. Extremities with trace edema. NEUROLOGIC: Patient is sleeping but easily arousable. LABS: White count 6.0, hemoglobin 7.0, hematocrit 21.0 with 82,000 platelets, sodium is 139, potassium is 4.2, chloride is 109, CO2 is 21, anion gap is 9, BUN is 39, creatinine is 2.13, glucose is 127, calcium is 8.1, ionized calcium is 4.8, magnesium is 2.0, total bilirubin 1.9, AST is 3059, ALT is 1289, alkaline phosphatase is 54, total protein 4.8, albumin is 3.0. Chest x-ray done this a.m. shows mild improving bibasilar infiltrates, [place] Shaun catheter remains present. ASSESSMENT: 1. Status post coronary artery bypass graft. 2. Non ST elevation myocardial infarction. 3. Elevated liver enzymes. 4. Possible early pneumonia less likely. 5. Diabetes mellitus type 2. 6. Gastroesophageal reflux disease. 7. Hypertension. 8. Hyperlipidemia. 9. Obstructive sleep apnea on CPAP. PLAN: Continue current medications which have been reviewed. Continue with pulmonary hygiene, coughing and deep breathing, incentive spirometry, and supportive care. Continue supplemental oxygen to maintain saturations greater and equal to 92%. Continue GI and DVT prophylaxis and we will follow patient closely with you making further changes as necessary. I performed a History & Physical Examination of the patient and discussed their management with nurse practitioner. I reviewed the nurse practitioner's note and agree with the documented findings and plan of care. JIMMY / ERIKA: [id number] /
[2018-10-01] MEDS: amLODIPine 2.5 MG TAB PO SCH (15:05)
[2018-10-01 16:07] LABS: Glucose,Whole Blood 107 mg/dL (75-99)
--- NOTE | 2018-10-01 16:49 | P.PN ---
Progress Note - Text Progress Note Date: 10/01/18 Patient seen and examined in the intensive care unit with nursing staff and family at bedside. The patient was restarted on Precedex, given Seroquel, and Haldol. The patient is still agitated but less so than earlier today. The patient does appear to have delirium, recommend Seroquel with haldol PRN breakthrough. His ABGs reviewed. The patient is maintaining oxygenation on BiPAP. He was given a dose of Lasix today. See full nursing notes for further recommendations.
[2018-10-01 17:20] LABS: Glucose,Whole Blood 120 mg/dL (75-99)
[2018-10-01 18:11] LABS: Glucose,Whole Blood 111 mg/dL (75-99)
[2018-10-01 19:21] LABS: Glucose,Whole Blood 108 mg/dL (75-99)
[2018-10-01] MEDS: SENNOSIDES-DOCUSATE SODIUM 1 EACH TAB PO SCH (20:26)
[2018-10-01 20:57] LABS: Glucose,Whole Blood 132 mg/dL (75-99)
[2018-10-01 22:23] LABS: Glucose,Whole Blood 140 mg/dL (75-99)
[2018-10-02 00:01] LABS: Glucose,Whole Blood 111 mg/dL (75-99)
[2018-10-02 01:21] LABS: Glucose,Whole Blood 117 mg/dL (75-99)
[2018-10-02] MEDS: HALOPERIDOL LACTATE 5 MG/ML 1 ML VIAL IVP PRN ×3 (01:31→08:46)
[2018-10-02] MEDS: NOREPINEPHRINE 32 MG in SODIUM CHLORIDE 0.9% 218 ML IV SCH ×2 (02:45→23:47)
[2018-10-02] MEDS: DEXMEDETOMIDINE/0.9% NACL(PMX) 400 MCG in EMPTY BAG 1 BAG IV SCH (03:15)
[2018-10-02] MEDS: INSULIN REGULAR 100 UNIT in SODIUM CHLORIDE 0.9% 100 ML IV SCH (03:24)
[2018-10-02 03:40] LABS: Glucose,Whole Blood 132 mg/dL (75-99)
[2018-10-02] MEDS: HEPARIN SODIUM,PORCINE 5,000 UNIT/ML 1 ML VIAL SQ SCH (03:59)
[2018-10-02 05:05] LABS: Basophils % (A) 0 %; Eosinophils # (A) 0.1 k/uL (0-0.7); Eosinophils % (A) 1 %; HCT 21.5 % (39.0-53.0); Lymphocytes # (A) 0.9 k/uL (1.0-4.8); Lymphocytes % (A) 17 %; MCH 31.3 pg (25.0-35.0); MCHC 32.7 g/dL (31.0-37.0); MCV 95.6 fL (80.0-100.0); Mean Platelet Volume 9.2; Monocytes # (A) 0.3 k/uL (0-1.0); Monocytes % (A) 5 %; Neutrophils # (A) 4.2 k/uL (1.3-7.7); Neutrophils % (A) 75 %; RBC 2.25 m/uL (4.30-5.90); RDW 13.7 % (11.5-15.5); WBC 5.7 k/uL (3.8-10.6)
[2018-10-02 05:27] LABS: Albumin 2.9 g/dL (3.5-5.0); Calcium 8.2 mg/dL (8.4-10.2); Potassium 4.1 mmol/L (3.5-5.1); Total Bilirubin 2.3 mg/dL (0.2-1.3); Total Protein 4.7 g/dL (6.3-8.2)
[2018-10-02 05:29] LABS: Platelet Count 52 k/uL (150-450)
[2018-10-02 05:33] LABS: Glucose,Whole Blood 128 mg/dL (75-99)
[2018-10-02 06:55] LABS: Glucose,Whole Blood 131 mg/dL (75-99)
[2018-10-02] MEDS ORDERED: FUROSEMIDE 10 MG/ML 4 ML VIAL IV STA (07:20)
[2018-10-02] MEDS: IPRATROPIUM-ALBUTEROL 3 ML NEB INHALATION SCH ×4 (07:43→19:57)
--- NOTE | 2018-10-02 08:21 | PN ---
PROGRESS NOTE Mr. Kumar is a 58-year-old male who presented with non ST-segment elevation myocardial infarction, was found to have severe triple-vessel coronary artery disease with severe aortic regurgitation and aortic stenosis and severely impaired left ventricular systolic function. Underwent coronary artery bypass grafting with aortic valve replacement. Postoperatively, he was extubated but he had episode of panic attack and delirium. He appears more sedated and more appropriate this morning. Hemodynamically, he is stable. He has no evidence of atrial fibrillation. He is somewhat drowsy, but answering questions appropriately and following commands. There is no evidence of malignant arrhythmia. He continues to be at this time on aspirin once a day, amlodipine 2.5 mg daily, Plavix 75 mg daily, metoprolol tartrate 25 mg twice a day. PHYSICAL EXAMINATION: Blood pressure running in the one teens with the heart rate in the 60s. LUNGS: A few crackles at the bases. HEART: Regular rate and rhythm. S1, S2 with systolic murmur. No diastolic murmur. ABDOMEN: Soft, obese, nontender. EXTREMITIES: No significant edema. LAB DATA: revealed improvement in the congestion. Lab data revealed a BUN and creatinine of 53 and 1.89, potassium 4.1. AST of 2160, total bilirubin 2.3. Hemoglobin of 7. IMPRESSION: 1. Status post aortic valve replacement and coronary artery bypass grafting. 2. Ischemic cardiomyopathy. 3. Delirium and panic attacks. 4. Renal failure, improving. 5. Elevated liver functions, improving, probably related to congestion and surgery. 6. History of hypertension. 7. Hyperlipidemia. 8. Diabetes mellitus. RECOMMENDATION: I will stop the amlodipine because of his LV dysfunction and if needed I will use a hydralazine until his renal function stabilizes. I am hoping they will be able to pull his [place]-Shaun catheter out as well as his Villa catheter, increase his activity. We will follow his renal function closely. The patient will receive 1 dose of diuretics and depending on his progress, further recommendation will be made. MMODL / IJN: [id number] /
--- NOTE | 2018-10-02 08:29 | XR ---
EXAMINATION TYPE: XR chest 1V portable DATE OF EXAM: 10/02/2018 Comparison: 10/01/2018 Clinical History: 58-year-old male post cardiac surgery Findings: Right IJ [place]-Shaun catheter obscured by multiple overlying lines. This may be at the level of the pro ximal right main pulmonary artery. Median sternotomy fixation with post-CABG clips and prosthetic aor tic valve. Heart remains enlarged. Mediastinal drains and left pleural drain remain in place. Diffuse interstitial and vascular prominence is similar. Trace effusion suggested. Impression: Stable to some improvement with mild pulmonary vascular congestion. Trace effusions.
[2018-10-02] MEDS ORDERED: QUEtiapine 25 MG TAB PO SCH ×2 (09:00→21:00)
[2018-10-02 09:06] LABS: Glucose,Whole Blood 130 mg/dL (75-99)
[2018-10-02] MEDS: amLODIPine 2.5 MG TAB PO SCH (09:48)
[2018-10-02] MEDS: HYDROcodone/APAP 5-325MG 1 EACH TAB PO PRN ×2 (09:50→20:16)
[2018-10-02] MEDS: FONDAPARINUX 2.5 MG/0.5 ML SYRINGE SQ SCH (09:51)
[2018-10-02] MEDS: PANTOPRAZOLE 40 MG/10 ML VIAL IVP SCH (09:51)
[2018-10-02] MEDS: ASPIRIN 81 MG PO SCH (09:51)
[2018-10-02] MEDS: CLOPIDOGREL 75 MG TAB PO SCH (09:51)
[2018-10-02] MEDS: MUPIROCIN 2% OINT 22 GM TUBE NASAL SCH ×2 (09:55→20:20)
--- NOTE | 2018-10-02 10:17 | P.PN ---
Subjective Progress Note Date: 10/02/18 Principal diagnosis: Non-STEMI, severe left ventricular dysfunction, acute systolic heart failure with EF 20-25 %, severe triple vessel coronary artery disease , severe aortic regurgitation with moderate aortic stenosis, bicuspid, heavily calcified aortic valve, previous medical history of morbid obesity, hypertension, hyperlipidemia , diabetes mellitus with hemoglobin A1c 7.5%, GERD, obstructive sleep apnea with CPAP use, and previous tobacco dependence with recent FEV1 80% of predicted , moderate restriction. POD #3 urgent triple coronary artery bypass grafting using the left internal mammary artery to the left anterior descending artery, the left radial artery taken as a Y graft from the left internal mammary artery to the first obtuse marginal artery, reverse saphenous vein graft from the aorta to the posterior descending artery. Aortic valve replacement using a 29 mm Magna Ease pericardial bioprosthesis. Endoscopic harvesting of the left radial artery. Endoscopic harvesting of the left greater saphenous vein from the groin to the knee level. Intraoperative transesophageal echocardiogram and epi-aortic scanning. Intraoperative graft flow measurements using the Access Closure[employer] system. Postoperative acute blood loss anemia, an expected outcome of surgery given cardiopulmonary bypass pump and hemodilution. Postoperative thrombocytopenia, an unexpected outcome, HIT panel sent. Patient's currently laying in bed in the intensive care unit in no acute distress. Sleepy but arousable, oriented to person, place, time, and situation. Does become anxious and agitated at times requiring reinitiation of Precedex, much more cooperative on Precedex. Hemodynamically stable on no inotropes or pressors. Remains in sinus bradycardia. Does complain of back pain when asked, occasional shortness of breath. Complained to the midnight nurse that he wants his Villa catheter out. Was on high flow oxygen all-night, no BiPAP. Objective - Vital Signs Vital signs: Vital Signs Temp 99.3 F 10/02/18 04:00 Pulse 59 L 10/02/18 06:00 Resp 21 10/02/18 06:00 BP 88/55 10/02/18 04:00 Pulse Ox 100 10/02/18 06:00 Intake & Output 10/01/18 10/02/18 10/02/18 18:59 06:59 18:59 Intake Total 5619.499 8064.457 Output Total 1245 995 Balance 137.946 692.457 Weight 137 kg Intake: IV 708 847 CO/CI 80 Lactated Ringers 1,000 ml 600 650 @ 20 mls/hr IV .Q24H NANCY Rx#:[id number] Pressure bags 108 117 Intake, IV Titration 74.946 120.457 Amount Dexmedetomidine/0.9% NaCl 15.22 84.780 (Pmx) 400 mcg In Empty Bag 1 bag @ Titrate IV . Q0M NANCY Rx#:[id number] Insulin Regular 100 unit 58.630 25.700 In Sodium Chloride 0.9% 100 ml @ Per Protocol IV .Q0M NANCY Rx#:[id number] Norepinephrine 32 mg In 1.096 9.977 Sodium Chloride 0.9% 218 ml @ 0.05 MCG/KG/MIN 2.82 mls/hr IV .Q24H NANCY Rx#: [id number] Oral 600 720 Output: Chest Tube Drainage 350 320 Left Pleural 250 290 Mediastinal X2 100 30 Urine 895 675 Other: Voiding Method Indwelling Catheter Indwelling Catheter # Voids 1 ABP, PAP, CO, CI - Last Documented Arterial Blood Pressure 119/59 Pulmonary Artery Pressure 43/23 Cardiac Output 6 Cardiac Index 2.4 - Constitutional General appearance: Present: cooperative, morbidly obese, no acute distress - Respiratory Details: Lungs sounds diminished bilaterally with coarse breath sounds in the bases. Respirations even, nonlabored. Currently on 10 L high flow nasal cannula with oxygen saturation 97%. Only able to achieve 500 mL on his incentive spirometry. Strong, productive cough with thick, hernandes sputum. Mediastinal chest tube to continuous wall suction, 30 mL serosanguineous drainage overnight , 200 mL in the last 24 hours. Left pleural chest tube to continuous wall suction, 150 mL serosanguineous drainage overnight, 600 mL in the last 24 hours. No air leaks present. - Cardiovascular Details: S1, S2 present. Slow but regular rate and rhythm, sinus bradycardia on telemetry. Sternum stable. A/V epicardial pacemaker wires present, connected to generator, AAI mode with backup rate 45 bpm. Palpable peripheral pulses bilaterally. Trace bilateral lower extremity edema present. No calf pain or tenderness noted. Right internal jugular Rudyard/Cordis, right brachial arterial line present. Last CO/CI 6.0/2.4 on no inotropes or pressors. Heart hugger in place with patient occasionally demonstrating appropriate use. Antiembolism stockings, SCDs present. - Gastrointestinal Gastrointestinal Comment(s): Abdomen soft, nontender, nondistended, obese. Active bowel sounds present 4 quadrants. Tolerating diet. Negative bowel movement. - Genitourinary Genitourinary Comment(s): Villa present draining clear, yellow urine. Output 30-50 mL per hour overnight. - Integumentary Integumentary Comment(s): Skin is warm and dry with evidence of good perfusion. Anterior chest incision well approximated and covered with dry intact dressing. Left lower extremity EVH site well approximated with Dermabond. - Neurologic Neurologic: Present: CNII-XII intact - Musculoskeletal Musculoskeletal: Present: strength equal bilaterally - Psychiatric Psychiatric Comment(s): Sleepy but arousable. Oriented to person, place, time, situation. More cooperative than yesterday, however still anxious/agitated at times. - Allied health notes Allied health notes reviewed: nursing - Labs CBC & Chem 7: 10/02/18 04:15 10/02/18 04:15 Labs: Abnormal Lab Results - Last 24 Hours (Table) 10/01/18 10/01/18 10/01/18 Range/Units 09:19 10:27 11:15 RBC (4.30-5.90) m/uL Hgb (13.0-17.5) gm/dL Hct (39.0-53.0) % Plt Count (150-450) k/uL Lymphocytes # (1.0-4.8) k/uL ABG pCO2 27 L (35-45) mmHg ABG pO2 74 L (83-108) mmHg ABG HCO3 18 L (21-25) mmol/L Chloride (98-107) mmol/L Carbon Dioxide (22-30) mmol/L BUN (9-20) mg/dL Creatinine (0.66-1.25) mg/dL Glucose (74-99) mg/dL POC Glucose (mg/dL) 122 H 118 H (75-99) mg/dL Plasma Lactic Acid Alirio (0.7-2.0) mmol/L Calcium (8.4-10.2) mg/dL Total Bilirubin (0.2-1.3) mg/dL AST (17-59) U/L ALT (21-72) U/L Alkaline Phosphatase (38-126) U/L Ammonia (<30) umol/L Total Protein (6.3-8.2) g/dL Albumin (3.5-5.0) g/dL 10/01/18 10/01/18 10/01/18 Range/Units 11:18 12:12 12:16 RBC (4.30-5.90) m/uL Hgb (13.0-17.5) gm/dL Hct (39.0-53.0) % Plt Count (150-450) k/uL Lymphocytes # (1.0-4.8) k/uL ABG pCO2 (35-45) mmHg ABG pO2 (83-108) mmHg ABG HCO3 (21-25) mmol/L Chloride (98-107) mmol/L Carbon Dioxide (22-30) mmol/L BUN (9-20) mg/dL Creatinine (0.66-1.25) mg/dL Glucose (74-99) mg/dL POC Glucose (mg/dL) 132 H 122 H (75-99) mg/dL Plasma Lactic Acid Alirio 2.8 H* (0.7-2.0) mmol/L Calcium (8.4-10.2) mg/dL Total Bilirubin (0.2-1.3) mg/dL AST (17-59) U/L ALT (21-72) U/L Alkaline Phosphatase (38-126) U/L Ammonia 30 H (<30) umol/L Total Protein (6.3-8.2) g/dL Albumin (3.5-5.0) g/dL 10/01/18 10/01/18 10/01/18 Range/Units 14:16 15:55 17:08 RBC (4.30-5.90) m/uL Hgb (13.0-17.5) gm/dL Hct (39.0-53.0) % Plt Count (150-450) k/uL Lymphocytes # (1.0-4.8) k/uL ABG pCO2 (35-45) mmHg ABG pO2 (83-108) mmHg ABG HCO3 (21-25) mmol/L Chloride (98-107) mmol/L Carbon Dioxide (22-30) mmol/L BUN (9-20) mg/dL Creatinine (0.66-1.25) mg/dL Glucose (74-99) mg/dL POC Glucose (mg/dL) 123 H 107 H 120 H (75-99) mg/dL Plasma Lactic Acid Alirio (0.7-2.0) mmol/L Calcium (8.4-10.2) mg/dL Total Bilirubin (0.2-1.3) mg/dL AST (17-59) U/L ALT (21-72) U/L Alkaline Phosphatase (38-126) U/L Ammonia (<30) umol/L Total Protein (6.3-8.2) g/dL Albumin (3.5-5.0) g/dL 10/01/18 10/01/18 10/01/18 Range/Units 18:00 19:10 20:44 RBC (4.30-5.90) m/uL Hgb (13.0-17.5) gm/dL Hct (39.0-53.0) % Plt Count (150-450) k/uL Lymphocytes # (1.0-4.8) k/uL ABG pCO2 (35-45) mmHg ABG pO2 (83-108) mmHg ABG HCO3 (21-25) mmol/L Chloride (98-107) mmol/L Carbon Dioxide (22-30) mmol/L BUN (9-20) mg/dL Creatinine (0.66-1.25) mg/dL Glucose (74-99) mg/dL POC Glucose (mg/dL) 111 H 108 H 132 H (75-99) mg/dL Plasma Lactic Acid Alirio (0.7-2.0) mmol/L Calcium (8.4-10.2) mg/dL Total Bilirubin (0.2-1.3) mg/dL AST (17-59) U/L ALT (21-72) U/L Alkaline Phosphatase (38-126) U/L Ammonia (<30) umol/L Total Protein (6.3-8.2) g/dL Albumin (3.5-5.0) g/dL 10/01/18 10/01/18 10/02/18 Range/Units 22:11 23:50 01:10 RBC (4.30-5.90) m/uL Hgb (13.0-17.5) gm/dL Hct (39.0-53.0) % Plt Count (150-450) k/uL Lymphocytes # (1.0-4.8) k/uL ABG pCO2 (35-45) mmHg ABG pO2 (83-108) mmHg ABG HCO3 (21-25) mmol/L Chloride (98-107) mmol/L Carbon Dioxide (22-30) mmol/L BUN (9-20) mg/dL Creatinine (0.66-1.25) mg/dL Glucose (74-99) mg/dL POC Glucose (mg/dL) 140 H 111 H 117 H (75-99) mg/dL Plasma Lactic Acid Alirio (0.7-2.0) mmol/L Calcium (8.4-10.2) mg/dL Total Bilirubin (0.2-1.3) mg/dL AST (17-59) U/L ALT (21-72) U/L Alkaline Phosphatase (38-126) U/L Ammonia (<30) umol/L Total Protein (6.3-8.2) g/dL Albumin (3.5-5.0) g/dL 10/02/18 10/02/18 10/02/18 Range/Units 03:14 04:15 04:15 RBC 2.25 L (4.30-5.90) m/uL Hgb 7.0 L (13.0-17.5) gm/dL Hct 21.5 L (39.0-53.0) % Plt Count 52 L (150-450) k/uL Lymphocytes # 0.9 L (1.0-4.8) k/uL ABG pCO2 (35-45) mmHg ABG pO2 (83-108) mmHg ABG HCO3 (21-25) mmol/L Chloride 108 H (98-107) mmol/L Carbon Dioxide 21 L (22-30) mmol/L BUN 53 H (9-20) mg/dL Creatinine 1.89 H (0.66-1.25) mg/dL Glucose 127 H (74-99) mg/dL POC Glucose (mg/dL) 132 H (75-99) mg/dL Plasma Lactic Acid Alirio (0.7-2.0) mmol/L Calcium 8.2 L (8.4-10.2) mg/dL Total Bilirubin 2.3 H (0.2-1.3) mg/dL AST 2160 H (17-59) U/L ALT 764 H (21-72) U/L Alkaline Phosphatase 146 H (38-126) U/L Ammonia (<30) umol/L Total Protein 4.7 L (6.3-8.2) g/dL Albumin 2.9 L (3.5-5.0) g/dL 10/02/18 10/02/18 Range/Units 05:22 06:44 RBC (4.30-5.90) m/uL Hgb (13.0-17.5) gm/dL Hct (39.0-53.0) % Plt Count (150-450) k/uL Lymphocytes # (1.0-4.8) k/uL ABG pCO2 (35-45) mmHg ABG pO2 (83-108) mmHg ABG HCO3 (21-25) mmol/L Chloride (98-107) mmol/L Carbon Dioxide (22-30) mmol/L BUN (9-20) mg/dL Creatinine (0.66-1.25) mg/dL Glucose (74-99) mg/dL POC Glucose (mg/dL) 128 H 131 H (75-99) mg/dL Plasma Lactic Acid Alirio (0.7-2.0) mmol/L Calcium (8.4-10.2) mg/dL Total Bilirubin (0.2-1.3) mg/dL AST (17-59) U/L ALT (21-72) U/L Alkaline Phosphatase (38-126) U/L Ammonia (<30) umol/L Total Protein (6.3-8.2) g/dL Albumin (3.5-5.0) g/dL - Imaging and Cardiology Chest x-ray: report reviewed, image reviewed Assessment and Plan (1) Non-STEMI (non-ST elevated myocardial infarction) Current Visit: Yes Status: Acute Code(s): I21.4 - NON-ST ELEVATION (NSTEMI) MYOCARDIAL INFARCTION SNOMED Code(s): 10718472 (2) Acute systolic heart failure Current Visit: Yes Status: Acute Code(s): I50.21 - ACUTE SYSTOLIC ( CONGESTIVE) HEART FAILURE SNOMED Code(s): 890487319 (3) Severe aortic stenosis Current Visit: Yes Status: Acute Code(s): I35.0 - NONRHEUMATIC AORTIC (VALVE ) STENOSIS SNOMED Code(s): 44553052 (4) Severe aortic insufficiency Current Visit: Yes Status: Acute Code(s): I35.1 - NONRHEUMATIC AORTIC (VALVE ) INSUFFICIENCY SNOMED Code(s): 05729412 Plan: 1. Continue low-dose aspirin, Plavix, beta irasema therapy. Patient will need Polo/ARB prior to discharge when blood pressure tolerates. May need Life Vest, preoperative impaired LV function with EF 20-25%, will defer to cardiology. 2. Statin on hold secondary to elevated liver enzymes. 3. Continue Norvasc for radial artery spasm. 4. Bronchodilators per pulmonology. IV Lasix ordered per 5. Encourage incentive spirometry use 10 times every hour while awake. Encourage continued smoking cessation. 6. Increase activity as tolerated. PT/OT/cardiac rehab following. 7. Will monitor daily labs and x-rays. Electrolyte replacement per protocol. No transfusion at this point. 8. Insulin management per primary care service. Patient needs tight blood sugar control. 9. Pain control current medication regimen. No Toradol. 10. GI prophylaxis with Protonix. DVT prophylaxis with Aritxra, SCDs. Subcu heparin stopped secondary to thrombocytopenia, HIT panel sent, results pending. 11. Discontinue Rudyard, connect Cordis to continue CVP monitoring. Discontinue Villa catheter. Discontinue mediastinal chest tube, keep left pleural chest tube for another 24 hours. 12. Wean Precedex. Seroquel increased to twice daily. 1:1 sitter at bedside. 13. More recommendations to follow as patient progresses. Time with Patient: Greater than 30
[2018-10-02] MEDS: LACTATED RINGERS 1,000 ML IV SCH (11:14)
[2018-10-02 11:16] LABS: Glucose,Whole Blood 131 mg/dL (75-99)
--- NOTE | 2018-10-02 11:44 | P.PN ---
Subjective Progress Note Date: 10/02/18 HPI: This is a 58-year-old male patient being seen examined and evaluated today for consultation who is well-known to our services. This patient came into the emergency room yesterday with complaints of chest pain. His chest pain had been ongoing intermittently over the past year. Since the patient has significantly increased. The patient was being worked up in the outpatient setting with pulmonary and cardiology services. His EKG in the emergency room did show normal sinus rhythm. Chest x-ray did show patchy perihilar and basilar infiltrates. He did have elevated troponins and cardiology is following the patient as well. The patient is scheduled to go for a heart catheterization today with cardiology. Upon examination the patient is resting up in bed on room air. He has occasional shortness of breath with exertion. Occasional nonproductive cough. Echocardiogram reviewed and does show an EF of 25-30% with RVSP of 22. He is also noted to have moderate to severe aortic regurgitation and severe aortic stenosis. Daughter is at bedside updated on plan of care. He currently is waiting to go down for his cardiac catheterization. He has been nothing by mouth since midnight. Interval History: 09/25/18- patient is being seen examined and evaluated today on rounds. He did undergo a VAISHNAVI which did show severely impaired left ventricular function with severe aortic regurgitation and stenosis. He has triple-vessel disease and will require a CABG. Cardiothoracic surgeon has been consulted. The patient will go for many preoperative studies including an ultrasound of the renal arteries CT of the chest, CT of the facial bones, vein mapping. The patient did recently have a PFT in our office last Monday. We will have those results faxed over to the hospital. Upon examination is resting up in bed on room air. Does have some shortness of breath with exertion denies any cough or congestion. Afebrile no further complaints. 09/26/18- patient is being seen examined and evaluated today on rounds. He did go for a dental extraction of an abscessed tooth this morning. Please see procedure notes for those details. He is undergoing workup for cardiothoracic surgery in the near future. FEV1 80% of predicted with moderate restriction. All labs and reports have been reviewed. He is hemodynamically stable. 09/27/18- patient is being seen examined and evaluated today on rounds. He was downgraded to the stepdown unit yesterday. He continues his workup for his cardiothoracic surgery potentially scheduled for next Monday10/02/18. The patient has not uses home CPAP overnight he states he is afraid of breaking at when he started on the bedside table. He would feel more comfortable if he had something that was stationary like he does at his house. He is even installed a lip around the outside of his bedside table so that it doesn't fall off when he tosses and turns. The patient states he is very restless when he sleeps and is not willing to risk breaking his CPAP machine. Instead the patient has been using 2 L of supplemental oxygen overnight which seems to be working well for him. He has been able to maintain his oxygen saturations. He is afebrile no further complaints all labs and reports have been reviewed. 09/28/18- patient is being seen examined and evaluated today on rounds. The patient did have some symptomatic episodes of shortness of breath and chest pain yesterday with exertion and again at rest as well. The patient did wear his CPAP machine last night. IV heparin drip was started per cardiology. Cardiothoracic is potentially going to be moving his surgery date sooner rather than later. Awaiting official input. 09/30/2018: Patient seen and examined in the intensive care unit with nursing staff at bedside. The patient did awaken with sedation holiday however he became agitated and diaphoretic. The patient was given Ativan and started on Precedex. He did tolerate CPAP trial on the ventilator. The patient was extubated to BiPAP. He does have a known history of obstructive sleep apnea. 10/02/2018: Patient seen and examined in the intensive care unit with nursing staff at bedside. The patient's mentation is improving today. He was given Haldol at 8:00 this morning as well as Irvine for pain. He is calm and comfortable and answering questions appropriately. The patient's chest tubes and Remer have been removed. The patient's Villa catheter has been removed. The plan is to get the patient up with physical therapy later today. Objective - Vital Signs Vital signs: Vital Signs Temp 97.4 F L 10/02/18 08:00 Pulse 59 L 10/02/18 11:00 Resp 18 10/02/18 11:00 BP 88/55 10/02/18 08:00 Pulse Ox 98 10/02/18 11:00 Intake & Output 10/01/18 10/02/18 10/02/18 18:59 06:59 18:59 Intake Total 5760.720 0277.457 264 Output Total 1245 995 100 Balance 137.946 692.457 164 Weight 137 kg Intake: IV 708 847 164 CO/CI 80 Lactated Ringers 1,000 ml 600 650 140 @ 20 mls/hr IV .Q24H NANCY Rx#:[id number] Pressure bags 108 117 24 Intake, IV Titration 74.946 120.457 100 Amount Dexmedetomidine/0.9% NaCl 15.22 84.780 100 (Pmx) 400 mcg In Empty Bag 1 bag @ Titrate IV . Q0M NANCY Rx#:[id number] Insulin Regular 100 unit 58.630 25.700 In Sodium Chloride 0.9% 100 ml @ Per Protocol IV .Q0M NANCY Rx#:[id number] Norepinephrine 32 mg In 1.096 9.977 Sodium Chloride 0.9% 218 ml @ 0.05 MCG/KG/MIN 2.82 mls/hr IV .Q24H NANCY Rx#: [id number] Oral 600 720 Output: Chest Tube Drainage 350 320 25 Left Pleural 250 290 25 Mediastinal X2 100 30 Urine 895 675 75 Other: Voiding Method Indwelling Catheter Indwelling Catheter # Voids 1 ABP, PAP, CO, CI - Last Documented Arterial Blood Pressure 116/57 Pulmonary Artery Pressure 30/9 Cardiac Output 6 Cardiac Index 2.4 - Exam GENERAL EXAM: Alert, calm at this time, patient more comfortable HEAD: Normocephalic. EYES: Normal reaction of pupils, equal size. NOSE: Clear with pink turbinates. THROAT: No erythema or exudates. NECK: No masses, no JVD. CHEST: No chest wall deformity. LUNGS: Equal air entry with no crackles, wheeze, rhonchi or dullness. Bases diminished CVS: S1 and S2 normal with no audible mumurs, regular rhythm. ABDOMEN: No hepatosplenomegaly, normal bowel sounds, no guarding or rigidity. EXTREMITIES: No edema noted, pedal pulses palpable. CENTRAL NERVOUS SYSTEM: No focal deficits, tone is normal in all 4 extremities. - Labs CBC & Chem 7: 10/02/18 04:15 10/02/18 04:15 Labs: Abnormal Lab Results - Last 24 Hours (Table) 10/01/18 10/01/18 10/01/18 Range/Units 11:18 12:12 12:16 RBC (4.30-5.90) m/uL Hgb (13.0-17.5) gm/dL Hct (39.0-53.0) % Plt Count (150-450) k/uL Lymphocytes # (1.0-4.8) k/uL Chloride (98-107) mmol/L Carbon Dioxide (22-30) mmol/L BUN (9-20) mg/dL Creatinine (0.66-1.25) mg/dL Glucose (74-99) mg/dL POC Glucose (mg/dL) 132 H 122 H (75-99) mg/dL Plasma Lactic Acid Alirio 2.8 H* (0.7-2.0) mmol/L Calcium (8.4-10.2) mg/dL Total Bilirubin (0.2-1.3) mg/dL AST (17-59) U/L ALT (21-72) U/L Alkaline Phosphatase (38-126) U/L Ammonia 30 H (<30) umol/L Total Protein (6.3-8.2) g/dL Albumin (3.5-5.0) g/dL 10/01/18 10/01/18 10/01/18 Range/Units 14:16 15:55 17:08 RBC (4.30-5.90) m/uL Hgb (13.0-17.5) gm/dL Hct (39.0-53.0) % Plt Count (150-450) k/uL Lymphocytes # (1.0-4.8) k/uL Chloride (98-107) mmol/L Carbon Dioxide (22-30) mmol/L BUN (9-20) mg/dL Creatinine (0.66-1.25) mg/dL Glucose (74-99) mg/dL POC Glucose (mg/dL) 123 H 107 H 120 H (75-99) mg/dL Plasma Lactic Acid Alirio (0.7-2.0) mmol/L Calcium (8.4-10.2) mg/dL Total Bilirubin (0.2-1.3) mg/dL AST (17-59) U/L ALT (21-72) U/L Alkaline Phosphatase (38-126) U/L Ammonia (<30) umol/L Total Protein (6.3-8.2) g/dL Albumin (3.5-5.0) g/dL 10/01/18 10/01/18 10/01/18 Range/Units 18:00 19:10 20:44 RBC (4.30-5.90) m/uL Hgb (13.0-17.5) gm/dL Hct (39.0-53.0) % Plt Count (150-450) k/uL Lymphocytes # (1.0-4.8) k/uL Chloride (98-107) mmol/L Carbon Dioxide (22-30) mmol/L BUN (9-20) mg/dL Creatinine (0.66-1.25) mg/dL Glucose (74-99) mg/dL POC Glucose (mg/dL) 111 H 108 H 132 H (75-99) mg/dL Plasma Lactic Acid Alirio (0.7-2.0) mmol/L Calcium (8.4-10.2) mg/dL Total Bilirubin (0.2-1.3) mg/dL AST (17-59) U/L ALT (21-72) U/L Alkaline Phosphatase (38-126) U/L Ammonia (<30) umol/L Total Protein (6.3-8.2) g/dL Albumin (3.5-5.0) g/dL 10/01/18 10/01/18 10/02/18 Range/Units 22:11 23:50 01:10 RBC (4.30-5.90) m/uL Hgb (13.0-17.5) gm/dL Hct (39.0-53.0) % Plt Count (150-450) k/uL Lymphocytes # (1.0-4.8) k/uL Chloride (98-107) mmol/L Carbon Dioxide (22-30) mmol/L BUN (9-20) mg/dL Creatinine (0.66-1.25) mg/dL Glucose (74-99) mg/dL POC Glucose (mg/dL) 140 H 111 H 117 H (75-99) mg/dL Plasma Lactic Acid Alirio (0.7-2.0) mmol/L Calcium (8.4-10.2) mg/dL Total Bilirubin (0.2-1.3) mg/dL AST (17-59) U/L ALT (21-72) U/L Alkaline Phosphatase (38-126) U/L Ammonia (<30) umol/L Total Protein (6.3-8.2) g/dL Albumin (3.5-5.0) g/dL 10/02/18 10/02/18 10/02/18 Range/Units 03:14 04:15 04:15 RBC 2.25 L (4.30-5.90) m/uL Hgb 7.0 L (13.0-17.5) gm/dL Hct 21.5 L (39.0-53.0) % Plt Count 52 L (150-450) k/uL Lymphocytes # 0.9 L (1.0-4.8) k/uL Chloride 108 H (98-107) mmol/L Carbon Dioxide 21 L (22-30) mmol/L BUN 53 H (9-20) mg/dL Creatinine 1.89 H (0.66-1.25) mg/dL Glucose 127 H (74-99) mg/dL POC Glucose (mg/dL) 132 H (75-99) mg/dL Plasma Lactic Acid Alirio (0.7-2.0) mmol/L Calcium 8.2 L (8.4-10.2) mg/dL Total Bilirubin 2.3 H (0.2-1.3) mg/dL AST 2160 H (17-59) U/L ALT 764 H (21-72) U/L Alkaline Phosphatase 146 H (38-126) U/L Ammonia (<30) umol/L Total Protein 4.7 L (6.3-8.2) g/dL Albumin 2.9 L (3.5-5.0) g/dL 10/02/18 10/02/18 10/02/18 Range/Units 05:22 06:44 08:55 RBC (4.30-5.90) m/uL Hgb (13.0-17.5) gm/dL Hct (39.0-53.0) % Plt Count (150-450) k/uL Lymphocytes # (1.0-4.8) k/uL Chloride (98-107) mmol/L Carbon Dioxide (22-30) mmol/L BUN (9-20) mg/dL Creatinine (0.66-1.25) mg/dL Glucose (74-99) mg/dL POC Glucose (mg/dL) 128 H 131 H 130 H (75-99) mg/dL Plasma Lactic Acid Alirio (0.7-2.0) mmol/L Calcium (8.4-10.2) mg/dL Total Bilirubin (0.2-1.3) mg/dL AST (17-59) U/L ALT (21-72) U/L Alkaline Phosphatase (38-126) U/L Ammonia (<30) umol/L Total Protein (6.3-8.2) g/dL Albumin (3.5-5.0) g/dL 10/02/18 Range/Units 11:04 RBC (4.30-5.90) m/uL Hgb (13.0-17.5) gm/dL Hct (39.0-53.0) % Plt Count (150-450) k/uL Lymphocytes # (1.0-4.8) k/uL Chloride (98-107) mmol/L Carbon Dioxide (22-30) mmol/L BUN (9-20) mg/dL Creatinine (0.66-1.25) mg/dL Glucose (74-99) mg/dL POC Glucose (mg/dL) 131 H (75-99) mg/dL Plasma Lactic Acid Alirio (0.7-2.0) mmol/L Calcium (8.4-10.2) mg/dL Total Bilirubin (0.2-1.3) mg/dL AST (17-59) U/L ALT (21-72) U/L Alkaline Phosphatase (38-126) U/L Ammonia (<30) umol/L Total Protein (6.3-8.2) g/dL Albumin (3.5-5.0) g/dL Assessment and Plan Assessment: s/p CABG NSTEMI Possible early pneumonia, however less likely Metabolic encephalopathy Diabetes mellitus type 2 GERD Hypertension Hyperlipidemia Obstructive sleep apnea on CPAP Plan Chest x-ray reviewed Continue Haldol PRN Pain control Initiate and encourage incentive spirometer once patient is more alert Continue with pulmonary hygiene, coughing and deep breathing exercises, and supportive care. Supplemental oxygen to maintain oxygen saturations of 92% or better. PT and OT GI and DVT prophylaxis.
[2018-10-02] MEDS: METOPROLOL TARTRATE 25 MG TAB PO SCH ×2 (12:30→20:18)
--- NOTE | 2018-10-02 12:59 | P.PN ---
Subjective Progress Note Date: 10/02/18 This is a 58-year-old male patient of Dr. Duke. Patient presented to the emergency room with complaints of chest pain. Patient reports this chest pain has been occurring for over a year. Patient does report that since pain has significantly increased. With chest pain patient also experiences shortness of breath. She does have a past medical history of diverticulitis mellitus, GERD, hyperlipidemia, hypertension, osteoporosis, sleep apnea, seasonal ALLERGIES and ex-smoker. Patient states he quit in . EKG completed emergency room showing normal sinus rhythm, possible left atrial enlargement. Patient also reports that he had seen Dr. SAILAJA Bermeo for pulmonary due to increasing shortness of breath. Chest x-ray completed emergency room showing patchy perihilar and basal infiltrate noted. Correlate for underlying pneumonia. troponin 0.287. cardiology services have been consulted. At this time patient is resting comfortably bed. Patient denies any chest pain or shortness breath. Denies nausea vomiting or diarrhea. Patient denies any urinary burning or frequency. 09/24/2018 patient underwent cardiac catheterization today showing triple- vessel coronary disease. Severely impaired left ventricle systolic function with severe aortic stenosis. And mild pulmonary hypertension. Cardiology is recommending proceeding with evaluation for coronary artery bypass grafting and aortic valve replacement. And they have scheduled the patient for a VAISHNAVI. Is currently chest pain-free. He does report he gets pain with activity. Echo shows an EF of 25-30%. Creatinine is at 1.37. He did receive a dose of IV Lasix yesterday for BNP in the 5000. 09/25/2018 patient seen by cardiothoracic service. Cardiothoracic has ordered preoperative testing. He also recommending dental clearance consult has already been placed. Patient did have a VAISHNAVI today showing dilated left ventricle with severe global hypokinesis severe aortic regurgitation with moderate to severe aortic stenosis. Carotid Doppler was negative for any significant hemodynamic stenosis. Creatinine has decreased from 1.37-1.21. Blood sugar this morning was 147 blood sugar this afternoon 231. Glipizide 5 mg twice a day has been ordered. Patient remains in the ICU. Currently chest pain-free. Reports a small post bowel movement yesterday. Colace will be added. 09/26/2018 patient currently resting comfortably in bed. Patient status post tooth extraction with Dr. Amaral today. Blood sugars have improved. This time patient denies chest pain or shortness breath. Patient denies nausea vomiting or diarrhea. Patient denies any urinary burning or frequency. 09/27/2018 patient had shortness of breath and diaphoresis and some chest tightness with ambulating earlier this morning. Cardiology is aware. They recommend that patient remain in the hospital at this time. Patient had his tooth extracted yesterday. Denies any nausea or vomiting. Denies any bowel movement changes or urinary symptoms. Creatinine is up at 1.38. 09/28/2018 patient has had about 4 episodes of shortness of breath with chest pain and diaphoresis with activity and some at rest as well. He was given nitro that did help relieve symptoms. Cardiology is following closely as well as cardiothoracic team. The date of cardiac surgery will likely be sooner than Monday. Cardiology did start IV heparin drip yesterday. On 09/30/2018 patient was seen and examined in the ICU he is laying in bed he has BiPAP mask on he had episodes of agitation through the night blood pressure is marginal with mean blood pressure of around 55 patient denies any chest pain there is no fever or chills no headache or dizziness he has occasional cough no nausea or vomiting no abdominal pain no diarrhea and no urinary symptoms 10/01/2018. Patient was extubated yesterday and is currently on BiPAP mask. He had triple coronary artery bypass grafting and aortic valve replacement on . Patient is currently off the Levophed. He is still confused and agitated. He appears that he cannot comfortable. Seroquel was added to her [facility] thoracic team. Also patient is receiving pain medication. Radiology did increase the beta irasema for patient. Patient did have a temp of 100 and yesterday. Chest x-ray showing mild improving by basilar infiltrates. Hemoglobin is 7.0. Platelets are 82 and hit has been ordered. Creatinine has gone up to 2.13. Liver enzymes are elevated at AST is 3054 and ALT is 1289 total bili 1.9. Lipitor was discontinued antibiotics discontinued. Patient was given a dose of IV Lasix per cardiothoracic team. 10/02/2018 patient currently on nasal cannula and off of the BiPAP. Had one chest tube removed and Villa catheter removed today. He was able to work with physical therapy and get out of bed and take a few steps to the bedside chair. He did have a low-grade temp of 100.2. Creatinine has decreased from 2.13- 1.88. Chest x-ray showing mild peripheral vascular congestion. He is receiving IV Lasix. Subcu heparin discontinued and patient started on Arixtra. His hospital delirium is showing improvement.'s less confused today. Less agitated today. Hemoglobin is 7 and platelets 52 Objective - Vital Signs Vital signs: Vital Signs Temp 97.7 F 10/02/18 12:00 Pulse 57 L 10/02/18 12:00 Resp 18 10/02/18 12:00 BP 88/55 10/02/18 08:00 Pulse Ox 99 10/02/18 12:00 Intake & Output 10/01/18 10/02/18 10/02/18 18:59 06:59 18:59 Intake Total 0505.391 2172.457 287 Output Total 1245 995 100 Balance 137.946 692.457 187 Weight 137 kg Intake: IV 708 847 187 CO/CI 80 Lactated Ringers 1,000 ml 600 650 160 @ 20 mls/hr IV .Q24H NANCY Rx#:[id number] Pressure bags 108 117 27 Intake, IV Titration 74.946 120.457 100 Amount Dexmedetomidine/0.9% NaCl 15.22 84.780 100 (Pmx) 400 mcg In Empty Bag 1 bag @ Titrate IV . Q0M NANCY Rx#:[id number] Insulin Regular 100 unit 58.630 25.700 In Sodium Chloride 0.9% 100 ml @ Per Protocol IV .Q0M NANCY Rx#:[id number] Norepinephrine 32 mg In 1.096 9.977 Sodium Chloride 0.9% 218 ml @ 0.05 MCG/KG/MIN 2.82 mls/hr IV .Q24H NANCY Rx#: [id number] Oral 600 720 Output: Chest Tube Drainage 350 320 25 Left Pleural 250 290 25 Mediastinal X2 100 30 Urine 895 675 75 Other: Voiding Method Indwelling Catheter Indwelling Catheter # Voids 1 ABP, PAP, CO, CI - Last Documented Arterial Blood Pressure 109/47 Pulmonary Artery Pressure 30/9 Cardiac Output 6 Cardiac Index 2.4 - Exam Head normocephalic Neck supple Lungs clear to auscultation bilaterally no wheezing or crackles Heart regular rate and rhythm S1-S2, no rub or gallop positive murmur. Has [address] Abdomen is soft nontender nondistended positive bowel sounds no hepatosplenomegaly Extremities no edema Neuro patient is awake and following commands. Still having some confusion - Labs CBC & Chem 7: 10/02/18 04:15 10/02/18 04:15 Labs: Abnormal Lab Results - Last 24 Hours (Table) 10/01/18 10/01/18 10/01/18 Range/Units 12:12 14:16 15:55 RBC (4.30-5.90) m/uL Hgb (13.0-17.5) gm/dL Hct (39.0-53.0) % Plt Count (150-450) k/uL Lymphocytes # (1.0-4.8) k/uL Chloride (98-107) mmol/L Carbon Dioxide (22-30) mmol/L BUN (9-20) mg/dL Creatinine (0.66-1.25) mg/dL Glucose (74-99) mg/dL POC Glucose (mg/dL) 123 H 107 H (75-99) mg/dL Plasma Lactic Acid Alirio 2.8 H* (0.7-2.0) mmol/L Calcium (8.4-10.2) mg/dL Total Bilirubin (0.2-1.3) mg/dL AST (17-59) U/L ALT (21-72) U/L Alkaline Phosphatase (38-126) U/L Ammonia 30 H (<30) umol/L Total Protein (6.3-8.2) g/dL Albumin (3.5-5.0) g/dL 10/01/18 10/01/18 10/01/18 Range/Units 17:08 18:00 19:10 RBC (4.30-5.90) m/uL Hgb (13.0-17.5) gm/dL Hct (39.0-53.0) % Plt Count (150-450) k/uL Lymphocytes # (1.0-4.8) k/uL Chloride (98-107) mmol/L Carbon Dioxide (22-30) mmol/L BUN (9-20) mg/dL Creatinine (0.66-1.25) mg/dL Glucose (74-99) mg/dL POC Glucose (mg/dL) 120 H 111 H 108 H (75-99) mg/dL Plasma Lactic Acid Alirio (0.7-2.0) mmol/L Calcium (8.4-10.2) mg/dL Total Bilirubin (0.2-1.3) mg/dL AST (17-59) U/L ALT (21-72) U/L Alkaline Phosphatase (38-126) U/L Ammonia (<30) umol/L Total Protein (6.3-8.2) g/dL Albumin (3.5-5.0) g/dL 10/01/18 10/01/18 10/01/18 Range/Units 20:44 22:11 23:50 RBC (4.30-5.90) m/uL Hgb (13.0-17.5) gm/dL Hct (39.0-53.0) % Plt Count (150-450) k/uL Lymphocytes # (1.0-4.8) k/uL Chloride (98-107) mmol/L Carbon Dioxide (22-30) mmol/L BUN (9-20) mg/dL Creatinine (0.66-1.25) mg/dL Glucose (74-99) mg/dL POC Glucose (mg/dL) 132 H 140 H 111 H (75-99) mg/dL Plasma Lactic Acid Alirio (0.7-2.0) mmol/L Calcium (8.4-10.2) mg/dL Total Bilirubin (0.2-1.3) mg/dL AST (17-59) U/L ALT (21-72) U/L Alkaline Phosphatase (38-126) U/L Ammonia (<30) umol/L Total Protein (6.3-8.2) g/dL Albumin (3.5-5.0) g/dL 10/02/18 10/02/18 10/02/18 Range/Units 01:10 03:14 04:15 RBC (4.30-5.90) m/uL Hgb (13.0-17.5) gm/dL Hct (39.0-53.0) % Plt Count (150-450) k/uL Lymphocytes # (1.0-4.8) k/uL Chloride 108 H (98-107) mmol/L Carbon Dioxide 21 L (22-30) mmol/L BUN 53 H (9-20) mg/dL Creatinine 1.89 H (0.66-1.25) mg/dL Glucose 127 H (74-99) mg/dL POC Glucose (mg/dL) 117 H 132 H (75-99) mg/dL Plasma Lactic Acid Alirio (0.7-2.0) mmol/L Calcium 8.2 L (8.4-10.2) mg/dL Total Bilirubin 2.3 H (0.2-1.3) mg/dL AST 2160 H (17-59) U/L ALT 764 H (21-72) U/L Alkaline Phosphatase 146 H (38-126) U/L Ammonia (<30) umol/L Total Protein 4.7 L (6.3-8.2) g/dL Albumin 2.9 L (3.5-5.0) g/dL 10/02/18 10/02/18 10/02/18 Range/Units 04:15 05:22 06:44 RBC 2.25 L (4.30-5.90) m/uL Hgb 7.0 L (13.0-17.5) gm/dL Hct 21.5 L (39.0-53.0) % Plt Count 52 L (150-450) k/uL Lymphocytes # 0.9 L (1.0-4.8) k/uL Chloride (98-107) mmol/L Carbon Dioxide (22-30) mmol/L BUN (9-20) mg/dL Creatinine (0.66-1.25) mg/dL Glucose (74-99) mg/dL POC Glucose (mg/dL) 128 H 131 H (75-99) mg/dL Plasma Lactic Acid Alirio (0.7-2.0) mmol/L Calcium (8.4-10.2) mg/dL Total Bilirubin (0.2-1.3) mg/dL AST (17-59) U/L ALT (21-72) U/L Alkaline Phosphatase (38-126) U/L Ammonia (<30) umol/L Total Protein (6.3-8.2) g/dL Albumin (3.5-5.0) g/dL 10/02/18 10/02/18 Range/Units 08:55 11:04 RBC (4.30-5.90) m/uL Hgb (13.0-17.5) gm/dL Hct (39.0-53.0) % Plt Count (150-450) k/uL Lymphocytes # (1.0-4.8) k/uL Chloride (98-107) mmol/L Carbon Dioxide (22-30) mmol/L BUN (9-20) mg/dL Creatinine (0.66-1.25) mg/dL Glucose (74-99) mg/dL POC Glucose (mg/dL) 130 H 131 H (75-99) mg/dL Plasma Lactic Acid Alirio (0.7-2.0) mmol/L Calcium (8.4-10.2) mg/dL Total Bilirubin (0.2-1.3) mg/dL AST (17-59) U/L ALT (21-72) U/L Alkaline Phosphatase (38-126) U/L Ammonia (<30) umol/L Total Protein (6.3-8.2) g/dL Albumin (3.5-5.0) g/dL Assessment and Plan Assessment: 1. Chest pain with non-ST elevated myocardial infarction present on admission. Status post heart catheterization with triple-vessel disease and severe aortic stenosis. Echo shows an EF of 25-30%. Status post coronary artery bypass graft and aortic valve replacement on 09/29/2018 2. Pneumonia ruled out. completed showing patchy perihilar and basal infiltrate noted. Antibiotics discontinued. Pulmonary service felt likely patient's symptoms were due to pulmonary vascular congestion and less likely pneumonia 3. Diabetes mellitus type 2. A1c is 7.5. On insulin drip per protocol 4. History of GERD 5. History of essential hypertension. 6. History of hyperlipidemia 7. History of osteoarthritis 8. History of sleep apnea. Patient reports he wears CPAP machine 9. History of seasonal ALLERGIES. 10. Acute kidney injury: Kidney function some improvement. Creatinine is 1.88 11. Tooth abscess. #18 surgical extraction of erupted tooth per Dr. Amaral on 09/26/2018 patient started on Penicillin VK. 12. Expected acute blood loss Anemia secondary to surgery. Hemoglobin is 7.0. Continue to monitor hemoglobin 13. Thrombocytopenia: HIT test negative. Cardiothoracic did discontinue the subcu heparin and added Arixtra. Continue to monitor platelets 14. Elevated LFTs possibly related to fluid congestion, medications or shocked liver due to hypotension.. Patient was given Lasix. Also Lipitor and Tylenol have been discontinued. LFTs are trending down DVT prophylaxis subcu heparin I performed an examination of the patient and discussed their management with the physician Dietetics Director. I have reviewed the Physician Dietetics Director's notes and agree with the documented findings and plan of care
[2018-10-02 13:28] LABS: Glucose,Whole Blood 118 mg/dL (75-99)
[2018-10-02 15:20] LABS: Glucose,Whole Blood 128 mg/dL (75-99)
[2018-10-02 17:34] LABS: Glucose,Whole Blood 133 mg/dL (75-99)
[2018-10-02 19:25] LABS: Glucose,Whole Blood 148 mg/dL (75-99)
[2018-10-02] MEDS: SENNOSIDES-DOCUSATE SODIUM 1 EACH TAB PO SCH (20:17)
[2018-10-02 23:02] LABS: Glucose,Whole Blood 142 mg/dL (75-99)
[2018-10-03] MEDS: HYDROcodone/APAP 5-325MG 1 EACH TAB PO PRN ×3 (00:35→20:05)
[2018-10-03 01:08] LABS: Glucose,Whole Blood 135 mg/dL (75-99)
[2018-10-03] MEDS: INSULIN REGULAR 100 UNIT in SODIUM CHLORIDE 0.9% 100 ML IV SCH (03:15)
[2018-10-03 03:53] LABS: Glucose,Whole Blood 133 mg/dL (75-99)
[2018-10-03 05:27] LABS: Glucose,Whole Blood 139 mg/dL (75-99)
[2018-10-03 05:55] LABS: Basophils % (A) 0 %; Eosinophils # (A) 0.2 k/uL (0-0.7); Eosinophils % (A) 4 %; HCT 22.2 % (39.0-53.0); Lymphocytes # (A) 0.8 k/uL (1.0-4.8); Lymphocytes % (A) 17 %; MCH 30.8 pg (25.0-35.0); MCHC 31.8 g/dL (31.0-37.0); MCV 96.7 fL (80.0-100.0); Mean Platelet Volume 8.2; Monocytes # (A) 0.3 k/uL (0-1.0); Monocytes % (A) 6 %; Neutrophils # (A) 3.6 k/uL (1.3-7.7); Neutrophils % (A) 72 %; RBC 2.29 m/uL (4.30-5.90); RDW 13.7 % (11.5-15.5)
[2018-10-03 05:56] LABS: Albumin 2.9 g/dL (3.5-5.0); Calcium 8.5 mg/dL (8.4-10.2); Magnesium 2.2 mg/dL (1.6-2.3); Potassium 3.9 mmol/L (3.5-5.1); Total Bilirubin 1.6 mg/dL (0.2-1.3); Total Protein 4.8 g/dL (6.3-8.2)
[2018-10-03 05:57] LABS: Platelet Count 71 k/uL (150-450)
[2018-10-03] MEDS ORDERED: Potassium Replacement Protocol 1 EACH MISC MISCELLANE PRN (06:46)
[2018-10-03] MEDS ORDERED: POTASSIUM CHLORIDE ER 20 MEQ TAB.ER PO SCH (07:00)
[2018-10-03 07:21] LABS: Glucose,Whole Blood 127 mg/dL (75-99)
[2018-10-03] MEDS ORDERED: FUROSEMIDE 10 MG/ML 4 ML VIAL IV STA (07:23)
--- NOTE | 2018-10-03 07:26 | XR ---
EXAMINATION TYPE: XR chest 1V portable DATE OF EXAM: 10/03/2018 COMPARISON: 10/02/2018 HISTORY: Shortness of breath FINDINGS: Right IJ sheath is in place. No evidence of pneumothorax. Median sternotomy changes. Noted is pulmonary venous congestion with scattered infiltrates. There is also cardiomegaly and small effusions. IMPRESSION: Stable chest. Findings compatible with congestive failure. Infiltrates of other etiology are not exc luded. Clinical correlation and progress studies are recommended.
[2018-10-03] MEDS: IPRATROPIUM-ALBUTEROL 3 ML NEB INHALATION SCH ×4 (07:45→19:53)
--- NOTE | 2018-10-03 09:00 | P.PN ---
Subjective Progress Note Date: 10/03/18 Principal diagnosis: Non-STEMI, severe left ventricular dysfunction, acute systolic heart failure with EF 20-25 %, severe triple vessel coronary artery disease , severe aortic regurgitation with moderate aortic stenosis, bicuspid, heavily calcified aortic valve, previous medical history of morbid obesity, hypertension, hyperlipidemia , diabetes mellitus with hemoglobin A1c 7.5%, GERD, obstructive sleep apnea with CPAP use, and previous tobacco dependence with recent FEV1 80% of predicted , moderate restriction. POD #4 urgent triple coronary artery bypass grafting using the left internal mammary artery to the left anterior descending artery, the left radial artery taken as a Y graft from the left internal mammary artery to the first obtuse marginal artery, reverse saphenous vein graft from the aorta to the posterior descending artery. Aortic valve replacement using a 29 mm Magna Ease pericardial bioprosthesis. Endoscopic harvesting of the left radial artery. Endoscopic harvesting of the left greater saphenous vein from the groin to the knee level. Intraoperative transesophageal echocardiogram and epi-aortic scanning. Intraoperative graft flow measurements using the [employer] system. Postoperative acute blood loss anemia, an expected outcome of surgery given cardiopulmonary bypass pump and hemodilution. Postoperative thrombocytopenia, an unexpected outcome, HIT panel sent, negative. Postoperative transaminitis, unexpected, likely due to hypotension intra/post operative, resolving. Patient's currently sitting up in a recliner in the intensive care unit in no acute distress. More alert this morning, oriented to person, place, time, and situation. Does become anxious and agitated at times. Hemodynamically stable on no inotropes or pressors. Remains in sinus rhythm. Does complain of back pain when asked, occasional shortness of breath. Patient being weaned on his FiO2 requirements. Not cooperating with staff. Objective - Vital Signs Vital signs: Vital Signs Temp 98.6 F 10/03/18 04:00 Pulse 78 10/03/18 07:58 Resp 21 10/03/18 07:00 BP 88/55 10/02/18 08:00 Pulse Ox 97 10/03/18 07:46 Intake & Output 10/02/18 10/03/18 10/03/18 18:59 06:59 18:59 Intake Total 449.948 449.184 26 Output Total 1050 1015 0 Balance -600.052 -565.816 26 Intake: IV 325 309 26 Lactated Ringers 1,000 ml 280 240 20 @ 20 mls/hr IV .Q24H NANCY Rx#:[id number] Pressure bags 45 69 6 Intake, IV Titration 124.948 40.184 Amount Dexmedetomidine/0.9% NaCl 100 (Pmx) 400 mcg In Empty Bag 1 bag @ Titrate IV . Q0M NANYC Rx#:[id number] Insulin Regular 100 unit 24.948 40.184 In Sodium Chloride 0.9% 100 ml @ Per Protocol IV .Q0M NANCY Rx#:[id number] Oral 100 Output: Chest Tube Drainage 25 115 Left Pleural 25 115 Urine 1025 900 0 Other: Voiding Method Urinal Bedside Commode Urinal ABP, PAP, CO, CI - Last Documented Arterial Blood Pressure 151/60 Pulmonary Artery Pressure 30/9 Cardiac Output 6 Cardiac Index 2.4 - Constitutional Constitutional Comment(s): Uncooperative at times General appearance: Present: morbidly obese - Respiratory Details: Lungs sounds diminished bilaterally with coarse breath sounds in the bases. Respirations even, nonlabored. Currently on 4 L high flow nasal cannula with oxygen saturation 97%. Able to achieve 1000 mL on his incentive spirometry. Strong, productive cough with thick, hernandes sputum. Left pleural chest tube to continuous wall suction, 450 mL serosanguinous drainage in the last 24 hours. No air leaks present. - Cardiovascular Details: S1, S2 present. Regular rate and rhythm, sinus rhythm on telemetry. Sternum stable. A/V epicardial pacemaker wires present, grounded. Palpable peripheral pulses bilaterally. Trace bilateral lower extremity edema present. No calf pain or tenderness noted. Right internal jugular Cordis, right brachial arterial line present. Heart hugger in place with patient occasionally demonstrating appropriate use. Antiembolism stockings, SCDs present. - Gastrointestinal Gastrointestinal Comment(s): Abdomen soft, nontender, nondistended, obese. Active bowel sounds present 4 quadrants. Tolerating diet. Negative bowel movement. - Genitourinary Genitourinary Comment(s): Villa discontinued yesterday. Pt continues to void clear yellow urine, output overnight 750 mL. - Integumentary Integumentary Comment(s): Skin is warm and dry with evidence of good perfusion. Anterior chest incision well approximated and covered with dry intact dressing. Left lower extremity EVH site well approximated with Dermabond. - Neurologic Neurologic: Present: CNII-XII intact - Musculoskeletal Musculoskeletal: Present: strength equal bilaterally - Psychiatric Psychiatric: Present: A&O x's 3, appropriate affect, intact judgment & insight - Allied health notes Allied health notes reviewed: nursing - Labs CBC & Chem 7: 10/03/18 05:15 10/03/18 05:15 Labs: Abnormal Lab Results - Last 24 Hours (Table) 10/02/18 10/02/18 10/02/18 Range/Units 08:55 11:04 13:17 RBC (4.30-5.90) m/uL Hgb (13.0-17.5) gm/dL Hct (39.0-53.0) % Plt Count (150-450) k/uL Lymphocytes # (1.0-4.8) k/uL BUN (9-20) mg/dL Creatinine (0.66-1.25) mg/dL Glucose (74-99) mg/dL POC Glucose (mg/dL) 130 H 131 H 118 H (75-99) mg/dL Total Bilirubin (0.2-1.3) mg/dL AST (17-59) U/L ALT (21-72) U/L Alkaline Phosphatase (38-126) U/L Total Protein (6.3-8.2) g/dL Albumin (3.5-5.0) g/dL 10/02/18 10/02/18 10/02/18 Range/Units 15:09 17:22 19:13 RBC (4.30-5.90) m/uL Hgb (13.0-17.5) gm/dL Hct (39.0-53.0) % Plt Count (150-450) k/uL Lymphocytes # (1.0-4.8) k/uL BUN (9-20) mg/dL Creatinine (0.66-1.25) mg/dL Glucose (74-99) mg/dL POC Glucose (mg/dL) 128 H 133 H 148 H (75-99) mg/dL Total Bilirubin (0.2-1.3) mg/dL AST (17-59) U/L ALT (21-72) U/L Alkaline Phosphatase (38-126) U/L Total Protein (6.3-8.2) g/dL Albumin (3.5-5.0) g/dL 10/02/18 10/03/18 10/03/18 Range/Units 22:50 00:56 03:42 RBC (4.30-5.90) m/uL Hgb (13.0-17.5) gm/dL Hct (39.0-53.0) % Plt Count (150-450) k/uL Lymphocytes # (1.0-4.8) k/uL BUN (9-20) mg/dL Creatinine (0.66-1.25) mg/dL Glucose (74-99) mg/dL POC Glucose (mg/dL) 142 H 135 H 133 H (75-99) mg/dL Total Bilirubin (0.2-1.3) mg/dL AST (17-59) U/L ALT (21-72) U/L Alkaline Phosphatase (38-126) U/L Total Protein (6.3-8.2) g/dL Albumin (3.5-5.0) g/dL 10/03/18 10/03/18 10/03/18 Range/Units 05:15 05:15 05:16 RBC 2.29 L (4.30-5.90) m/uL Hgb 7.0 L (13.0-17.5) gm/dL Hct 22.2 L (39.0-53.0) % Plt Count 71 L (150-450) k/uL Lymphocytes # 0.8 L (1.0-4.8) k/uL BUN 50 H (9-20) mg/dL Creatinine 1.34 H (0.66-1.25) mg/dL Glucose 130 H (74-99) mg/dL POC Glucose (mg/dL) 139 H (75-99) mg/dL Total Bilirubin 1.6 H (0.2-1.3) mg/dL AST 747 H (17-59) U/L ALT 556 H (21-72) U/L Alkaline Phosphatase 181 H (38-126) U/L Total Protein 4.8 L (6.3-8.2) g/dL Albumin 2.9 L (3.5-5.0) g/dL 10/03/18 Range/Units 07:09 RBC (4.30-5.90) m/uL Hgb (13.0-17.5) gm/dL Hct (39.0-53.0) % Plt Count (150-450) k/uL Lymphocytes # (1.0-4.8) k/uL BUN (9-20) mg/dL Creatinine (0.66-1.25) mg/dL Glucose (74-99) mg/dL POC Glucose (mg/dL) 127 H (75-99) mg/dL Total Bilirubin (0.2-1.3) mg/dL AST (17-59) U/L ALT (21-72) U/L Alkaline Phosphatase (38-126) U/L Total Protein (6.3-8.2) g/dL Albumin (3.5-5.0) g/dL - Imaging and Cardiology Chest x-ray: report reviewed, image reviewed Assessment and Plan (1) Non-STEMI (non-ST elevated myocardial infarction) Current Visit: Yes Status: Acute Code(s): I21.4 - NON-ST ELEVATION (NSTEMI) MYOCARDIAL INFARCTION SNOMED Code(s): 27944354 (2) Acute systolic heart failure Current Visit: Yes Status: Acute Code(s): I50.21 - ACUTE SYSTOLIC ( CONGESTIVE) HEART FAILURE SNOMED Code(s): 627532922 (3) Severe aortic stenosis Current Visit: Yes Status: Acute Code(s): I35.0 - NONRHEUMATIC AORTIC (VALVE ) STENOSIS SNOMED Code(s): 30208256 (4) Severe aortic insufficiency Current Visit: Yes Status: Acute Code(s): I35.1 - NONRHEUMATIC AORTIC (VALVE ) INSUFFICIENCY SNOMED Code(s): 27148882 Plan: 1. Continue low-dose aspirin, Plavix, beta irasema therapy. Hydralazine added per Dr. Arce. Patient will need Polo/ARB prior to discharge when blood pressure tolerates. May need Life Vest, preoperative impaired LV function with EF 20-25%, will defer to cardiology. 2. Statin on hold secondary to elevated liver enzymes. Zetia added per Dr. Arce. 3. Continue Norvasc for radial artery spasm, increased to 5 mg daily. 4. Bronchodilators per pulmonology. IV Lasix ordered per Dr. Arce. 5. Encourage incentive spirometry use 10 times every hour while awake. Encourage continued smoking cessation. 6. Increase activity as tolerated. PT/OT/cardiac rehab following. 7. Will monitor daily labs and x-rays. Electrolyte replacement per protocol. No transfusion at this point. 8. Insulin management per primary care service. Patient needs tight blood sugar control. 9. Pain control current medication regimen. No Toradol. 10. GI prophylaxis with Protonix. DVT prophylaxis with Aritxra, SCDs. Subcu heparin stopped secondary to thrombocytopenia, HIT panel sent, negative. 11. Discontinue Cordis, left pleural chest tube. 12. Seroquel increased to 25 mg twice daily. 13. Will place transfer orders for 3 [facility] cardiac stepdown unit. 14. More recommendations to follow as patient progresses. Time with Patient: Greater than 30
[2018-10-03] MEDS: EZETIMIBE 10 MG TAB PO SCH (09:05)
[2018-10-03] MEDS: CLOPIDOGREL 75 MG TAB PO SCH (09:05)
[2018-10-03] MEDS: FONDAPARINUX 2.5 MG/0.5 ML SYRINGE SQ SCH (09:06)
[2018-10-03] MEDS: QUEtiapine 25 MG TAB PO SCH ×2 (09:06→22:22)
[2018-10-03] MEDS: METOPROLOL TARTRATE 25 MG TAB PO SCH ×3 (09:06→22:22)
[2018-10-03] MEDS: hydrALAZINE HCL 25 MG TAB PO SCH ×2 (09:06→22:21)
[2018-10-03] MEDS: ASPIRIN 81 MG PO SCH ×2 (09:06→09:35)
[2018-10-03] MEDS: INSULIN ASPART (NovoLOG) 100 UNIT/ML VIAL SQ SCH ×5 (09:18→22:22)
[2018-10-03] MEDS: PANTOPRAZOLE 40 MG TABLET PO SCH ×2 (09:33→09:36)
[2018-10-03] MEDS: ATORVASTATIN 80 MG TAB PO SCH (09:35)
[2018-10-03] MEDS: NITROGLYCERIN OINT 1 INCH/GM PACKET TOPICAL SCH (09:35)
[2018-10-03] MEDS: GLIMEPIRIDE 4 MG TAB PO SCH (09:36)
[2018-10-03] MEDS: PENICILLIN V POTASSIUM 250 MG TAB PO SCH (09:37)
[2018-10-03] MEDS: FUROSEMIDE 10 MG/ML 2 ML VIAL IV SCH (09:37)
[2018-10-03] MEDS: DOCUSATE 100 MG CAP PO SCH (09:37)
[2018-10-03] MEDS: LORATADINE-PSEUDOEPH 5-120 MG 1 EACH TAB.ER.12H PO SCH (09:37)
[2018-10-03] MEDS: MUPIROCIN 2% OINT 22 GM TUBE TOPICAL SCH (09:37)
--- NOTE | 2018-10-03 09:42 | P.PN ---
Subjective Progress Note Date: 10/03/18 This is a 58-year-old male patient of Dr. Duke. Patient presented to the emergency room with complaints of chest pain. Patient reports this chest pain has been occurring for over a year. Patient does report that since pain has significantly increased. With chest pain patient also experiences shortness of breath. She does have a past medical history of diverticulitis mellitus, GERD, hyperlipidemia, hypertension, osteoporosis, sleep apnea, seasonal ALLERGIES and ex-smoker. Patient states he quit in . EKG completed emergency room showing normal sinus rhythm, possible left atrial enlargement. Patient also reports that he had seen Dr. SAILAJA Bermeo for pulmonary due to increasing shortness of breath. Chest x-ray completed emergency room showing patchy perihilar and basal infiltrate noted. Correlate for underlying pneumonia. troponin 0.287. cardiology services have been consulted. At this time patient is resting comfortably bed. Patient denies any chest pain or shortness breath. Denies nausea vomiting or diarrhea. Patient denies any urinary burning or frequency. 09/24/2018 patient underwent cardiac catheterization today showing triple- vessel coronary disease. Severely impaired left ventricle systolic function with severe aortic stenosis. And mild pulmonary hypertension. Cardiology is recommending proceeding with evaluation for coronary artery bypass grafting and aortic valve replacement. And they have scheduled the patient for a VAISHNAVI. Is currently chest pain-free. He does report he gets pain with activity. Echo shows an EF of 25-30%. Creatinine is at 1.37. He did receive a dose of IV Lasix yesterday for BNP in the 5000. 09/25/2018 patient seen by cardiothoracic service. Cardiothoracic has ordered preoperative testing. He also recommending dental clearance consult has already been placed. Patient did have a VAISHNAVI today showing dilated left ventricle with severe global hypokinesis severe aortic regurgitation with moderate to severe aortic stenosis. Carotid Doppler was negative for any significant hemodynamic stenosis. Creatinine has decreased from 1.37-1.21. Blood sugar this morning was 147 blood sugar this afternoon 231. Glipizide 5 mg twice a day has been ordered. Patient remains in the ICU. Currently chest pain-free. Reports a small post bowel movement yesterday. Colace will be added. 09/26/2018 patient currently resting comfortably in bed. Patient status post tooth extraction with Dr. Amaral today. Blood sugars have improved. This time patient denies chest pain or shortness breath. Patient denies nausea vomiting or diarrhea. Patient denies any urinary burning or frequency. 09/27/2018 patient had shortness of breath and diaphoresis and some chest tightness with ambulating earlier this morning. Cardiology is aware. They recommend that patient remain in the hospital at this time. Patient had his tooth extracted yesterday. Denies any nausea or vomiting. Denies any bowel movement changes or urinary symptoms. Creatinine is up at 1.38. 09/28/2018 patient has had about 4 episodes of shortness of breath with chest pain and diaphoresis with activity and some at rest as well. He was given nitro that did help relieve symptoms. Cardiology is following closely as well as cardiothoracic team. The date of cardiac surgery will likely be sooner than Monday. Cardiology did start IV heparin drip yesterday. On 09/30/2018 patient was seen and examined in the ICU he is laying in bed he has BiPAP mask on he had episodes of agitation through the night blood pressure is marginal with mean blood pressure of around 55 patient denies any chest pain there is no fever or chills no headache or dizziness he has occasional cough no nausea or vomiting no abdominal pain no diarrhea and no urinary symptoms 10/01/2018. Patient was extubated yesterday and is currently on BiPAP mask. He had triple coronary artery bypass grafting and aortic valve replacement on . Patient is currently off the Levophed. He is still confused and agitated. He appears that he cannot comfortable. Seroquel was added to her [facility] thoracic team. Also patient is receiving pain medication. Radiology did increase the beta irasema for patient. Patient did have a temp of 100 and yesterday. Chest x-ray showing mild improving by basilar infiltrates. Hemoglobin is 7.0. Platelets are 82 and hit has been ordered. Creatinine has gone up to 2.13. Liver enzymes are elevated at AST is 3054 and ALT is 1289 total bili 1.9. Lipitor was discontinued antibiotics discontinued. Patient was given a dose of IV Lasix per cardiothoracic team. 10/02/2018 patient currently on nasal cannula and off of the BiPAP. Had one chest tube removed and Villa catheter removed today. He was able to work with physical therapy and get out of bed and take a few steps to the bedside chair. He did have a low-grade temp of 100.2. Creatinine has decreased from 2.13- 1.88. Chest x-ray showing mild peripheral vascular congestion. He is receiving IV Lasix. Subcu heparin discontinued and patient started on Arixtra. His hospital delirium is showing improvement.'s less confused today. Less agitated today. Hemoglobin is 7 and platelets 52 On 10/03/2018 patient is currently on 2 L nasal cannula. Patient remains slightly less confused today. Patient up walking with nursing staff. Hemoglobin 7.0. Creatinine improving to 1.34. Liver enzymes also trending down. Seroquel has been increased per cardiothoracic team. At this time she is complaining of shortness of breath post ambulation. Patient denies nausea vomiting or diarrhea. Patient denies any urinary burning or frequency Objective - Vital Signs Vital signs: Vital Signs Temp 98.6 F 10/03/18 04:00 Pulse 78 10/03/18 07:58 Resp 21 10/03/18 07:00 BP 88/55 10/02/18 08:00 Pulse Ox 97 10/03/18 07:46 Intake & Output 10/02/18 10/03/18 10/03/18 18:59 06:59 18:59 Intake Total 449.948 449.184 26 Output Total 1050 1015 0 Balance -600.052 -565.816 26 Intake: IV 325 309 26 Lactated Ringers 1,000 ml 280 240 20 @ 20 mls/hr IV .Q24H NANCY Rx#:[id number] Pressure bags 45 69 6 Intake, IV Titration 124.948 40.184 Amount Dexmedetomidine/0.9% NaCl 100 (Pmx) 400 mcg In Empty Bag 1 bag @ Titrate IV . Q0M NANCY Rx#:[id number] Insulin Regular 100 unit 24.948 40.184 In Sodium Chloride 0.9% 100 ml @ Per Protocol IV .Q0M NANCY Rx#:[id number] Oral 100 Output: Chest Tube Drainage 25 115 Left Pleural 25 115 Urine 1025 900 0 Other: Voiding Method Urinal Bedside Commode Urinal ABP, PAP, CO, CI - Last Documented Arterial Blood Pressure 151/60 Pulmonary Artery Pressure 30/9 Cardiac Output 6 Cardiac Index 2.4 - Exam Head normocephalic Neck supple Lungs clear to auscultation bilaterally no wheezing or crackles Heart regular rate and rhythm S1-S2, no rub or gallop Abdomen is soft nontender nondistended positive bowel sounds no hepatosplenomegaly Extremities no edema Neuro patient is awake and following commands. Still having some confusion - Labs CBC & Chem 7: 10/03/18 05:15 10/03/18 05:15 Labs: Abnormal Lab Results - Last 24 Hours (Table) 10/02/18 10/02/18 10/02/18 Range/Units 11:04 13:17 15:09 RBC (4.30-5.90) m/uL Hgb (13.0-17.5) gm/dL Hct (39.0-53.0) % Plt Count (150-450) k/uL Lymphocytes # (1.0-4.8) k/uL BUN (9-20) mg/dL Creatinine (0.66-1.25) mg/dL Glucose (74-99) mg/dL POC Glucose (mg/dL) 131 H 118 H 128 H (75-99) mg/dL Total Bilirubin (0.2-1.3) mg/dL AST (17-59) U/L ALT (21-72) U/L Alkaline Phosphatase (38-126) U/L Total Protein (6.3-8.2) g/dL Albumin (3.5-5.0) g/dL 10/02/18 10/02/18 10/02/18 Range/Units 17:22 19:13 22:50 RBC (4.30-5.90) m/uL Hgb (13.0-17.5) gm/dL Hct (39.0-53.0) % Plt Count (150-450) k/uL Lymphocytes # (1.0-4.8) k/uL BUN (9-20) mg/dL Creatinine (0.66-1.25) mg/dL Glucose (74-99) mg/dL POC Glucose (mg/dL) 133 H 148 H 142 H (75-99) mg/dL Total Bilirubin (0.2-1.3) mg/dL AST (17-59) U/L ALT (21-72) U/L Alkaline Phosphatase (38-126) U/L Total Protein (6.3-8.2) g/dL Albumin (3.5-5.0) g/dL 10/03/18 10/03/1810/03/19 Range/Units 00:56 03:42 05:15 RBC 2.29 L (4.30-5.90) m/uL Hgb 7.0 L (13.0-17.5) gm/dL Hct 22.2 L (39.0-53.0) % Plt Count 71 L (150-450) k/uL Lymphocytes # 0.8 L (1.0-4.8) k/uL BUN (9-20) mg/dL Creatinine (0.66-1.25) mg/dL Glucose (74-99) mg/dL POC Glucose (mg/dL) 135 H 133 H (75-99) mg/dL Total Bilirubin (0.2-1.3) mg/dL AST (17-59) U/L ALT (21-72) U/L Alkaline Phosphatase (38-126) U/L Total Protein (6.3-8.2) g/dL Albumin (3.5-5.0) g/dL 10/03/18 10/03/18 10/03/18 Range/Units 05:15 05:16 07:09 RBC (4.30-5.90) m/uL Hgb (13.0-17.5) gm/dL Hct (39.0-53.0) % Plt Count (150-450) k/uL Lymphocytes # (1.0-4.8) k/uL BUN 50 H (9-20) mg/dL Creatinine 1.34 H (0.66-1.25) mg/dL Glucose 130 H (74-99) mg/dL POC Glucose (mg/dL) 139 H 127 H (75-99) mg/dL Total Bilirubin 1.6 H (0.2-1.3) mg/dL AST 747 H (17-59) U/L ALT 556 H (21-72) U/L Alkaline Phosphatase 181 H (38-126) U/L Total Protein 4.8 L (6.3-8.2) g/dL Albumin 2.9 L (3.5-5.0) g/dL Assessment and Plan Assessment: 1. Chest pain with non-ST elevated myocardial infarction present on admission. Status post heart catheterization with triple-vessel disease and severe aortic stenosis. Echo shows an EF of 25-30%. Status post coronary artery bypass graft and aortic valve replacement on 09/29/2018 2. Pneumonia ruled out. completed showing patchy perihilar and basal infiltrate noted. Antibiotics discontinued. Pulmonary service felt likely patient's symptoms were due to pulmonary vascular congestion and less likely pneumonia 3. Diabetes mellitus type 2. A1c is 7.5. Patient has been transitioned from insulin drip to subcu before meals at bedtime insulin 4. History of GERD 5. History of essential hypertension. 6. History of hyperlipidemia 7. History of osteoarthritis 8. History of sleep apnea. Patient reports he wears CPAP machine 9. History of seasonal ALLERGIES. 10. Acute kidney injury: Kidney function some improvement. Creatinine is 1.32 11. Tooth abscess. #18 surgical extraction of erupted tooth per Dr. Amaral on 09/26/2018 patient started on Penicillin VK. 12. Expected acute blood loss Anemia secondary to surgery. Hemoglobin is 7.0. Continue to monitor hemoglobin 13. Thrombocytopenia: HIT test negative. Cardiothoracic did discontinue the subcu heparin and added Arixtra. Continue to monitor platelets. Platelets are improving to 71 14. Elevated LFTs possibly related to fluid congestion, medications or shocked liver due to hypotension.. Patient was given Lasix. Also Lipitor and Tylenol have been discontinued. LFTs continued to trend down I performed an examination of the patient and discussed their management with the Nurse Practitioner. I have reviewed the Nurse Practitioner's notes and agree with the documented findings and plan of care
--- NOTE | 2018-10-03 10:01 | PN ---
PROGRESS NOTE Mr. Kumar is a 58-year-old male who has underwent an aortic valve placement, coronary artery bypass grafting for severe aortic stenosis, triple-vessel disease and severe cardiomyopathy. He has had episode of delirium and anxiety and panic post surgery. He is much better at this time, more appropriate, calmer, hemodynamically stable, in sinus mechanism, sitting up in the chair. He has some chest soreness. No dizziness. No palpitation. He is coughing. He had no evidence of ventricular tachycardia or atrial fibrillation. He continues to be at this time on aspirin once a day, Plavix 75 mg daily, metoprolol tartrate 25 mg twice a day. PHYSICAL EXAMINATION: Blood pressure 150/60 with a heart rate in the 80s. LUNGS: Crackles at the bases. HEART: Regular rate and rhythm, S1, S2 with a systolic ejection murmur, no diastolic murmur. ABDOMEN: Soft, obese, nontender. EXTREMITIES: +1 edema noted. LAB DATA: Revealed BUN and creatinine of 50 and 1.34. That is improved compared to yesterday. Potassium 3.9. His liver function tests have improved. Hemoglobin of 7. IMPRESSION: 1. Status post aortic valve replacement and coronary artery bypass grafting. 2. Severe ischemic cardiomyopathy. 3. Hypertension. 4. Renal failure, improved. 5. Panic attack, resolving. 6. Hyperlipidemia. RECOMMENDATION: From the cardiac standpoint, I will start him on hydralazine for his blood pressure and cardiomyopathy. Continue with the beta irasema. I will add to his regimen. Patient could not tolerate statin in the past. Will follow his renal function. Continue incentive spirometry and depending on his progress, further recommendation will be made. MMODL / IJN: [id number] /
--- NOTE | 2018-10-03 10:19 | P.VSCSTY ---
Greater Saphenous Vein Mapping This is bilateral lower extremity greater saphenous vein mapping. Date of service 09/24/2018 Vein quality and ultrasound appearance no intraluminal thrombus or wall changes are seen. Vein size groin right 5.4 x 5.5 groin left 7.7 x 7.2 High thigh right 3.4 x 4.0 high thigh left 4.6 x 4.8 Mid thigh right 3.1 x 3.2 mid thigh left 4.2 x 4.9 Above-knee right 3.0 x 3.4 above-knee left 3.5 x 4.2 Below knee right 2.1 x 2.4 below-knee left 3.4 x 3.2 Mid calf right 1.7 x 2.3 mid calf left to 2.6 x 3.3 Ankle right 1.5 x 1.9 ankle left 2.8 x 4.1 Impression usable bilateral greater saphenous vein. Lower leg on the right is probably too small for use..
--- NOTE | 2018-10-03 10:24 | P.ARTDOP ---
Arterial Doppler Study performed: Bilateral radial artery testing Date of study: 09/25/2018 Reason for study: Preop CABG Doppler assessment shows no significant right to left or segmental pressure gradient. Digital plethysmography with radial artery compression shows no significant pressure change. The right radial ranges between 4.4 x 3.8 mm proximally and 3.9 x 3.4 mm distally left radial ranges between 3.4 x 3.6 mm proximally and 3.6 x 3.5 mm distally Impression: Both radial arteries are suitable for use as conduit.
[2018-10-03 11:54] LABS: Glucose,Whole Blood 159 mg/dL (75-99)
[2018-10-03] MEDS: amLODIPine 5 MG TAB PO SCH (12:20)
--- NOTE | 2018-10-03 13:25 | P.PN ---
Subjective Progress Note Date: 10/03/18 HPI: This is a 58-year-old male patient being seen examined and evaluated today for consultation who is well-known to our services. This patient came into the emergency room yesterday with complaints of chest pain. His chest pain had been ongoing intermittently over the past year. Since the patient has significantly increased. The patient was being worked up in the outpatient setting with pulmonary and cardiology services. His EKG in the emergency room did show normal sinus rhythm. Chest x-ray did show patchy perihilar and basilar infiltrates. He did have elevated troponins and cardiology is following the patient as well. The patient is scheduled to go for a heart catheterization today with cardiology. Upon examination the patient is resting up in bed on room air. He has occasional shortness of breath with exertion. Occasional nonproductive cough. Echocardiogram reviewed and does show an EF of 25-30% with RVSP of 22. He is also noted to have moderate to severe aortic regurgitation and severe aortic stenosis. Daughter is at bedside updated on plan of care. He currently is waiting to go down for his cardiac catheterization. He has been nothing by mouth since midnight. Interval History: 09/25/18- patient is being seen examined and evaluated today on rounds. He did undergo a VAISHNAVI which did show severely impaired left ventricular function with severe aortic regurgitation and stenosis. He has triple-vessel disease and will require a CABG. Cardiothoracic surgeon has been consulted. The patient will go for many preoperative studies including an ultrasound of the renal arteries CT of the chest, CT of the facial bones, vein mapping. The patient did recently have a PFT in our office last Monday. We will have those results faxed over to the hospital. Upon examination is resting up in bed on room air. Does have some shortness of breath with exertion denies any cough or congestion. Afebrile no further complaints. 09/26/18- patient is being seen examined and evaluated today on rounds. He did go for a dental extraction of an abscessed tooth this morning. Please see procedure notes for those details. He is undergoing workup for cardiothoracic surgery in the near future. FEV1 80% of predicted with moderate restriction. All labs and reports have been reviewed. He is hemodynamically stable. 09/27/18- patient is being seen examined and evaluated today on rounds. He was downgraded to the stepdown unit yesterday. He continues his workup for his cardiothoracic surgery potentially scheduled for next Monday10/02/18. The patient has not uses home CPAP overnight he states he is afraid of breaking at when he started on the bedside table. He would feel more comfortable if he had something that was stationary like he does at his house. He is even installed a lip around the outside of his bedside table so that it doesn't fall off when he tosses and turns. The patient states he is very restless when he sleeps and is not willing to risk breaking his CPAP machine. Instead the patient has been using 2 L of supplemental oxygen overnight which seems to be working well for him. He has been able to maintain his oxygen saturations. He is afebrile no further complaints all labs and reports have been reviewed. 09/28/18- patient is being seen examined and evaluated today on rounds. The patient did have some symptomatic episodes of shortness of breath and chest pain yesterday with exertion and again at rest as well. The patient did wear his CPAP machine last night. IV heparin drip was started per cardiology. Cardiothoracic is potentially going to be moving his surgery date sooner rather than later. Awaiting official input. 09/30/2018: Patient seen and examined in the intensive care unit with nursing staff at bedside. The patient did awaken with sedation holiday however he became agitated and diaphoretic. The patient was given Ativan and started on Precedex. He did tolerate CPAP trial on the ventilator. The patient was extubated to BiPAP. He does have a known history of obstructive sleep apnea. 10/02/2018: Patient seen and examined in the intensive care unit with nursing staff at bedside. The patient's mentation is improving today. He was given Haldol at 8:00 this morning as well as Purcell for pain. He is calm and comfortable and answering questions appropriately. The patient's chest tubes and Hawthorne have been removed. The patient's Villa catheter has been removed. The plan is to get the patient up with physical therapy later today. 10/03/2017: Patient seen and examined. Patient has been transferred from the intensive care unit. He is currently working with physical therapy. The patient is answering questions appropriately. He has been quite cantankerous with the nursing staff. He does not want to follow directions. It is explained multiple times that getting up on his own is unsafe. Objective - Vital Signs Vital signs: Vital Signs Temp 97.3 F L 10/03/18 11:26 Pulse 73 10/03/18 11:28 Resp 20 10/03/18 11:28 BP 119/71 10/03/18 11:26 Pulse Ox 97 10/03/18 11:26 Intake & Output 10/02/18 10/03/18 10/03/18 18:59 06:59 18:59 Intake Total 449.948 449.184 418 Output Total 1050 1015 575 Balance -600.052 -565.816 -157 Intake: IV 325 309 78 Lactated Ringers 1,000 ml 280 240 60 @ 20 mls/hr IV .Q24H NANCY Rx#:[id number] Pressure bags 45 69 18 Intake, IV Titration 124.948 40.184 Amount Dexmedetomidine/0.9% NaCl 100 (Pmx) 400 mcg In Empty Bag 1 bag @ Titrate IV . Q0M NANCY Rx#:[id number] Insulin Regular 100 unit 24.948 40.184 In Sodium Chloride 0.9% 100 ml @ Per Protocol IV .Q0M NANCY Rx#:[id number] Oral 100 340 Output: Chest Tube Drainage 25 115 Left Pleural 25 115 Urine 1025 900 575 Other: Voiding Method Urinal Bedside Commode Bedside Commode Urinal Urinal # Voids 1 ABP, PAP, CO, CI - Last Documented Arterial Blood Pressure 137/75 Pulmonary Artery Pressure 30/9 Cardiac Output 6 Cardiac Index 2.4 - Exam GENERAL EXAM: Alert and oriented 3, patient easily agitated HEAD: Normocephalic. EYES: Normal reaction of pupils, equal size. NOSE: Clear with pink turbinates. THROAT: No erythema or exudates. NECK: No masses, no JVD. CHEST: No chest wall deformity. LUNGS: Equal air entry with no crackles, wheeze, rhonchi or dullness. Bases diminished CVS: S1 and S2 normal with no audible mumurs, regular rhythm. ABDOMEN: No hepatosplenomegaly, normal bowel sounds, no guarding or rigidity. EXTREMITIES: No edema noted, pedal pulses palpable. CENTRAL NERVOUS SYSTEM: No focal deficits, tone is normal in all 4 extremities. - Labs CBC & Chem 7: 10/03/18 05:15 10/03/18 05:15 Labs: Abnormal Lab Results - Last 24 Hours (Table) 10/02/18 10/02/18 10/02/18 Range/Units 13:17 15:09 17:22 RBC (4.30-5.90) m/uL Hgb (13.0-17.5) gm/dL Hct (39.0-53.0) % Plt Count (150-450) k/uL Lymphocytes # (1.0-4.8) k/uL BUN (9-20) mg/dL Creatinine (0.66-1.25) mg/dL Glucose (74-99) mg/dL POC Glucose (mg/dL) 118 H 128 H 133 H (75-99) mg/dL Total Bilirubin (0.2-1.3) mg/dL AST (17-59) U/L ALT (21-72) U/L Alkaline Phosphatase (38-126) U/L Total Protein (6.3-8.2) g/dL Albumin (3.5-5.0) g/dL 10/02/18 10/02/18 10/03/18 Range/Units 19:13 22:50 00:56 RBC (4.30-5.90) m/uL Hgb (13.0-17.5) gm/dL Hct (39.0-53.0) % Plt Count (150-450) k/uL Lymphocytes # (1.0-4.8) k/uL BUN (9-20) mg/dL Creatinine (0.66-1.25) mg/dL Glucose (74-99) mg/dL POC Glucose (mg/dL) 148 H 142 H 135 H (75-99) mg/dL Total Bilirubin (0.2-1.3) mg/dL AST (17-59) U/L ALT (21-72) U/L Alkaline Phosphatase (38-126) U/L Total Protein (6.3-8.2) g/dL Albumin (3.5-5.0) g/dL 10/03/18 10/03/18 10/03/18 Range/Units 03:42 05:15 05:15 RBC 2.29 L (4.30-5.90) m/uL Hgb 7.0 L (13.0-17.5) gm/dL Hct 22.2 L (39.0-53.0) % Plt Count 71 L (150-450) k/uL Lymphocytes # 0.8 L (1.0-4.8) k/uL BUN 50 H (9-20) mg/dL Creatinine 1.34 H (0.66-1.25) mg/dL Glucose 130 H (74-99) mg/dL POC Glucose (mg/dL) 133 H (75-99) mg/dL Total Bilirubin 1.6 H (0.2-1.3) mg/dL AST 747 H (17-59) U/L ALT 556 H (21-72) U/L Alkaline Phosphatase 181 H (38-126) U/L Total Protein 4.8 L (6.3-8.2) g/dL Albumin 2.9 L (3.5-5.0) g/dL 10/03/18 10/03/18 10/03/18 Range/Units 05:16 07:09 11:33 RBC (4.30-5.90) m/uL Hgb (13.0-17.5) gm/dL Hct (39.0-53.0) % Plt Count (150-450) k/uL Lymphocytes # (1.0-4.8) k/uL BUN (9-20) mg/dL Creatinine (0.66-1.25) mg/dL Glucose (74-99) mg/dL POC Glucose (mg/dL) 139 H 127 H 159 H (75-99) mg/dL Total Bilirubin (0.2-1.3) mg/dL AST (17-59) U/L ALT (21-72) U/L Alkaline Phosphatase (38-126) U/L Total Protein (6.3-8.2) g/dL Albumin (3.5-5.0) g/dL Assessment and Plan Assessment: s/p CABG NSTEMI Possible early pneumonia, however less likely Metabolic encephalopathy Diabetes mellitus type 2 GERD Hypertension Hyperlipidemia Obstructive sleep apnea on CPAP Plan Chest x-ray reviewed Continue Haldol PRN and Seroquel Pain control Initiate and encourage incentive spirometer once patient is more alert Continue with pulmonary hygiene, coughing and deep breathing exercises, and supportive care. Supplemental oxygen to maintain oxygen saturations of 92% or better. PT and OT GI and DVT prophylaxis. Continue PT and OT, patient is progressing
[2018-10-03 17:07] LABS: Glucose,Whole Blood 151 mg/dL (75-99)
[2018-10-03 21:00] LABS: Glucose,Whole Blood 154 mg/dL (75-99)
[2018-10-03] MEDS: SENNOSIDES-DOCUSATE SODIUM 1 EACH TAB PO SCH (22:22)
[2018-10-04 02:27] LABS: Glucose,Whole Blood 170 mg/dL (75-99)
[2018-10-04 05:46] LABS: Glucose,Whole Blood 177 mg/dL (75-99)
--- NOTE | 2018-10-04 06:20 | P.CONS ---
History of Present Illness - Chief Complaint Cardiac debility - History of Present Illness I had the opportunity to see patient for inpatient rehab consultation with regard to cardiac debility. He was admitted to [facility] September 23 with chest pain. Workup revealed coronary artery disease as well as severe aortic stenosis. Seen in consultation by Drs. lo and will. Patient did undergo aVR and CABG 2 vessel. Chest x-rays followed for CHF. PT reports two-person assistance for bed mobility and transfer. Moderate assistance for gait 60 feet , hand-held. OT reports minimal assistance for upper dressing and maximal assistance in 2 person for lower dressing. Moderate assistance for bathing, maximal assistance for toileting and two-person moderate assistance for transfers. Previous functional history as elicited from patient: 58-year-old right-handed white male who is lives in one floor home with . 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 Patient independent with driving, standing shower and gait without device. History smoking remote past. Very rare drink. Dr. Duke is regular doctor. Family history of cardiac disease both parents. Review of Systems Review of systems: ENT: Denies sneezes or discharge. Eyes: Denies discharge or photophobia. Cardiac: Some sternal discomfort. Pulmonary: Mild to moderate shortness of breath. Gastrointestinal: Denies nausea, emesis, constipation, diarrhea. Genitourinary: Denies discharge or frequency. Musculoskeletal: Denies muscle or bone aches. Neurologic: Generalized weakness. Endocrine: Denies shakes or sweats. Oncology: Denies cancers. Dermatologic: Denies rash, itching, pruritus. ALLERGY/immunology: Denies sneezes, rashes. Past Medical History Past Medical History: Chest Pain / Angina, Diabetes Mellitus, GERD/Reflux, Hyperlipidemia, Hypertension, Osteoarthritis (OA), Sleep Apnea/CPAP/BIPAP Additional Past Medical History / Comment(s): seasonal allergies History of Any Multi-Drug Resistant Organisms: None Reported Past Surgical History: Joint Replacement, Orthopedic Surgery Additional Past Surgical History / Comment(s): right knee replaced, left shoulder surg., right arm surg., pilonidal cyst surg., multiple myringotomies. LEFT TOTAL KNEE ON 05/30/14. screws/plates in right arm Additional Past Anesthesia/Blood Transfusion Reaction / Comm: states has small airway, has had problems w/intubation in the past Past Psychological History: No Psychological Hx Reported Smoking Status: Former smoker Past Alcohol Use History: None Reported Past Drug Use History: None Reported - Past Family History Father Family Medical History: Diabetes Mellitus Additional Family Medical History / Comment(s): father at age 74-drowning. Mother History Unknown: Yes Family Medical History: No Reported History Additional Family Medical History / Comment(s): MOTHER AT AGE 70 OF UNKNOWN CAUSES. Medications and Allergies Home Medications Medication Instructions Recorded Confirmed Type Canagliflozin [Invokana] 300 mg PO HS 10/14/15 09/23/18 History Glimepiride [Amaryl] 4 mg PO DAILY 10/14/15 09/23/18 History Losartan Potassium 100 mg PO QAM 10/14/15 09/23/18 History metFORMIN HCL [Glucophage] 500 mg PO BID 10/14/15 09/23/18 History Omeprazole [PriLOSEC] 20 mg PO BID 06/06/16 09/23/18 History Dulaglutide [Trulicity] 1.5 mg SQ HARRISON 09/23/18 09/23/18 History Fenofibrate 160 mg PO DAILY 09/23/18 09/23/18 History Glimepiride [Amaryl] 2 mg PO HS 09/23/18 09/23/18 History Multivitamins, Thera [Multivitamin 1 tab PO BID 09/23/18 09/23/18 History (formulary)] amLODIPine [Norvasc] 10 mg PO DAILY 09/23/18 09/23/18 History Allergies Allergy/AdvReac Type Severity Reaction Status Date / Time Jsgaevi-Aii-Ngy Reductase AdvReac muscle Verified 09/23/18 09:42 Inhibitor cramps Physical Exam Vitals: Vital Signs Temp Pulse Pulse Resp BP BP BP 10/04/18 04:00 98.2 F 88 18 146/82 10/04/18 00:00 98.1 F 77 18 121/70 10/03/18 20:00 98.2 F 80 18 162/83 10/03/18 16:22 79 10/03/18 16:12 80 10/03/18 16:11 97.6 F 80 18 124/74 10/03/18 16:07 73 20 10/03/18 11:28 73 20 10/03/18 11:26 97.3 F L 73 20 119/71 10/03/18 11:23 10/03/18 09:00 86 20 121/54 10/03/18 08:00 98.3 F 82 17 10/03/18 07:58 78 10/03/18 07:46 77 10/03/18 07:00 80 21 Pulse Ox 10/04/18 04:00 98 10/04/18 00:00 98 10/03/18 20:00 98 10/03/18 16:22 10/03/18 16:12 10/03/18 16:11 99 10/03/18 16:07 10/03/18 11:28 10/03/18 11:26 97 10/03/18 11:23 97 10/03/18 09:00 10/03/18 08:00 96 10/03/18 07:58 10/03/18 07:46 97 10/03/18 07:00 93 L Intake and Output 10/03/18 10/03/18 10/04/18 14:59 22:59 06:59 Intake Total 658 240 Output Total 575 350 Balance 83 240 -350 Intake: IV 78 Lactated Ringers 1,000 ml 60 @ 20 mls/hr IV .Q24H [facility] Rx#:[id number] Pressure bags 18 Oral 580 240 Output: Urine 575 350 Other: Voiding Method Bedside Commode Bedside Commode Bedside Commode Urinal Urinal Urinal # Voids 1 2 Weight 128.4 kg Skin: Good color, texture, turgor. General: Obese build and comfortable and fatigued appearance. Head: Normocephalic, atraumatic. Eyes: Symmetric. Pupils equal round. Ears: Symmetric. Hearing within normal limits. Mouth: Clear. Neck: Supple. Carotid without bruit. Cardiac: Regular rate and rhythm. Sternotomy clean and dressed. Wearing harness. Lungs: Clear anteriorly and posteriorly. Abdomen: Soft active nontender. Extremities: Normal tone. Neurological: Mental status: Alert, cooperative, pleasant. Cranial nerves: Symmetric facial tone and trapezius. Motor: Active movement and isolation all 4 limbs. Sensation: Intact throughout. DTRs: Symmetric and equal throughout. Mobility: Requires assistance for mobility. Results CBC & Chem 7: 10/03/18 05:15 10/03/18 05:15 Labs: Abnormal Lab Results - Last 24 Hours (Table) 10/03/18 10/03/18 10/03/18 Range/Units 07:09 11:33 16:41 POC Glucose (mg/dL) 127 H 159 H 151 H (75-99) mg/dL 10/03/18 10/04/18 10/04/18 Range/Units 20:46 02:25 05:44 POC Glucose (mg/dL) 154 H 170 H 177 H (75-99) mg/dL Assessment and Plan (1) Non-STEMI (non-ST elevated myocardial infarction) Current Visit: Yes Status: Acute Code(s): I21.4 - NON-ST ELEVATION (NSTEMI) MYOCARDIAL INFARCTION SNOMED Code(s): 40816014 (2) Severe aortic insufficiency Current Visit: Yes Status: Acute Code(s): I35.1 - NONRHEUMATIC AORTIC (VALVE ) INSUFFICIENCY SNOMED Code(s): 91215018 Plan: Impression: 1. Cardiac debility. 2. Coronary artery disease with history of angina and recent CABG two-vessel. 3. Aortic stenosis status post AVR. 4. Hypertension. 5. Dyslipidemia. 6. Sleep apnea recurrent CPAP. 7. Diabetes. Constant plan: At this time PT and OT are ongoing. Safety concerns are noted. Has demonstrated the ability tolerate and benefit from therapies and have discussed possible inpatient rehabilitation
[2018-10-04 06:48] LABS: HGB 8.3 gm/dL (13.0-17.5); MCH 32.3 pg (25.0-35.0); MCHC 33.2 g/dL (31.0-37.0); MCV 97.1 fL (80.0-100.0); Mean Platelet Volume 7.5; Platelet Count 104 k/uL (150-450); RBC 2.58 m/uL (4.30-5.90); RDW 13.2 % (11.5-15.5); WBC 5.5 k/uL (3.8-10.6)
[2018-10-04 07:04] LABS: ALT 627 U/L (21-72); AST 600 U/L (17-59); Albumin 3.1 g/dL (3.5-5.0); Alkaline Phosphatase 217 U/L (38-126); Anion Gap 6 mmol/L; Blood Urea Nitrogen 32 mg/dL (9-20); Calcium 8.8 mg/dL (8.4-10.2); Carbon Dioxide 29 mmol/L (22-30); Chloride 105 mmol/L (98-107); Glucose 162 mg/dL (74-99); Potassium 4.2 mmol/L (3.5-5.1); Sodium 140 mmol/L (137-145); Total Bilirubin 1.8 mg/dL (0.2-1.3); Total Protein 5.2 g/dL (6.3-8.2)
--- NOTE | 2018-10-04 08:16 | P.PN ---
Subjective Progress Note Date: 10/04/18 Principal diagnosis: Non-STEMI, severe left ventricular dysfunction, acute systolic heart failure with EF 20-25 %, severe triple vessel coronary artery disease , severe aortic regurgitation with moderate aortic stenosis, bicuspid, heavily calcified aortic valve, previous medical history of morbid obesity, hypertension, hyperlipidemia , diabetes mellitus with hemoglobin A1c 7.5%, GERD, obstructive sleep apnea with CPAP use, and previous tobacco dependence with recent FEV1 80% of predicted , moderate restriction. POD #5 urgent triple coronary artery bypass grafting using the left internal mammary artery to the left anterior descending artery, the left radial artery taken as a Y graft from the left internal mammary artery to the first obtuse marginal artery, reverse saphenous vein graft from the aorta to the posterior descending artery. Aortic valve replacement using a 29 mm Magna Ease pericardial bioprosthesis. Endoscopic harvesting of the left radial artery. Endoscopic harvesting of the left greater saphenous vein from the groin to the knee level. Intraoperative transesophageal echocardiogram and epi-aortic scanning. Intraoperative graft flow measurements using the Allocadiastim system. Postoperative acute blood loss anemia, an expected outcome of surgery given cardiopulmonary bypass pump and hemodilution. Postoperative thrombocytopenia, an unexpected outcome, HIT panel sent, negative. Postoperative transaminitis, unexpected, likely due to hypotension intra/post operative, resolving. Patient's currently sitting up in a recliner on the cardiac stepdown unit in no acute distress. More alert this morning, oriented to person, place, time, and situation. Does become anxious and agitated at times. Remains in sinus rhythm. Complains of postoperative incisional pain controlled on current medication regimen, occasional shortness of breath. Patient being weaned on his FiO2 requirements. Stating he wants to go home. Objective - Vital Signs Vital signs: Vital Signs Temp 97.2 F L 10/04/18 08:00 Pulse 89 10/04/18 08:00 Resp 18 10/04/18 08:00 BP 150/67 10/04/18 08:00 Pulse Ox 96 10/04/18 08:00 Intake & Output 10/03/18 10/04/18 10/04/18 18:59 06:59 18:59 Intake Total 898 Output Total 575 350 Balance 323 -350 Weight 128.4 kg Intake: IV 78 Lactated Ringers 1,000 ml 60 @ 20 mls/hr IV .Q24H [facility] Rx#:[id number] Pressure bags 18 Oral 820 Output: Urine 575 350 Other: Voiding Method Bedside Commode Bedside Commode Urinal Urinal # Voids 1 2 ABP, PAP, CO, CI - Last Documented Arterial Blood Pressure 137/75 Pulmonary Artery Pressure 30/9 Cardiac Output 6 Cardiac Index 2.4 - Constitutional General appearance: Present: cooperative, morbidly obese, no acute distress - Respiratory Details: Lungs sounds diminished bilaterally with coarse breath sounds in the bases. Respirations even, nonlabored. Currently on 4 L high flow nasal cannula with oxygen saturation 98%. Able to achieve 3487-3482 mL on his incentive spirometry. Strong, productive cough with thick, hernandes sputum. - Cardiovascular Details: S1, S2 present. Regular rate and rhythm, sinus rhythm on telemetry. Sternum stable. A/V epicardial pacemaker wires present, grounded. Palpable peripheral pulses bilaterally. Trace bilateral lower extremity edema present. No calf pain or tenderness noted. Heart hugger in place with patient occasionally demonstrating appropriate use. Antiembolism stockings, SCDs present. - Gastrointestinal Gastrointestinal Comment(s): Abdomen soft, nontender, nondistended, obese. Active bowel sounds present 4 quadrants. Tolerating diet. Positive bowel movement this morning. - Genitourinary Genitourinary Comment(s): Patient continues to void clear yellow urine, output overnight 350 mL. - Integumentary Integumentary Comment(s): Skin is warm and dry with evidence of good perfusion. Anterior chest incision well approximated and covered with dry intact dressing. Left lower extremity EVH site well approximated with Dermabond. - Neurologic Neurologic: Present: CNII-XII intact - Musculoskeletal Musculoskeletal: Present: gait normal, strength equal bilaterally - Psychiatric Psychiatric: Present: A&O x's 3, appropriate affect, intact judgment & insight - Allied health notes Allied health notes reviewed: nursing - Labs CBC & Chem 7: 10/04/18 05:45 10/04/18 05:45 Labs: Abnormal Lab Results - Last 24 Hours (Table) 10/03/18 10/03/18 10/03/18 Range/Units 11:33 16:41 20:46 RBC (4.30-5.90) m/uL Hgb (13.0-17.5) gm/dL Hct (39.0-53.0) % Plt Count (150-450) k/uL BUN (9-20) mg/dL Glucose (74-99) mg/dL POC Glucose (mg/dL) 159 H 151 H 154 H (75-99) mg/dL Total Bilirubin (0.2-1.3) mg/dL AST (17-59) U/L ALT (21-72) U/L Alkaline Phosphatase (38-126) U/L Total Protein (6.3-8.2) g/dL Albumin (3.5-5.0) g/dL 10/04/18 10/04/18 10/04/18 Range/Units 02:25 05:44 05:45 RBC 2.58 L (4.30-5.90) m/uL Hgb 8.3 L (13.0-17.5) gm/dL Hct 25.0 L (39.0-53.0) % Plt Count 104 L (150-450) k/uL BUN (9-20) mg/dL Glucose (74-99) mg/dL POC Glucose (mg/dL) 170 H 177 H (75-99) mg/dL Total Bilirubin (0.2-1.3) mg/dL AST (17-59) U/L ALT (21-72) U/L Alkaline Phosphatase (38-126) U/L Total Protein (6.3-8.2) g/dL Albumin (3.5-5.0) g/dL 10/04/18 Range/Units 05:45 RBC (4.30-5.90) m/uL Hgb (13.0-17.5) gm/dL Hct (39.0-53.0) % Plt Count (150-450) k/uL BUN 32 H (9-20) mg/dL Glucose 162 H (74-99) mg/dL POC Glucose (mg/dL) (75-99) mg/dL Total Bilirubin 1.8 H (0.2-1.3) mg/dL AST 600 H (17-59) U/L ALT 627 H (21-72) U/L Alkaline Phosphatase 217 H (38-126) U/L Total Protein 5.2 L (6.3-8.2) g/dL Albumin 3.1 L (3.5-5.0) g/dL - Imaging and Cardiology Chest x-ray: image reviewed Assessment and Plan (1) Non-STEMI (non-ST elevated myocardial infarction) Current Visit: Yes Status: Acute Code(s): I21.4 - NON-ST ELEVATION (NSTEMI) MYOCARDIAL INFARCTION SNOMED Code(s): 48454947 (2) Acute systolic heart failure Current Visit: Yes Status: Acute Code(s): I50.21 - ACUTE SYSTOLIC ( CONGESTIVE) HEART FAILURE SNOMED Code(s): 371154520 (3) Severe aortic stenosis Current Visit: Yes Status: Acute Code(s): I35.0 - NONRHEUMATIC AORTIC (VALVE ) STENOSIS SNOMED Code(s): 46723317 (4) Severe aortic insufficiency Current Visit: Yes Status: Acute Code(s): I35.1 - NONRHEUMATIC AORTIC (VALVE ) INSUFFICIENCY SNOMED Code(s): 11108952 Plan: 1. Continue low-dose aspirin, Plavix, beta irasema therapy, hydralazine. Llosartan added. May need Life Vest, preoperative impaired LV function with EF 20-25%, will defer to cardiology. 2. Statin on hold secondary to elevated liver enzymes, will resume once liver enzymes normalize. Zetia added per Dr. Arce. 3. Continue Norvasc for radial artery spasm. 4. Bronchodilators per pulmonology. 5. Encourage incentive spirometry use 10 times every hour while awake. Encourage continued smoking cessation. 6. Increase activity as tolerated. PT/OT/cardiac rehab following. 7. Will monitor daily labs and x-rays. Electrolyte replacement per protocol. No transfusion at this point. 8. Insulin management per primary care service. Patient needs tight blood sugar control. 9. Pain control current medication regimen. 10. GI prophylaxis with Protonix. DVT prophylaxis with Aritxra, SCDs. Subcu heparin stopped secondary to thrombocytopenia, HIT panel sent, negative. 11. Continue Seroquel. 12. Will discontinue epicardial pacemaker wires. Patient to remain on bedrest for 1 hour post wire removal. 13. Likely will discharged home with home care versus inpatient rehab today versus tomorrow. PT/OT recommendations for inpatient rehab, however patient wants to go home. 14. More recommendations to follow as patient progresses. Time with Patient: Greater than 30
[2018-10-04] MEDS: HYDROcodone/APAP 5-325MG 1 EACH TAB PO PRN ×3 (08:19→20:46)
[2018-10-04] MEDS: IPRATROPIUM-ALBUTEROL 3 ML NEB INHALATION SCH ×4 (08:22→20:24)
[2018-10-04] MEDS: INSULIN ASPART (NovoLOG) 100 UNIT/ML VIAL SQ SCH ×4 (08:24→20:46)
--- NOTE | 2018-10-04 08:24 | XR ---
EXAMINATION TYPE: XR chest 2V DATE OF EXAM: 10/04/2018 COMPARISON: Post cardiac surgery INDICATION: 10/03/2018 TECHNIQUE: Frontal and lateral views of the chest are obtained. FINDINGS: The heart size is enlarged. The pulmonary vasculature is normal. The lungs are clear. IMPRESSION: 1. No acute pulmonary process.
[2018-10-04] MEDS: PANTOPRAZOLE 40 MG TABLET PO SCH (08:43)
[2018-10-04] MEDS: METOPROLOL TARTRATE 25 MG TAB PO SCH ×2 (08:43→20:38)
[2018-10-04] MEDS: QUEtiapine 25 MG TAB PO SCH ×2 (08:43→20:39)
[2018-10-04] MEDS: hydrALAZINE HCL 25 MG TAB PO SCH ×2 (08:43→20:39)
--- NOTE | 2018-10-04 09:59 | PN ---
PROGRESS NOTE Mr. Kumar is a 58-year-old male who presented with non ST-segment elevation myocardial infarction, was found to have severe triple-vessel coronary artery disease, severely impaired left ventricular systolic function and severe aortic regurgitation and stenosis. He is status post coronary artery bypass grafting. He is more awake and alert. He has some soreness in the chest. His breathing is better. He denies any dizziness or palpitation. He denies any nausea. He is ambulating in the room without difficulty. He continues to be on aspirin once a day, Plavix 75 mg daily, Zetia 10 mg daily, hydralazine 25 mg twice a day, losartan 25 mg daily, metoprolol tartrate 25 mg twice a day. PHYSICAL EXAMINATION: Blood pressure running in the 120 to 150 with the heart rate in the 80s. LUNGS: Mild crackles at the bases. HEART: Regular rate and rhythm. S1, S2. No S3 with systolic murmur, ejection type, heard at the base. No diastolic murmur. No rub. ABDOMEN: Soft, nontender. EXTREMITIES: No significant edema. LAB DATA: Lab data revealed BUN and creatinine of 32 and 1.05, hemoglobin of 8.3. His AST 600, ALT of 627. IMPRESSION: 1. Status post aortic valve replacement and coronary artery bypass grafting. 2. Severe cardiomyopathy. 3. Diabetes. 4. Hypertension. 5. Hyperlipidemia. RECOMMENDATION: From the cardiac standpoint, will follow his blood pressure and if needed the losartan can be increased to 50 mg daily. Because of the persistent impairment left ventricular systolic function, we will evaluate him for a vest. In the meantime, will continue increasing his level of activity. Depending on his progress, further recommendation will be made. MMODL / IJN: [id number] /
[2018-10-04] MEDS: FONDAPARINUX 2.5 MG/0.5 ML SYRINGE SQ SCH (10:04)
[2018-10-04] MEDS: EZETIMIBE 10 MG TAB PO SCH (10:04)
[2018-10-04] MEDS: LOSARTAN 25 MG TAB PO SCH (10:04)
[2018-10-04] MEDS: CLOPIDOGREL 75 MG TAB PO SCH (10:04)
[2018-10-04] MEDS: ASPIRIN 81 MG PO SCH (10:04)
--- NOTE | 2018-10-04 10:07 | ECHOF ---
Referral Reason:avr MEASUREMENTS -------- HEIGHT: 180.3 cm WEIGHT: 137.0 kg BP: IVSd: 1.1 cm (0.6 - 1.1) LVIDd: 5.4 cm (3.9 - 5.3) LVPWd: 1.7 cm (0.6 - 1.1) IVSs: 1.7 cm LVIDs: 4.8 cm LVPWs: 1.4 cm LAESV Index (A-L): 28.82 ml/m MV EXCURSION: 27.332 mm (> 18.000) MV EF SLOPE: 130 mm/s (70 - 150) EPSS: 0.3 cm MV E Fred: 1.23 m/s MV DecT: 167 ms MV A Fred: 0.81 m/s MV E/A Ratio: 1.52 AV maxP.18 mmHg AV meanP.72 mmHg RAP: 5.00 mmHg RVSP: 16.01 mmHg FINDINGS -------- Sinus rhythm. TDS due to CABG and Bandages. The left ventricular size is normal. Left ventricular wall thickness is normal. There is severe g lobal hypokinesis of LV . Overall left ventricular systolic function is severely impaired with, an EF between 25 - 30 %. The right ventricle is normal in size and function. Normal LA size by volume 22+/-6 ml/m2. The right atrium is normal in size. Lumason used Peak/mean gradient across the Aortic Valve is 28.18mmHg / 17.72mmHg. Normally functioning bioprosth etic valve. The mitral valve leaflets are mildly thickened. Mild mitral regurgitation is present. Mild tricuspid regurgitation present. The right ventricular systolic pressure, as measured by Doppl er, is 16.01mmHg. The pulmonic valve was not well visualized. The aortic root size is normal. There is a trivial pericardial effusion present. CONCLUSIONS -------- 1. Sinus rhythm. 2. TDS due to CABG and Bandages. 3. The left ventricular size is normal. 4. Left ventricular wall thickness is normal. 5. There is severe global hypokinesis of LV . 6. Overall left ventricular systolic function is severely impaired with, an EF between 25 - 30 %. 7. The right ventricle is normal in size and function. 8. Normal LA size by volume 22+/-6 ml/m2. 9. The right atrium is normal in size. 10. Lumason used 11. Peak/mean gradient across the Aortic Valve is 28.18mmHg / 17.72mmHg. 12. Normally functioning bioprosthetic valve. 13. The mitral valve leaflets are mildly thickened. 14. Mild mitral regurgitation is present. 15. Mild tricuspid regurgitation present. 16. The right ventricular systolic pressure, as measured by Doppler, is 16.01mmHg. 17. The pulmonic valve was not well visualized. 18. The aortic root size is normal. 19. There is a trivial pericardial effusion present. [employer] HOUSE WORKER: Roselia Walker RDCS
[2018-10-04 12:14] LABS: Glucose,Whole Blood 166 mg/dL (75-99)
[2018-10-04] MEDS: amLODIPine 5 MG TAB PO SCH (12:24)
--- NOTE | 2018-10-04 13:37 | P.PN ---
Subjective Progress Note Date: 10/04/18 This is a 58-year-old male patient of Dr. Duke. Patient presented to the emergency room with complaints of chest pain. Patient reports this chest pain has been occurring for over a year. Patient does report that since pain has significantly increased. With chest pain patient also experiences shortness of breath. She does have a past medical history of diverticulitis mellitus, GERD, hyperlipidemia, hypertension, osteoporosis, sleep apnea, seasonal ALLERGIES and ex-smoker. Patient states he quit in . EKG completed emergency room showing normal sinus rhythm, possible left atrial enlargement. Patient also reports that he had seen Dr. SAILAJA Bermeo for pulmonary due to increasing shortness of breath. Chest x-ray completed emergency room showing patchy perihilar and basal infiltrate noted. Correlate for underlying pneumonia. troponin 0.287. cardiology services have been consulted. At this time patient is resting comfortably bed. Patient denies any chest pain or shortness breath. Denies nausea vomiting or diarrhea. Patient denies any urinary burning or frequency. 09/24/2018 patient underwent cardiac catheterization today showing triple- vessel coronary disease. Severely impaired left ventricle systolic function with severe aortic stenosis. And mild pulmonary hypertension. Cardiology is recommending proceeding with evaluation for coronary artery bypass grafting and aortic valve replacement. And they have scheduled the patient for a VAISHNAVI. Is currently chest pain-free. He does report he gets pain with activity. Echo shows an EF of 25-30%. Creatinine is at 1.37. He did receive a dose of IV Lasix yesterday for BNP in the 5000. 09/25/2018 patient seen by cardiothoracic service. Cardiothoracic has ordered preoperative testing. He also recommending dental clearance consult has already been placed. Patient did have a VAISHNAVI today showing dilated left ventricle with severe global hypokinesis severe aortic regurgitation with moderate to severe aortic stenosis. Carotid Doppler was negative for any significant hemodynamic stenosis. Creatinine has decreased from 1.37-1.21. Blood sugar this morning was 147 blood sugar this afternoon 231. Glipizide 5 mg twice a day has been ordered. Patient remains in the ICU. Currently chest pain-free. Reports a small post bowel movement yesterday. Colace will be added. 09/26/2018 patient currently resting comfortably in bed. Patient status post tooth extraction with Dr. Amaral today. Blood sugars have improved. This time patient denies chest pain or shortness breath. Patient denies nausea vomiting or diarrhea. Patient denies any urinary burning or frequency. 09/27/2018 patient had shortness of breath and diaphoresis and some chest tightness with ambulating earlier this morning. Cardiology is aware. They recommend that patient remain in the hospital at this time. Patient had his tooth extracted yesterday. Denies any nausea or vomiting. Denies any bowel movement changes or urinary symptoms. Creatinine is up at 1.38. 09/28/2018 patient has had about 4 episodes of shortness of breath with chest pain and diaphoresis with activity and some at rest as well. He was given nitro that did help relieve symptoms. Cardiology is following closely as well as cardiothoracic team. The date of cardiac surgery will likely be sooner than Monday. Cardiology did start IV heparin drip yesterday. On 09/30/2018 patient was seen and examined in the ICU he is laying in bed he has BiPAP mask on he had episodes of agitation through the night blood pressure is marginal with mean blood pressure of around 55 patient denies any chest pain there is no fever or chills no headache or dizziness he has occasional cough no nausea or vomiting no abdominal pain no diarrhea and no urinary symptoms 10/01/2018. Patient was extubated yesterday and is currently on BiPAP mask. He had triple coronary artery bypass grafting and aortic valve replacement on . Patient is currently off the Levophed. He is still confused and agitated. He appears that he cannot comfortable. Seroquel was added to her [facility] thoracic team. Also patient is receiving pain medication. Radiology did increase the beta irasema for patient. Patient did have a temp of 100 and yesterday. Chest x-ray showing mild improving by basilar infiltrates. Hemoglobin is 7.0. Platelets are 82 and hit has been ordered. Creatinine has gone up to 2.13. Liver enzymes are elevated at AST is 3054 and ALT is 1289 total bili 1.9. Lipitor was discontinued antibiotics discontinued. Patient was given a dose of IV Lasix per cardiothoracic team. 10/02/2018 patient currently on nasal cannula and off of the BiPAP. Had one chest tube removed and Villa catheter removed today. He was able to work with physical therapy and get out of bed and take a few steps to the bedside chair. He did have a low-grade temp of 100.2. Creatinine has decreased from 2.13- 1.88. Chest x-ray showing mild peripheral vascular congestion. He is receiving IV Lasix. Subcu heparin discontinued and patient started on Arixtra. His hospital delirium is showing improvement.'s less confused today. Less agitated today. Hemoglobin is 7 and platelets 52 On 10/03/2018 patient is currently on 2 L nasal cannula. Patient remains slightly less confused today. Patient up walking with nursing staff. Hemoglobin 7.0. Creatinine improving to 1.34. Liver enzymes also trending down. Seroquel has been increased per cardiothoracic team. At this time she is complaining of shortness of breath post ambulation. Patient denies nausea vomiting or diarrhea. Patient denies any urinary burning or frequency 10/04/2018 repeat echo shows an EF of 25-30%. Cardiology is following and they' re checking into a possible LifeVest for patient. Chest x-ray negative. Patient did receive a dose of IV Lasix yesterday. Cardiology is also added hydralazine for blood pressure control and Zetia for cholesterol. Patient still having very short of breath with activity. On 2 L nasal cannula satting at 96%. Patient denies any chest pain. Denies any nausea or vomiting. Reports having bowel movements. Denies any difficulty urinating. Objective - Vital Signs Vital signs: Vital Signs Temp 98.1 F 10/04/18 12:00 Pulse 80 10/04/18 12:00 Resp 24 10/04/18 12:00 BP 120/63 10/04/18 12:00 Pulse Ox 96 10/04/18 12:00 Intake & Output 10/03/18 10/04/18 10/04/18 18:59 06:59 18:59 Intake Total 898 Output Total 575 350 Balance 323 -350 Weight 128.4 kg Intake: IV 78 Lactated Ringers 1,000 ml 60 @ 20 mls/hr IV .Q24H NANCY Rx#:[id number] Pressure bags 18 Oral 820 Output: Urine 575 350 Other: Voiding Method Bedside Commode Bedside Commode Toilet Urinal Urinal # Voids 1 2 3 # Bowel Movements 3 ABP, PAP, CO, CI - Last Documented Arterial Blood Pressure 137/75 Pulmonary Artery Pressure 30/9 Cardiac Output 6 Cardiac Index 2.4 - Exam Head normocephalic Neck supple Lungs Heart regular rate and rhythm S1-S2, no rub or gallop positive murmur. Abdomen is soft nontender nondistended positive bowel sounds no hepatosplenomegaly Extremities no edema Neuro alert and orientated to 3 - Labs CBC & Chem 7: 10/04/18 05:45 10/04/18 05:45 Labs: Abnormal Lab Results - Last 24 Hours (Table) 10/03/18 10/03/18 10/04/18 Range/Units 16:41 20:46 02:25 RBC (4.30-5.90) m/uL Hgb (13.0-17.5) gm/dL Hct (39.0-53.0) % Plt Count (150-450) k/uL BUN (9-20) mg/dL Glucose (74-99) mg/dL POC Glucose (mg/dL) 151 H 154 H 170 H (75-99) mg/dL Total Bilirubin (0.2-1.3) mg/dL AST (17-59) U/L ALT (21-72) U/L Alkaline Phosphatase (38-126) U/L Total Protein (6.3-8.2) g/dL Albumin (3.5-5.0) g/dL 10/04/18 10/04/18 10/04/18 Range/Units 05:44 05:45 05:45 RBC 2.58 L (4.30-5.90) m/uL Hgb 8.3 L (13.0-17.5) gm/dL Hct 25.0 L (39.0-53.0) % Plt Count 104 L (150-450) k/uL BUN 32 H (9-20) mg/dL Glucose 162 H (74-99) mg/dL POC Glucose (mg/dL) 177 H (75-99) mg/dL Total Bilirubin 1.8 H (0.2-1.3) mg/dL AST 600 H (17-59) U/L ALT 627 H (21-72) U/L Alkaline Phosphatase 217 H (38-126) U/L Total Protein 5.2 L (6.3-8.2) g/dL Albumin 3.1 L (3.5-5.0) g/dL 10/04/18 Range/Units 12:09 RBC (4.30-5.90) m/uL Hgb (13.0-17.5) gm/dL Hct (39.0-53.0) % Plt Count (150-450) k/uL BUN (9-20) mg/dL Glucose (74-99) mg/dL POC Glucose (mg/dL) 166 H (75-99) mg/dL Total Bilirubin (0.2-1.3) mg/dL AST (17-59) U/L ALT (21-72) U/L Alkaline Phosphatase (38-126) U/L Total Protein (6.3-8.2) g/dL Albumin (3.5-5.0) g/dL Assessment and Plan Assessment: 1. Chest pain with non-ST elevated myocardial infarction present on admission. Status post heart catheterization with triple-vessel disease and severe aortic stenosis. Echo shows an EF of 25-30%. Status post coronary artery bypass graft and aortic valve replacement on 09/29/2018. Repeat echo showed showing EF of 25-30%. Audit Mgr checking into possible LifeVest 2. Pneumonia ruled out. completed showing patchy perihilar and basal infiltrate noted. Antibiotics discontinued. Pulmonary service felt likely patient's symptoms were due to pulmonary vascular congestion and less likely pneumonia 3. Diabetes mellitus type 2. A1c is 7.5. Continue sliding coverage 4. History of GERD 5. History of essential hypertension. 6. History of hyperlipidemia 7. History of osteoarthritis 8. History of sleep apnea. Patient reports he wears CPAP machine 9. History of seasonal ALLERGIES. 10. Acute kidney injury: Kidney function some improvement. Creatinine is 1.05 11. Tooth abscess. #18 surgical extraction of erupted tooth per Dr. Amaral on 09/26/2018 patient started on Penicillin VK. 12. Expected acute blood loss Anemia secondary to surgery. Hemoglobin is 7.0. Continue to monitor hemoglobin 13. Thrombocytopenia: HIT test negative. Cardiothoracic did discontinue the subcu heparin and added Arixtra. Continue to monitor platelets 14. Elevated LFTs possibly related to fluid congestion, medications or shocked liver due to hypotension.. Patient was given Lasix. Also Lipitor and Tylenol have been discontinued. LFTs are trending down 15. Patient being evaluated by Dr. Tucker for possible inpatient rehab DVT prophylaxis subcu heparin I performed an examination of the patient and discussed their management with the physician Vessel Engineer. I have reviewed the Physician Vessel Engineer's notes and agree with the documented findings and plan of care
--- NOTE | 2018-10-04 15:22 | P.PN ---
Subjective Progress Note Date: 10/04/18 HPI: This is a 58-year-old male patient being seen examined and evaluated today for consultation who is well-known to our services. This patient came into the emergency room yesterday with complaints of chest pain. His chest pain had been ongoing intermittently over the past year. Since the patient has significantly increased. The patient was being worked up in the outpatient setting with pulmonary and cardiology services. His EKG in the emergency room did show normal sinus rhythm. Chest x-ray did show patchy perihilar and basilar infiltrates. He did have elevated troponins and cardiology is following the patient as well. The patient is scheduled to go for a heart catheterization today with cardiology. Upon examination the patient is resting up in bed on room air. He has occasional shortness of breath with exertion. Occasional nonproductive cough. Echocardiogram reviewed and does show an EF of 25-30% with RVSP of 22. He is also noted to have moderate to severe aortic regurgitation and severe aortic stenosis. Daughter is at bedside updated on plan of care. He currently is waiting to go down for his cardiac catheterization. He has been nothing by mouth since midnight. Interval History: 09/25/18- patient is being seen examined and evaluated today on rounds. He did undergo a VAISHNAVI which did show severely impaired left ventricular function with severe aortic regurgitation and stenosis. He has triple-vessel disease and will require a CABG. Cardiothoracic surgeon has been consulted. The patient will go for many preoperative studies including an ultrasound of the renal arteries CT of the chest, CT of the facial bones, vein mapping. The patient did recently have a PFT in our office last Monday. We will have those results faxed over to the hospital. Upon examination is resting up in bed on room air. Does have some shortness of breath with exertion denies any cough or congestion. Afebrile no further complaints. 09/26/18- patient is being seen examined and evaluated today on rounds. He did go for a dental extraction of an abscessed tooth this morning. Please see procedure notes for those details. He is undergoing workup for cardiothoracic surgery in the near future. FEV1 80% of predicted with moderate restriction. All labs and reports have been reviewed. He is hemodynamically stable. 09/27/18- patient is being seen examined and evaluated today on rounds. He was downgraded to the stepdown unit yesterday. He continues his workup for his cardiothoracic surgery potentially scheduled for next Monday10/02/18. The patient has not uses home CPAP overnight he states he is afraid of breaking at when he started on the bedside table. He would feel more comfortable if he had something that was stationary like he does at his house. He is even installed a lip around the outside of his bedside table so that it doesn't fall off when he tosses and turns. The patient states he is very restless when he sleeps and is not willing to risk breaking his CPAP machine. Instead the patient has been using 2 L of supplemental oxygen overnight which seems to be working well for him. He has been able to maintain his oxygen saturations. He is afebrile no further complaints all labs and reports have been reviewed. 09/28/18- patient is being seen examined and evaluated today on rounds. The patient did have some symptomatic episodes of shortness of breath and chest pain yesterday with exertion and again at rest as well. The patient did wear his CPAP machine last night. IV heparin drip was started per cardiology. Cardiothoracic is potentially going to be moving his surgery date sooner rather than later. Awaiting official input. 09/30/2018: Patient seen and examined in the intensive care unit with nursing staff at bedside. The patient did awaken with sedation holiday however he became agitated and diaphoretic. The patient was given Ativan and started on Precedex. He did tolerate CPAP trial on the ventilator. The patient was extubated to BiPAP. He does have a known history of obstructive sleep apnea. 10/02/2018: Patient seen and examined in the intensive care unit with nursing staff at bedside. The patient's mentation is improving today. He was given Haldol at 8:00 this morning as well as [place] for pain. He is calm and comfortable and answering questions appropriately. The patient's chest tubes and [place] have been removed. The patient's Villa catheter has been removed. The plan is to get the patient up with physical therapy later today. 10/03/2018: Patient seen and examined. Patient has been transferred from the intensive care unit. He is currently working with physical therapy. The patient is answering questions appropriately. He has been quite cantankerous with the nursing staff. He does not want to follow directions. It is explained multiple times that getting up on his own is unsafe. 08/03/2019: Patient seen and examined. Patient is sitting up in the chair. His mood is improving today. His daughter is visiting. The patient states he still gets short of breath with exertion. He denies chest pain. Objective - Vital Signs Vital signs: Vital Signs Temp 98.1 F 10/04/18 12:00 Pulse 80 10/04/18 12:00 Resp 24 10/04/18 12:00 BP 120/63 10/04/18 12:00 Pulse Ox 96 10/04/18 12:00 Intake & Output 10/03/18 10/04/18 10/04/18 18:59 06:59 18:59 Intake Total 898 240 Output Total 575 350 Balance 323 -350 240 Weight 128.4 kg Intake: IV 78 Lactated Ringers 1,000 ml 60 @ 20 mls/hr IV .Q24H NANCY Rx#:[id number] Pressure bags 18 Oral 820 240 Output: Urine 575 350 Other: Voiding Method Bedside Commode Bedside Commode Toilet Urinal Urinal # Voids 1 2 3 # Bowel Movements 3 ABP, PAP, CO, CI - Last Documented Arterial Blood Pressure 137/75 Pulmonary Artery Pressure 30/9 Cardiac Output 6 Cardiac Index 2.4 - Exam GENERAL EXAM: Alert and oriented 3, no acute distress HEAD: Normocephalic. EYES: Normal reaction of pupils, equal size. NOSE: Clear with pink turbinates. THROAT: No erythema or exudates. NECK: No masses, no JVD. CHEST: No chest wall deformity. LUNGS: Equal air entry with no crackles, wheeze, rhonchi or dullness. Bases diminished CVS: S1 and S2 normal with no audible mumurs, regular rhythm. ABDOMEN: No hepatosplenomegaly, normal bowel sounds, no guarding or rigidity. EXTREMITIES: No edema noted, pedal pulses palpable. CENTRAL NERVOUS SYSTEM: No focal deficits, tone is normal in all 4 extremities. - Labs CBC & Chem 7: 10/04/18 05:45 10/04/18 05:45 Labs: Abnormal Lab Results - Last 24 Hours (Table) 10/03/18 10/03/18 10/04/18 Range/Units 16:41 20:46 02:25 RBC (4.30-5.90) m/uL Hgb (13.0-17.5) gm/dL Hct (39.0-53.0) % Plt Count (150-450) k/uL BUN (9-20) mg/dL Glucose (74-99) mg/dL POC Glucose (mg/dL) 151 H 154 H 170 H (75-99) mg/dL Total Bilirubin (0.2-1.3) mg/dL AST (17-59) U/L ALT (21-72) U/L Alkaline Phosphatase (38-126) U/L Total Protein (6.3-8.2) g/dL Albumin (3.5-5.0) g/dL 10/04/18 10/04/18 10/04/18 Range/Units 05:44 05:45 05:45 RBC 2.58 L (4.30-5.90) m/uL Hgb 8.3 L (13.0-17.5) gm/dL Hct 25.0 L (39.0-53.0) % Plt Count 104 L (150-450) k/uL BUN 32 H (9-20) mg/dL Glucose 162 H (74-99) mg/dL POC Glucose (mg/dL) 177 H (75-99) mg/dL Total Bilirubin 1.8 H (0.2-1.3) mg/dL AST 600 H (17-59) U/L ALT 627 H (21-72) U/L Alkaline Phosphatase 217 H (38-126) U/L Total Protein 5.2 L (6.3-8.2) g/dL Albumin 3.1 L (3.5-5.0) g/dL 10/04/18 Range/Units 12:09 RBC (4.30-5.90) m/uL Hgb (13.0-17.5) gm/dL Hct (39.0-53.0) % Plt Count (150-450) k/uL BUN (9-20) mg/dL Glucose (74-99) mg/dL POC Glucose (mg/dL) 166 H (75-99) mg/dL Total Bilirubin (0.2-1.3) mg/dL AST (17-59) U/L ALT (21-72) U/L Alkaline Phosphatase (38-126) U/L Total Protein (6.3-8.2) g/dL Albumin (3.5-5.0) g/dL Assessment and Plan Assessment: s/p CABG NSTEMI Possible early pneumonia, however less likely, more likely pulmonary vascular congestion and fluid overload Metabolic encephalopathy, resolved Systolic CHF, EF 25-30% Diabetes mellitus type 2 GERD Hypertension Hyperlipidemia Obstructive sleep apnea on CPAP Plan Chest x-ray reviewed Continue Haldol PRN and Seroquel Pain control Initiate and encourage incentive spirometer once patient is more alert Continue with pulmonary hygiene, coughing and deep breathing exercises, and supportive care. Supplemental oxygen to maintain oxygen saturations of 92% or better. PT and OT GI and DVT prophylaxis. Continue PT and OT, patient is progressing Per cardiology the patient needs a LifeVest Plan for discharge to inpatient rehab soon
[2018-10-04 17:40] LABS: Glucose,Whole Blood 166 mg/dL (75-99)
[2018-10-04] MEDS: SENNOSIDES-DOCUSATE SODIUM 1 EACH TAB PO SCH (20:38)
[2018-10-04 20:39] LABS: Glucose,Whole Blood 273 mg/dL (75-99)
[2018-10-05 02:06] LABS: Glucose,Whole Blood 120 mg/dL (75-99)
[2018-10-05] MEDS: HYDROcodone/APAP 5-325MG 1 EACH TAB PO PRN (04:42)
[2018-10-05 05:44] LABS: Glucose,Whole Blood 174 mg/dL (75-99)
[2018-10-05] MEDS: PANTOPRAZOLE 40 MG TABLET PO SCH (06:04)
[2018-10-05] MEDS: INSULIN ASPART (NovoLOG) 100 UNIT/ML VIAL SQ SCH ×2 (06:04→12:27)
[2018-10-05 06:13] LABS: HCT 25.3 % (39.0-53.0); HGB 8.3 gm/dL (13.0-17.5); Hypochromasia Slight; MCHC 32.9 g/dL (31.0-37.0); MCV 97.1 fL (80.0-100.0); Mean Platelet Volume 7.7; Platelet Count 134 k/uL (150-450); RBC 2.61 m/uL (4.30-5.90); RDW 13.7 % (11.5-15.5); WBC 8.1 k/uL (3.8-10.6)
[2018-10-05 06:23] LABS: ALT 462 U/L (21-72); AST 235 U/L (17-59); Alkaline Phosphatase 170 U/L (38-126); Anion Gap 6 mmol/L; Blood Urea Nitrogen 25 mg/dL (9-20); Calcium 9.1 mg/dL (8.4-10.2); Carbon Dioxide 25 mmol/L (22-30); Chloride 107 mmol/L (98-107); Glucose 155 mg/dL (74-99); Sodium 138 mmol/L (137-145); Total Bilirubin 1.6 mg/dL (0.2-1.3); Total Protein 5.2 g/dL (6.3-8.2)
--- NOTE | 2018-10-05 07:15 | XR ---
EXAMINATION TYPE: XR chest 2V DATE OF EXAM: 10/05/2018 COMPARISON: 10/04/2018 HISTORY: Status post cardiac surgery. Follow-up exam. TECHNIQUE: Frontal and lateral views of the chest are obtained. FINDINGS: There is an enlarged cardiac mediastinal silhouette with postoperative changes. No sizable pneumothorax or pleural effusion is seen. No pulmonary vascular congestion. Scattered platelike nitza pheral subsegmental atelectasis. Postsurgical changes of the left shoulder. IMPRESSION: Peripheral subsegmental platelike bilateral midlung atelectasis and postoperative change s of the chest with enlarged cardiac mediastinal silhouette.
--- NOTE | 2018-10-05 07:50 | P.PN ---
Subjective Progress Note Date: 10/05/18 Principal diagnosis: Non-STEMI, severe left ventricular dysfunction, acute systolic heart failure with EF 20-25 %, severe triple vessel coronary artery disease , severe aortic regurgitation with moderate aortic stenosis, bicuspid, heavily calcified aortic valve, previous medical history of morbid obesity, hypertension, hyperlipidemia , diabetes mellitus with hemoglobin A1c 7.5%, GERD, obstructive sleep apnea with CPAP use, and previous tobacco dependence with recent FEV1 80% of predicted , moderate restriction. POD #6 urgent triple coronary artery bypass grafting using the left internal mammary artery to the left anterior descending artery, the left radial artery taken as a Y graft from the left internal mammary artery to the first obtuse marginal artery, reverse saphenous vein graft from the aorta to the posterior descending artery. Aortic valve replacement using a 29 mm Magna Ease pericardial bioprosthesis. Endoscopic harvesting of the left radial artery. Endoscopic harvesting of the left greater saphenous vein from the groin to the knee level. Intraoperative transesophageal echocardiogram and epi-aortic scanning. Intraoperative graft flow measurements using the [employer] system. Postoperative acute blood loss anemia, an expected outcome of surgery given cardiopulmonary bypass pump and hemodilution. Postoperative thrombocytopenia, an unexpected outcome, HIT panel sent, negative. Postoperative transaminitis, unexpected, likely due to hypotension intra/post operative, resolving. Patient's currently sitting up in a recliner on the cardiac stepdown unit in no acute distress. Alert and oriented 4 with occasional visual disturbances. Does become anxious at times. Remains in sinus rhythm. Complains of postoperative incisional pain controlled on current medication regimen, occasional shortness of breath. Patient being weaned on his FiO2 requirements. Life vest being fitted this morning. Insurance authorization in progress for inpatient rehab. Objective - Vital Signs Vital signs: Vital Signs Temp 98 F 10/05/18 03:49 Pulse 79 10/05/18 03:49 Resp 18 10/05/18 03:49 BP 116/69 10/05/18 03:49 Pulse Ox 96 10/05/18 03:49 Intake & Output 10/04/18 10/05/18 10/05/18 18:59 06:59 18:59 Intake Total 240 480 Balance 240 480 Weight 128 kg Intake: Oral 240 480 Other: Voiding Method Toilet Toilet # Voids 3 1 # Bowel Movements 3 ABP, PAP, CO, CI - Last Documented Arterial Blood Pressure 137/75 Pulmonary Artery Pressure 30/9 Cardiac Output 6 Cardiac Index 2.4 - Constitutional General appearance: Present: cooperative, morbidly obese, no acute distress - Respiratory Details: Lungs sounds diminished bilaterally with coarse breath sounds in the bases. Respirations even, nonlabored. Currently on 4 L high flow nasal cannula with oxygen saturation 96%. Able to achieve 1250 mL on his incentive spirometry. Strong, productive cough. - Cardiovascular Details: S1, S2 present. Regular rate and rhythm, sinus rhythm on telemetry. Sternum stable. Palpable peripheral pulses bilaterally. Trace bilateral lower extremity edema present. No calf pain or tenderness noted. Heart hugger in place with patient occasionally demonstrating appropriate use. Antiembolism stockings, SCDs present, patient keeps taking them off. - Gastrointestinal Gastrointestinal Comment(s): Abdomen soft, nontender, nondistended, obese. Active bowel sounds present 4 quadrants. Tolerating diet. Positive bowel movement 10/04. - Genitourinary Genitourinary Comment(s): Patient continues to void clear yellow urine. - Integumentary Integumentary Comment(s): Skin is warm and dry with evidence of good perfusion. Anterior chest incision well approximated and covered with dry intact dressing. Left lower extremity EVH site well approximated with Dermabond. - Neurologic Neurologic: Present: CNII-XII intact - Musculoskeletal Musculoskeletal: Present: gait normal, generalized weakness, strength equal bilaterally - Psychiatric Psychiatric: Present: A&O x's 3, appropriate affect - Allied health notes Allied health notes reviewed: nursing - Labs CBC & Chem 7: 10/05/18 05:36 10/05/18 05:36 Labs: Abnormal Lab Results - Last 24 Hours (Table) 10/04/18 10/04/18 10/04/18 Range/Units 12:09 16:56 20:31 RBC (4.30-5.90) m/uL Hgb (13.0-17.5) gm/dL Hct (39.0-53.0) % Plt Count (150-450) k/uL BUN (9-20) mg/dL Glucose (74-99) mg/dL POC Glucose (mg/dL) 166 H 166 H 273 H (75-99) mg/dL Total Bilirubin (0.2-1.3) mg/dL AST (17-59) U/L ALT (21-72) U/L Alkaline Phosphatase (38-126) U/L Total Protein (6.3-8.2) g/dL Albumin (3.5-5.0) g/dL 10/05/18 10/05/18 10/05/18 Range/Units 02:02 05:28 05:36 RBC 2.61 L (4.30-5.90) m/uL Hgb 8.3 L (13.0-17.5) gm/dL Hct 25.3 L (39.0-53.0) % Plt Count 134 L (150-450) k/uL BUN (9-20) mg/dL Glucose (74-99) mg/dL POC Glucose (mg/dL) 120 H 174 H (75-99) mg/dL Total Bilirubin (0.2-1.3) mg/dL AST (17-59) U/L ALT (21-72) U/L Alkaline Phosphatase (38-126) U/L Total Protein (6.3-8.2) g/dL Albumin (3.5-5.0) g/dL 10/05/18 Range/Units 05:36 RBC (4.30-5.90) m/uL Hgb (13.0-17.5) gm/dL Hct (39.0-53.0) % Plt Count (150-450) k/uL BUN 25 H (9-20) mg/dL Glucose 155 H (74-99) mg/dL POC Glucose (mg/dL) (75-99) mg/dL Total Bilirubin 1.6 H (0.2-1.3) mg/dL AST 235 H (17-59) U/L ALT 462 H (21-72) U/L Alkaline Phosphatase 170 H (38-126) U/L Total Protein 5.2 L (6.3-8.2) g/dL Albumin 3.0 L (3.5-5.0) g/dL - Imaging and Cardiology Chest x-ray: report reviewed, image reviewed Assessment and Plan (1) Non-STEMI (non-ST elevated myocardial infarction) Current Visit: Yes Status: Acute Code(s): I21.4 - NON-ST ELEVATION (NSTEMI) MYOCARDIAL INFARCTION SNOMED Code(s): 08242538 (2) Acute systolic heart failure Current Visit: Yes Status: Acute Code(s): I50.21 - ACUTE SYSTOLIC ( CONGESTIVE) HEART FAILURE SNOMED Code(s): 914569229 (3) Severe aortic stenosis Current Visit: Yes Status: Acute Code(s): I35.0 - NONRHEUMATIC AORTIC (VALVE ) STENOSIS SNOMED Code(s): 87788563 (4) Severe aortic insufficiency Current Visit: Yes Status: Acute Code(s): I35.1 - NONRHEUMATIC AORTIC (VALVE ) INSUFFICIENCY SNOMED Code(s): 33574616 (5) Status post coronary artery bypass graft Current Visit: Yes Status: Acute Code(s): Z95.1 - PRESENCE OF AORTOCORONARY BYPASS GRAFT SNOMED Code(s): 358465487 (6) Status post aortic valve replacement Current Visit: Yes Status: Acute Code(s): Z95.2 - PRESENCE OF PROSTHETIC HEART VALVE SNOMED Code(s): 8918711531268 (7) Diabetes mellitus Current Visit: Yes Status: Chronic Code(s): E11.9 - TYPE 2 DIABETES MELLITUS WITHOUT COMPLICATIONS SNOMED Code(s): 05634230 (8) Hypertension Current Visit: Yes Status: Chronic Code(s): I10 - ESSENTIAL (PRIMARY) HYPERTENSION SNOMED Code(s): 10625994 (9) Hyperlipidemia Current Visit: Yes Status: Chronic Code(s): E78.5 - HYPERLIPIDEMIA, UNSPECIFIED SNOMED Code(s): 41525819 (10) Obstructive sleep apnea Current Visit: Yes Status: Chronic Code(s): G47.33 - OBSTRUCTIVE SLEEP APNEA (ADULT) (PEDIATRIC) SNOMED Code(s): 79194335 (11) Morbid obesity with BMI of 40.0-44.9, adult Current Visit: Yes Status: Chronic Code(s): E66.01 - MORBID (SEVERE) OBESITY DUE TO EXCESS CALORIES; Z68.41 - BODY MASS INDEX (BMI) 40.0-44.9, ADULT SNOMED Code(s): 763305638 (12) GERD (gastroesophageal reflux disease) Current Visit: Yes Status: Chronic Code(s): K21.9 - GASTRO-ESOPHAGEAL REFLUX DISEASE WITHOUT ESOPHAGITIS SNOMED Code(s): 462942488 Plan: 1. Continue low-dose aspirin, Plavix, beta irasema therapy, hydralazine, losartan. Life Vest being fitted this morning for impaired LV function with EF 25-30% postoperatively. 2. Statin on hold secondary to elevated liver enzymes, will resume once liver enzymes normalize. Zetia added per Dr. Arce. 3. Continue Norvasc for radial artery spasm. 4. Bronchodilators per pulmonology. 5. Wean O2 as tolerated. Encourage incentive spirometry use 10 times every hour while awake. Encourage continued smoking cessation. 6. Increase activity as tolerated. PT/OT/cardiac rehab following. 7. Will monitor daily labs and x-rays. Electrolyte replacement per protocol. No transfusion at this point. 8. Insulin management per primary care service. Patient needs tight blood sugar control. 9. Pain control current medication regimen. 10. GI prophylaxis with Protonix. DVT prophylaxis with Aritxra, SCDs. 11. Continue Seroquel. 12. Will discharged to inpatient rehab today once insurance authorization is obtained. 13. More recommendations to follow as patient progresses. Time with Patient: Greater than 30
[2018-10-05] MEDS: IPRATROPIUM-ALBUTEROL 3 ML NEB INHALATION SCH ×3 (08:11→15:54)
[2018-10-05] MEDS: QUEtiapine 25 MG TAB PO SCH (08:43)
[2018-10-05] MEDS: CLOPIDOGREL 75 MG TAB PO SCH (08:43)
[2018-10-05] MEDS: EZETIMIBE 10 MG TAB PO SCH (08:43)
[2018-10-05] MEDS: hydrALAZINE HCL 25 MG TAB PO SCH (08:43)
[2018-10-05] MEDS: ASPIRIN 81 MG PO SCH (08:43)
[2018-10-05] MEDS: METOPROLOL TARTRATE 25 MG TAB PO SCH (08:44)
[2018-10-05] MEDS: FONDAPARINUX 2.5 MG/0.5 ML SYRINGE SQ SCH (08:45)
[2018-10-05] MEDS ORDERED: SPIRONOLACTONE 25 MG TAB PO SCH (11:15)
--- NOTE | 2018-10-05 11:33 | PN ---
PROGRESS NOTE Mr. Kumar is a 58-year-old male who presented with an acute non ST-segment elevation myocardial infarction, was found to have severe cardiomyopathy, severe aortic regurgitation and stenosis as well as severe coronary artery disease. He underwent coronary bypass grafting and aortic valve replacement. He is doing well this morning. His breathing continues to be difficult at times but overall better. He is ambulating. He continued be in sinus mechanism. He has no chest discomfort. No dizziness. No palpitation. No syncope. He was fitted with a LifeVest because of the persistent cardiomyopathy. He has continued to be at this time on aspirin 81 mg daily, amlodipine 5 mg daily, Plavix 75 mg daily, Zetia 10 mg daily, hydralazine 25 mg twice a day, losartan 25 mg daily, metoprolol tartrate 25 mg twice a day. PHYSICAL EXAMINATION: Blood pressure 114/59 with a heart rate in the 80s. Lungs with mild decrease in breath sounds, no wheezes. HEART: Regular rate and rhythm, S1, S2. No S3 with a systolic murmur heard at the base. No diastolic murmur, no rub. ABDOMEN: Soft, obese, nontender. EXTREMITIES: 1+ edema. LAB DATA: Revealed BUN creatinine 25 and 0.92, potassium of 4.0, hemoglobin of 8.3. His liver function tests are improving. IMPRESSION: 1. Status post coronary artery bypass grafting, aortic valve replacement. 2. Severe ischemic cardiomyopathy. 3. Hypertension. 4. Hyperlipidemia. 5. Diabetes mellitus. 6. Obesity. RECOMMENDATION: From the cardiac standpoint, I will continue on the present regimen. I will add Aldactone to his regimen. Will follow his left ventricular systolic function as an outpatient and depending on the trend, the decision will be made regarding the need to undergo ICD implantation. MMODL / IJN: [id number] /
[2018-10-05 11:50] LABS: Glucose,Whole Blood 222 mg/dL (75-99)
[2018-10-05] MEDS: amLODIPine 5 MG TAB PO SCH (13:32)
[2018-10-05] MEDS: LOSARTAN 25 MG TAB PO SCH (13:32)
[2018-10-05 13:50] VITALS: BMI 40.4
--- NOTE | 2018-10-05 14:11 | P.PN ---
Subjective Progress Note Date: 10/05/18 This is a 58-year-old male patient of Dr. Duke. Patient presented to the emergency room with complaints of chest pain. Patient reports this chest pain has been occurring for over a year. Patient does report that since pain has significantly increased. With chest pain patient also experiences shortness of breath. She does have a past medical history of diverticulitis mellitus, GERD, hyperlipidemia, hypertension, osteoporosis, sleep apnea, seasonal ALLERGIES and ex-smoker. Patient states he quit in . EKG completed emergency room showing normal sinus rhythm, possible left atrial enlargement. Patient also reports that he had seen Dr. SAILAJA Bermeo for pulmonary due to increasing shortness of breath. Chest x-ray completed emergency room showing patchy perihilar and basal infiltrate noted. Correlate for underlying pneumonia. troponin 0.287. cardiology services have been consulted. At this time patient is resting comfortably bed. Patient denies any chest pain or shortness breath. Denies nausea vomiting or diarrhea. Patient denies any urinary burning or frequency. 09/24/2018 patient underwent cardiac catheterization today showing triple- vessel coronary disease. Severely impaired left ventricle systolic function with severe aortic stenosis. And mild pulmonary hypertension. Cardiology is recommending proceeding with evaluation for coronary artery bypass grafting and aortic valve replacement. And they have scheduled the patient for a VAISHNAVI. Is currently chest pain-free. He does report he gets pain with activity. Echo shows an EF of 25-30%. Creatinine is at 1.37. He did receive a dose of IV Lasix yesterday for BNP in the 5000. 09/25/2018 patient seen by cardiothoracic service. Cardiothoracic has ordered preoperative testing. He also recommending dental clearance consult has already been placed. Patient did have a VAISHNAVI today showing dilated left ventricle with severe global hypokinesis severe aortic regurgitation with moderate to severe aortic stenosis. Carotid Doppler was negative for any significant hemodynamic stenosis. Creatinine has decreased from 1.37-1.21. Blood sugar this morning was 147 blood sugar this afternoon 231. Glipizide 5 mg twice a day has been ordered. Patient remains in the ICU. Currently chest pain-free. Reports a small post bowel movement yesterday. Colace will be added. 09/26/2018 patient currently resting comfortably in bed. Patient status post tooth extraction with Dr. Amaral today. Blood sugars have improved. This time patient denies chest pain or shortness breath. Patient denies nausea vomiting or diarrhea. Patient denies any urinary burning or frequency. 09/27/2018 patient had shortness of breath and diaphoresis and some chest tightness with ambulating earlier this morning. Cardiology is aware. They recommend that patient remain in the hospital at this time. Patient had his tooth extracted yesterday. Denies any nausea or vomiting. Denies any bowel movement changes or urinary symptoms. Creatinine is up at 1.38. 09/28/2018 patient has had about 4 episodes of shortness of breath with chest pain and diaphoresis with activity and some at rest as well. He was given nitro that did help relieve symptoms. Cardiology is following closely as well as cardiothoracic team. The date of cardiac surgery will likely be sooner than Monday. Cardiology did start IV heparin drip yesterday. On 09/30/2018 patient was seen and examined in the ICU he is laying in bed he has BiPAP mask on he had episodes of agitation through the night blood pressure is marginal with mean blood pressure of around 55 patient denies any chest pain there is no fever or chills no headache or dizziness he has occasional cough no nausea or vomiting no abdominal pain no diarrhea and no urinary symptoms 10/01/2018. Patient was extubated yesterday and is currently on BiPAP mask. He had triple coronary artery bypass grafting and aortic valve replacement on . Patient is currently off the Levophed. He is still confused and agitated. He appears that he cannot comfortable. Seroquel was added to her [facility] thoracic team. Also patient is receiving pain medication. Radiology did increase the beta irasema for patient. Patient did have a temp of 100 and yesterday. Chest x-ray showing mild improving by basilar infiltrates. Hemoglobin is 7.0. Platelets are 82 and hit has been ordered. Creatinine has gone up to 2.13. Liver enzymes are elevated at AST is 3054 and ALT is 1289 total bili 1.9. Lipitor was discontinued antibiotics discontinued. Patient was given a dose of IV Lasix per cardiothoracic team. 10/02/2018 patient currently on nasal cannula and off of the BiPAP. Had one chest tube removed and Villa catheter removed today. He was able to work with physical therapy and get out of bed and take a few steps to the bedside chair. He did have a low-grade temp of 100.2. Creatinine has decreased from 2.13- 1.88. Chest x-ray showing mild peripheral vascular congestion. He is receiving IV Lasix. Subcu heparin discontinued and patient started on Arixtra. His hospital delirium is showing improvement.'s less confused today. Less agitated today. Hemoglobin is 7 and platelets 52 On 10/03/2018 patient is currently on 2 L nasal cannula. Patient remains slightly less confused today. Patient up walking with nursing staff. Hemoglobin 7.0. Creatinine improving to 1.34. Liver enzymes also trending down. Seroquel has been increased per cardiothoracic team. At this time she is complaining of shortness of breath post ambulation. Patient denies nausea vomiting or diarrhea. Patient denies any urinary burning or frequency 10/04/2018 repeat echo shows an EF of 25-30%. Cardiology is following and they' re checking into a possible LifeVest for patient. Chest x-ray negative. Patient did receive a dose of IV Lasix yesterday. Cardiology is also added hydralazine for blood pressure control and Zetia for cholesterol. Patient still having very short of breath with activity. On 2 L nasal cannula satting at 96%. Patient denies any chest pain. Denies any nausea or vomiting. Reports having bowel movements. Denies any difficulty urinating. 10/05/2018 patient had LifeVest placed today. Still having shortness of breath with activity. Denies chest pain. It does not qualify for home O2. Patient denies any nausea or vomiting. Reports having bowel movements. Denies any difficulty urinating. Awaiting insurance authorization for inpatient rehab at [facility] Objective - Vital Signs Vital signs: Vital Signs Temp 98.1 F 10/05/18 12:00 Pulse 83 10/05/18 13:28 Resp 20 10/05/18 13:28 BP 126/73 10/05/18 13:28 Pulse Ox 96 10/05/18 13:28 Intake & Output 10/04/18 10/05/18 10/05/18 18:59 06:59 18:59 Intake Total 240 480 230 Balance 240 480 230 Weight 128 kg 128 kg Intake: Oral 240 480 230 Other: Voiding Method Toilet Toilet Toilet # Voids 3 1 4 # Bowel Movements 3 ABP, PAP, CO, CI - Last Documented Arterial Blood Pressure 137/75 Pulmonary Artery Pressure 30/9 Cardiac Output 6 Cardiac Index 2.4 - Exam Head normocephalic Neck supple Lungs Heart regular rate and rhythm S1-S2, no rub or gallop positive murmur. Abdomen is soft nontender nondistended positive bowel sounds no hepatosplenomegaly Extremities trace edema bilaterally Neuro alert and orientated to 3 - Labs CBC & Chem 7: 10/05/18 05:36 10/05/18 05:36 Labs: Abnormal Lab Results - Last 24 Hours (Table) 10/04/18 10/04/18 10/05/18 Range/Units 16:56 20:31 02:02 RBC (4.30-5.90) m/uL Hgb (13.0-17.5) gm/dL Hct (39.0-53.0) % Plt Count (150-450) k/uL BUN (9-20) mg/dL Glucose (74-99) mg/dL POC Glucose (mg/dL) 166 H 273 H 120 H (75-99) mg/dL Total Bilirubin (0.2-1.3) mg/dL AST (17-59) U/L ALT (21-72) U/L Alkaline Phosphatase (38-126) U/L Total Protein (6.3-8.2) g/dL Albumin (3.5-5.0) g/dL 10/05/18 10/05/18 10/05/18 Range/Units 05:28 05:36 05:36 RBC 2.61 L (4.30-5.90) m/uL Hgb 8.3 L (13.0-17.5) gm/dL Hct 25.3 L (39.0-53.0) % Plt Count 134 L (150-450) k/uL BUN 25 H (9-20) mg/dL Glucose 155 H (74-99) mg/dL POC Glucose (mg/dL) 174 H (75-99) mg/dL Total Bilirubin 1.6 H (0.2-1.3) mg/dL AST 235 H (17-59) U/L ALT 462 H (21-72) U/L Alkaline Phosphatase 170 H (38-126) U/L Total Protein 5.2 L (6.3-8.2) g/dL Albumin 3.0 L (3.5-5.0) g/dL 10/05/18 Range/Units 11:37 RBC (4.30-5.90) m/uL Hgb (13.0-17.5) gm/dL Hct (39.0-53.0) % Plt Count (150-450) k/uL BUN (9-20) mg/dL Glucose (74-99) mg/dL POC Glucose (mg/dL) 222 H (75-99) mg/dL Total Bilirubin (0.2-1.3) mg/dL AST (17-59) U/L ALT (21-72) U/L Alkaline Phosphatase (38-126) U/L Total Protein (6.3-8.2) g/dL Albumin (3.5-5.0) g/dL Assessment and Plan Assessment: 1. Chest pain with non-ST elevated myocardial infarction present on admission. Status post heart catheterization with triple-vessel disease and severe aortic stenosis. Echo shows an EF of 25-30%. Status post coronary artery bypass graft and aortic valve replacement on 09/29/2018. Repeat echo showed showing EF of 25-30%. Patient had LifeVest in place 2. Pneumonia ruled out. completed showing patchy perihilar and basal infiltrate noted. Antibiotics discontinued. Pulmonary service felt likely patient's symptoms were due to pulmonary vascular congestion and less likely pneumonia 3. Diabetes mellitus type 2. A1c is 7.5. Continue sliding coverage. Resume patient's home Amaryl 4 mg before breakfast and 2 mg before supper 4. History of GERD 5. History of essential hypertension. 6. History of hyperlipidemia 7. History of osteoarthritis 8. History of sleep apnea. Patient reports he wears CPAP machine 9. History of seasonal ALLERGIES. 10. Acute kidney injury: Kidney function some improvement. Creatinine is 1.05 11. Tooth abscess. #18 surgical extraction of erupted tooth per Dr. Amaral on 09/26/2018 patient started on Penicillin VK. 12. Expected acute blood loss Anemia secondary to surgery. Hemoglobin is 7.0. Continue to monitor hemoglobin 13. Thrombocytopenia: HIT test negative. Cardiothoracic did discontinue the subcu heparin and added Arixtra. Continue to monitor platelets 14. Elevated LFTs possibly related to fluid congestion, medications or shocked liver due to hypotension.. Patient was given Lasix. Also Lipitor and Tylenol have been discontinued. LFTs are trending down 15. Awaiting insurance authorization for possible inpatient rehab at [facility] DVT prophylaxis subcu heparin I performed an examination of the patient and discussed their management with the physician Pad Machine Operator. I have reviewed the Physician Pad Machine Operator's notes and agree with the documented findings and plan of care
[2018-10-05 15:58] VITALS: RESP 18
--- NOTE | 2018-10-05 16:21 | P.DS ---
Providers Date of admission: 09/23/18 11:13 Expected date of discharge: 10/05/18 Attending physician: Sil Alejandre Consults: 09/23/18 10:06 Consult Physician Routine Consulting Provider: Dioni Arce Consult Reason/Comments: unstable angina Do you want consulting provider notified?: Yes 09/23/18 12:40 Consult Physician Routine Consulting Provider: Cam Bermeo Consult Reason/Comments: Previous patient. Possible pneumonia Do you want consulting provider notified?: Yes 09/24/18 15:27 Consult to Anesthesia Routine Consulting Provider: Anesthesia,Services Consult Reason/Comments: Cardiac Surgery Pre-Op 09/25/18 07:19 Consult Physician Routine Consulting Provider: Sil Alejandre Consult Reason/Comments: cabg Do you want consulting provider notified?: Already Contacted 09/25/18 08:19 Consult Physician Routine Consulting Provider: Mare Gilbert Consult Reason/Comments: dental clearence for valve surgery Do you want consulting provider notified?: Yes 09/29/18 17:26 Consult Physician Routine Consulting Provider: Chelo Potts Consult Reason/Comments: med mgmt Do you want consulting provider notified?: Already Contacted 10/03/18 14:26 Consult Physician Routine Consulting Provider: Hemant Tucker Consult Reason/Comments: inpatient rehab Do you want consulting provider notified?: Yes Primary care physician: Ro [facility] Course: FINAL DIAGNOSIS: 1. Non-STEMI 2. Severe left ventricular dysfunction, acute systolic heart failure with EF 20 -25% 3. Severe triple-vessel coronary artery disease 4. Severe aortic regurgitation with moderate aortic stenosis 5. Bicuspid, heavily calcified aortic valve 6. Morbid obesity 7. Hypertension 8. Hyperlipidemia 9. Diabetes mellitus with preoperative hemoglobin A1c 7.5% 10. GERD 11. Obstructive sleep apnea with CPAP use 12. Previous tobacco dependence with recent FEV1 80% of predicted, moderate restriction 13. Postoperative acute blood loss anemia 14. Postoperative thrombocytopenia. 15. Postoperative transaminitis PRINCIPAL PROCEDURE: 1. Left heart catheterization 2. Surgical extraction of erupted tooth 3. Urgent triple coronary artery bypass grafting using the left internal mammary artery to the left anterior descending artery, the left radial artery taken as a Y graft from the left internal mammary artery to the first obtuse marginal artery, reverse saphenous vein graft from the aorta to the posterior descending artery 4. Aortic valve replacement using a 29 mm Magna Ease pericardial bioprosthesis 5. Endoscopic harvesting of the left radial artery 6. Endoscopic harvesting of the left greater saphenous vein from the groin to the knee level 7. Intraoperative transesophageal echocardiogram and epi-aortic scanning 8. Intraoperative graft flow measurements using the [employer] system HISTORY OF PRESENT ILLNESS: This is a 59-year-old active gentleman who follows on an outpatient basis with Dr. Ro Duke. He presented to [facility] emergency room with complaints of shortness of breath and chest pain which he described as exertional dyspnea for the previous year, especially in the cold weather. Since he had noticed his dyspnea had begun to occur even with minimal activity and he had chest tightness radiating across his entire chest. He had followed on an outpatient basis with Dr. SAILAJA Bermeo for shortness of breath, CT scan demonstrated moderate coronary artery calcification. Chest x-ray completed in the emergency room demonstrated patchy perihilar and basilar infiltrates, questionable pneumonia and he was placed on IV ceftriaxone and Zithromax per primary care service. EKG was performed demonstrating normal sinus rhythm with possible left atrial enlargement and nonspecific ST-T-wave changes. Troponins were drawn and were slightly elevated , the patient was ruled in for non-STEMI. BNP was also elevated at 5280. He was admitted for evaluation and treatment. Transthoracic echocardiogram was completed demonstrating dilated left ventricle with severe global hypokinesis and impaired function with EF 25-30%, dilated left atrium, thickened aortic valve with moderate to severe aortic regurgitation and severe aortic stenosis with peak/mean gradient 54.2 mmHg/36.41 mmHg, mild mitral regurgitation, and mild tricuspid regurgitation. He underwent heart catheterization which demonstrated triple-vessel coronary artery disease with 76% stenosis of the LAD after the first diagonal branch, obtuse marginal branch of the left circumflex was 78% stenosis, mid RCA with long tubular lesion 95-99%, and LV gram completed demonstrating ejection fraction 20-25%. In addition he had a transesophageal echocardiogram confirming left atrial dilatation, left ventricular dilatation with severe global hypokinesis and ejection fraction 20- 25%, bicuspid aortic valve with a raphe, severe aortic stenosis with mitral valve area measuring 1.4 cm and peak/mean gradient 51 mmHg/39 mmHg with severe aortic regurgitation, mild mitral and tricuspid regurgitation. The patient was referred to Dr. Alejandre from cardiothoracic surgery. He was recommended to undergo urgent coronary artery bypass graft surgery as well as bioprosthetic aortic valve replacement. The usual perioperative course was discussed in detail with the patient and his family, all risks and benefits were explained, all questions were answered, and consent was obtained to proceed with surgery. Dental clearance was obtained in the hospital after extraction of abscessed tooth. The patient was kept inpatient due to the urgent nature of his disease process. HOSPITAL COURSE: The patient was brought to the preoperative area on 09/29/2018, prepared in the usual fashion, and subsequently taken to the operating room where Dr. Alejandre performed urgent triple coronary artery bypass grafting using the left internal mammary artery to the left anterior descending artery, the left radial artery taken as a Y graft from the left internal mammary artery to the first obtuse marginal artery, reverse saphenous vein graft from the aorta to the posterior descending artery 4. Aortic valve replacement using a 29 mm Magna Ease pericardial bioprosthesis , endoscopic harvesting of the left radial artery, endoscopic harvesting of the left greater saphenous vein from the groin to the knee level, intraoperative transesophageal echocardiogram and epi-aortic scanning, intraoperative graft flow measurements using the [employer] system. Upon completion of surgery the patient was transferred to the cardiovascular intensive care unit where he was recovered, monitored hemodynamically, and where he progressed to cardiac rehabilitation phase 1. He was extubated, all lines, tubes, and drips were discontinued when appropriate. He did develop postoperative transaminitis which was thought to be due to hypotension immediately postoperatively, and liver enzymes continued to trend downward. Eventually he was transferred to 3 S. cardiac stepdown unit for further monitoring and rehabilitation. His oxygen was titrated down, he continued to work with physical and occupational therapy, he was tolerating oral diet, his pain was controlled, and he was ready to be discharged to home with [facility] on postoperative day #6. He received written and verbal instruction regarding his medications, activity restrictions , signs and symptoms requiring physician notification, and follow-up appointments. He was not discharged on statin medication secondary to his elevated liver enzymes, however he was placed on Zetia. Statins can be reintroduced once liver enzymes have returned to normal. Due to follow-up transthoracic echocardiogram demonstrating impaired left ventricular function with EF 25-30% a LifeVest was placed on the patient per cardiology. He still complained of expected shortness of breath despite normal oxygenation, and a nebulizer was prescribed at discharge. COMPLICATIONS: The patient experienced postoperative acute blood loss anemia and thrombocytopenia as well as transaminitis, all treated accordingly. Patient Condition at Discharge: Stable Plan - Discharge Summary Discharge Rx Participant: No New Discharge Prescriptions: New amLODIPine [Norvasc] 5 mg PO DAILY@1200 #30 tab Aspirin 81 mg PO DAILY #30 chew Clopidogrel [Plavix] 75 mg PO DAILY #30 tab Ezetimibe [Zetia] 10 mg PO DAILY #30 tab hydrALAZINE HCL [Apresoline] 25 mg PO BID #60 tab HYDROcodone/APAP 5-325MG [Kirby 5-325] 1 each PO Q6HR PRN #30 tab PRN Reason: Moderate Pain Ipratropium-Albuterol Nebulize [Duoneb 0.5 mg-3 mg/3 ml Soln] 3 ml INHALATION RT-QID #120 ampul.neb Losartan [Cozaar] 25 mg PO DAILY #30 tab Metoprolol Tartrate [Lopressor] 25 mg PO BID #60 tab Pantoprazole [Protonix] 40 mg PO AC-BRKFST #30 tablet. QUEtiapine [SEROquel] 25 mg PO BID #60 tab Sennosides-Docusate Sodium [Senokot-S] 2 each PO HS #14 tab Spironolactone [Aldactone] 25 mg PO DAILY #30 tab Empagliflozin [Jardiance] 25 mg PO DAILY #30 tablet Continue Multivitamins, Thera [Multivitamin (formulary)] 1 tab PO BID Glimepiride [Amaryl] 2 mg PO HS #30 tab Glimepiride [Amaryl] 4 mg PO DAILY #30 tablet metFORMIN HCL [Glucophage] 500 mg PO BID #60 tab Discontinued Canagliflozin [Invokana] 300 mg PO HS Losartan Potassium 100 mg PO QAM Omeprazole [PriLOSEC] 20 mg PO BID amLODIPine [Norvasc] 10 mg PO DAILY Fenofibrate 160 mg PO DAILY Dulaglutide [Trulicity] 1.5 mg SQ HARRISON Discharge Medication List Multivitamins, Thera [Multivitamin (formulary)] 1 tab PO BID 09/23/18 [History] Aspirin 81 mg PO DAILY #30 chew 10/05/18 [Rx] Clopidogrel [Plavix] 75 mg PO DAILY #30 tab 10/05/18 [Rx] Empagliflozin [Jardiance] 25 mg PO DAILY #30 tablet 10/05/18 [Rx] Ezetimibe [Zetia] 10 mg PO DAILY #30 tab 10/05/18 [Rx] Glimepiride [Amaryl] 2 mg PO HS #30 tab 10/05/18 [Rx] Glimepiride [Amaryl] 4 mg PO DAILY #30 tablet 10/05/18 [Rx] HYDROcodone/APAP 5-325MG [Kirby 5-325] 1 each PO Q6HR PRN #30 tab 10/05/18 [Rx] Ipratropium-Albuterol Nebulize [Duoneb 0.5 mg-3 mg/3 ml Soln] 3 ml INHALATION RT -QID #120 ampul.neb 10/05/18 [Rx] Losartan [Cozaar] 25 mg PO DAILY #30 tab 10/05/18 [Rx] Metoprolol Tartrate [Lopressor] 25 mg PO BID #60 tab 10/05/18 [Rx] Pantoprazole [Protonix] 40 mg PO AC-BRKFST #30 tablet.dr 10/05/18 [Rx] QUEtiapine [SEROquel] 25 mg PO BID #60 tab 10/05/18 [Rx] Sennosides-Docusate Sodium [Senokot-S] 2 each PO HS #14 tab 10/05/18 [Rx] Spironolactone [Aldactone] 25 mg PO DAILY #30 tab 10/05/18 [Rx] amLODIPine [Norvasc] 5 mg PO DAILY@1200 #30 tab 10/05/18 [Rx] hydrALAZINE HCL [Apresoline] 25 mg PO BID #60 tab 10/05/18 [Rx] metFORMIN HCL [Glucophage] 500 mg PO BID #60 tab 10/05/18 [Rx] Follow up Appointment(s)/Referral(s): Roselia Tilley NPC [Nurse Practitioner] - 10/10/18 3:00 pm Dioni Arce MD [STAFF PHYSICIAN] - 10/16/18 9:30 am Sil Alejandre MD [STAFF PHYSICIAN] - 10/26/18 10:45 am [facility] [NON-STAFF] - [facility], [NON-STAFF] - Ro Duke DO [Primary Care Provider] - 10/16/18 11:15 am Cam Bermeo MD [STAFF PHYSICIAN] - 10/18/18 2:30 pm Ambulatory/Diagnostic Orders: Complete Blood Count w/diff [LAB.AMB] Time Frame: 3 Days, Location: None Selected Comprehensive Metabolic Panel [LAB.AMB] Time Frame: 3 Days, Location: None Selected Activity/Diet/Wound Care/Special Instructions: DISCHARGE INSTRUCTIONS: 1. No driving for 4 weeks, or until physician gives their ok. 2. The patient should sleep in their own bed, no medical bed needed. 3. Stairs are not an issue. If the bedroom is upstairs, it is advised that the patient go up at night and down in the morning for the first week. Go slowly, using handrail and take 1 step at a time. 4. JUWAN hose are to be worn for 30 days or until physician discontinues. 5. Heart hugger is to be worn 100% of the time until physician discontinues.( except when showering) 6. No lifting, pushing, or pulling more than 10 pounds for 12 weeks. The physician will advise of any restriction changes. 7. The patient is expected to continue the prescribed walking program. 8. Continue pain control per as needed orders. 9. Continue with incentive spirometry and splinting/heart hugger until otherwise directed by the physician. 10. Must shower daily using liquid antibacterial soap and a separate white washcloth for each individual incision. 11. Routine sternal incision care. No powders, lotions, ointments on incisions. 12. Please call surgeon/ASSISTANT BASEBALL COACH for temp greater than 101 F or purulent drainage from incisions. 13. Narcotic medications were discussed with the patient, including the potential for misuse, addiction, and abuse. Opiod Start Talking form was reviewed with the patient. 14. All prescriptions given by surgeon for 30 days. Refills need to be filled through ground support equipment assembler/primary care physician. 15. A Red armband has been placed on the patient. It should be worn for 30 days post surgery and will be removed by the cardiac surgeons. If an ER visit is necessary, please make sure the number on the Red armband is called. HOME HEALTH SERVICES TO PROVIDE: RN SKILLED HOME CARE SERVICES FOR POST-OP SURGICAL PATIENTS WITH THE FOLLOWING: Coronary Artery Bypass Surgery (CABG), Mitral Valve Replacement/ Repair ( MVR), Aortic Valve Replacement/Repair (AVR) RN TO CONTINUE EDUCATION FROM ``ROAD TO A HEALTH HEART PATIENT EDUCATION MANUAL (GIVEN TO PATIENT IN THE HOSPITAL) MEDICATION RECONCILIATION WITH EDUCATION NEEDED ON FIRST HOME VISIT EMPHASIZE IMPORTANCE OF WEARING BREAST SUPPORT/HEART HUGGER ENCOURAGE USE OF INCENTIVE SPIROMETER 10 X EVERY HOUR WHILE AWAKE ENCOURAGE UTILIZATION OF LOWER EXTREMITY COMPRESSION STOCKINGS/JUWAN HOSE and ELEVATE LEGS ABOVE LEVEL OF HEART WHILE AT REST. ENCOURAGE AMBULATION 3-5x/day INCREASING TOLERATES, WHILE AVOID EXTREMES IN TEMPERATURE FREQUENCY: RN TO OPEN THE PATIENT WITHIN 24 HOURS OF DISCHARGE FROM HOSPITAL WITH TELEHEALTH INSTALLED AT [facility], RN TO VISIT 2-3 X A WEEK FOR 4 WEEKS ESTABLISHED BY PATIENT NEEDS. LABORATORY: CBC, CMP TO BE DRAWN 3 DAYS POST DISCHARGE, 10/08/18, (RAN STAT) FAX RESULTS TO [phone]. TELEHEALTH PARAMETERS: WEIGHT: NOTIFY MD OF WEIGHT GAIN OF 2 LBS IN 24 HOURS OR 5 LBS IN ONE WEEK HR: NOTIFY MD OF HR <55 BPM OR HR>100 BPM BP: NOTIFY MD IF BP <90/55 OR BP>140/100 O2 SAT: NOTIFY MD IF PO2<93% ON ROOM AIR SEND TELEHEALTH REPORT TO STRATEGIC CLIENT EXECUTIVE AND CARDIOVASCULAR SURGEON THE FIRST WEEK OF CARE AND THEN BI-WEEKLY. PLEASE ADDITIONALLY COMMUNICATE ANY ABNORMALS AND NEW FINDINGS TO THE SURGEONS OFFICE. Discharge Disposition: HOME WITH HOME HEALTH SERVICES
[2018-10-05 16:22] VITALS: BP 108/56; PULSE 86; TEMP 98.4
[2018-10-05] MEDS ORDERED: GLIMEPIRIDE 2 MG TAB PO SCH (17:30)
--- NOTE | 2018-10-05 17:51 | PN ---
PROGRESS NOTE DATE OF SERVICE: 10/05/2018 The patient is a 58-year-old male who is seen sitting up in a chair. He is status post CABG and valve replacement. The patient is awake, alert. The plan it appears is for patient to go home today and possibly going to an inpatient rehab next week. The patient is afebrile, hemodynamically stable, in no acute distress. PHYSICAL EXAM: Vital signs: Temp is 98.1, heart rate is 83, respiratory rate is 18, blood pressure is 126/73, O2 sats 97% on 5 L O2 via nasal cannula. HEENT: Head is normocephalic, atraumatic. Neck is supple. Trachea is midline. LUNGS: With diminished breath sounds. No clear rales or wheezes. Heart S1, S2 heard. Not tachycardic. ABDOMEN: Soft, obese. Bowel sounds are heard. EXTREMITIES: With 2+ edema bilaterally. NEUROLOGIC: Patient is awake and alert. LABS: White count is 8.1, hemoglobin is 8.3, hematocrit 25.3 with 134,000 platelets. Sodium is 138, potassium is 4.0, chloride is 107, CO2 is 25, anion gap is 6, BUN is 25, creatinine 0.92, glucose is 155, calcium is 9.1, total bilirubin is 1.6, AST is 235, ALT is 462, alkaline phosphatase is 170, total protein is 5.2, albumin is 3.0. IMAGING: Chest x-ray this a.m. shows peripheral subsegmental platelike bilateral midlung atelectasis and postoperative changes of the chest with a large cardiac mediastinal silhouette. IMPRESSION: 1. Status post coronary artery bypass graft and valve replacement. 2. Metabolic encephalopathy, resolved. 3. Systolic congestive heart failure, ejection [id number] percent. 4. Diabetes mellitus type 2. 5. Gastroesophageal reflux disease. 6. Hypertension. 7. Hyperlipidemia. 8. Obstructive sleep apnea on CPAP. PLAN: Continue current medications which have been reviewed. Continue to encourage incentive spirometry, pulmonary hygiene, coughing and deep breathing exercises. Continue supplemental oxygen to maintain sats greater than 92%. Continue PT and OT. Continue GI and DVT prophylaxis. Continue life vest per Cardiology and agree with plan for discharge to inpatient rehab as soon as a bed is available. I performed a History & Physical Examination of the patient and discussed their management with nurse practitioner. I reviewed the nurse practitioner's note and agree with the documented findings and plan of care. MMCHANDRAL / KISHAN: [id number] /
[2018-10-06] MEDS ORDERED: GLIMEPIRIDE 4 MG TAB PO SCH (07:30)
== END 2018-10-05 18:54 | disposition home health service (06) | DRG 216 ==
LOC: EC 07:31 → 3SCARD 11:13 → 2SICU 11:29 → 3SCARD 09-26 19:38 → 2SICU 09-29 06:55 → 3SCARD 10-03 10:25
PROVIDERS: ADMIT Surgery; ATTEND Surgery
PROC: B44HZZZ Ultrasonography of Bilateral Lower Extremity Arteries (ICD-10-PCS; 2018-09-24)
PROC: 4A023N6 Measurement of Cardiac Sampling and Pressure, Right Heart, Percutaneous Approach (ICD-10-PCS; 2018-09-24)
PROC: B2101ZZ Fluoroscopy of Single Coronary Artery using Low Osmolar Contrast (ICD-10-PCS; 2018-09-24)
PROC: B2151ZZ Fluoroscopy of Left Heart using Low Osmolar Contrast (ICD-10-PCS; 2018-09-24)
PROC: B246ZZ4 Ultrasonography of Right and Left Heart, Transesophageal (ICD-10-PCS; 2018-09-25)
PROC: B34KZZZ Ultrasonography of Bilateral Upper Extremity Arteries (ICD-10-PCS; 2018-09-25)
PROC: 0CTX0Z0 Resection of Lower Tooth, Single, Open Approach (ICD-10-PCS; 2018-09-26)
PROC: 02100A9 Bypass Coronary Artery, One Artery from Left Internal Mammary with Autologous Arterial Tissue, Open Approach (ICD-10-PCS; 2018-09-29)
PROC: 06BQ4ZZ Excision of Left Saphenous Vein, Percutaneous Endoscopic Approach (ICD-10-PCS; 2018-09-29)
PROC: 5A09457 Assistance with Respiratory Ventilation, 24-96 Consecutive Hours, Continuous Positive Airway Pressure (ICD-10-PCS; 2018-09-29)
PROC: B246ZZ4 Ultrasonography of Right and Left Heart, Transesophageal (ICD-10-PCS; 2018-09-29)
PROC: 5A1221Z Performance of Cardiac Output, Continuous (ICD-10-PCS; 2018-09-29)
PROC: 30233N0 Transfusion of Autologous Red Blood Cells into Peripheral Vein, Percutaneous Approach (ICD-10-PCS; 2018-09-29)
PROC: 02RF08Z Replacement of Aortic Valve with Zooplastic Tissue, Open Approach (ICD-10-PCS; principal; 2018-09-29 08:30)
PROC: 02100Z9 Bypass Coronary Artery, One Artery from Left Internal Mammary, Open Approach (ICD-10-PCS; 2018-09-29 08:30)
PROC: 021009W Bypass Coronary Artery, One Artery from Aorta with Autologous Venous Tissue, Open Approach (ICD-10-PCS; 2018-09-29 08:30)
DX: I21.4 Non-ST elevation (NSTEMI) myocardial infarction (principal); I50.21 Acute systolic (congestive) heart failure; J96.01 Acute respiratory failure with hypoxia; K72.00 Acute and subacute hepatic failure without coma; G93.41 Metabolic encephalopathy; N17.9 Acute kidney failure, unspecified; Z68.41 Body mass index [BMI] 40.0-44.9, adult; Q23.1 Congenital insufficiency of aortic valve; D62 Acute posthemorrhagic anemia; F05 Delirium due to known physiological condition; E66.01 Morbid (severe) obesity due to excess calories; D69.59 Other secondary thrombocytopenia; I95.9 Hypotension, unspecified; I27.20 Pulmonary hypertension, unspecified; E11.65 Type 2 diabetes mellitus with hyperglycemia; I08.3 Combined rheumatic disorders of mitral, aortic and tricuspid valves; I11.0 Hypertensive heart disease with heart failure; I25.5 Ischemic cardiomyopathy; I25.110 Atherosclerotic heart disease of native coronary artery with unstable angina pectoris; K04.6 Periapical abscess with sinus; F41.0 Panic disorder [episodic paroxysmal anxiety]; I44.7 Left bundle-branch block, unspecified; K21.9 Gastro-esophageal reflux disease without esophagitis; G47.33 Obstructive sleep apnea (adult) (pediatric); E78.5 Hyperlipidemia, unspecified; K80.20 Calculus of gallbladder without cholecystitis without obstruction; M19.90 Unspecified osteoarthritis, unspecified site; M81.0 Age-related osteoporosis without current pathological fracture; J30.2 Other seasonal allergic rhinitis; M54.5 Low back pain; Z91.11 Patient's noncompliance with dietary regimen; Z71.3 Dietary counseling and surveillance; Z79.84 Long term (current) use of oral hypoglycemic drugs; Z79.899 Other long term (current) drug therapy; Z87.19 Personal history of other diseases of the digestive system; Z87.891 Personal history of nicotine dependence; Z96.653 Presence of artificial knee joint, bilateral; Z99.89 Dependence on other enabling machines and devices; Z88.8 Allergy status to other drugs, medicaments and biological substances; Z83.3 Family history of diabetes mellitus; Z82.49 Family history of ischemic heart disease and other diseases of the circulatory system
CPT/HCPCS: 36410; 36415; 70486; 71045; 71046; 76937; 80048; 80053; 80061; 80074; 81003; 82140; 82330; 82550; 82553; 82803; 82805; 82810; 83036; 83605; 83735; 83880; 84132; 84443; 84484; 85018; 85025; 85027; 85379; 85520; 85610; 85730; 86022; 86850; 86891; 86900; 86901; 86920; 87070; 87086; 88305; 88311; 93005; 93306; 93312; 93320; 93325; 93460; 93880; 93923; 93930; 93970; 94002; 94003; 94640; 94660; 94760; 96365; 96366; 96376; 99285

== ENCOUNTER → 2019-02-04 | Outpatient (CLI) | payer BC ==
[2019-02-04 16:34] LABS: LDL Cholesterol,Calculated 88.6 mg/dL (0.0-131.0); VLDL Calculation 75.4 mg/dL (5.00-40.00)
== END | disposition home or self-care (01) ==
LOC: LABWHC1 10:15
PROVIDERS: ATTEND Nurse Practitioner Adult Health
DX: E78.2 Mixed hyperlipidemia (principal)
CPT/HCPCS: 36415; 80061; 84450; 84460

== ENCOUNTER → 2020-01-20 | Outpatient (CLI) | payer MEDICAID ==
--- NOTE | 2020-01-20 13:16 | CT ---
EXAMINATION TYPE: CT chest wo con DATE OF EXAM: 01/20/2020 COMPARISON: 09/19/2018 HISTORY: Moderate persistent asthma, uncomplicated CT DLP: 735.4 mGycm. Automated Exposure Control for Dose Reduction was Utilized. TECHNIQUE: CT scan of the thorax is performed without IV contrast. FINDINGS: LUNGS: The lungs are grossly clear, there is no concerning parenchymal mass or nodule identified. The re are scattered bullae and blebs. Minimal left basilar subsegmental atelectasis. There is no pleura l effusion or pneumothorax seen. The tracheobronchial tree is patent. MEDIASTINUM: Lack of IV contrast is noted to limit evaluation for mediastinal and especially hilar ad enopathy. Post-CABG changes of the mediastinum and sternum. Aortic valvular replacement seen. Main pu lmonary artery and thoracic aorta are within normal limits of size. Ascending thoracic aorta measures 3.8 cm. There are no definitive greater than 1 cm hilar or mediastinal lymph nodes. No cardiomegal y or pericardial effusion is seen. OTHER: Lamellated gallstones are seen within the gallbladder. Few colonic diverticula are seen withou t pericolonic fat stranding. Nonobstructing 3 mm left renal calculus noted. Pancreatic calcifications indicative of chronic pancreatitis. No peripancreatic fat stranding. Few nonenlarged central mesente vernell lymph nodes seen. Mild multilevel degenerative change of the spine. IMPRESSION: Scattered bulla and blebs in this patient with known asthma. Minimal left basilar subsegm ental atelectasis. No acute pulmonary process seen.
== END | disposition home or self-care (01) ==
LOC: RADCTMAIN 12:33
PROVIDERS: ATTEND Internal Medicine Pulmonary Disease
DX: J43.9 Emphysema, unspecified (principal); J45.40 Moderate persistent asthma, uncomplicated; J98.11 Atelectasis; E11.9 Type 2 diabetes mellitus without complications; E66.9 Obesity, unspecified; G47.33 Obstructive sleep apnea (adult) (pediatric)
CPT/HCPCS: 71250

== ENCOUNTER → 2020-12-02 | Outpatient (CLI) | payer MEDICAID, MEDICARE | CPT/HCPCS: G0109 ×2 ==

== ENCOUNTER → 2021-03-16 | Outpatient (CLI) | payer MEDICAID ==
--- NOTE | 2021-03-16 13:04 | CT ---
EXAMINATION TYPE: CT chest wo con DATE OF EXAM: 03/16/2021 COMPARISON: 01/20/2020 HISTORY: No complaints at TOS. CT DLP: 926.1 mGycm, Automated exposure control for dose reduction was used. CONTRAST: Performed injected with 0 mL of Isovue 300. TECHNIQUE: Axial images were obtained at 5 mm thick sections. Reconstructed images are reviewed on [employer] computer in the coronal plane. FINDINGS: Portion of the thyroid visualized is normal. No suspicious lung nodules or focal infiltrates are present. Pneumatoceles are in the right lower nhan g field present previously. No enlarged mediastinal or hilar adenopathy is evident. The ascending aorta diameter at the level o f the main pulmonary artery is 4.2 cm. The main pulmonary artery diameter at the bifurcation is 2.2 cm. Coronary artery calcification is present. Limited CT sections are obtained through the upper abdomen. Cholelithiasis present. Multiple nonobstr ucting left-sided renal stones are present. IMPRESSIONS: 1. No acute pulmonary process. 2. There is some mild aneurysmal dilatation ascending thoracic aorta currently measuring 4.2 cm, prev ious measurement 3.8 cm.
== END | disposition home or self-care (01) ==
LOC: RADCTMAIN 12:21
PROVIDERS: ATTEND Internal Medicine Pulmonary Disease
DX: I71.2 Thoracic aortic aneurysm, without rupture (principal); J45.50 Severe persistent asthma, uncomplicated; G47.33 Obstructive sleep apnea (adult) (pediatric); I10 Essential (primary) hypertension; K21.9 Gastro-esophageal reflux disease without esophagitis; E11.9 Type 2 diabetes mellitus without complications
CPT/HCPCS: 71250

== ENCOUNTER → 2023-05-05 | Outpatient (CLI) | payer MEDICARE | END | disposition home or self-care (01) | LOC: RADCTMAIN 14:50 | PROVIDERS: ATTEND Family Medicine | DX: Z53.9 Procedure and treatment not carried out, unspecified reason (principal) ==

== ENCOUNTER 2023-07-30 10:57 | Observation (INO) | payer MEDICARE ==
--- NOTE | 2023-07-30 11:28 | XR ---
EXAMINATION TYPE: XR chest 2V DATE OF EXAM: 07/30/2023 COMPARISON: 10/05/2018 HISTORY: 63-year-old male with chest pain TECHNIQUE: PA and lateral views FINDINGS: Median sternotomy wires and plate and screw fixation as well as post-CABG clips redemonstrated. Heart upper limits of normal in size. Mild interstitial prominence has a chronic appearance. No consolidat ion or pleural effusion. Prosthetic aortic valve. Large surgical deborah of the left shoulder. IMPRESSION: Post-CABG changes and prosthetic cardiac valve. No definite acute process.
[2023-07-30 11:38] LABS: Basophils % (A) 0 %; Eosinophils # (A) 0.1 k/uL (0-0.7); Eosinophils % (A) 2 %; HCT 45.2 % (39.0-53.0); HGB 15.2 gm/dL (13.0-17.5); Lymphocytes # (A) 1.3 k/uL (1.0-4.8); Lymphocytes % (A) 18 %; MCHC 33.6 g/dL (31.0-37.0); MCV 95.1 fL (80.0-100.0); Mean Platelet Volume 7.5; Monocytes # (A) 0.5 k/uL (0-1.0); Monocytes % (A) 7 %; Neutrophils % (A) 72 %; Platelet Count 214 k/uL (150-450); RBC 4.75 m/uL (4.30-5.90); RDW 12.4 % (11.5-15.5)
[2023-07-30 11:50] LABS: INR 1.1 (<1.2); Partial Thromboplastin Time 23.7 sec (22.0-30.0); Prothrombin Time 11.6 sec (10.0-12.5)
[2023-07-30 11:52] LABS: ALT 19 U/L (4-49); AST 25 U/L (17-59); African American GFR (CKD) 38 (>60 ml/min/1.73 sqM); Alkaline Phosphatase 40 U/L (38-126); Anion Gap 10 mmol/L; Blood Urea Nitrogen 31 mg/dL (9-20); Carbon Dioxide 21 mmol/L (22-30); Chloride 106 mmol/L (98-107); Glucose 127 mg/dL (74-99); Magnesium 1.6 mg/dL (1.6-2.3); Non-African American GFR(CKD) 33 (>60 ml/min/1.73 sqM); Sodium 137 mmol/L (137-145); Total Bilirubin 0.8 mg/dL (0.2-1.3); Total Protein 6.4 g/dL (6.3-8.2)
[2023-07-30] MEDS ORDERED: NITROGLYCERIN SL TABS 0.4 MG TAB SUBLINGUAL STA (12:56)
[2023-07-30] MEDS ORDERED: ASPIRIN 81 MG PO STA (12:56)
--- NOTE | 2023-07-30 13:17 | ED ---
Chest Pain HPI - General Chief Complaint: Chest Pain Stated Complaint: chest pain-SOB Time Seen by Provider: 07/30/23 12:15 Source: patient, RN notes reviewed Mode of arrival: ambulatory Limitations: no limitations - History of Present Illness Initial Comments: 63-year-old male with a history of cardiac bypass 3 in 2019 as well as valve replacement who states she's been having episodes of left-sided chest pain that seemed to come on with exertional activities. It started 4 days ago. It seems to get better with rest. No fevers chills nausea vomiting sweats shortness of breath with it he sees currently it's he does have pain 11/27 severity. MD Complaint: chest pain - Related Data Home Medications Medication Instructions Recorded Confirmed Multivitamins, Thera [Multivitamin 1 tab PO BID 09/23/18 09/23/18 (formulary)] Previous Rx's Medication Instructions Recorded Aspirin 81 mg PO DAILY #30 chew 10/05/18 Clopidogrel [Plavix] 75 mg PO DAILY #30 tab 10/05/18 Empagliflozin [Jardiance] 25 mg PO DAILY #30 tablet 10/05/18 Ezetimibe [Zetia] 10 mg PO DAILY #30 tab 10/05/18 Glimepiride [Amaryl] 2 mg PO HS #30 tab 10/05/18 Glimepiride [Amaryl] 4 mg PO DAILY #30 tablet 10/05/18 HYDROcodone/APAP 5-325MG [[place] 1 each PO Q6HR PRN #30 tab 10/05/18 5-325] Ipratropium-Albuterol Nebulize 3 ml INHALATION RT-QID #120 10/05/18 [Duoneb 0.5 mg-3 mg/3 ml Soln] ampul.neb Losartan [Cozaar] 25 mg PO DAILY #30 tab 10/05/18 Metoprolol Tartrate [Lopressor] 25 mg PO BID #60 tab 10/05/18 Pantoprazole [Protonix] 40 mg PO AC-BRJosefFST #30 tablet. 10/05/18 QUEtiapine [SEROquel] 25 mg PO BID #60 tab 10/05/18 Sennosides-Docusate Sodium 2 each PO HS #14 tab 10/05/18 [Senokot-S] Spironolactone [Aldactone] 25 mg PO DAILY #30 tab 10/05/18 amLODIPine [Norvasc] 5 mg PO DAILY@1200 #30 tab 10/05/18 hydrALAZINE HCL [Apresoline] 25 mg PO BID #60 tab 10/05/18 metFORMIN HCL [Glucophage] 500 mg PO BID #60 tab 10/05/18 Allergies Allergy/AdvReac Type Severity Reaction Status Date / Time Omkgkfk-QPC-LdL Reductase AdvReac muscle Verified 07/30/23 11:07 Inhibitor cramps [Thrfznm-Kzv-Trm Reductase Inhibitor] Review of Systems ROS Statement: Those systems with pertinent positive or pertinent negative responses have been documented in the HPI. ROS Other: All systems not noted in ROS Statement are negative. Past Medical History Past Medical History: Chest Pain / Angina, Diabetes Mellitus, GERD/Reflux, Hyperlipidemia, Hypertension, Osteoarthritis (OA), Sleep Apnea/CPAP/BIPAP Additional Past Medical History / Comment(s): seasonal allergies History of Any Multi-Drug Resistant Organisms: None Reported Past Surgical History: Joint Replacement, Orthopedic Surgery Additional Past Surgical History / Comment(s): right knee replaced, left shoulder surg., right arm surg., pilonidal cyst surg., multiple myringotomies. LEFT TOTAL KNEE ON 05/30/14. screws/plates in right arm Additional Past Anesthesia/Blood Transfusion Reaction / Comment(s): states has small airway, has had problems w/intubation in the past Past Psychological History: No Psychological Hx Reported Smoking Status: Former smoker Past Alcohol Use History: None Reported Past Drug Use History: None Reported - Past Family History Father Family Medical History: Diabetes Mellitus Additional Family Medical History / Comment(s): father at age 74-drowning. Mother History Unknown: Yes Family Medical History: No Reported History Additional Family Medical History / Comment(s): MOTHER AT AGE 70 OF UNKNOWN CAUSES. General Exam - General Exam Comments Initial Comments: This is a well-developed well-nourished awake alert oriented 4 male Limitations: no limitations General appearance: alert, in no apparent distress Head exam: Present: atraumatic, normocephalic, normal inspection Eye exam: Present: normal appearance, PERRL, EOMI. Absent: scleral icterus, conjunctival injection, periorbital swelling ENT exam: Present: normal exam, mucous membranes moist Neck exam: Present: normal inspection, full ROM, other. Absent: tenderness, meningismus, lymphadenopathy Respiratory exam: Present: normal lung sounds bilaterally. Absent: respiratory distress, wheezes, rales, rhonchi, stridor Cardiovascular Exam: Present: regular rate, normal rhythm, normal heart sounds. Absent: systolic murmur, diastolic murmur, rubs, gallop, clicks GI/Abdominal exam: Present: soft, normal bowel sounds. Absent: distended, tenderness, guarding, rebound, rigid Extremities exam: Present: normal inspection, full ROM, normal capillary refill. Absent: tenderness, pedal edema, joint swelling, calf tenderness Back exam: Present: normal inspection Neurological exam: Present: alert, oriented X3, CN II-XII intact Psychiatric exam: Present: normal affect, normal mood Skin exam: Present: warm, dry, intact, normal color. Absent: rash Course Vital Signs 07/30/23 07/30/23 11:03 13:55 Temperature 98.2 F Pulse Rate 66 62 Respiratory 20 20 Rate Blood Pressure 130/70 102/62 O2 Sat by Pulse 97 95 Oximetry Chest Pain MDM - MDM I did discuss the findings with the patient also with Dr. Rossa and with Dr. Arce who did see the patient in emergency department. Patient will be admitted with diagnoses of unstable angina and chest pain.Was pt. sent in by a medical professional or institution (, [facility], [employer], urgent care, hospital, or fpc...) When possible be specific @ -No Did you speak to anyone other than the patient for history (EMS, parent, family, police, friend...)? What history was obtained from this source @ -Family Did you review nursing and triage notes (agree or disagree)? Why? @ -I reviewed and agree with nursing and triage notes Were old charts reviewed (outside hosp., previous admission, EMS record, old EKG, old radiological studies, urgent care reports/EKG's, fpc records)? Report findings @ - old charts were reviewed Differential Diagnosis (chest pain, altered mental status, abdominal pain women, abdominal pain men, vaginal bleeding, weakness, fever, dyspnea, syncope, headach e, dizziness, GI bleed, back pain, seizure, CVA, palpatations, mental health, musculoskeletal)? @ -Chest pain EKG interpreted by me (3pts min.). @ -As above EKG interpreted by me sinus rhythm a 64. Interval 175 QRS duration 113 daily since QTC 4:15/424 moderate interventricular conduction delay no acute ST-T wave changes X-rays interpreted by me (1pt min.). @ -S x-ray interpreted above a negative for acute processes CT interpreted by me (1pt min.). @ -None done U/S interpreted by me (1pt. min.). @ -None done What testing was considered but not performed or refused? (CT, X-rays, U/S, labs)? Why? @ -None What meds were considered but not given or refused? Why? @ -None Did you discuss the management of the patient with other professionals (professionals i.e. DrDario, PA, [employer], lab, RT, psych nurse, social sciences department chair, felt finishing supervisor, teacher, parcel post officer, case folder)? Give summary @ -Dr. Arce and Dr. Rosas Was smoking cessation discussed for >3mins.? @ -No Was critical care preformed (if so, how long)? @ -31 and evidence Were there social determinants of health that impacted care today? How? (Homelessness, low income, unemployed, alcoholism, drug addiction, transportation, low edu. Level, literacy, decrease access to med. care, fdc, rehab)? @ -No Was there de-escalation of care discussed even if they declined (Discuss DNR or withdrawal of care, Hospice)? DNR status @ -No What co-morbidities impacted this encounter? (DM, HTN, Smoking, COPD, CAD, Cancer, CVA, ARF, Chemo, Hep., AIDS, mental health diagnosis, sleep apnea, morbid obesity)? @ -Coronary artery bypass, valve surgery Was patient admitted / discharged? Hospital course, mention meds given and route, prescriptions, significant lab abnormalities, going to OR and other pertinent info. @ -hospital course was admitted for inpatient evaluation and treatment he was placed on IV heparin Undiagnosed new problem with uncertain prognosis? @ -Has pain Drug Therapy requiring intensive monitoring for toxicity (Heparin, Nitro, Insulin, Cardizem)? @ -No Were any procedures done? @ -No Diagnosis/symptom? @ -ACS, unstable angina Acute, or Chronic, or Acute on Chronic? @ -Every Uncomplicated (without systemic symptoms) or Complicated (systemic symptoms)? @ -default Side effects of treatment? @ -No Exacerbation, Progression, or Severe Exacerbation? @ -No Poses a threat to life or bodily function? How? (Chest pain, [place], [place], pneumonia, PE, COPD, DKA, ARF, appy, cholecystitis, CVA, Diverticulitis, Homicidal, Suicidal, threat to staff... and all critical care pts) @ -Potential, chest pain Critical Care Time Critical Care Time: Yes Total Critical Care Time: 31 Disposition Clinical Impression: Coronary syndrome, acute, Unstable angina Disposition: ADMITTED IP TO THIS [facility] Condition: Stable Referrals: Ro Duke DO [Primary Care Provider] - 1-2 days Decision Date: 07/30/23 Decision Time: 15:51
[2023-07-30] MEDS ORDERED: SODIUM CHLORIDE 0.9% 1,000 ML IV STA (14:00)
[2023-07-30] MEDS ORDERED: HEPARIN SODIUM 1,000 UN/ML (10ML VL) IV PRN (15:34)
[2023-07-30] MEDS ORDERED: HEPARIN SODIUM 1,000 UN/ML (10ML VL) IV ONE (15:34)
[2023-07-30] MEDS ORDERED: ATORVASTATIN 80 MG TAB PO STA (15:35)
[2023-07-30] MEDS ORDERED: ALPRAZolam 0.25 MG TAB PO PRN (15:35)
[2023-07-30] MEDS ORDERED: NITROGLYCERIN SL TABS 0.4 MG TAB SUBLINGUAL PRN ×2 (15:35→15:51)
[2023-07-30] MEDS ORDERED: ASPIRIN 325 MG TAB PO STA (15:35)
[2023-07-30] MEDS ORDERED: ALPRAZolam 0.5 MG TAB PO PRN (15:35)
--- NOTE | 2023-07-30 15:43 | P.CRDCN ---
History of Present Illness Consult date: 07/30/23 History of present illness: History of Present Illness: Patient is a 63-year-old male with a known history of CAD and aortic valve replacement who presents with symptoms of chest discomfort. In 2019 who presented with symptoms of progressive dyspnea and chest discomfort, underwent cardiac catheterization and was found to have severe triple vessel disease, severe aortic stenosis and severely impaired left ventricular systolic function. He subsequently underwent CABG with RAO to the LAD and left radial from the RAO to the first obtuse marginal branch and SVG to the PDA. He also had aortic valve replacement. He has done well from the cardiac standpoint with im provement in the systolic function and improvement in his exercise tolerance. For the last 10 days or so he has been complaining of episodes of chest discomfort, starts during the day and persist until the end of the day at times worse with physical activity. He feels mildly dyspneic with it. He has no dizziness, palpitations or syncope. He denies any peripheral edema, no PND or orthopnea. His coronary risk factors are positive for hypertension, hyperlipidemia and diabetes. He stopped smoking long time ago. He is followed by Dr. Bermeo regarding his lung status. Medications: Amlodipine 5 mg daily, Aldactone 25 mg daily, Protonix, metoprolol 25 mg twice a day, Cozaar 25 mg daily, aspirin once a day, metformin, hydralazine, Amaryl,Ezetimibe, Jardiance Review of Systems: Respiratory: He has a history of asthma but no recent wheezing GI: No nausea or vomiting . No history of peptic ulcer disease. No recent GI bleed. : No hematuria or dysuria. Nervous System: No stroke or seizure. Physical Examination: He is a 63-year-old male, alert oriented no apparent distress, obese ,Blood pressure 130/70, Heart rate 60 Head: Normocephalic. Eyes: Sclerae nonicteric. Neck: Good carotid upstroke, no bruit, no jugular venous distention. Lungs: Clear to auscultation. Heart: Regular rate and rhythm, S1-S2, no S3, no rub. Systolic ejection murmur 2/6. Abdomen: Soft nontender, positive bowel sounds no organomegaly. Extremities: No edema, intact distal pulses. Labs: Potassium 5.0, BUN 31, creatinine 2.09. Hemoglobin 15.2. Troponin 0.013. Chest x-ray with no acute infiltrate EKG: EKG sinus mechanism with no acute ST segment changes Impression: 1. Chest discomfort rule out angina pectoris in a patient with known history of CABG in 2019 2. Status post aortic valve replacement 3. Prior history of cardiac myopathy with improvement post surgery 4. History of hypertension 5. History of diabetes 6. History of hyperlipidemia intolerant to statin 7. Chronic kidney disease, worsened Plan: 1. Start IV heparin 2. Serial enzymes and EKG 3. Obtain an echocardiogram with Doppler 4. Depending on his progress he may require coronary angiography, I discussed those findings with the patient 5. Thank you for this consult we will follow with you Past Medical History Past Medical History: Chest Pain / Angina, Diabetes Mellitus, GERD/Reflux, Hyperlipidemia, Hypertension, Osteoarthritis (OA), Sleep Apnea/CPAP/BIPAP Additional Past Medical History / Comment(s): seasonal allergies History of Any Multi-Drug Resistant Organisms: None Reported Past Surgical History: Joint Replacement, Orthopedic Surgery Additional Past Surgical History / Comment(s): right knee replaced, left shoulder surg., right arm surg., pilonidal cyst surg., multiple myringotomies. LEFT TOTAL KNEE ON 05/30/14. screws/plates in right arm Additional Past Anesthesia/Blood Transfusion Reaction / Comment(s): states has small airway, has had problems w/intubation in the past Past Psychological History: No Psychological Hx Reported Smoking Status: Former smoker Past Alcohol Use History: None Reported Past Drug Use History: None Reported - Past Family History Father Family Medical History: Diabetes Mellitus Additional Family Medical History / Comment(s): father at age 74-drowning. Mother History Unknown: Yes Family Medical History: No Reported History Additional Family Medical History / Comment(s): MOTHER AT AGE 70 OF UNKNOWN CAUSES. Medications and Allergies Home Medications Medication Instructions Recorded Confirmed Type Multivitamins, Thera [Multivitamin 1 tab PO BID 09/23/18 09/23/18 History (formulary)] Aspirin 81 mg PO DAILY #30 chew 10/05/18 Rx Clopidogrel [Plavix] 75 mg PO DAILY #30 tab 10/05/18 Rx Empagliflozin [Jardiance] 25 mg PO DAILY #30 tablet 10/05/18 Rx Ezetimibe [Zetia] 10 mg PO DAILY #30 tab 10/05/18 Rx Glimepiride [Amaryl] 2 mg PO HS #30 tab 10/05/18 Rx Glimepiride [Amaryl] 4 mg PO DAILY #30 tablet 10/05/18 Rx HYDROcodone/APAP 5-325MG [[place] 1 each PO Q6HR PRN #30 tab 10/05/18 Rx 5-325] Ipratropium-Albuterol Nebulize 3 ml INHALATION RT-QID #120 10/05/18 Rx [Duoneb 0.5 mg-3 mg/3 ml Soln] ampul.neb Losartan [Cozaar] 25 mg PO DAILY #30 tab 10/05/18 Rx Metoprolol Tartrate [Lopressor] 25 mg PO BID #60 tab 10/05/18 Rx Pantoprazole [Protonix] 40 mg PO AC-BRKFST #30 tablet.dr 10/05/18 Rx QUEtiapine [SEROquel] 25 mg PO BID #60 tab 10/05/18 Rx Sennosides-Docusate Sodium 2 each PO HS #14 tab 10/05/18 Rx [Senokot-S] Spironolactone [Aldactone] 25 mg PO DAILY #30 tab 10/05/18 Rx amLODIPine [Norvasc] 5 mg PO DAILY@1200 #30 tab 10/05/18 Rx hydrALAZINE HCL [Apresoline] 25 mg PO BID #60 tab 10/05/18 Rx metFORMIN HCL [Glucophage] 500 mg PO BID #60 tab 10/05/18 Rx Allergies Allergy/AdvReac Type Severity Reaction Status Date / Time Dxtbweh-IBY-OwC Reductase AdvReac muscle Verified 07/30/23 11:07 Inhibitor cramps [Diuwvof-Uuw-Wzr Reductase Inhibitor] Physical Exam Vitals: Vital Signs Temp Pulse Resp BP Pulse Ox 07/30/23 13:55 62 20 102/62 95 07/30/23 11:03 98.2 F 66 20 130/70 97 Intake and Output 07/30/23 07/30/23 07/30/23 06:59 14:59 22:59 Other: Weight 127.006 kg Results 07/30/23 11:10 07/30/23 11:10 Cardiac Enzymes 07/30/23 07/30/23 Range/Units 11:10 11:10 AST 25 (17-59) U/L Troponin I 0.013 (0.000-0.034) ng/mL Coagulation 07/30/23 Range/Units 11:10 PT 11.6 (10.0-12.5) sec APTT 23.7 (22.0-30.0) sec CBC 07/30/23 Range/Units 11:10 WBC 7.0 (3.8-10.6) k/uL RBC 4.75 (4.30-5.90) m/uL Hgb 15.2 (13.0-17.5) gm/dL Hct 45.2 (39.0-53.0) % Plt Count 214 (150-450) k/uL Comprehensive Metabolic Panel 07/30/23 Range/Units 11:10 Sodium 137 (137-145) mmol/L Potassium 5.0 (3.5-5.1) mmol/L Chloride 106 (98-107) mmol/L Carbon Dioxide 21 L (22-30) mmol/L BUN 31 H (9-20) mg/dL Creatinine 2.09 H (0.66-1.25) mg/dL Glucose 127 H (74-99) mg/dL Calcium 10.0 (8.4-10.2) mg/dL AST 25 (17-59) U/L ALT 19 (4-49) U/L Alkaline Phosphatase 40 (38-126) U/L Total Protein 6.4 (6.3-8.2) g/dL Albumin 4.0 (3.5-5.0) g/dL Current Medications Generic Name Dose Route Start Last Admin Trade Name Freq PRN Reason Stop Dose Admin Alprazolam 0.25 mg 07/30/23 15:35 Alprazolam 0.25 Mg Tab PO Q6HR PRN Mild Anxiety Alprazolam 0.5 mg 07/30/23 15:35 Alprazolam 0.5 Mg Tab PO Q6HR PRN Moderate Anxiety Amlodipine Besylate 5 mg 07/31/23 12:00 Amlodipine 5 Mg Tab PO DAILY@1200 [facility] Aspirin 81 mg 07/31/23 09:00 Aspirin 81 Mg PO DAILY [facility] Aspirin 325 mg 07/30/23 15:35 Aspirin 325 Mg Tab PO 07/30/23 15:36 ONCE STA Atorvastatin Calcium 80 mg 07/30/23 15:35 Atorvastatin 80 Mg Tab PO 07/30/23 15:36 ONCE STA Ezetimibe 10 mg 07/31/23 09:00 Ezetimibe 10 Mg Tab PO DAILY [facility]ANCY Heparin Sodium (Porcine) 4,000 unit 07/30/23 15:34 Heparin Sodium 1,000 Un/Ml (10ml Vl) IV 07/30/23 15:35 ONCE ONE Heparin Sodium (Porcine) 0 unit 07/30/23 15:34 Heparin Sodium 1,000 Un/Ml (10ml Vl) IV PER PROTOCOL PRN Low PTT Protocol Heparin Sodium/Sodium Chloride 250 mls @ 15.241 mls/hr 07/30/23 15:45 25,000 unit/ Sodium Chloride IV .[id number] [facility] Protocol 12 UNITS/KG/HR Heparin Sodium (Porcine) 10, 1,001 mls @ 999 mls/hr 07/31/23 07:00 000 unit/ Sodium Chloride IRRIGATION 07/31/23 23:00 ONCE PRN INTRA-OP Heparin Sodium (Porcine) 2,500 250.5 mls @ 250 mls/hr 07/31/23 07:00 unit/ Sodium Chloride IRRIGATION 07/31/23 23:00 ONCE PRN INTRA-OP Losartan Potassium 25 mg 07/31/23 09:00 Losartan 25 Mg Tab PO DAILY [facility] Metoprolol Tartrate 25 mg 07/30/23 21:00 Metoprolol Tartrate 25 Mg Tab PO BID [facility]ANC[facility] Nitroglycerin 0.4 mg 07/30/23 15:35 Nitroglycerin Sl Tabs 0.4 Mg Tab SUBLINGUAL Q5M PRN Chest Pain Nitroglycerin 1 inch 07/30/23 16:00 Nitroglycerin Oint 1 Inch/Gm Packet TOPICAL Q8HR [facility] Pantoprazole Sodium 40 mg 07/31/23 07:30 Pantoprazole 40 Mg Tablet PO AC-BRKFST [facility] Intake and Output 07/30/23 07/30/23 07/30/23 06:59 14:59 22:59 Other: Weight 127.006 kg Patient Weight 07/31/23 06:59 Weight 127.006 kg 07/30/23 11:10 07/30/23 11:10
[2023-07-30] MEDS: NITROGLYCERIN OINT 1 INCH/GM PACKET TOPICAL SCH ×2 (16:20→23:37)
[2023-07-30] MEDS: HEPARIN SOD,PORK IN 0.45% NACL 25,000 UNIT in 0.45% NACL 1 250ML.BAG IV SCH (16:23)
[2023-07-30 16:40] LABS: Basophils % (A) 0 %; Eosinophils # (A) 0.1 k/uL (0-0.7); Eosinophils % (A) 2 %; HCT 43.7 % (39.0-53.0); HGB 14.5 gm/dL (13.0-17.5); Lymphocytes # (A) 1.8 k/uL (1.0-4.8); Lymphocytes % (A) 24 %; MCH 32.2 pg (25.0-35.0); MCHC 33.1 g/dL (31.0-37.0); MCV 97.3 fL (80.0-100.0); Mean Platelet Volume 7.7; Monocytes # (A) 0.4 k/uL (0-1.0); Monocytes % (A) 5 %; Neutrophils # (A) 4.9 k/uL (1.3-7.7); Neutrophils % (A) 67 %; Platelet Count 207 k/uL (150-450); RBC 4.49 m/uL (4.30-5.90); RDW 12.5 % (11.5-15.5); WBC 7.3 k/uL (3.8-10.6)
[2023-07-30 16:45] LABS: Partial Thromboplastin Time 22.6 sec (22.0-30.0); Prothrombin Time 11.1 sec (10.0-12.5)
[2023-07-30] MEDS ORDERED: IPRATROPIUM-ALBUTEROL 3 ML NEB INHALATION PRN (20:19)
[2023-07-30] MEDS ORDERED: DEXTROSE 50% SYRINGE 50 ML IVP PRN ×2 (20:20)
--- NOTE | 2023-07-30 20:38 | P.HPIM ---
History of Present Illness H&P Date: 07/30/23 Chief Complaint: Chest Pain Patient is a 63-year-old male with a known history of coronary artery disease with history of CABG in 2019 and bovine aortic valve replacement, hypertension, diabetes type 2 insulin-dependent, obstructive sleep apnea and prior history of smoking as well as morbid obesity presents to ER with complaints of chest pain mainly with activities. 4-5 out of 10. No radiation to the arm or jaw. No associated nausea vomiting or diaphoresis. Patient felt lightheaded yesterday. No palpitations. Patient states that he has been chest pain-free when he wake up from bed but with activity send throughout the day he has been having left retrosternal chest pain/discomfort. He has been having symptoms for the past 1 week and was seen by his electronic organ mechanic on Monday for stress test but could not be completed. On admission chest x-ray showed post-CABG changes and vascular cardiogram. No definite acute process. EKG showed sinus rhythm, moderate intraventricular conduction delay. Laboratory showed sodium 137 potassium 5.0 chloride 106 bicarb is 21 BUN 31 and creatinine 2.09 and blood sugar 127 [place] is an elevated magnesium 1.6, troponin 0.013, 0.0140.013. Review of Systems Constitutional: Patient denies any fever or chills . no Generalized weakness. Abdomen: Patient denied any nausea or vomiting or abd. pain Cardiovascular: Complains of left retrosternal chest pain. No short of breath no palpitations. Respiratory: patient denied any cough . no sputum production. No shortness of breath Neurologic: Patient denied any numbness or tingling or headache. Musculoskeletal: Patient denies any complaints of joint swelling or deformity. Skin: Negative Psychiatric: Negative Endocrine: No heat or cold intolerance. No recent weight gain. Genitourinary: No dysuria or hematuria. All other 14 point ROS negative except the above Past Medical History Past Medical History: Chest Pain / Angina, Diabetes Mellitus, GERD/Reflux, Hyperlipidemia, Hypertension, Osteoarthritis (OA), Sleep Apnea/CPAP/BIPAP Additional Past Medical History / Comment(s): seasonal allergies History of Any Multi-Drug Resistant Organisms: None Reported Past Surgical History: Joint Replacement, Orthopedic Surgery Additional Past Surgical History / Comment(s): right knee replaced, left shoulder surg., right arm surg., pilonidal cyst surg., multiple myringotomies. LEFT TOTAL KNEE ON 05/30/14. screws/plates in right arm Additional Past Anesthesia/Blood Transfusion Reaction / Comment(s): states has small airway, has had problems w/intubation in the past Past Psychological History: No Psychological Hx Reported Smoking Status: Former smoker Past Alcohol Use History: None Reported Past Drug Use History: None Reported - Past Family History Father Family Medical History: Diabetes Mellitus Additional Family Medical History / Comment(s): father at age 74-drowning. Mother History Unknown: Yes Family Medical History: No Reported History Additional Family Medical History / Comment(s): MOTHER AT AGE 70 OF UNKNOWN CAUSES. Medications and Allergies Home Medications Medication Instructions Recorded Confirmed Type Aspirin 81 mg PO DAILY #30 chew 10/05/18 07/30/23 Rx Ezetimibe [Zetia] 10 mg PO DAILY #30 tab 10/05/18 07/30/23 Rx Metoprolol Tartrate [Lopressor] 25 mg PO BID #60 tab 10/05/18 07/30/23 Rx Pantoprazole [Protonix] 40 mg PO CHRISTINA-SOREN #30 tablet. 10/05/18 07/30/23 Rx Spironolactone [Aldactone] 25 mg PO DAILY #30 tab 10/05/18 07/30/23 Rx amLODIPine [Norvasc] 5 mg PO DAILY@1200 #30 tab 10/05/18 07/30/23 Rx hydrALAZINE HCL [Apresoline] 25 mg PO BID #60 tab 10/05/18 07/30/23 Rx Albuterol Inhaler [Ventolin Hfa 1 - 2 puff INHALATION RT-Q6H PRN 07/30/23 07/30/23 History Inhaler] Dapagliflozin Propanediol [Farxiga] 10 mg PO DAILY 07/30/23 07/30/23 History EPINEPHrine [Auvi-Q] 0.3 mg IM ONCE PRN 07/30/23 07/30/23 History Fluticasone Propionate 220 Mcg 2 puff INHALATION RT-BID 07/30/23 07/30/23 History [Flovent 220 Mcg Inhaler] Insulin Glargine,Hum.rec.anlog 50 units SQ PC-SUPPER 07/30/23 07/30/23 History [Lantus Solostar Pen] Isosorbide Mononitrate ER [Imdur] 30 mg PO DAILY 07/30/23 07/30/23 History Losartan [Cozaar] 50 mg PO DAILY 07/30/23 07/30/23 History Montelukast [Singulair] 10 mg PO HS 07/30/23 07/30/23 History Pioglitazone [Actos] 15 mg PO DAILY 07/30/23 07/30/23 History Repaglinide [Prandin] 2 mg PO W/BRKFST 07/30/23 07/30/23 History Semaglutide [Ozempic] 2 mg SQ TH 07/30/23 07/30/23 History metFORMIN HCL [Glucophage] 1,000 mg PO BID 07/30/23 07/30/23 History Allergies Allergy/AdvReac Type Severity Reaction Status Date / Time [id number] Reductase AdvReac muscle Verified 07/30/23 17:11 Inhibitor cramps [Ahvxehe-Jxl-Sta Reductase Inhibitor] Physical Exam Vitals: Vital Signs Temp Pulse Resp BP Pulse Ox 07/30/23 13:55 62 20 102/62 95 07/30/23 11:03 98.2 F 66 20 130/70 97 Intake and Output 07/30/23 07/30/23 07/30/23 06:59 14:59 22:59 Other: Weight 127.006 kg PHYSICAL EXAMINATION: Patient is lying in the bed comfortably, no acute distress, awake alert and oriented.. HEENT: Normocephalic. Neck is supple. Pupils reactive. Nostrils clear. Oral cavity is moist. Neck reveals no JVD, carotid bruits, or thyromegaly. CHEST EXAMINATION: Trachea is central. Symmetrical expansion. Lung steinberg clear to auscultation and percussion. CARDIAC: Normal S1, S2 with no gallops. No murmurs ABDOMEN: Soft. Bowel sounds present. Nontender. No organomegaly. No abdominal bruits. Extremities: reveal no edema. No clubbing or cyanosis Neurologically awake, alert, oriented x3 with well-coordinated movements. No focal deficits noted Skin: No rash or skin lesions. Psychiatric: Coperative. Nonsuicidal, Musculoskeletal: No joint swelling or deformity. Normal range of motion. Results CBC & Chem 7: 07/30/23 16:16 07/30/23 11:10 Labs: Abnormal Lab Results - Last 24 Hours (Table) 07/30/23 Range/Units 11:10 Carbon Dioxide 21 L (22-30) mmol/L BUN 31 H (9-20) mg/dL Creatinine 2.09 H (0.66-1.25) mg/dL Glucose 127 H (74-99) mg/dL Thrombosis Risk Factor Assmnt - DVT/VTE Prophylaxis DVT/VTE Prophylaxis: Pharmacologic Prophylaxis ordered Assessment and Plan Assessment: Chest pain with exertion the patient with known history of CABG in 2019. Possible unstable angina Acute on chronic kidney disease stage III. Baseline creatinine 1.2. Creatinine 2.09 on admission History of bovine aortic valve replacement Cardiomyopathy with improved EF after cardiac surgery. Hypertension Diabetes type 2 insulin-dependent Hyperlipidemia. Patient is intolerant to statins. Currently on Zetia Obstructive sleep apnea on CPAP at home Osteoarthritis GERD COPD not in exacerbation Morbid obesity BMI 40.2 Prior history of smoking GI and DVT prophylaxis. Patient is on PPI and also on heparin drip Plan: Patient will be continued on telemonitoring. Serial EKG and troponin x 3 negative. Continue with heparin drip. Patient was given a dose of IV fluid bolus 1 L in the ER. Cardiology is planning for catheterization tomorrow. Continue with aspirin, Zetia and metoprolol. Continue with insulin regimen and insulin sliding scale. Metformin and other hypoglycemics on hold. Follow-up renal function Follow-up CBC and BMP tomorrow. Continue with home medications and follow-up closely. Time with Patient: Greater than 30
[2023-07-30 20:54] LABS: Glucose,Whole Blood 247 mg/dL (70-110)
[2023-07-30] MEDS: METOPROLOL TARTRATE 25 MG TAB PO SCH (21:08)
[2023-07-30] MEDS: MONTELUKAST 10 MG TAB PO SCH (21:08)
[2023-07-30] MEDS: INSULIN ASPART (NovoLOG) 100 UNIT/ML VIAL SQ SCH (21:09)
[2023-07-30] MEDS: INSULIN DETEMIR (LEVEMIR) 100 UNIT/ML SYR SQ SCH (21:09)
[2023-07-30] MEDS: MAGNESIUM SULFATE-D5W PMX 1 GM in DEXTROSE/WATER 1 100ML.BAG IVPB SCH ×2 (21:10→22:12)
[2023-07-31] MEDS ORDERED: HEPARIN SODIUM,PORCINE (1 ML) 2,500 UNIT in SODIUM CHLORIDE 0.9% 250 ML IRRIGATION PRN (07:00)
[2023-07-31] MEDS ORDERED: HEPARIN SODIUM,PORCINE 10,000 UNIT in SODIUM CHLORIDE 0.9% 1,000 ML IRRIGATION PRN (07:00)
[2023-07-31] MEDS: EZETIMIBE 10 MG TAB PO SCH (07:39)
[2023-07-31] MEDS: NITROGLYCERIN OINT 1 INCH/GM PACKET TOPICAL SCH (07:39)
[2023-07-31] MEDS: LOSARTAN 25 MG TAB PO SCH (07:40)
[2023-07-31] MEDS: ASPIRIN 81 MG PO SCH (07:40)
[2023-07-31] MEDS: METOPROLOL TARTRATE 25 MG TAB PO SCH ×2 (07:40→20:59)
[2023-07-31] MEDS: PANTOPRAZOLE 40 MG TABLET PO SCH (07:40)
[2023-07-31 07:59] LABS: Glucose,Whole Blood 110 mg/dL (70-110)
[2023-07-31] MEDS: HEPARIN SOD,PORK IN 0.45% NACL 25,000 UNIT in 0.45% NACL 1 250ML.BAG IV SCH ×2 (07:59→21:07)
[2023-07-31 08:15] LABS: Partial Thromboplastin Time 53.7 sec (22.0-30.0)
[2023-07-31 08:24] LABS: African American GFR (CKD) 46 (>60 ml/min/1.73 sqM); Anion Gap 11 mmol/L; Blood Urea Nitrogen 30 mg/dL (9-20); Carbon Dioxide 24 mmol/L (22-30); Chloride 103 mmol/L (98-107); Glucose 114 mg/dL (74-99); Non-African American GFR(CKD) 40 (>60 ml/min/1.73 sqM); Potassium 4.2 mmol/L (3.5-5.1); Sodium 138 mmol/L (137-145)
[2023-07-31] MEDS: INSULIN ASPART (NovoLOG) 100 UNIT/ML VIAL SQ SCH ×4 (08:37→21:06)
[2023-07-31 11:04] LABS: Basophils # (A) 0.04 X 10*3/uL (0.00-0.10); Basophils % (A) 0.7 %; Eosinophils # (A) 0.19 X 10*3/uL (0.04-0.35); Eosinophils % (A) 3.1 %; HCT 42.5 % (39.6-50.0); HGB 14.1 g/dL (13.0-17.0); Lymphocytes # (A) 1.99 X 10*3/uL (0.90-5.00); Lymphocytes % (A) 32.6 %; MCH 31.8 pg (27.0-32.0); MCHC 33.2 g/dL (32.0-37.0); MCV 95.9 FL (80.0-97.0); Mean Platelet Volume 10.2 FL (9.5-12.2); Monocytes # (A) 0.53 X 10*3/uL (0.20-1.00); Monocytes % (A) 8.7 %; NRBC Per 100 WBC 0 X 10*3/uL (0.00-0.01); Neutrophils # (A) 3.33 X 10*3/uL (1.80-7.70); Neutrophils % (A) 54.6 %; Platelet Count 214 X 10*3/uL (140-440); RBC 4.43 X 10*6/uL (4.40-5.60); RDW 12.3 % (11.5-14.5)
[2023-07-31] MEDS ORDERED: LIDOCAINE 1% INJ 10MG/ML (20 ML MDV) ONE (11:47)
[2023-07-31] MEDS ORDERED: VERAPAMIL 2.5 MG/ML 2 ML AMP ONE (11:47)
[2023-07-31] MEDS ORDERED: amLODIPine 5 MG TAB PO SCH (12:00)
[2023-07-31] MEDS ORDERED: IV FLUID CONTINUATION 900 ML IV ONE (12:03)
[2023-07-31] MEDS ORDERED: fentaNYL (PF) 50 MCG/ML 2 ML AMP ONE (12:07)
[2023-07-31] MEDS ORDERED: fentaNYL (PF) 50 MCG/1 ML VIAL IVP ONE (12:29)
[2023-07-31] MEDS ORDERED: LIDOCAINE 1% INJ 10MG/ML (20 ML MDV) SQ ONE (12:33)
[2023-07-31] MEDS ORDERED: MIDAZOLAM 2 MG/2 ML VIAL IVP ONE (12:35)
[2023-07-31] MEDS ORDERED: IOPAMIDOL-370 200ML BTL INJ ONE (12:57)
[2023-07-31] MEDS ORDERED: RX INFO: IV CONTRAST WAS GIVEN 1 EACH MISC MISCELLANE PRN (13:13)
[2023-07-31] MEDS ORDERED: SODIUM CHLORIDE 0.9% 1,000 ML IV SCH (13:15)
--- NOTE | 2023-07-31 13:19 | P.CARDCATH ---
Date of Procedure: 07/31/23 Description of Procedure: Cardiac Catheterization: The patient is a 63-year-old male with known history of hypertension, hyperlipidemia and a prior CABG presented with symptoms of chest discomfort with physical activity. Recommendations were made regarding cardiac catheterization, the risks and the complications were discussed with the patient who is in full understanding and agreement. Procedure Description: Patient was brought to laborer plumbing in fasting semi-sedated state after receiving Fentanyl and Benadryl achieiving moderate conscious sedated state. Using Xylocaine Anesthesia and modified Seldinger technique, and using micropuncture technique a 6-Georgian sheath was introduced in the right femoral artery . Subsequently, selective coronary angiography was performed using a 6-Georgian 4 bend Nilay catheter. Multiple views of the coronary artery including hemiaxial views were obtained. The right Nilay was used to cannulate the vein graft to PDA and an LAUREANO catheter was used to cannulate the RAO to the LAD. Following that, catheter and sheath were removed. Hemostasis was obtained with compression of the right groin. There was no immediate complication. Patient was returned to room in stable condition. Findings: Left main: This is a large-size vessel, bifurcating into LAD and left circumflex, left main has no obstructive disease LAD: This vessel is totally occluded at the takeoff of the first septal file clerk data entry and first diagonal branch with minimal antegrade flow with competi tive flow in the midsegment Left circumflex: This is a large nondominant vessel giving rise to a large obtuse marginal branch that has a 95% stenosis RCA: This is a dominant vessel moderate caliber that has a 95% stenosis at the takeoff of the acute marginal branch SVG to the PDA: the distal and proximal anastomotic stenosis are patent the floor and that the PDA is brisk RAO to the LAD: This graft has a Y connection with the radial to the OM. The distal anastomosis are patent with brisk flow in both the LAD. Conclusion: 1. Severe triple vessel disease 2. Patent RAO to the LAD 3. Patent radial, Y connection from the RAO to the OM 4. Patent SVG to the PDA Recommendations: At this time I would recommend to continue medical therapy with the aggressive coronary risks modification that has been initiated. The findings and the recommendations were discussed with the patient and the family and they were in full understanding and agreement. Duration of sedation is 28 minutes.
[2023-07-31] MEDS ORDERED: LIDOCAINE 2% URO-JET JELLY 5 ML KIT ONE (13:32)
--- NOTE | 2023-07-31 14:31 | P.PN ---
Subjective Progress Note Date: 07/31/23 This is 63-year-old gentleman admitted with chest pain, history of CAD, CABG, acute on chronic kidney disease stage III, diabetes mellitus and multiple other medical issues. Evaluated by cardiology, scheduled for cardiac catheterization this morning. Anticoagulated on heparin drip. Denies chest pain, palpitations or shortness of breath, currently. Maintained on IV fluids Renal function improving, BUN 30, creatinine 1.79. Objective - Vital Signs Vital signs: Vital Signs Temp 98.6 F 07/31/23 05:06 Pulse 56 L 07/31/23 08:18 Resp 16 07/31/23 07:31 BP 132/68 07/31/23 07:31 Pulse Ox 60 L 07/31/23 07:31 FiO2 Intake & Output 07/30/23 07/31/23 07/31/23 18:59 06:59 18:59 Intake Total 109.989 140.011 Balance 109.989 140.011 Weight 127.006 kg Intake: Intake, IV Titration 109.989 140.011 Amount Heparin Sod,Pork in 0.45% 109.989 140.011 NaCl 25,000 unit In 0.45 % NaCl 1 250ml.bag @ 12 UNITS/KG/HR 15.241 mls/hr IV .[id number] [facility] Rx#: [id number] - Exam PHYSICAL EXAMINATION: General: Alert and oriented 3, Patient is sitting up in chair, no acute distress. HEENT: Normocephalic. Pupils reactive.MMM. Neck: Supple, no JVD, CHEST EXAMINATION: Unlabored, equal air entry Lung steinberg clear to auscultation and percussion. CARDIAC: Normal S1, S2 with no gallops. No murmurs ABDOMEN: Soft. Bowel sounds present. Nontender. No guarding, +BS. Extremities: no edema. No clubbing or cyanosis Neurologically awake, alert, oriented x3 with well-coordinated movements. No focal deficits noted Skin: No rash, warm and dry - Labs CBC & Chem 7: 07/31/23 06:49 07/31/23 06:49 Labs: Abnormal Lab Results - Last 24 Hours (Table) 07/30/23 07/30/23 07/30/23 Range/Units 11:10 20:53 22: APTT 36.8 H (22.0-30.0) sec Carbon Dioxide 21 L (22-30) mmol/L BUN 31 H (9-20) mg/dL Creatinine 2.09 H (0.66-1.25) mg/dL Glucose 127 H (74-99) mg/dL POC Glucose (mg/dL) 247 H (70-110) mg/dL 07/31/23 07/31/23 Range/Units 06:49 06:49 APTT 53.7 H (22.0-30.0) sec Carbon Dioxide (22-30) mmol/L BUN 30 H (9-20) mg/dL Creatinine 1.79 H (0.66-1.25) mg/dL Glucose 114 H (74-99) mg/dL POC Glucose (mg/dL) (70-110) mg/dL Assessment and Plan Assessment: Chest pain with exertion the patient with known history of CABG in 2019. Possible unstable angina Acute on chronic kidney disease stage III. Baseline creatinine 1.2. Creatinine 2.09 on admission History of bovine aortic valve replacement Cardiomyopathy with improved EF after cardiac surgery. Hypertension Diabetes type 2 insulin-dependent,: A1c 7.1 Hyperlipidemia. Patient is intolerant to statins. Currently on Zetia Obstructive sleep apnea on CPAP at home Osteoarthritis GERD COPD not in exacerbation Morbid obesity BMI 40.2 Prior history of smoking Morbid obesity, BMI 40 Plan: Continue on current medication regime ,monitoring and symptomatic treatment. IV fluid hydration. Anticoagulation with heparin drip. NPO for cardiac catheterization today. Close monitoring of renal function with repeat labs ordered for a.m. The impression and plan of care has been dictated as directed. : I performed a history and examination of this patient, discussed the same with the dictator. I agree with the dictator's note ,documented as a scribe. Any a dditional findings or plans will be noted.
[2023-07-31] MEDS: ISOSORBIDE MONONITRATE ER 30 MG TAB.ER.24H PO SCH (16:21)
[2023-07-31 16:22] LABS: Glucose,Whole Blood 137 mg/dL (70-110)
[2023-07-31 16:40] LABS: Chol/HDL Ratio 2.84 Ratio; LDL Cholesterol,Calculated 53.6 mg/dL (0.0-131.0)
[2023-07-31 20:48] LABS: Glucose,Whole Blood 247 mg/dL (70-110)
[2023-07-31] MEDS: MONTELUKAST 10 MG TAB PO SCH (20:59)
[2023-07-31] MEDS: INSULIN DETEMIR (LEVEMIR) 100 UNIT/ML SYR SQ SCH (21:06)
[2023-07-31 21:36] LABS: African American GFR (CKD) 51 (>60 ml/min/1.73 sqM); Anion Gap 12 mmol/L; Blood Urea Nitrogen 27 mg/dL (9-20); Calcium 9.5 mg/dL (8.4-10.2); Carbon Dioxide 20 mmol/L (22-30); Chloride 105 mmol/L (98-107); Glucose 263 mg/dL (74-99); Non-African American GFR(CKD) 44 (>60 ml/min/1.73 sqM); Sodium 137 mmol/L (137-145)
[2023-08-01 06:09] LABS: Glucose,Whole Blood 119 mg/dL (70-110)
[2023-08-01] MEDS: PANTOPRAZOLE 40 MG TABLET PO SCH (06:09)
[2023-08-01] MEDS: INSULIN ASPART (NovoLOG) 100 UNIT/ML VIAL SQ SCH (06:09)
[2023-08-01 06:50] VITALS: RESP 18; TEMP 97.5
[2023-08-01 07:42] VITALS: BP 134/74; PULSE 57
[2023-08-01] MEDS: METOPROLOL TARTRATE 25 MG TAB PO SCH (08:52)
[2023-08-01] MEDS: ISOSORBIDE MONONITRATE ER 30 MG TAB.ER.24H PO SCH (08:52)
[2023-08-01] MEDS: ASPIRIN 81 MG PO SCH (08:52)
[2023-08-01] MEDS: EZETIMIBE 10 MG TAB PO SCH (08:52)
[2023-08-01] MEDS: LOSARTAN 25 MG TAB PO SCH (08:53)
[2023-08-01 09:20] LABS: African American GFR (CKD) 54 (>60 ml/min/1.73 sqM); Anion Gap 9 mmol/L; Blood Urea Nitrogen 30 mg/dL (9-20); Carbon Dioxide 23 mmol/L (22-30); Chloride 106 mmol/L (98-107); Glucose 134 mg/dL (74-99); Non-African American GFR(CKD) 47 (>60 ml/min/1.73 sqM); Potassium 4.3 mmol/L (3.5-5.1); Sodium 138 mmol/L (137-145)
--- NOTE | 2023-08-01 10:35 | P.PN ---
Subjective Progress Note Date: 08/01/23 History of Present Illness: Patient is a 63-year-old male with a known history of CAD and aortic valve rep lacement who presents with symptoms of chest discomfort. In 2019 who presented with symptoms of progressive dyspnea and chest discomfort, underwent cardiac catheterization and was found to have severe triple vessel disease, severe aortic stenosis and severely impaired left ventricular systolic function. He subsequently underwent CABG with RAO to the LAD and left radial from the RAO to the first obtuse marginal branch and SVG to the PDA. He also had aortic valve replacement. He has done well from the cardiac standpoint with improvement in the systolic function and improvement in his exercise tolerance. For the last 10 days or so he has been complaining of episodes of chest discomfort, starts during the day and persist until the end of the day at times worse with physical activity. He feels mildly dyspneic with it. He has no dizziness, palpitations or syncope. He denies any peripheral edema, no PND or orthopnea. His coronary risk factors are positive for hypertension, hyperlip idemia and diabetes. He stopped smoking long time ago. He is followed by Dr. Bermeo regarding his lung status. Medications: Amlodipine 5 mg daily, Aldactone 25 mg daily, Protonix, metoprolol 25 mg twice a day, Cozaar 25 mg daily, aspirin once a day, metformin, hydralazine, Amaryl,Ezetimibe, Jardiance Labs: Potassium 5.0, BUN 31, creatinine 2.09. Hemoglobin 15.2. Troponin 0.013. Chest x-ray with no acute infiltrate EKG: EKG sinus mechanism with no acute ST segment changes 08/01 Yesterday, patient underwent cardiac catheterization with Dr. Arce which revealed severe triple vessel disease, patent RAO to the LAD, patent radial, white connection from the RAO to the OM, patent SVG to the PDA. No significant disease progression. No stenting was done at the time. Patient denies having any chest pain at this time. Access was from the right groin shows no signs of hematoma. Echocardiogram has been obtained and report is pending. Regarding statin, patient is intolerant of statins and has obtained insurance authorization for Repatha which she should be starting soon. Blood pressure 134/74, heart rate is in the 50s, afebrile, pulse ox 97% on room air. Repeat blood work reveals BUN 30 creatinine 1.56. Physical Examination: He is a 63-year-old male, alert oriented no apparent distress, obese Head: Normocephalic. Eyes: Sclerae nonicteric. Neck: Good carotid upstroke, no bruit, no jugular venous distention. Lungs: Clear to auscultation. Heart: Regular rate and rhythm, S1-S2, no S3, no rub. Systolic ejection murmur /6. Abdomen: Soft nontender, positive bowel sounds no organomegaly. Extremities: No edema, intact distal pulses. Impression: 1. Chest discomfort rule out angina pectoris in a patient with known history of CABG in 2019 2. Status post aortic valve replacement 3. Prior history of cardiac myopathy with improvement post surgery 4. History of hypertension 5. History of diabetes 6. History of hyperlipidemia intolerant to statin 7. Chronic kidney disease, worsened Plan: Obtain an echocardiogram with Doppler report Patient is cleared for discharge from cardiology may follow with Dr. Arce in 2 weeks. Patient to be maintained on his previous home cardiac medications. Nurse practitioner note has been reviewed, I agree with the documented findings and plan of care. Patient was seen and examined. Objective - Vital Signs Vital signs: Vital Signs Temp 97.5 F L 08/01/23 06:43 Pulse 57 L 08/01/23 07:42 Resp 18 08/01/23 07:42 BP 134/74 08/01/23 07:42 Pulse Ox 97 08/01/23 07:42 FiO2 Intake & Output 07/31/23 08/01/23 08/01/23 18:59 06:59 18:59 Intake Total 990.011 Output Total 1050 300 Balance -59.989 -300 Weight 127.006 kg Intake: IV 850 Intake, IV Titration 140.011 Amount Heparin Sod,Pork in 0.45% 140.011 NaCl 25,000 unit In 0.45 % NaCl 1 250ml.bag @ 12 UNITS/KG/HR 15.241 mls/hr IV .[id number] [facility] Rx#: [id number] Output: Urine 1050 300 Uretheral ([place]) 300 Other: Voiding Method Toilet # Voids 1 - Labs CBC & Chem 7: 07/31/23 06:49 08/01/23 08:52 Labs: Abnormal Lab Results - Last 24 Hours (Table) 07/31/23 07/31/2323 Range/Units 06:49 06:49 06:49 APTT 53.7 H (22.0-30.0) sec Carbon Dioxide (22-30) mmol/L BUN 30 H (9-20) mg/dL Creatinine 1.79 H (0.66-1.25) mg/dL Glucose 114 H (74-99) mg/dL POC Glucose (mg/dL) (70-110) mg/dL Hemoglobin A1c 7.1 H (<=6.0) % Triglycerides 202.00 H (0.00-149.00) mg/dL VLDL Cholesterol, Calc 40.40 H (5.00-40.00) mg/dL 07/31/23 07/31/23 07/31/23 Range/Units 16:10 20:46 20:53 APTT (22.0-30.0) sec Carbon Dioxide 20 L (22-30) mmol/L BUN 27 H (9-20) mg/dL Creatinine 1.63 H (0.66-1.25) mg/dL Glucose 263 H (74-99) mg/dL POC Glucose (mg/dL) 137 H 247 H (70-110) mg/dL Hemoglobin A1c (<=6.0) % Triglycerides (0.00-149.00) mg/dL VLDL Cholesterol, Calc (5.00-40.00) mg/dL 08/01/23 Range/Units 06:08 APTT (22.0-30.0) sec Carbon Dioxide (22-30) mmol/L BUN (9-20) mg/dL Creatinine (0.66-1.25) mg/dL Glucose (74-99) mg/dL POC Glucose (mg/dL) 119 H (70-110) mg/dL Hemoglobin A1c (<=6.0) % Triglycerides (0.00-149.00) mg/dL VLDL Cholesterol, Calc (5.00-40.00) mg/dL
--- NOTE | 2023-08-01 12:01 | CA ---
Transthoracic Echo Report Name: Darrion Kumar Age: 63 Gender: M : 1960 Exam Date: 08/01/2023 07:48 Exam Location: [place] [facility] Ht (in): 70 Wt (lb): 280 Ordering Physician: Dioni Arce MD ([id number]) Attending/Referring Phys: Water Pump Installer Morenita Bai RDCS Procedure CPT: Indications: AVr Cardiac Hx: Technical Quality: Technically difficult study Contrast 1: Definity Total Dose (mL): 2 Contrast 2: Total Dose (mL): MEASUREMENTS (Male / Female) Normal Values 2D ECHO LV Diastolic Diameter PLAX 5.0 cm 4.2 - 5.9 / 3.9 - 5.3 cm LV Systolic Diameter PLAX 3.6 cm IVS Diastolic Thickness 1.7 cm 0.6 - 1.0 / 0.6 - 0.9 cm LVPW Diastolic Thickness 1.5 cm 0.6 - 1.0 / 0.6 - 0.9 cm LV Relative Wall Thickness 0.6 RV Internal Dim ED PLAX 4.4 cm LA Volume 103.7 cm??? 18 - 58 / 22 - 52 cm??? LA Volume Index 40.5 cm???/m??? 16 - 28 cm???/m??? M-MODE Aortic Root Diameter MM 4.2 cm LA Systolic Diameter MM 4.7 cm LA Ao Ratio MM 1.1 AV Cusp Separation MM 1.6 cm DOPPLER AV Peak Velocity 240.3 cm/s AV Peak Gradient 23.1 mmHg AV Mean Velocity 156.3 cm/s AV Mean Gradient 11.8 mmHg AV Velocity Time Integral 53.5 cm LVOT Peak Velocity 85.5 cm/s LVOT Peak Gradient 2.9 mmHg LVOT Velocity Time Integral 19.5 cm MV Area PHT 3.7 cm??? Mitral E Point Velocity 103.5 cm/s Mitral A Point Velocity 84.3 cm/s Mitral E to A Ratio 1.2 MV Deceleration Time 207.0 ms MV E' Velocity 6.5 cm/s Mitral E to MV E' Ratio 16.0 TR Peak Velocity 186.2 cm/s TR Peak Gradient 13.9 mmHg Right Ventricular Systolic Press 18.9 mmHg FINDINGS Left Ventricle Moderate increased left ventricular wall thickness. Left ventricular cavity size normal. Normal left ventricular systolic function with no obvious regional wall motion abnormalities. Left ventricular ejection fraction is estimated at 50-55 %. Abnormal (paradoxical) septal motion consistent with postoperative state. Right Ventricle RV not well visualized. Right ventricular systolic pressure within normal limits. Right Atrium Normal right atrial size. Left Atrium Moderate LA dilatation Mitral Valve Structurally normal mitral valve. No mitral stenosis, regurgitation or prolapse. Aortic Valve Normally functioning bioprosthetic aortic valve without stenosis with a peak velocity of 2.4 m/s, peak gradient 23 mmHg, mean gradient 12 mmHg. Tricuspid Valve Structurally normal tricuspid valve. Mild tricuspid regurgitation. Pulmonic Valve Pulmonic valve not well visualized. Pericardium No pericardial effusion. Aorta Normal size aortic root and proximal ascending aorta. CONCLUSIONS Left ventricular cavity size normal. Moderate increased left ventricular wall thickness. no obvious regional wall motion abnormalities. Left ventricular ejection fraction is estimated at 50-55 %. Abnormal (paradoxical) septal motion consistent with postoperative state. Moderate LA dilatation. Bioprosthetic aortic valve. Mean gradient 12 mmHg. No signifciant paravalvular leak. RVSP 20 mmHg Previewed by: Dr Carlos Avila (Electronically Signed) Final Date: 01 August 2023 12:00
--- NOTE | 2023-08-01 15:04 | P.DS ---
Providers Date of admission: 07/30/23 15:54 Expected date of discharge: 08/01/23 Attending physician: Sivakumar Seals MD Consults: 07/30/23 15:18 Consult Physician Stat Consulting Provider: Dioni Arce Consult Reason/Comments: Unstable angina, chest pain Do you want consulting provider notified?: Already Contacted Primary care physician: Ro [facility] Hospital Course: Final Diagnoses: Assessment: Chest pain with exertion the patient with known history of CABG in 2019. Possible unstable angina Acute on chronic kidney disease stage III. Baseline creatinine 1.2. Creatinine 2.09 on admission History of bovine aortic valve replacement Cardiomyopathy with improved EF after cardiac surgery. Hypertension Diabetes type 2 insulin-dependent,: A1c 7.1 Hyperlipidemia. Patient is intolerant to statins. Obstructive sleep apnea on CPAP at home Osteoarthritis GERD COPD not in exacerbation Morbid obesity BMI 40.2 Prior history of smoking Morbid obesity, BMI 40 Hospital course:This is 63-year-old gentleman admitted with chest pain, history of CAD, CABG, acute on chronic kidney disease stage III, diabetes mellitus and multiple other medical issues. Evaluated by cardiology, scheduled for cardiac catheterization this morning. Anticoagulated on heparin drip. Denies chest pain, palpitations or shortness of breath, currently. Maintained on IV fluids Renal function improving, BUN 30, creatinine 1.79. Completed cardiac catheterization yesterday reporting severe triple vessel disease, patent RAO to the LAD, patent radial, white connection from the RAO to the OM, patent SVG to the PDA. Echo completed, report pending. Patient reports intolerance of statins, on Repatha. Denies chest pain, palpitations or shortness of breath. Maintaining O2 sats in the high 90s on room air. BUN 30, creatinine 1.56. Cleared by cardiology for discharge. Patient will be discharged home today in stable condition with guarded prognosis. The impression and plan of care has been dictated as directed. : I performed a history and examination of this patient, discussed the same with the dictator. I agree with the dictator's note ,documented as a scribe. Any additional findings or plans will be noted. Patient Condition at Discharge: Stable Plan - Discharge Summary New Discharge Prescriptions: New Losartan [Cozaar] 25 mg PO DAILY #30 tab Continue amLODIPine [Norvasc] 5 mg PO DAILY@1200 #30 tab Aspirin 81 mg PO DAILY #30 chew Ezetimibe [Zetia] 10 mg PO DAILY #30 tab Metoprolol Tartrate [Lopressor] 25 mg PO BID #60 tab Pantoprazole [Protonix] 40 mg PO [facility]30 tablet. Dapagliflozin Propanediol [Farxiga] 10 mg PO DAILY EPINEPHrine [Auvi-Q] 0.3 mg IM ONCE PRN PRN Reason: Anaphylaxis Pioglitazone [Actos] 15 mg PO DAILY Fluticasone Propionate 220 Mcg [Flovent 220 Mcg Inhaler] 2 puff INHALATION RT -BID Repaglinide [Prandin] 2 mg PO W/BRKFST Montelukast [Singulair] 10 mg PO HS Insulin Glargine,Hum.rec.anlog [Lantus Solostar Pen] 50 units SQ PC-SUPPER Albuterol Inhaler [Ventolin Hfa Inhaler] 1 - 2 puff INHALATION RT-Q6H PRN PRN Reason: Shortness Of Breath Semaglutide [Ozempic] 2 mg SQ TH Isosorbide Mononitrate ER [Imdur] 30 mg PO DAILY metFORMIN HCL [Glucophage] 1,000 mg PO BID Discontinued hydrALAZINE HCL [Apresoline] 25 mg PO BID #60 tab Spironolactone [Aldactone] 25 mg PO DAILY #30 tab Losartan [Cozaar] 50 mg PO DAILY Discharge Medication List Aspirin 81 mg PO DAILY #30 chew 10/05/18 [Rx] Ezetimibe [Zetia] 10 mg PO DAILY #30 tab 10/05/18 [Rx] Metoprolol Tartrate [Lopressor] 25 mg PO BID #60 tab 10/05/18 [Rx] Pantoprazole [Protonix] 40 mg [facility]30 tablet. 10/05/18 [Rx] amLODIPine [Norvasc] 5 mg PO DAILY@1200 #30 tab 10/05/18 [Rx] Albuterol Inhaler [Ventolin Hfa Inhaler] 1 - 2 puff INHALATION RT-Q6H PRN 07/30/23 [History] Dapagliflozin Propanediol [Farxiga] 10 mg PO DAILY 07/30/23 [History] EPINEPHrine [Auvi-Q] 0.3 mg IM ONCE PRN 07/30/23 [History] Fluticasone Propionate 220 Mcg [Flovent 220 Mcg Inhaler] 2 puff INHALATION RT- BID 07/30/23 [History] Insulin Glargine,Hum.rec.anlog [Lantus Solostar Pen] 50 units SQ PC-SUPPER 07/30/23 [History] Isosorbide Mononitrate ER [Imdur] 30 mg PO DAILY 07/30/23 [History] Montelukast [Singulair] 10 mg PO HS 07/30/23 [History] Pioglitazone [Actos] 15 mg PO DAILY 07/30/23 [History] Repaglinide [Prandin] 2 mg PO W/BRKFST 07/30/23 [History] Semaglutide [Ozempic] 2 mg SQ TH 07/30/23 [History] metFORMIN HCL [Glucophage] 1,000 mg PO BID 07/30/23 [History] Losartan [Cozaar] 25 mg PO DAILY #30 tab 08/01/23 [Rx] Follow up Appointment(s)/Referral(s): Dioni Arce MD [STAFF PHYSICIAN] - 08/09/23 4:00 pm Sivakumar Seals MD [STAFF PHYSICIAN] - 1 Week Ambulatory/Diagnostic Orders: Basic Metabolic Panel [LAB.AMB] Time Frame: 3 Days, Location: None Selected Patient Instructions/Handouts: *Surgery [facility] - After Heart Catheterization - Insurance Risk Manager Instructions Activity/Diet/Wound Care/Special Instructions: Patient states he cannot tolerate statins, we'll continue to receive Repatha injections See Activity Restriction Instructions Discharge Disposition: HOME SELF-CARE
== END 2023-08-01 12:11 | disposition home or self-care (01) ==
LOC: EC 10:57 → 6NMEDSUR 15:54
PROVIDERS: ADMIT Family Medicine; ATTEND Family Medicine
DX: I25.10 Atherosclerotic heart disease of native coronary artery without angina pectoris (principal); I25.82 Chronic total occlusion of coronary artery; I12.9 Hypertensive chronic kidney disease with stage 1 through stage 4 chronic kidney disease, or unspecified chronic kidney disease; N18.30 Chronic kidney disease, stage 3 unspecified; E11.22 Type 2 diabetes mellitus with diabetic chronic kidney disease; E78.5 Hyperlipidemia, unspecified; G47.33 Obstructive sleep apnea (adult) (pediatric); K21.9 Gastro-esophageal reflux disease without esophagitis; I42.9 Cardiomyopathy, unspecified; M19.90 Unspecified osteoarthritis, unspecified site; J44.9 Chronic obstructive pulmonary disease, unspecified; E66.01 Morbid (severe) obesity due to excess calories; Z68.41 Body mass index [BMI] 40.0-44.9, adult; Z87.891 Personal history of nicotine dependence; Z95.1 Presence of aortocoronary bypass graft; Z95.3 Presence of xenogenic heart valve; Z79.82 Long term (current) use of aspirin; Z79.02 Long term (current) use of antithrombotics/antiplatelets; Z79.84 Long term (current) use of oral hypoglycemic drugs; Z79.899 Other long term (current) drug therapy
CPT/HCPCS: 96361 ×2; 96372 ×2; 96376; 96365; 96366; 96375; 99291; 36415; 94640; 93005 ×2; 93459; 80061; 80053; 80048 ×2; 83735; 84484; 85025 ×2; 85610 ×2; 85730 ×2; 83036; 71046; G0378 ×3; C8929; C1760; C1769 ×2; C1894; J2250; J2001; Q9957; J1644 ×3; J3475; J3010; Q9967; 93306

== ENCOUNTER → 2023-08-07 | Outpatient (CLI) | payer MEDICARE ==
[2023-08-07 15:25] LABS: BUN/Creat Ratio 12.28 Ratio (12.00-20.00); Blood Urea Nitrogen 22.1 mg/dL (9.0-27.0); Calcium 10.1 mg/dL (8.7-10.3); Carbon Dioxide 24.7 mmol/L (21.6-31.8); Chloride 103 mmol/L (96-109); Glucose 109 mg/dL (70-110); Potassium 4.1 mmol/L (3.5-5.5); Sodium 140 mmol/L (135-145)
== END | disposition home or self-care (01) ==
LOC: LABWHC1 08:42
PROVIDERS: ATTEND Nurse Practitioner
DX: N18.30 Chronic kidney disease, stage 3 unspecified (principal)
CPT/HCPCS: 36415; 80048

== ENCOUNTER 2024-03-07 17:20 | Emergency (ER) | payer MEDICARE ==
--- NOTE | 2024-03-07 17:44 | ED ---
Eye Problem HPI - General Chief complaint: Eye Problems Stated complaint: eye injury Time Seen by Provider: 03/07/24 17:23 Source: patient, RN notes reviewed Mode of arrival: ambulatory Limitations: no limitations - History of Present Illness Initial comments: 63-year-old male presenting with chemical eye injury. States he was cleaning an awning of a trailer this afternoon with diluted industrial soap. He reports he got some of the solution in both eyes. He rinsed both eyes immediately with water however reports he is having vision changes in both eyes. Describes everything as a "hazy". Admits some burning. He wears glasses but not contacts. States the chemical was 577 industrial soap. - Related Data Home Medications Medication Instructions Recorded Confirmed Albuterol Inhaler [Ventolin Hfa 1 - 2 puff INHALATION RT-Q6H PRN 07/30/23 07/30/23 Inhaler] Dapagliflozin Propanediol [Farxiga] 10 mg PO DAILY 07/30/23 07/30/23 EPINEPHrine [Auvi-Q] 0.3 mg IM ONCE PRN 07/30/23 07/30/23 Fluticasone Propionate 220 Mcg 2 puff INHALATION RT-BID 07/30/23 07/30/23 [Flovent 220 Mcg Inhaler] Insulin Glargine,Hum.rec.anlog 50 units SQ PC-SUPPER 07/30/23 07/30/23 [Lantus Solostar Pen] Isosorbide Mononitrate ER [Imdur] 30 mg PO DAILY 07/30/23 07/30/23 Montelukast [Singulair] 10 mg PO HS 07/30/23 07/30/23 Pioglitazone [Actos] 15 mg PO DAILY 07/30/23 07/30/23 Repaglinide [Prandin] 2 mg PO W/BRKFST 07/30/23 07/30/23 Semaglutide [Ozempic] 2 mg SQ TH 07/30/23 07/30/23 metFORMIN HCL [Glucophage] 1,000 mg PO BID 07/30/23 07/30/23 Previous Rx's Medication Instructions Recorded Aspirin 81 mg PO DAILY #30 chew 10/05/18 Ezetimibe [Zetia] 10 mg PO DAILY #30 tab 10/05/18 Metoprolol Tartrate [Lopressor] 25 mg PO BID #60 tab 10/05/18 Pantoprazole [Protonix] 40 mg PO YOGESHBRKFST #30 tablet. 10/05/18 amLODIPine [Norvasc] 5 mg PO DAILY@1200 #30 tab 10/05/18 Losartan [Cozaar] 25 mg PO DAILY #30 tab 08/01/23 Ofloxacin 0.3% Ophth Soln [Ocuflox 1 - 2 drops BOTH EYES QID 7 Days 03/07/24 Ophth Soln] #10 ml Allergies Allergy/AdvReac Type Severity Reaction Status Date / Time [id number] Reductase AdvReac muscle Verified 07/30/23 17:11 Inhibitor cramps [Vhhrukx-Lss-Omo Reductase Inhibitor] Review of Systems ROS Statement: Those systems with pertinent positive or pertinent negative responses have been documented in the HPI. ROS Other: All systems not noted in ROS Statement are negative. Past Medical History Past Medical History: Coronary Artery Disease (CAD), Chest Pain / Angina, COPD, Diabetes Mellitus, GERD/Reflux, Hyperlipidemia, Hypertension, Osteoarthritis (OA), Sleep Apnea/CPAP/BIPAP Additional Past Medical History / Comment(s): seasonal allergies History of Any Multi-Drug Resistant Organisms: None Reported Past Surgical History: Coronary Bypass/CABG, Joint Replacement, Orthopedic Schrader rgery Additional Past Surgical History / Comment(s): right knee replaced, left shoulder surg., right arm surg., pilonidal cyst surg., multiple myringotomies. LEFT TOTAL KNEE ON 05/30/14. screws/plates in right arm Additional Past Anesthesia/Blood Transfusion Reaction / Comment(s): states has small airway, has had problems w/intubation in the past Past Psychological History: No Psychological Hx Reported Smoking Status: Former smoker Past Alcohol Use History: None Reported Past Drug Use History: None Reported - Past Family History Father Family Medical History: Diabetes Mellitus Additional Family Medical History / Comment(s): father at age 74-drowning. Mother History Unknown: Yes Family Medical History: No Reported History Additional Family Medical History / Comment(s): MOTHER AT AGE 70 OF UNKNOWN CAUSES. General Exam Limitations: no limitations General appearance: alert, in no apparent distress Head exam: Present: atraumatic, normocephalic, normal inspection Eye exam: Present: PERRL, EOMI, conjunctival injection (Bilateral conjunctival injection), other (Ocular pH is 7 bilaterally. Fluorescein stain reveals no abrasions or ulcerations. Intraocular pressure is 13 b/l. Visual acuity is 20/30 right, 20/25 left). Absent: scleral icterus, periorbital swelling Respiratory exam: Present: normal lung sounds bilaterally. Absent: respiratory distress, wheezes, rales, rhonchi, stridor Cardiovascular Exam: Present: regular rate, normal rhythm, normal heart sounds. Absent: systolic murmur, diastolic murmur, rubs, gallop, clicks Course Vital Signs 03/07/24 03/07/24 17:22 19:57 Temperature 97.5 F L Pulse Rate 80 75 Respiratory 20 16 Rate Blood Pressure 161/81 135/82 O2 Sat by Pulse 98 96 Oximetry Medical Decision Making - Medical Decision Making Was pt. sent in by a medical professional or institution (, PA, POWDERED SUGAR SUPERVISOR, urgent care, hospital, or fci...) When possible be specific @ -No Did you speak to anyone other than the patient for history (EMS, parent, family, police, friend...)? What history was obtained from this source @ -No Did you review nursing and triage notes (agree or disagree)? Why? @ -I reviewed and agree with nursing and triage notes Were old charts reviewed (outside hosp., previous admission, EMS record, old EKG, old radiological studies, urgent care reports/EKG's, fci records)? Report findings @ -No old charts were reviewed Differential Diagnosis (chest pain, altered mental status, abdominal pain women, abdominal pain men, vaginal bleeding, weakness, fever, dyspnea, syncope, headache, dizziness, GI bleed, back pain, seizure, CVA, palpatations, mental health, musculoskeletal)? @ -Chemical burn of eye, corneal abrasion, corneal ulceration, conjunctivitis, cellulitis EKG interpreted by me (3pts min.). @ -None X-rays interpreted by me (1pt min.). @ -None done CT interpreted by me (1pt min.). @ -None done U/S interpreted by me (1pt. min.). @ -None done What testing was considered but not performed or refused? (CT, X-rays, U/S, labs)? Why? @ -None What meds were considered but not given or refused? Why? @ -None Did you discuss the management of the patient with other professionals (professionals i.e. , PA, POWDERED SUGAR SUPERVISOR, lab, RT, psych nurse, social media senior associate, paste mixer liquid, teacher, credit administration officer, manager of case)? Give summary @ -Poison control was called who recommended 15-minute irrigation, and obtaining ocular pH and fluorescein stain test. Was smoking cessation discussed for >3mins.? @ -No Was critical care preformed (if so, how long)? @ -No Were there social determinants of health that impacted care today? How? (Home lessness, low income, unemployed, alcoholism, drug addiction, transportation, low edu. Level, literacy, decrease access to med. care, correction, rehab)? @ -No Was there de-escalation of care discussed even if they declined (Discuss DNR or withdrawal of care, Hospice)? DNR status @ -No What co-morbidities impacted this encounter? (DM, HTN, Smoking, COPD, CAD, Cancer, CVA, ARF, Chemo, Hep., AIDS, mental health diagnosis, sleep apnea, morbid obesity)? @ -None Was patient admitted / discharged? Hospital course, mention meds given and route, prescriptions, significant lab abnormalities, going to OR and other pertinent info. @ -Patient was discharged. Patient was seen and evaluated for possible chemical burn of both eyes. Patient was cleaning an awning when he accidentally sprayed dilated industrial soapy water into both eyes. States he flushed out his eyes at home. Poison control was called who recommended 15-minute irrigation, as well as obtaining ocular pH and fluorescein stain. Fluorescein stain reveals no ulcerations. Ocular pH was 7.0. Both eyes were thoroughly irrigated. Patient reports symptoms have almost completely resolved after flushing. Tetanus was updated. Patient was prescribed ofloxacin drops for likely corneal abrasion. Advised follow-up with ophthalmology tomorrow. 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 Strict return parameters discussed and patient shows understanding and agrees to plan. Case was discussed with my attending Dr. Brown. Patient discharged in stable condition. Undiagnosed new problem with uncertain prognosis? @ -No Drug Therapy requiring intensive monitoring for toxicity (Heparin, Nitro, Insulin, Cardizem)? @ -No Were any procedures done? @ -No Diagnosis/symptom? @ -Corneal abrasion of both eyes Acute, or Chronic, or Acute on Chronic? @ -Acute Uncomplicated (without systemic symptoms) or Complicated (systemic symptoms)? @ -Uncomplicated Side effects of treatment? @ -No Exacerbation, Progression, or Severe Exacerbation? @ -No Poses a threat to life or bodily function? How? (Chest pain, USA, MS, pneumonia, PE, COPD, DKA, ARF, appy, cholecystitis, CVA, Diverticulitis, Homicidal, Suicidal, threat to staff... and all critical care pts) @ -Unlikely at this time Disposition Clinical Impression: Corneal abrasion of both eyes Disposition: HOME SELF-CARE Condition: Stable Instructions (If sedation given, give patient instructions): Corneal Abrasion (ED) Additional Instructions: Follow-up with ophthalmology tomorrow. Apply antibiotic drops as directed. Please return to the emergency department with new or worsening symptoms. Prescriptions: Ofloxacin 0.3% Ophth Soln [Ocuflox Ophth Soln] 1 - 2 drops BOTH EYES QID 7 Days #10 ml Is patient prescribed a controlled substance at d/c from ED?: No Referrals: Rojas Adkins MD [Primary Care Provider] - 1-2 days Time of Disposition: 20:15
[2024-03-07] MEDS: FLUORESCEIN STRIPS 1 MG STRIP BOTH EYES ONE (18:03)
[2024-03-07] MEDS: PROPARACAINE 0.5% OPHTH DROPS 15 ML BTL BOTH EYES STA (18:03)
[2024-03-07 19:57] VITALS: RESP 16
[2024-03-07] MEDS: DIPH,PERTUS(ACELL)TETVAC-LF 0.5 ML VIAL IM ONE (20:22)
[2024-03-07 20:29] VITALS: BP 135/79; PULSE 96; TEMP 97.6
== END 2024-03-07 20:30 | disposition home or self-care (01) ==
LOC: SUPCPDRO 17:20 → EC 17:20
DX: S05.01XA Injury of conjunctiva and corneal abrasion without foreign body, right eye, initial encounter (principal); S05.02XA Injury of conjunctiva and corneal abrasion without foreign body, left eye, initial encounter; Z87.891 Personal history of nicotine dependence; Z88.8 Allergy status to other drugs, medicaments and biological substances; Z23 Encounter for immunization; X58.XXXA Exposure to other specified factors, initial encounter
CPT/HCPCS: 90471; 90715; 99283

== ENCOUNTER 2024-04-20 06:59 | Inpatient (IN) | payer MEDICARE ==
--- NOTE | 2024-04-20 07:21 | ED ---
Back Pain HPI - General Chief Complaint: Back Pain/Injury Stated Complaint: Kidney Stone Time Seen by Provider: 04/20/24 07:19 Source: patient, RN notes reviewed Mode of arrival: ambulatory Limitations: no limitations - History of Present Illness Initial Comments: 63 year old male presenting to the ER with a chief right flank pain. Patient has a past medical history significant of kidney stones and states this pain feels similar. Patient states pain started approximately 1 week ago. He is followed up at urgent care and PCP and was told he likely has a large stone. Patient is endorsing right flank with radiation to his right lower quadrant. He also is reporting hematuria, nausea and vomiting. He has taken prescribed Tylenol threes without relief. He denies any fevers or chills. Denies any constipation/diarrhea. Denies any chest pain, shortness of breath or peripheral edema. - Related Data Home Medications Medication Instructions Recorded Confirmed Albuterol Inhaler [Ventolin Hfa 2 puff INHALATION RT-QID 07/30/23 04/20/24 Inhaler] Dapagliflozin Propanediol [Farxiga] 10 mg PO DAILY 07/30/23 04/20/24 Insulin Glargine,Hum.rec.anlog 50 units SQ HS 07/30/23 04/20/24 [Lantus Solostar Pen] Isosorbide Mononitrate ER [Imdur] 30 mg PO DAILY 07/30/23 04/20/24 Montelukast [Singulair] 10 mg PO HS 07/30/23 04/20/24 Pioglitazone [Actos] 15 mg PO DAILY 07/30/23 04/20/24 Repaglinide [Prandin] 2 mg PO W/BRKFST 07/30/23 04/20/24 Semaglutide [Ozempic] 2 mg SQ TU 07/30/23 04/20/24 metFORMIN HCL [Glucophage] 1,000 mg PO BID 07/30/23 04/20/24 Acetaminophen-Codeine 300-30mg 1 tab PO Q6H PRN 04/20/24 04/20/24 [Tylenol w/codeine #3] Beclomethasone Dipropionate [Qvar 2 puff INHALATION RT-BID 04/20/24 04/20/24 80mcg Redihaler] Evolocumab [Repatha Sureclick] 140 mg SQ Q14D 04/20/24 04/20/24 Spironolactone [Aldactone] 50 mg PO DAILY 04/20/24 04/20/24 Tamsulosin HCl [Flomax] 0.4 mg PO DAILY 04/20/24 04/20/24 hydrALAZINE HCL 25 mg PO BID 04/20/24 04/20/24 Previous Rx's Medication Instructions Recorded Aspirin 81 mg PO DAILY #30 chew 10/05/18 Ezetimibe [Zetia] 10 mg PO DAILY #30 tab 10/05/18 Metoprolol Tartrate [Lopressor] 25 mg PO BID #60 tab 10/05/18 Pantoprazole [Protonix] 40 mg PO AC-BRKFST #30 tablet.dr 10/05/18 amLODIPine [Norvasc] 5 mg PO DAILY@1200 #30 tab 10/05/18 Losartan [Cozaar] 25 mg PO DAILY #30 tab 08/01/23 Allergies Allergy/AdvReac Type Severity Reaction Status Date / Time Ziixszk-DWU-OiI Reductase AdvReac muscle Verified 04/20/24 11:42 Inhibitor cramps [Rrlztlh-Qzn-Ydi Reductase Inhibitor] Review of Systems ROS Statement: Those systems with pertinent positive or pertinent negative responses have been documented in the HPI. ROS Other: All systems not noted in ROS Statement are negative. Past Medical History Past Medical History: Coronary Artery Disease (CAD), Chest Pain / Angina, COPD, Diabetes Mellitus, GERD/Reflux, Hyperlipidemia, Hypertension, Osteoarthritis (OA), Sleep Apnea/CPAP/BIPAP Additional Past Medical History / Comment(s): seasonal allergies History of Any Multi-Drug Resistant Organisms: None Reported Past Surgical History: Coronary Bypass/CABG, Joint Replacement, Orthopedic Surgery Additional Past Surgical History / Comment(s): right knee replaced, left shoulder surg., right arm surg., pilonidal cyst surg., multiple myringotomies. LEFT TOTAL KNEE ON 05/30/14. screws/plates in right arm Additional Past Anesthesia/Blood Transfusion Reaction / Comment(s): states has small airway, has had problems w/intubation in the past Past Psychological History: No Psychological Hx Reported Smoking Status: Former smoker Past Alcohol Use History: None Reported Past Drug Use History: None Reported - Past Family History Father Family Medical History: Diabetes Mellitus Additional Family Medical History / Comment(s): father at age 74-drowning. Mother History Unknown: Yes Family Medical History: No Reported History Additional Family Medical History / Comment(s): MOTHER AT AGE 70 OF UNKNOWN CAUSES. General Exam Limitations: no limitations General appearance: alert, in no apparent distress Respiratory exam: Present: normal lung sounds bilaterally. Absent: respiratory distress, wheezes, rales, rhonchi, stridor Cardiovascular Exam: Present: regular rate, normal rhythm, normal heart sounds. Absent: systolic murmur, diastolic murmur, rubs, gallop, clicks GI/Abdominal exam: Present: soft, tenderness (mild RLQ), normal bowel sounds Extremities exam: Present: normal inspection, full ROM, normal capillary refill. Absent: tenderness, pedal edema, joint swelling, calf tenderness Back exam: Present: CVA tenderness (R) Neurological exam: Present: alert, oriented X3, CN II-XII intact Skin exam: Present: warm, dry, intact, normal color. Absent: rash Course Vital Signs 04/20/24 04/20/24 04/20/24 07:01 08:27 09:10 Temperature 97.8 F 98.0 F Pulse Rate 75 71 72 Respiratory 18 16 17 Rate Blood Pressure 152/79 138/73 135/73 O2 Sat by Pulse 97 96 96 Oximetry 04/20/24 04/20/24 10:39 11:30 Temperature Pulse Rate 75 69 Respiratory 18 16 Rate Blood Pressure 112/81 137/82 O2 Sat by Pulse 95 96 Oximetry - Reevaluation(s) Reevaluation #1: 04/20/24 10:44 Case discussed with who advises on admission to medicine with urology on consult. 04/20/24 11:[address] May, [facility], who accepts admission. Medical Decision Making - Medical Decision Making Was pt. sent in by a medical professional or institution (, PA, [employer], urgent care, hospital, or prison...) When possible be specific @ -No Did you speak to anyone other than the patient for history (EMS, parent, family, police, friend...)? What history was obtained from this source @ -No Did you review nursing and triage notes (agree or disagree)? Why? @ -I reviewed and agree with nursing and triage notes Were old charts reviewed (outside hosp., previous admission, EMS record, old EKG, old radiological studies, urgent care reports/EKG's, prison records)? Report findings @ -No old charts were reviewed Differential Diagnosis (chest pain, altered mental status, abdominal pain women, abdominal pain men, vaginal bleeding, weakness, fever, dyspnea, syncope, headache, dizziness, GI bleed, back pain, seizure, CVA, palpatations, mental health, musculoskeletal)? @ -Differential Abdominal Pain Men: Appendicitis, cholecystitis, diverticulosis, ischemic bowel, pancreatitis, hepatitis, UTI, gastroenteritis, AAA, incarcerated hernia, bowel obstruction, constipation, inflammatory bowel, hepatitis, peptic ulcer disease, splenic infarction, perforated viscus, testicular torsion, this is not meant to be an all-inclusive list EKG interpreted by me (3pts min.). @ -None X-rays interpreted by me (1pt min.). @ -None done CT interpreted by me (1pt min.). @ -CT abdomen pelvis showing a 4 mm obstructing right ureteral stone causing moderate right sided hydronephrosis and hydroureter. Stranding adjacent to bilateral kidneys. Diverticulosis without evidence of acute diverticulitis. U/S interpreted by me (1pt. min.). @ -None done What testing was considered but not performed or refused? (CT, X-rays, U/S, labs)? Why? @ -None What meds were considered but not given or refused? Why? @ -None Did you discuss the management of the patient with other professionals (professionals i.e. , PA, [employer], lab, RT, psych nurse, social service worker, forming machine tender, teacher, admitting officer, lining caser)? Give summary @ -Yes, case discussed with on-call urology, Dr. Hendricks, who advised on admission to medicine with urology on consult. Case also discussed with Dr. May, [facility], for admission Was smoking cessation discussed for >3mins.? @ -No Was critical care preformed (if so, how long)? @ -No Were there social determinants of health that impacted care today? How? (Homelessness, low income, unemployed, alcoholism, drug addiction, transportation, low edu. Level, literacy, decrease access to med. care, senior living, rehab)? @ -No Was there de-escalation of care discussed even if they declined (Discuss DNR or withdrawal of care, Hospice)? DNR status @ -No What co-morbidities impacted this encounter? (DM, HTN, Smoking, COPD, CAD, Cancer, CVA, ARF, Chemo, Hep., AIDS, mental health diagnosis, sleep apnea, mo rbid obesity)? @ -Obese, diabetes, kidney disease, hypertension, hyperlipidemia Was patient admitted / discharged? Hospital course, mention meds given and route, prescriptions, significant lab abnormalities, going to OR and other pertinent info. @ -Admitted. 63 year old male presented to the ER with a chief complaint of right flank pain. History and physical exam completed. Vitals within normal limits. Patient in no signs of acute distress and nontoxic-appearing. Right CVA tenderness. Mild tenderness to right lower quadrant. Normal bowel sounds with no rebound or guarding. Laboratory studies obtained showing hyperkalemia 5.6, hyponatremia 135. BASILIA (BUN 53, creatinine 3.35) on CKD GFR 19. Urinalysis hemorrhagic with 32 RBCs. Rare bacteria. 4+ glucose likely related to diabetes. CT abdomen pelvis showing a 4 mm obstructing ureteral stone causing right-sided hydronephrosis and hydroureter. Stranding adjacent to bilateral kidneys. Admission considered due to BASILIA on CKD with concern of infection. Case discussed with on-call urology, Dr. Hendricks, who advised admission to medicine. Admission discussed with Dr. May, [facility]. Rocephin started. Symptomatic control in the ER, with improvement. Patient agreeable for admission. Patient admitted in stable condition for further evaluation and treatment. Case discussed with ED attending, Dr. Holland. Undiagnosed new problem with uncertain prognosis? @ -No Drug Therapy requiring intensive monitoring for toxicity (Heparin, Nitro, Insulin, Cardizem)? @ -No Were any procedures done? @ -No Diagnosis/symptom? @ -Hydronephrosis due to obstructing calculus/ureterolithiasis/BASILIA Acute, or Chronic, or Acute on Chronic? @ -Acute Uncomplicated (without systemic symptoms) or Complicated (systemic symptoms)? @ -Complicated Side effects of treatment? @ -No Exacerbation, Progression, or Severe Exacerbation? @ -No Poses a threat to life or bodily function? How? (Chest pain, [place], [place], pneumonia, PE, COPD, DKA, ARF, appy, cholecystitis, CVA, Diverticulitis, Homicidal, Suicidal, threat to staff... and all critical care pts) @ -Yes, renal disease can lead to electrolyte abnormalities which can cause lethal cardiac arrhythmias. This may be life-threatening. - Lab Data Result diagrams: 04/20/24 07:29 04/20/24 07:19 Lab Results 04/20/24 04/20/24 04/20/24 Range/Units 07:19 07:29 07:29 WBC 9.0 (3.8-10.6) k/uL RBC 4.78 (4.30-5.90) m/uL Hgb 15.6 (13.0-17.5) gm/dL Hct 45.6 (39.0-53.0) % MCV 95.6 (80.0-100.0) fL MCH 32.7 (25.0-35.0) pg MCHC 34.2 (31.0-37.0) g/dL RDW 11.9 (11.5-15.5) % Plt Count 198 (150-450) k/uL MPV 7.0 Neutrophils % 76 % Lymphocytes % 12 % Monocytes % 7 % Eosinophils % 2 % Basophils % 0 % Neutrophils # 6.8 (1.3-7.7) k/uL Lymphocytes # 1.1 (1.0-4.8) k/uL Monocytes # 0.7 (0-1.0) k/uL Eosinophils # 0.2 (0-0.7) k/uL Basophils # 0.0 (0-0.2) k/uL Sodium 135 L (137-145) mmol/L Potassium 5.6 H (3.5-5.1) mmol/L Chloride 105 (98-107) mmol/L Carbon Dioxide 21 L (22-30) mmol/L Anion Gap 9 mmol/L BUN 53 H (9-20) mg/dL Creatinine 3.35 H (0.66-1.25) mg/dL Est GFR (CKD-EPI)AfAm 21 (>60 ml/min/1.73 sqM) Est GFR (CKD-EPI)NonAf 19 (>60 ml/min/1.73 sqM) Glucose 159 H (74-99) mg/dL Plasma Lactic Acid Alirio (0.7-2.0) mmol/L Calcium 10.0 (8.4-10.2) mg/dL Total Bilirubin 0.8 (0.2-1.3) mg/dL AST 28 (17-59) U/L ALT 25 (4-49) U/L Alkaline Phosphatase 68 (38-126) U/L Total Protein 6.4 (6.3-8.2) g/dL Albumin 3.8 (3.5-5.0) g/dL Urine Color Yellow Urine Appearance Clear (Clear) Urine pH 5.0 (5.0-8.0) Ur Specific [place] 1.018 (1.001-1.035) Urine Protein Negative (Negative) Urine Glucose (UA) 4+ H (Negative) Urine Ketones Negative (Negative) Urine Blood Small H (Negative) Urine Nitrite Negative (Negative) Urine Bilirubin Negative (Negative) Urine Urobilinogen <2.0 (<2.0) mg/dL Ur Leukocyte Esterase Negative (Negative) Urine RBC 32 H (0-5) /hpf Urine WBC 2 (0-5) /hpf Ur Squamous Epith Cells <1 (0-4) /hpf Urine Bacteria Rare H (None) /hpf Urine Mucus Rare H (None) /hpf 04/20/24 Range/Units 07:29 WBC (3.8-10.6) k/uL RBC (4.30-5.90) m/uL Hgb (13.0-17.5) gm/dL Hct (39.0-53.0) % MCV (80.0-100.0) fL MCH (25.0-35.0) pg MCHC (31.0-37.0) g/dL RDW (11.5-15.5) % Plt Count (150-450) k/uL MPV Neutrophils % % Lymphocytes % % Monocytes % % Eosinophils % % Basophils % % Neutrophils # (1.3-7.7) k/uL Lymphocytes # (1.0-4.8) k/uL Monocytes # (0-1.0) k/uL Eosinophils # (0-0.7) k/uL Basophils # (0-0.2) k/uL Sodium (137-145) mmol/L Potassium (3.5-5.1) mmol/L Chloride (98-107) mmol/L Carbon Dioxide (22-30) mmol/L Anion Gap mmol/L BUN (9-20) mg/dL Creatinine (0.66-1.25) mg/dL Est GFR (CKD-EPI)AfAm (>60 ml/min/1.73 sqM) Est GFR (CKD-EPI)NonAf (>60 ml/min/1.73 sqM) Glucose (74-99) mg/dL Plasma Lactic Acid Alirio 1.2 (0.7-2.0) mmol/L Calcium (8.4-10.2) mg/dL Total Bilirubin (0.2-1.3) mg/dL AST (17-59) U/L ALT (4-49) U/L Alkaline Phosphatase (38-126) U/L Total Protein (6.3-8.2) g/dL Albumin (3.5-5.0) g/dL Urine Color Urine Appearance (Clear) Urine pH (5.0-8.0) Ur Specific [place] (1.001-1.035) Urine Protein (Negative) Urine Glucose (UA) (Negative) Urine Ketones (Negative) Urine Blood (Negative) Urine Nitrite (Negative) Urine Bilirubin (Negative) Urine Urobilinogen (<2.0) mg/dL Ur Leukocyte Esterase (Negative) Urine RBC (0-5) /hpf Urine WBC (0-5) /hpf Ur Squamous Epith Cells (0-4) /hpf Urine Bacteria (None) /hpf Urine Mucus (None) /hpf - Radiology Data Radiology results: report reviewed, image reviewed Disposition Clinical Impression: Ureterolithiasis, Hydronephrosis with obstructing calculus, Acute kidney injury, Hyperkalemia Disposition: ADMITTED IP TO THIS [facility] Condition: Stable Time of Disposition: 10:53
[2024-04-20 07:37] LABS: Basophils % (A) 0 %; Eosinophils # (A) 0.2 k/uL (0-0.7); Eosinophils % (A) 2 %; HCT 45.6 % (39.0-53.0); HGB 15.6 gm/dL (13.0-17.5); Lymphocytes # (A) 1.1 k/uL (1.0-4.8); Lymphocytes % (A) 12 %; MCH 32.7 pg (25.0-35.0); MCHC 34.2 g/dL (31.0-37.0); MCV 95.6 fL (80.0-100.0); Monocytes # (A) 0.7 k/uL (0-1.0); Monocytes % (A) 7 %; Neutrophils # (A) 6.8 k/uL (1.3-7.7); Neutrophils % (A) 76 %; Platelet Count 198 k/uL (150-450); RBC 4.78 m/uL (4.30-5.90); RDW 11.9 % (11.5-15.5)
[2024-04-20] MEDS: SODIUM CHLORIDE 0.9% 1,000 ML IV STA (07:37)
[2024-04-20] MEDS: ONDANSETRON 4 MG/2 ML VIAL IVP STA (07:40)
[2024-04-20] MEDS: HYDROmorphone 1 MG/ML 1 ML SYRINGE IVP STA (07:40)
[2024-04-20 07:46] LABS: Appearance,Urine Clear (Clear); Bacteria,Urine Rare /hpf; Bilirubin,Urine Negative (Negative); Blood,Urine Small (Negative); Color,Urine Yellow; Glucose,Urine (UA) 4+ (Negative); Ketones,Urine Negative (Negative); Leukocyte Esterase,Urine Negative (Negative); Mucus,Urine Rare /hpf; Nitrite,Urine Negative (Negative); Protein,Urine Negative (Negative); RBC,Urine 32 /hpf (0-5); Specific Gravity,Urine 1.018 (1.001-1.035); Squamous Epithelial Cell,Urine <1 /hpf (0-4); Urobilinogen,Urine <2.0 mg/dL (<2.0); WBC,Urine 2 /hpf (0-5)
[2024-04-20 08:01] LABS: ALT 25 U/L (4-49); AST 28 U/L (17-59); African American GFR (CKD) 21 (>60 ml/min/1.73 sqM); Albumin 3.8 g/dL (3.5-5.0); Alkaline Phosphatase 68 U/L (38-126); Anion Gap 9 mmol/L; Blood Urea Nitrogen 53 mg/dL (9-20); Carbon Dioxide 21 mmol/L (22-30); Chloride 105 mmol/L (98-107); Glucose 159 mg/dL (74-99); Non-African American GFR(CKD) 19 (>60 ml/min/1.73 sqM); Potassium 5.6 mmol/L (3.5-5.1); Sodium 135 mmol/L (137-145); Total Bilirubin 0.8 mg/dL (0.2-1.3); Total Protein 6.4 g/dL (6.3-8.2)
[2024-04-20] MEDS: LORazepam 2 MG/ML INJ IV STA (08:25)
--- NOTE | 2024-04-20 10:33 | CT ---
EXAMINATION TYPE: CT abdomen pelvis wo con DATE OF EXAM: 04/20/2024 COMPARISON: None INDICATION: Right flank pain DLP: 1561.8 mGycm, Automated exposure control for dose reduction was used. CONTRAST: 0 mL of Isovue 300. Study performed without Oral Contrast TECHNIQUE: Axial images were obtained from above the diaphragm to the pubic rami in the axial plane a t 5 mm thick sections. Reconstructed images are reviewed on the computer in the coronal plane. FINDINGS: Limited CT sections are obtained the lung bases. The lung bases are clear. CT ABDOMEN: Liver: Normal Spleen: Normal Pancreas: Normal Adrenal glands: The adrenal glands are normal. Gallbladder: Gallstones are present. Kidneys: No masses are evident. Moderate right hydronephrosis with hydroureter. There is a 0.4 cm obs tructing ureteral stone at the pelvic inlet. Midline. Periureteral stranding is present proximally. Some mild stranding adjacent to lateral kidney s No cysts are present. There are punctate bilateral nonobstructing renal stones. Aorta: Vascular calcification is within the aorta. Inferior vena cava: Normal. CT PELVIS: Reticulosis without acute diverticulitis is present. Study is without contrast limiting bowel evaluat ion. Appendix: Not identified. No dilated tubular structure evident. Some mild stranding in the right lowe r quadrant may be Urinary bladder: Normal. Genitourinary structures: Prostate is slightly prominent. Osseous structures: No suspicious lytic or sclerotic lesions. IMPRESSION: 1. 0.4 cm obstructing mid right ureteral stone with moderate right hydronephrosis and hydroureter. 2. Stranding adjacent to the bilateral kidneys. 3. Diverticulosis without acute diverticulitis.
[2024-04-20] MEDS ORDERED: ACETAMINOPHEN TAB 325 MG TAB PO PRN (11:32)
[2024-04-20] MEDS ORDERED: NALOXONE 0.4 MG/ML 1 ML VIAL IV PRN (11:32)
[2024-04-20] MEDS ORDERED: ONDANSETRON 4 MG/2 ML VIAL IVP PRN (11:32)
[2024-04-20] MEDS: SODIUM CHLORIDE 0.9% 1,000 ML IV SCH (12:24)
[2024-04-20] MEDS: HYDROmorphone 1 MG/ML 1 ML SYRINGE IVP PRN (12:29)
[2024-04-20 18:56] LABS: Glucose,Whole Blood 151 mg/dL (70-110)
[2024-04-20] MEDS: INSULIN ASPART (NovoLOG) 100 UNIT/ML VIAL SQ SCH (19:57)
[2024-04-20 20:21] LABS: Glucose,Whole Blood 167 mg/dL (70-110)
[2024-04-20] MEDS: FLUTICASONE 110 MCG INHALER INHALATION SCH (20:24)
[2024-04-20] MEDS: ALBUTEROL HFA INHALER INHALATION SCH (20:24)
[2024-04-20] MEDS: hydrALAZINE HCL 25 MG TAB PO SCH (21:23)
[2024-04-20] MEDS: METOPROLOL TARTRATE 25 MG TAB PO SCH (21:23)
[2024-04-20] MEDS: MONTELUKAST 10 MG TAB PO SCH (21:23)
[2024-04-20] MEDS: PANTOPRAZOLE 40 MG TABLET PO SCH (22:23)
[2024-04-20] MEDS: CALCIUM CARBONATE 500 MG CHEWABLE PO PRN (22:23)
[2024-04-20] MEDS: INSULIN DETEMIR (LEVEMIR) 100 UNIT/ML SYR SQ SCH (22:23)
[2024-04-21] MEDS ORDERED: PANTOPRAZOLE 40 MG TABLET PO SCH (07:30)
[2024-04-21 08:56] LABS: Glucose,Whole Blood 65 mg/dL (70-110)
[2024-04-21] MEDS: INSULIN ASPART (NovoLOG) 100 UNIT/ML VIAL SQ SCH (08:58)
[2024-04-21] MEDS: ISOSORBIDE MONONITRATE ER 30 MG TAB.ER.24H PO SCH (09:08)
[2024-04-21] MEDS: TAMSULOSIN 0.4 MG CAP.ER.24H PO SCH (09:09)
[2024-04-21] MEDS: EZETIMIBE 10 MG TAB PO SCH (09:09)
[2024-04-21] MEDS: DAPAGLIFLOZIN PROPANEDIOL 10 MG TABLET PO SCH (09:09)
[2024-04-21 10:40] LABS: Glucose,Whole Blood 196 mg/dL (70-110)
[2024-04-21 11:12] LABS: Basophils # (A) 0.03 X 10*3/uL (0.00-0.10); Basophils % (A) 0.4 %; Eosinophils # (A) 0.15 X 10*3/uL (0.04-0.35); Eosinophils % (A) 1.8 %; HCT 41.5 % (39.6-50.0); HGB 13.9 g/dL (13.0-17.0); Lymphocytes # (A) 1.18 X 10*3/uL (0.90-5.00); Lymphocytes % (A) 14.1 %; MCH 31.7 pg (27.0-32.0); MCHC 33.5 g/dL (32.0-37.0); MCV 94.5 FL (80.0-97.0); Mean Platelet Volume 9.5 FL (9.5-12.2); Monocytes # (A) 1.08 X 10*3/uL (0.20-1.00); Monocytes % (A) 12.9 %; NRBC Per 100 WBC 0 X 10*3/uL (0.00-0.01); Neutrophils % (A) 70.4 %; Platelet Count 174 X 10*3/uL (140-440); RBC 4.39 X 10*6/uL (4.40-5.60); RDW 11.9 % (11.5-14.5); WBC 8.37 X 10*3/uL (4.50-10.00)
[2024-04-21 11:17] LABS: BUN/Creat Ratio 14.06 Ratio (12.00-20.00); Blood Urea Nitrogen 43.6 mg/dL (9.0-27.0); Calcium 9.3 mg/dL (8.7-10.3); Carbon Dioxide 20.8 mmol/L (21.6-31.8); Chloride 102 mmol/L (96-109); Glucose 154 mg/dL (70-110); Potassium 5.4 mmol/L (3.5-5.5); Sodium 134 mmol/L (135-145)
[2024-04-21 11:42] LABS: Glucose,Whole Blood 150 mg/dL (70-110)
--- NOTE | 2024-04-21 11:51 | P.NPCON ---
History of Present Illness - Reason for Consult acute renal failure - History of Present Illness patient is a 63-year-old male with history of coronary artery disease status post coronary artery bypass surgery, type 2 diabetes, history of nephrolithiasis with previous episode of renal colic about 1 year ago. Patient is admitted to the hospital with complaints of right flank pain which has been going on for about 1-2 weeks. Pain has progressively worsened and therefore he came into the hospital. Patient denies any previous history of kidney disease however serum creatinine is noted to be around 1.2-1.3 mg/dL with episodes of acute kidney injury in 2018. Serum creatinine has been mostly around 1.5-1.8 mg/dL in July 2023. Serum creatinine noted at 3.3 mg/dL. CT of the abdomen shows right renal stone 0.4 cm with right hydronephrosis. Maintained on angiotensin receptor blockers andFarxiga along with metformin prior to admission. No history of NSAIDs. Patient does admit to consumption of 2-3 bottles of Coke daily. Review of Systems as per HPI Past Medical History Past Medical History: Coronary Artery Disease (CAD), Chest Pain / Angina, COPD, Diabetes Mellitus, GERD/Reflux, Hyperlipidemia, Hypertension, Osteoarthritis (OA), Sleep Apnea/CPAP/BIPAP Additional Past Medical History / Comment(s): seasonal allergies History of Any Multi-Drug Resistant Organisms: None Reported Past Surgical History: Coronary Bypass/CABG, Joint Replacement, Orthopedic Surgery Additional Past Surgical History / Comment(s): right knee replaced, left shoulder surg., right arm surg., pilonidal cyst surg., multiple myringotomies. LEFT TOTAL KNEE ON 05/30/14. screws/plates in right arm Additional Past Anesthesia/Blood Transfusion Reaction / Comment(s): states has small airway, has had problems w/intubation in the past Past Psychological History: No Psychological Hx Reported Smoking Status: Former smoker Past Alcohol Use History: None Reported Past Drug Use History: None Reported - Past Family History Father Family Medical History: Diabetes Mellitus Additional Family Medical History / Comment(s): father at age 74-drowning. Mother History Unknown: Yes Family Medical History: No Reported History Additional Family Medical History / Comment(s): MOTHER AT AGE 70 OF UNKNOWN CAUSES. Medications and Allergies Home Medications Medication Instructions Recorded Confirmed Type Aspirin 81 mg PO DAILY #30 chew 10/05/18 04/20/24 Rx Ezetimibe [Zetia] 10 mg PO DAILY #30 tab 10/05/18 04/20/24 Rx Metoprolol Tartrate [Lopressor] 25 mg PO BID #60 tab 10/05/18 04/20/24 Rx Pantoprazole [Protonix] 40 mg PO AC-BRKFST #30 tablet. 10/05/18 04/20/24 Rx amLODIPine [Norvasc] 5 mg PO DAILY@1200 #30 tab 10/05/18 04/20/24 Rx Albuterol Inhaler [Ventolin Hfa 2 puff INHALATION RT-QID 07/30/23 04/20/24 History Inhaler] Dapagliflozin Propanediol [Farxiga] 10 mg PO DAILY 07/30/23 04/20/24 History Insulin Glargine,Hum.rec.anlog 50 units SQ HS 07/30/23 04/20/24 History [Lantus Solostar Pen] Isosorbide Mononitrate ER [Imdur] 30 mg PO DAILY 07/30/23 04/20/24 History Montelukast [Singulair] 10 mg PO HS 07/30/23 04/20/24 History Pioglitazone [Actos] 15 mg PO DAILY 07/30/23 04/20/24 History Repaglinide [Prandin] 2 mg PO W/BRKFST 07/30/23 04/20/24 History Semaglutide [Ozempic] 2 mg SQ TU 07/30/23 04/20/24 History metFORMIN HCL [Glucophage] 1,000 mg PO BID 07/30/23 04/20/24 History Losartan [Cozaar] 25 mg PO DAILY #30 tab 08/01/23 04/20/24 Rx Acetaminophen-Codeine 300-30mg 1 tab PO Q6H PRN 04/20/24 04/20/24 History [Tylenol w/codeine #3] Beclomethasone Dipropionate [Qvar 2 puff INHALATION RT-BID 04/20/24 04/20/24 History 80mcg Redihaler] Evolocumab [Repatha Sureclick] 140 mg SQ Q14D 04/20/24 04/20/24 History Spironolactone [Aldactone] 50 mg PO DAILY 04/20/24 04/20/24 History Tamsulosin HCl [Flomax] 0.4 mg PO DAILY 04/20/24 04/20/24 History hydrALAZINE HCL 25 mg PO BID 04/20/24 04/20/24 History Allergies Allergy/AdvReac Type Severity Reaction Status Date / Time [place]-TRT-PwR Reductase AdvReac muscle Verified 04/20/24 11:42 Inhibitor cramps [Bgibjhw-Mgl-Uds Reductase Inhibitor] Physical Exam Vitals: Vital Signs Temp Pulse Pulse Resp BP BP Pulse Ox 04/21/24 06:53 98.3 F 63 16 116/68 97 04/21/24 01:10 98 F 63 19 118/60 97 04/20/24 20:00 98.5 F 73 18 128/67 96 04/20/24 17:30 97.5 F L 72 17 159/53 98 04/20/24 17:14 97.6 F 67 16 131/79 97 Intake and Output 04/20/24 04/21/24 04/21/24 22:59 06:59 14:59 Other: # Voids 0 2 Weight 127.006 kg patient is awake, comfortable, no acute distress. 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 Acute kidney injury, obstructive uropathy with right hydronephrosis along with an element of ATN. Currently nonoliguric. UA shows small blood no protein 2. Right hydronephrosis with 0.4 cm renal stone 4. History of nephrolithiasis with multiple previous episodes of renal colic. Patient does admit to large intake of coke on a daily basis. 5. Type 2 diabetes 6. Chronic kidney disease NKF stage III a with baseline creatinine around 1.5- 1.6 with previous episodes of acute kidney injury in July 2023. Etiology is likely nephrosclerosis. 7. Coronary artery disease with history of coronary artery bypass surgery and bovine aortic valve replacement in 2019 Plan: continue with IV fluids Consult urology. Continue Flomax Continue to hold angiotensin receptor blockers. May continue with farxiga for now, may need to hold if renal function does not improve. Patient will need 24 hour urine for stone profile as outpatient. Discussed healthier dietary habits including decreasing/discontinuation of pop, increased fluid intake and avoiding high salt containing foods for calcium containing stones as well as benefit of increased citrus foods if there is evidence of hypocitraturia. Thank you for the consultation. We will continue to follow the patient with you during his hospitalization.
[2024-04-21] MEDS: amLODIPine 5 MG TAB PO SCH (12:07)
--- NOTE | 2024-04-21 12:54 | P.GSCN ---
History of Present Illness Consult date: 04/21/24 Reason for Consult: Right ureteral calculus Requesting physician: Lacey May History of present illness: The patient is a 63-year-old white male with a history of urolithiasis. He has never required surgery for kidney stones, but states that he has passed approximately 20 stones over the years. He now presents with a 1 week history of right flank pain radiating to the right lower quadrant. He has experienced a ssociated nausea, vomiting, and gross hematuria. He underwent ER evaluation, revealing moderate right hydronephrosis due to a 4 mm right mid ureteral calculus. He was admitted due to intractable symptoms and an increase in his serum creatinine level. Review of Systems - Constitutional Denies chills, Denies fever - Gastrointestinal Reports nausea, Reports vomiting - Genitourinary Reports flank pain, Reports hematuria, Reports kidney stones Past Medical History Past Medical History: Coronary Artery Disease (CAD), Chest Pain / Angina, COPD, Diabetes Mellitus, GERD/Reflux, Hyperlipidemia, Hypertension, Osteoarthritis (OA), Sleep Apnea/CPAP/BIPAP Additional Past Medical History / Comment(s): seasonal allergies History of Any Multi-Drug Resistant Organisms: None Reported Past Surgical History: Coronary Bypass/CABG, Joint Replacement, Orthopedic Surgery Additional Past Surgical History / Comment(s): right knee replaced, left shoulder surg., right arm surg., pilonidal cyst surg., multiple myringotomies. LEFT TOTAL KNEE ON 05/30/14. screws/plates in right arm Additional Past Anesthesia/Blood Transfusion Reaction / Comm: states has small airway, has had problems w/intubation in the past Past Psychological History: No Psychological Hx Reported Smoking Status: Former smoker Past Alcohol Use History: None Reported Past Drug Use History: None Reported - Past Family History Father Family Medical History: Diabetes Mellitus Additional Family Medical History / Comment(s): father at age 74-drowning. Mother History Unknown: Yes Family Medical History: No Reported History Additional Family Medical History / Comment(s): MOTHER AT AGE 70 OF UNKNOWN CAUSES. Medications and Allergies Home Medications Medication Instructions Recorded Confirmed Type Aspirin 81 mg PO DAILY #30 chew 10/05/18 04/20/24 Rx Ezetimibe [Zetia] 10 mg PO DAILY #30 tab 10/05/18 04/20/24 Rx Metoprolol Tartrate [Lopressor] 25 mg PO BID #60 tab 10/05/18 04/20/24 Rx Pantoprazole [Protonix] 40 mg PO AC-BRKFST #30 tablet.dr 10/05/18 04/20/24 Rx amLODIPine [Norvasc] 5 mg PO DAILY@1200 #30 tab 10/05/18 04/20/24 Rx Albuterol Inhaler [Ventolin Hfa 2 puff INHALATION RT-QID 07/30/23 04/20/24 History Inhaler] Dapagliflozin Propanediol [Farxiga] 10 mg PO DAILY 07/30/23 04/20/24 History Insulin Glargine,Hum.rec.anlog 50 units SQ HS 07/30/23 04/20/24 History [Lantus Solostar Pen] Isosorbide Mononitrate ER [Imdur] 30 mg PO DAILY 07/30/23 04/20/24 History Montelukast [Singulair] 10 mg PO HS 07/30/23 04/20/24 History Pioglitazone [Actos] 15 mg PO DAILY 07/30/23 04/20/24 History Repaglinide [Prandin] 2 mg PO W/BRKFST 07/30/23 04/20/24 History Semaglutide [Ozempic] 2 mg SQ TU 07/30/23 04/20/24 History metFORMIN HCL [Glucophage] 1,000 mg PO BID 07/30/23 04/20/24 History Losartan [Cozaar] 25 mg PO DAILY #30 tab 08/01/23 04/20/24 Rx Acetaminophen-Codeine 300-30mg 1 tab PO Q6H PRN 04/20/24 04/20/24 History [Tylenol w/codeine #3] Beclomethasone Dipropionate [Qvar 2 puff INHALATION RT-BID 04/20/24 04/20/24 History 80mcg Redihaler] Evolocumab [Repatha Sureclick] 140 mg SQ Q14D 04/20/24 04/20/24 History Spironolactone [Aldactone] 50 mg PO DAILY 04/20/24 04/20/24 History Tamsulosin HCl [Flomax] 0.4 mg PO DAILY 04/20/24 04/20/24 History hydrALAZINE HCL 25 mg PO BID 04/20/24 04/20/24 History Allergies Allergy/AdvReac Type Severity Reaction Status Date / Time Qneuokr-FYC-XtR Reductase AdvReac muscle Verified 04/20/24 11:42 Inhibitor cramps [Begwyje-Tec-Qpq Reductase Inhibitor] Surgical - Exam Vital Signs Temp Pulse Resp BP Pulse Ox 97.8 F 75 18 152/79 97 04/20/24 07:01 04/20/24 07:01 04/20/24 07:01 04/20/24 07:01 04/20/24 07:01 - General well developed, well nourished, moderate pain - Respiratory normal respiratory effort - Abdomen Abdomen: soft, non tender, no guarding, no rigid, no rebound - Psychiatric oriented to time, oriented to person, oriented to place, speech is normal, memory intact Results - Labs 04/21/24 06:12 04/21/24 06:12 Abnormal Lab Results - Last 24 Hours (Table) 04/20/24 04/20/24 04/20/24 Range/Units 07:19 07:29 18:54 Sodium 135 L (137-145) mmol/L Potassium 5.6 H (3.5-5.1) mmol/L Carbon Dioxide 21 L (22-30) mmol/L BUN 53 H (9-20) mg/dL Creatinine 3.35 H (0.66-1.25) mg/dL Glucose 159 H (74-99) mg/dL POC Glucose (mg/dL) 151 H (70-110) mg/dL Urine Glucose (UA) 4+ H (Negative) Urine Blood Small H (Negative) Urine RBC 32 H (0-5) /hpf Urine Bacteria Rare H (None) /hpf Urine Mucus Rare H (None) /hpf 04/20/24 Range/Units 20:19 Sodium (137-145) mmol/L Potassium (3.5-5.1) mmol/L Carbon Dioxide (22-30) mmol/L BUN (9-20) mg/dL Creatinine (0.66-1.25) mg/dL Glucose (74-99) mg/dL POC Glucose (mg/dL) 167 H (70-110) mg/dL Urine Glucose (UA) (Negative) Urine Blood (Negative) Urine RBC (0-5) /hpf Urine Bacteria (None) /hpf Urine Mucus (None) /hpf Diabetes panel 04/20/24 Range/Units 07:19 Sodium 135 L (137-145) mmol/L Potassium 5.6 H (3.5-5.1) mmol/L Chloride 105 (98-107) mmol/L Carbon Dioxide 21 L (22-30) mmol/L BUN 53 H (9-20) mg/dL Creatinine 3.35 H (0.66-1.25) mg/dL Glucose 159 H (74-99) mg/dL Calcium 10.0 (8.4-10.2) mg/dL AST 28 (17-59) U/L ALT 25 (4-49) U/L Alkaline Phosphatase 68 (38-126) U/L Total Protein 6.4 (6.3-8.2) g/dL Albumin 3.8 (3.5-5.0) g/dL Calcium panel 04/20/24 Range/Units 07:19 Calcium 10.0 (8.4-10.2) mg/dL Albumin 3.8 (3.5-5.0) g/dL Pituitary panel 04/20/24 Range/Units 07:19 Sodium 135 L (137-145) mmol/L Potassium 5.6 H (3.5-5.1) mmol/L Chloride 105 (98-107) mmol/L Carbon Dioxide 21 L (22-30) mmol/L BUN 53 H (9-20) mg/dL Creatinine 3.35 H (0.66-1.25) mg/dL Glucose 159 H (74-99) mg/dL Calcium 10.0 (8.4-10.2) mg/dL Adrenal panel 04/20/24 Range/Units 07:19 Sodium 135 L (137-145) mmol/L Potassium 5.6 H (3.5-5.1) mmol/L Chloride 105 (98-107) mmol/L Carbon Dioxide 21 L (22-30) mmol/L BUN 53 H (9-20) mg/dL Creatinine 3.35 H (0.66-1.25) mg/dL Glucose 159 H (74-99) mg/dL Calcium 10.0 (8.4-10.2) mg/dL Total Bilirubin 0.8 (0.2-1.3) mg/dL AST 28 (17-59) U/L ALT 25 (4-49) U/L Alkaline Phosphatase 68 (38-126) U/L Total Protein 6.4 (6.3-8.2) g/dL Albumin 3.8 (3.5-5.0) g/dL - Imaging CT scan - abdomen: report reviewed, image reviewed Assessment and Plan (1) Ureterolithiasis Current Visit: Yes Status: Acute Code(s): N20.1 - CALCULUS OF URETER SNOMED Code(s): 47239939 (2) Hydronephrosis with renal and ureteral calculous obstruction Current Visit: Yes Status: Acute Code(s): N13.2 - HYDRONEPHROSIS WITH RENAL AND URETERAL CALCULOUS OBSTRUCTION SNOMED Code(s): 502628228 Plan: I had a lengthy discussion with the patient regarding his obstructing ureteral calculus. Given the renal insufficiency, I do not think he is an ideal candidate for medical expulsion therapy. Additionally, he states that he tried this for a week and ultimately required hospitalization. We discussed placement of a right ureteral stent versus ureteroscopic removal of the calculus. He hopes to avoid the need for a secondary procedure, so he has elected to undergo cystoscopy, right retrograde pyelogram, right ureteroscopy with laser lithotripsy and possible stone basketing, right ureteral stent insertion. The procedure has been reviewed in detail with the patient, including risks which include anesthesia, bleeding, infection, inability to remove the calculus, and ureteral injury. Time with Patient: Greater than 30
[2024-04-21] MEDS: DOCUSATE 100 MG CAP PO SCH (13:09)
[2024-04-21 16:53] LABS: Glucose,Whole Blood 196 mg/dL (70-110)
--- NOTE | 2024-04-21 17:41 | P.PN ---
Subjective Progress Note Date: 04/21/24 63 year old male presenting to the ER with a chief right flank pain. Patient has a past medical history significant of kidney stones and states this pain feels similar. Patient states pain started approximately 1 week ago. He is followed up at urgent care and PCP and was told he likely has a large stone. Patient is endorsing right flank with radiation to his right lower quadrant. He also is reporting hematuria, nausea and vomiting. He has taken prescribed Tylenol threes without relief. He denies any fevers or chills. Denies any constipation/diarrhea. Denies any chest pain, shortness of breath or peripheral edema. Laboratory studies obtained showing hyperkalemia 5.6, hyponatremia 135. BASILIA (BUN 53, creatinine 3.35) on CKD GFR 19. Urinalysis hemorrhagic with 32 RBCs. Rare bacteria. 4+ glucose likely related to diabetes. CT abdomen pelvis showing a 4 mm obstructing ureteral stone causing right-sided hydronephrosis and hydroureter. Stranding adjacent to bilateral kidneys. Admission considered due to BASILIA on CKD with concern of infection. Objective - Vital Signs Vital signs: Vital Signs Temp 98.3 F 04/21/24 06:53 Pulse 63 04/21/24 06:53 Resp 16 04/21/24 06:53 BP 116/68 04/21/24 06:53 Pulse Ox 97 04/21/24 06:53 FiO2 Intake & Output 04/20/24 04/21/24 04/21/24 18:59 06:59 18:59 Intake Total 1000 Balance 1000 Weight 127.006 kg Intake: IV 1000 Invasive Line 1 1000 Other: # Voids 0 2 - Exam General appearance: alert, in no apparent distress Respiratory exam: Present: normal lung sounds bilaterally. Absent: respiratory distress, wheezes, rales, rhonchi, stridor Cardiovascular Exam: Present: regular rate, normal rhythm, normal heart sounds. Absent: systolic murmur, diastolic murmur, rubs, gallop, clicks GI/Abdominal exam: Present: soft, tenderness (mild RLQ), normal bowel sounds Extremities exam: Present: normal inspection, full ROM, normal capillary refill. Absent: tenderness, pedal edema, joint swelling, calf tenderness Back exam: Present: CVA tenderness (R) Neurological exam: Present: alert, oriented X3, CN II-XII intact Skin exam: Present: warm, dry, intact, normal color. Absent: rash - Labs CBC & Chem 7: 04/21/24 06:12 04/21/24 06:12 Labs: Abnormal Lab Results - Last 24 Hours (Table) 04/20/24 04/20/24 04/21/24 Range/Units 18:54 20:19 06:12 RBC 4.39 L (4.40-5.60) X 10*6/uL Monocytes # 1.08 H (0.20-1.00) X 10*3/uL Sodium (135-145) mmol/L Carbon Dioxide (21.6-31.8) mmol/L BUN (9.0-27.0) mg/dL Creatinine (0.6-1.5) mg/dL Est GFR (CKD-EPI) (>=60) Glucose (70-110) mg/dL POC Glucose (mg/dL) 151 H 167 H (70-110) mg/dL 04/21/24 04/21/24 04/21/24 Range/Units 06:12 08:54 10:37 RBC (4.40-5.60) X 10*6/uL Monocytes # (0.20-1.00) X 10*3/uL Sodium 134 L (135-145) mmol/L Carbon Dioxide 20.8 L (21.6-31.8) mmol/L BUN 43.6 H (9.0-27.0) mg/dL Creatinine 3.1 H (0.6-1.5) mg/dL Est GFR (CKD-EPI) 22 L (>=60) Glucose 154 H (70-110) mg/dL POC Glucose (mg/dL) 65 L 196 H (70-110) mg/dL Assessment and Plan Assessment: 1. Obstructive renal and ureteral calculi/hydronephrosis -CT reveals 0.4 cm obstructing mid right ureteral stone with moderate right hydronephrosis and hydroureter -Patient has been placed on IV fluids; pain control with IV morphine; Flomax 0.4 mg daily -We will consult urology 2. Possible pyelonephritis; CT of the abdomen and pelvis revealed stranding adjacent to bilateral kidneys with concern for infectious etiology -Has been placed on IV Rocephin; await further recommendations from urology 3. Acute renal injury/CKD -Blood work reveals a creatinine of 3.3; CT reveals obstructing right ureteral c alculus -Patient has a baseline creatinine around 1.5-1.6 -Patient remains on IV fluid hydration; strict SHELTON's, daily weights, renal function electrolytes; nephrotoxins and hypotension -Consult nephrology 4. Hypertension; patient takes Cozaar 25 mg daily along with Aldactone 50 mg daily which have been placed on hold given acute renal injury; continue with amlodipine 5 mg daily 5. COPD/asthma; in exacerbation; continue with home inhaler therapy 6. Diabetes mellitus; patient takes metformin, Actos, Prandin and Ozempic; will hold off on home regimen and monitor Accu-Cheks before every meal and at bedtime with insulin sliding scale VTE prophylaxis; SCDs CODE STATUS; full code
--- NOTE | 2024-04-21 17:41 | P.HPIM ---
History of Present Illness H&P Date: 04/20/24 Chief Complaint: Right flank pain 63 year old male presenting to the ER with a chief right flank pain. Patient has a past medical history significant of kidney stones and states this pain feels similar. Patient states pain started approximately 1 week ago. He is followed up at urgent care and PCP and was told he likely has a large stone. Patient is endorsing right flank with radiation to his right lower quadrant. He also is reporting hematuria, nausea and vomiting. He has taken prescribed Tylenol threes without relief. He denies any fevers or chills. Denies any constipation/diarrhea. Denies any chest pain, shortness of breath or peripheral edema. Laboratory studies obtained showing hyperkalemia 5.6, hyponatremia 135. BASILIA (BUN 53, creatinine 3.35) on CKD GFR 19. Urinalysis hemorrhagic with 32 RBCs. Rare bacteria. 4+ glucose likely related to diabetes. CT abdomen pelvis showing a 4 mm obstructing ureteral stone causing right-sided hydronephrosis and hydroureter. Stranding adjacent to bilateral kidneys. Admission considered due to BASILIA on CKD with concern of infection. Review of Systems REVIEW OF SYSTEMS: CONSTITUTIONAL: No fever, no malaise, no fatigue. HEENT: No recent visual problems or hearing problems. Denied any sore throat. CARDIOVASCULAR: No chest pain, orthopnea, PND, no palpitations, no syncope. PULMONARY: No shortness of breath, no cough, no hemoptysis. GASTROINTESTINAL: No diarrhea, no nausea, no vomiting, no abdominal pain. NEUROLOGICAL: No headaches, no weakness, no numbness. HEMATOLOGICAL: Denies any bleeding or petechiae. GENITOURINARY: Denies any burning micturition, frequency, or urgency. MUSCULOSKELETAL/RHEUMATOLOGICAL: Denies any joint pain, swelling, or any muscle pain. ENDOCRINE: Denies any polyuria or polydipsia. The rest of the 14-point review of systems is negative. Past Medical History Past Medical History: Coronary Artery Disease (CAD), Chest Pain / Angina, COPD, Diabetes Mellitus, GERD/Reflux, Hyperlipidemia, Hypertension, Osteoarthritis (OA), Sleep Apnea/CPAP/BIPAP Additional Past Medical History / Comment(s): seasonal allergies History of Any Multi-Drug Resistant Organisms: None Reported Past Surgical History: Coronary Bypass/CABG, Joint Replacement, Orthopedic Surgery Additional Past Surgical History / Comment(s): right knee replaced, left shoulder surg., right arm surg., pilonidal cyst surg., multiple myringotomies. LEFT TOTAL KNEE ON 05/30/14. screws/plates in right arm Additional Past Anesthesia/Blood Transfusion Reaction / Comment(s): states has small airway, has had problems w/intubation in the past Past Psychological History: No Psychological Hx Reported Smoking Status: Former smoker Past Alcohol Use History: None Reported Past Drug Use History: None Reported - Past Family History Father Family Medical History: Diabetes Mellitus Additional Family Medical History / Comment(s): father at age 74-drowning. Mother History Unknown: Yes Family Medical History: No Reported History Additional Family Medical History / Comment(s): MOTHER AT AGE 70 OF UNKNOWN CAUSES. Medications and Allergies Home Medications Medication Instructions Recorded Confirmed Type Aspirin 81 mg PO DAILY #30 chew 10/05/18 04/20/24 Rx Ezetimibe [Zetia] 10 mg PO DAILY #30 tab 10/05/18 04/20/24 Rx Metoprolol Tartrate [Lopressor] 25 mg PO BID #60 tab 10/05/18 04/20/24 Rx Pantoprazole [Protonix] 40 mg PO AC-BRKFST #30 tablet.dr 10/05/18 04/20/24 Rx amLODIPine [Norvasc] 5 mg PO DAILY@1200 #30 tab 10/05/18 04/20/24 Rx Albuterol Inhaler [Ventolin Hfa 2 puff INHALATION RT-QID 07/30/23 04/20/24 History Inhaler] Dapagliflozin Propanediol [Farxiga] 10 mg PO DAILY 07/30/23 04/20/24 History Insulin Glargine,Hum.rec.anlog 50 units SQ HS 07/30/23 04/20/24 History [Lantus Solostar Pen] Isosorbide Mononitrate ER [Imdur] 30 mg PO DAILY 07/30/23 04/20/24 History Montelukast [Singulair] 10 mg PO HS 07/30/23 04/20/24 History Pioglitazone [Actos] 15 mg PO DAILY 07/30/23 04/20/24 History Repaglinide [Prandin] 2 mg PO W/BRKFST 07/30/23 04/20/24 History Semaglutide [Ozempic] 2 mg SQ TU 07/30/23 04/20/24 History metFORMIN HCL [Glucophage] 1,000 mg PO BID 07/30/23 04/20/24 History Losartan [Cozaar] 25 mg PO DAILY #30 tab 08/01/23 04/20/24 Rx Acetaminophen-Codeine 300-30mg 1 tab PO Q6H PRN 04/20/24 04/20/24 History [Tylenol w/codeine #3] Beclomethasone Dipropionate [Qvar 2 puff INHALATION RT-BID 04/20/24 04/20/24 History 80mcg Redihaler] Evolocumab [Repatha Sureclick] 140 mg SQ Q14D 04/20/24 04/20/24 History Spironolactone [Aldactone] 50 mg PO DAILY 04/20/24 04/20/24 History Tamsulosin HCl [Flomax] 0.4 mg PO DAILY 04/20/24 04/20/24 History hydrALAZINE HCL 25 mg PO BID 04/20/24 04/20/24 History Allergies Allergy/AdvReac Type Severity Reaction Status Date / Time Qdtniho-ZEW-TjY Reductase AdvReac muscle Verified 04/20/24 11:42 Inhibitor cramps [Vekkmab-Exw-Jlm Reductase Inhibitor] Physical Exam Vitals: Vital Signs Temp Pulse Resp BP Pulse Ox 04/20/24 11:30 69 16 137/82 96 04/20/24 10:39 75 18 112/81 95 04/20/24 09:10 72 17 135/73 96 04/20/24 08:27 98.0 F 71 16 138/73 96 04/20/24 07:01 97.8 F 75 18 152/79 97 Intake and Output 04/20/24 04/20/24 04/20/24 06:59 14:59 22:59 Intake Total 1000 Balance 1000 Intake: IV 1000 Invasive Line 1 1000 Other: Weight 127.006 kg General appearance: alert, in no apparent distress Respiratory exam: Present: normal lung sounds bilaterally. Absent: respiratory distress, wheezes, rales, rhonchi, stridor Cardiovascular Exam: Present: regular rate, normal rhythm, normal heart sounds. Absent: systolic murmur, diastolic murmur, rubs, gallop, clicks GI/Abdominal exam: Present: soft, tenderness (mild RLQ), normal bowel sounds Extremities exam: Present: normal inspection, full ROM, normal capillary refill. Absent: tenderness, pedal edema, joint swelling, calf tenderness Back exam: Present: CVA tenderness (R) Neurological exam: Present: alert, oriented X3, CN II-XII intact Skin exam: Present: warm, dry, intact, normal color. Absent: rash Results CBC & Chem 7: 04/21/24 06:12 04/21/24 06:12 Labs: Abnormal Lab Results - Last 24 Hours (Table) 04/20/24 04/20/24 Range/Units 07:19 07:29 Sodium 135 L (137-145) mmol/L Potassium 5.6 H (3.5-5.1) mmol/L Carbon Dioxide 21 L (22-30) mmol/L BUN 53 H (9-20) mg/dL Creatinine 3.35 H (0.66-1.25) mg/dL Glucose 159 H (74-99) mg/dL Urine Glucose (UA) 4+ H (Negative) Urine Blood Small H (Negative) Urine RBC 32 H (0-5) /hpf Urine Bacteria Rare H (None) /hpf Urine Mucus Rare H (None) /hpf Assessment and Plan Assessment: 1. Obstructive renal and ureteral calculi/hydronephrosis -CT reveals 0.4 cm obstructing mid right ureteral stone with moderate right hydronephrosis and hydroureter -Patient has been placed on IV fluids; pain control with IV morphine; Flomax 0.4 mg daily -We will consult urology 2. Possible pyelonephritis; CT of the abdomen and pelvis revealed stranding adjacent to bilateral kidneys with concern for infectious etiology -Has been placed on IV Rocephin; await further recommendations from urology 3. Acute renal injury/CKD -Blood work reveals a creatinine of 3.3; CT reveals obstructing right ureteral calculus -Patient has a baseline creatinine around 1.5-1.6 -Patient remains on IV fluid hydration; strict SHELTON's, daily weights, renal function electrolytes; nephrotoxins and hypotension -Consult nephrology 4. Hypertension; patient takes Cozaar 25 mg daily along with Aldactone 50 mg daily which have been placed on hold given acute renal injury; continue with amlodipine 5 mg daily 5. COPD/asthma; in exacerbation; continue with home inhaler therapy 6. Diabetes mellitus; patient takes metformin, Actos, Prandin and Ozempic; will hold off on home regimen and monitor Accu-Cheks before every meal and at bedtime with insulin sliding scale VTE prophylaxis; SCDs CODE STATUS; full code
[2024-04-21 21:18] LABS: Glucose,Whole Blood 223 mg/dL (70-110)
[2024-04-21] MEDS: Acetaminophen-Codeine 300-30mg TAB PO PRN (22:37)
[2024-04-22 05:38] LABS: Glucose,Whole Blood 126 mg/dL (70-110)
[2024-04-22] MEDS ORDERED: SUCCINYLCHOLINE CHLORIDE 200 MG/10 ML VIAL IV ONE (08:00)
[2024-04-22] MEDS ORDERED: PROPOFOL 10 MG/ML 20 ML VIAL IV ONE (08:00)
[2024-04-22] MEDS ORDERED: MIDAZOLAM 2 MG/2 ML VIAL ONE (08:00)
[2024-04-22] MEDS: LACTATED RINGERS 1,000 ML IV ONE (08:00)
[2024-04-22] MEDS ORDERED: LIDOCAINE 1% INJ 10MG/ML (20 ML MDV) ONE (08:00)
[2024-04-22] MEDS ORDERED: fentaNYL (PF) 50 MCG/ML 2 ML AMP ONE (08:00)
[2024-04-22] MEDS: IOPAMIDOL-370 100ML BTL MISCELLANE ONE (08:28)
--- NOTE | 2024-04-22 08:51 | P.OP ---
Date of Procedure: 04/22/24 Preoperative Diagnosis: Right ureteral calculus Postoperative Diagnosis: Same Procedure(s) Performed: Cystoscopy, right retrograde pyelogram, right ureteroscopy with Holmium laser lithotripsy and stone basketing, right ureteral stent insertion Anesthesia: JN Surgeon: Tejas Hendricks Estimated Blood Loss (ml): 5 IV fluids (ml): 600 Pathology: other (Right ureteral calculus fragments, sent for chemical analysis) Condition: stable Disposition: PACU Indications for Procedure: The patient is a 63-year-old white male with a history of urolithiasis. He has never required surgery for kidney stones, but states that he has passed approximately 20 stones over the years. He now presents with a 1 week history of right flank pain radiating to the right lower quadrant. He has experienced associated nausea, vomiting, and gross hematuria. He underwent ER evaluation, revealing moderate right hydronephrosis due to a 4 mm right mid ureteral calculus. He was admitted due to intractable symptoms and an increase in his serum creatinine level, and has elected to undergo ureteroscopic removal of the calculus. Operative Findings: Right mid ureteral calculus, successfully removed. Description of Procedure: The patient was taken to the operating room and placed in the dorsolithotomy position, with legs supported in Antoine stirrups. The external genitalia was prepped and draped sterilely. The 30 lens was used to introduce the 21-Armenian Bolton cystoscopic sheath through the urethra and into the bladder under direct vision. The prostatic urethra showed evidence of mild lateral lobe enlargement. The bladder was examined in its entirety. Both ureteral orifices were normal anatomic location and configuration. No tumors or foreign bodies were seen. Using a 10 Armenian cone-tip catheter, a right retrograde pyelogram was performed. The distal third of the ureter appeared normal. Some irregularity was noted within the right mid ureter. A 0.038 inch Glidewire was passed through the cystoscope. The right ureteral orifice was cannulated, and the Glidewire was slowly advanced. When it reached the mid ureter, a salazar of blood-tinged urine was noted to drain alongside the Glidewire. The Glidewire was advanced up to the renal pelvis, the cystoscope was removed, and an 11/13-Armenian ureteral access catheter was passed over the wire, up to the proximal ureter. The Bolton [employer] flexible ureteroscope was then passed through the ureteral access catheter sheath and advanced under direct vision. The calculus was visualized. The 272 micron Holmium laser probe was passed through the ureteroscope, and lithotripsy was performed. The calculus fragmented into 3 or 4 pieces, which refluxed up to the right renal pelvis. A 0 tip 1.9 Armenian nitinol basket was used to retrieve each of the calculus fragments. Blood-tinged urine and debris was seen within the right renal pelvis, consistent with high-grade obstruction. No additional calculi were seen. Pullout ureteroscopy showed no evidence of ureteral trauma. The Glidewire was passed through the ureteroscope, which was removed along with the ureteral access catheter sheath. The Glidewire was then backloaded into the cystoscope, which was advanced into the bladder. A 26 cm, 6 Armenian double-J ureteral stent was placed over the wire. Proper stent positioning was verified fluoroscopically and endoscopically. The bladder was emptied and the cystoscope removed. The patient tolerated the procedure well and was taken to the recovery room in stable condition. [facility] [place] Report: Procedure Acuity: Urgent Stone Size and Location: 4 mm, right mid ureter Ureteral Dilation: No Ureteral Access Sheath Used: Yes Stone Sent for Analysis: Yes All Stones/Fragments Were Removed with a Basket: Yes Complications: No Preoperative Antibiotics Given: Yes Stent Placed: Yes If Stent Placed, Was String Left Attached: No If Stent Placed, When is it to be Removed: 2 weeks Discharge Medications: Tamsulosin
--- NOTE | 2024-04-22 08:58 | FL ---
Fluoroscopic guidance operating room. HISTORY: Ureteral calculus and stent placement. COMPARISON: None. FINDINGS: 42.1 seconds of fluoroscopy was provided. 2 spot films were obtained demonstrating retrograde injecti on of contrast into the mid to distal right ureter. IMPRESSION: Intraoperative fluoroscopy and spot films as described above.
[2024-04-22 09:20] LABS: Glucose,Whole Blood 173 mg/dL (70-110)
[2024-04-22 11:28] LABS: Glucose,Whole Blood 167 mg/dL (70-110)
[2024-04-22 11:29] LABS: Basophils # (A) 0.04 X 10*3/uL (0.00-0.10); Basophils % (A) 0.5 %; Eosinophils # (A) 0.26 X 10*3/uL (0.04-0.35); Eosinophils % (A) 3.3 %; HGB 14.1 g/dL (13.0-17.0); Lymphocytes # (A) 1.76 X 10*3/uL (0.90-5.00); MCH 31.9 pg (27.0-32.0); MCHC 33.6 g/dL (32.0-37.0); Mean Platelet Volume 9.6 FL (9.5-12.2); Monocytes # (A) 0.98 X 10*3/uL (0.20-1.00); Monocytes % (A) 12.3 %; NRBC Per 100 WBC 0 X 10*3/uL (0.00-0.01); Neutrophils # (A) 4.93 X 10*3/uL (1.80-7.70); Neutrophils % (A) 61.5 %; Platelet Count 189 X 10*3/uL (140-440); RBC 4.42 X 10*6/uL (4.40-5.60); RDW 11.8 % (11.5-14.5)
[2024-04-22 12:43] LABS: BUN/Creat Ratio 13.81 Ratio (12.00-20.00); Blood Urea Nitrogen 42.8 mg/dL (9.0-27.0); Carbon Dioxide 20.3 mmol/L (21.6-31.8); Chloride 104 mmol/L (96-109); Glucose 142 mg/dL (70-110); Potassium 5.5 mmol/L (3.5-5.5); Sodium 136 mmol/L (135-145)
--- NOTE | 2024-04-22 12:44 | P.PN ---
Subjective 63 year old male presenting to the ER with a chief right flank pain. Patient has a past medical history significant of kidney stones and states this pain feels similar. Patient states pain started approximately 1 week ago. He is followed up at urgent care and PCP and was told he likely has a large stone. Patient is endorsing right flank with radiation to his right lower quadrant. He also is reporting hematuria, nausea and vomiting. He has taken prescribed Tylenol threes without relief. He denies any fevers or chills. Denies any constipation/diarrhea. Denies any chest pain, shortness of breath or peripheral edema. Laboratory studies obtained showing hyperkalemia 5.6, hyponatremia 135. BASILIA (BUN 53, creatinine 3.35) on CKD GFR 19. Urinalysis hemorrhagic with 32 RBCs. Rare bacteria. 4+ glucose likely related to diabetes. CT abdomen pelvis showing a 4 mm obstructing ureteral stone causing right-sided hydronephrosis and hydroureter. Stranding adjacent to bilateral kidneys. Admission considered due to BASILIA on CKD with concern of infection. 04/22 Patient admitted with acute kidney injury partly secondary to obstructive urop athy and right hydronephrosis secondary to obstructive right renal stone 0.4 cm. This morning patient underwent [Cystoscopy, right retrograde pyelogram, right ureteroscopy with Holmium laser lithotripsy and stone basketing, right ureteral stent insertion] today's postop day #0. Patient currently sitting in chair looks comfortable, no abdominal pain, no nausea vomiting, no chest pain or dyspnea. No other new complaint He remains on ceftriaxone. No urine culture is still pending. He remains on ceftriaxone for now Metformin Actos Aldactone and losartan 25 mg are on hold CBC is normal today. No creatinine level from today as of now. Creatinine on admission was 3.3 and 3.1, compared to baseline 1 of 1.5-1.6. Patient is eager to be discharged home tomorrow Continue monitoring creatinine Review of systems CONSTITUTIONAL: No fever, no malaise, no fatigue. HEENT: No recent visual problems or hearing problems. Denied any sore throat. CARDIOVASCULAR: No orthopnea, PND, no palpitations, no syncope. PULMONARY: No shortness of breath, no cough, no hemoptysis. GASTROINTESTINAL: No diarrhea, no nausea, no vomiting, no abdominal pain. Normoactive bowel sounds. NEUROLOGICAL: No headaches, no weakness, no numbness. HEMATOLOGICAL: Denies any bleeding or petechiae. GENITOURINARY: Denies any burning micturition, frequency, or urgency. MUSCULOSKELETAL/RHEUMATOLOGICAL: Denies any joint pain, swelling, or any muscle pain. ENDOCRINE: Denies any polyuria or polydipsia. Active Medications Generic Name Dose Route Start Last Admin Trade Name Freq PRN Reason Stop Dose Admin Acetaminophen 650 mg 04/20/24 11:32 Acetaminophen Tab 325 Mg Tab PO Q6HR PRN Mild Pain or Fever > 100.5 Acetaminophen/Codeine Phosphate 1 each 04/20/24 21:42 04/21/24 22:37 Acetaminophen-Codeine 300-30mg Tab PO 1 each Q6H PRN Administration Pain Albuterol Sulfate 2 puff 04/20/24 20:00 04/22/24 12:07 Albuterol Hfa Inhaler INHALATION 2 puff RT-QID NANCY Administration Amlodipine Besylate 5 mg 04/21/24 12:00 04/22/24 11:35 Amlodipine 5 Mg Tab PO 5 mg DAILY@1200 NANCY Administration Calcium Carbonate/Glycine 1,000 mg 04/20/24 21:44 04/20/24 22:23 Calcium Carbonate 500 Mg Chewable PO 1,000 mg QID PRN Administration Heartburn Dapagliflozin 10 mg 04/21/24 09:00 04/22/24 07:23 Dapagliflozin Propanediol 10 Mg Tablet PO Not Given DAILY [facility] Docusate Sodium 100 mg 04/21/24 13:00 04/22/24 07:23 Docusate 100 Mg Cap PO Not Given BID NANCY Ezetimibe 10 mg 04/21/24 09:00 04/22/24 07:23 Ezetimibe 10 Mg Tab PO Not Given DAILY NANCY Fluticasone Propionate 2 puff 04/20/24 20:00 04/22/24 08:40 Fluticasone 110 Mcg Inhaler INHALATION Not Given RT-BID NANCY Hydralazine HCl 25 mg 04/20/24 21:00 04/22/24 07:32 Hydralazine Hcl 25 Mg Tab PO 25 mg BID NANCY Administration Hydromorphone HCl 1 mg 04/20/24 11:32 04/21/24 02:45 Hydromorphone 1 Mg/Ml 1 Ml Syringe IVP 1 mg Q3HR PRN Administration Severe Pain (Scale 7 to 10) Sodium Chloride 1,000 mls @ 75 mls/hr 04/20/24 11:45 04/22/24 03:52 Saline 0.9% IV Not Given .[id number] [facility] Ceftriaxone Sodium 2 gm/ 50 mls @ 100 mls/hr 04/21/24 09:00 04/22/24 09:54 Sodium Chloride IVPB 100 mls/hr DAILY NANCY Administration Protocol Insulin Aspart 0 unit 04/21/24 07:30 04/22/24 05:39 Insulin Aspart (Novolog) 100 Unit/Ml Vial SQ Not Given ACHS [facility] Protocol Insulin Detemir 50 unit 04/20/24 21:00 04/21/24 21:44 Insulin Detemir (Levemir) 100 Unit/Ml Syr SQ Not Given HS NANCY Isosorbide Mononitrate 30 mg 04/21/24 09:00 04/22/24 07:32 Isosorbide Mononitrate Er 30 Mg Tab.Er.24h PO 30 mg DAILY NANCY Administration Metoprolol Tartrate 25 mg 04/20/24 21:00 04/22/24 07:32 Metoprolol Tartrate 25 Mg Tab PO 25 mg BID NANCY Administration Montelukast Sodium 10 mg 04/20/24 21:00 04/21/24 20:09 Montelukast 10 Mg Tab PO 10 mg HS NANCY Administration Naloxone HCl 0.2 mg 04/20/24 11:32 Naloxone 0.4 Mg/Ml 1 Ml Vial IV Q2M PRN Opioid Reversal Ondansetron HCl 4 mg 04/20/24 11:32 Ondansetron 4 Mg/2 Ml Vial IVP Q8HR PRN Nausea And Vomiting Pantoprazole Sodium 40 mg 04/20/24 21:45 04/22/24 06:41 Pantoprazole 40 Mg Tablet PO Not Given AC-BID NANCY Tamsulosin HCl 0.4 mg 04/21/24 09:00 04/22/24 07:31 Tamsulosin 0.4 Mg Cap.Er.24h PO 0.4 mg DAILY NANCY Administration Objective - Vital Signs Vital signs: Vital Signs Temp 97.8 F 04/22/24 08:52 Pulse 64 04/22/24 09:32 Resp 18 04/22/24 09:32 BP 131/76 04/22/24 11:34 Pulse Ox 98 04/22/24 09:32 FiO2 Intake & Output 04/21/24 04/22/24 04/22/24 18:59 06:59 18:59 Intake Total 700 Output Total 405 Balance 295 Weight 127.006 kg Intake: IV 700 Output: Urine 400 Estimated Blood Loss 5 Other: Voiding Method Toilet Toilet # Voids 2 3 - Exam -GENERAL: The patient is alert and oriented x3, not in any acute distress. Well developed, well nourished. Obese HEENT: Pupils are round and equally reacting to light. EOMI. No scleral icterus. No conjunctival pallor. Normocephalic, atraumatic. No pharyngeal erythema. No thyromegaly. CARDIOVASCULAR: S1 and S2 present. No murmurs, rubs, or gallops. PULMONARY: Chest is clear to auscultation, no wheezing , no crackles. ABDOMEN: Soft, nontender, nondistended, normoactive bowel sounds. No palpable organomegaly. MUSCULOSKELETAL: No joint swelling or deformity. EXTREMITIES: No cyanosis, clubbing, or pedal edema. NEUROLOGICAL: Gross neurological examination did not reveal any focal deficits. SKIN: No rashes. no petechiae. - Labs CBC & Chem 7: 04/22/24 05:26 04/21/24 06:12 Labs: Abnormal Lab Results - Last 24 Hours (Table) 04/21/24 04/21/24 04/22/24 Range/Units 16:51 21:16 05:37 POC Glucose (mg/dL) 196 H 223 H 126 H (70-110) mg/dL 04/22/24 04/22/24 Range/Units 09:18 11:27 POC Glucose (mg/dL) 173 H 167 H (70-110) mg/dL Assessment and Plan Assessment: 1. Obstructive renal and ureteral calculi/hydronephrosis -CT reveals 0.4 cm obstructing mid right ureteral stone with moderate right hydronephrosis and hydroureter -Patient has been placed on IV fluids; pain control with IV morphine; Flomax 0.4 mg daily -We will consult urology -Patient is status post Cystoscopy, right retrograde pyelogram, right ureteroscopy with Holmium laser lithotripsy and stone basketing, right ureteral stent insertion on 04/22 2. Possible pyelonephritis; CT of the abdomen and pelvis revealed stranding adjacent to bilateral kidneys with concern for infectious etiology -Has been placed on IV Rocephin; await further recommendations from urology 3. Acute renal injury/CKD -Blood work reveals a creatinine of 3.3; CT reveals obstructing right ureteral calculus -Patient has a baseline creatinine around 1.5-1.6 -Patient remains on IV fluid hydration; strict SHELTON's, daily weights, renal function electrolytes; nephrotoxins and hypotension -Consult nephrology 4. Hypertension; patient takes Cozaar 25 mg daily along with Aldactone 50 mg daily which have been placed on hold given acute renal injury; continue with amlodipine 5 mg daily 5. COPD/asthma; in exacerbation; continue with home inhaler therapy 6. Diabetes mellitus; patient takes metformin, Actos, Prandin and Ozempic; will hold off on home regimen and monitor Accu-Cheks before every meal and at bedtime with insulin sliding scale VTE prophylaxis; SCDs CODE STATUS; full code
--- NOTE | 2024-04-22 14:32 | P.PN ---
Subjective Patient is seen for follow-up for acute kidney injury. Status post cystoscopy today with lithotripsy and left ureteral stent placement. No complaints of pain today. Maintained on IV fluids. Serum creatinine at 3.1 today. Urine output not charted. Objective - Vital Signs Vital signs: Vital Signs Temp 98.1 F 04/22/24 14:00 Pulse 67 04/22/24 14:00 Resp 16 04/22/24 14:00 BP 108/61 04/22/24 14:00 Pulse Ox 99 04/22/24 14:00 FiO2 Intake & Output 04/21/24 04/22/24 04/22/24 18:59 06:59 18:59 Intake Total 700 Output Total 405 Balance 295 Weight 127.006 kg Intake: IV 700 Output: Urine 400 Estimated Blood Loss 5 Other: Voiding Method Toilet Toilet # Voids 2 3 - Exam Patient is awake, comfortable, no acute distress. 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 - Labs CBC & Chem 7: 04/22/24 05:26 04/22/24 05:26 Labs: Abnormal Lab Results - Last 24 Hours (Table) 04/21/24 04/21/24 04/22/24 Range/Units 16:51 21:16 05:26 Carbon Dioxide 20.3 L (21.6-31.8) mmol/L BUN 42.8 H (9.0-27.0) mg/dL Creatinine 3.1 H (0.6-1.5) mg/dL Est GFR (CKD-EPI) 22 L (>=60) Glucose 142 H (70-110) mg/dL POC Glucose (mg/dL) 196 H 223 H (70-110) mg/dL 04/22/24 04/22/24 04/22/24 Range/Units 05:37 09:18 11:27 Carbon Dioxide (21.6-31.8) mmol/L BUN (9.0-27.0) mg/dL Creatinine (0.6-1.5) mg/dL Est GFR (CKD-EPI) (>=60) Glucose (70-110) mg/dL POC Glucose (mg/dL) 126 H 173 H 167 H (70-110) mg/dL Assessment and Plan Assessment: 1. Acute kidney injury, obstructive uropathy with right hydronephrosis along with an element of ATN. Currently nonoliguric. UA shows small blood no protein 2. Right hydronephrosis with 0.4 cm renal stone 4. History of nephrolithiasis with multiple previous episodes of renal colic. Patient does admit to large intake of coke on a daily basis. 5. Type 2 diabetes 6. Chronic kidney disease NKF stage III a with baseline creatinine around 1.5- 1.6 with previous episodes of acute kidney injury in July 2023. Etiology is likely nephrosclerosis. 7. Coronary artery disease with history of coronary artery bypass surgery and bovine aortic valve replacement in 2019 Plan: continue with IV fluids Continue Flomax Continue to hold angiotensin receptor blockers. May continue with farxiga for now, may need to hold if renal function does not improve. Repeat labs in a.m.
--- NOTE | 2024-04-23 09:03 | P.PN ---
Subjective Progress Note Date: 04/23/24 No acute overnight event, underwent right-sided ureteroscopy with holmium laser. Denies any pain having minimal gross hematuria Objective - Vital Signs Vital signs: Vital Signs Temp 98.6 F 04/23/24 07:51 Pulse 64 04/23/24 07:51 Resp 18 04/23/24 07:51 BP 144/71 04/23/24 07:51 Pulse Ox 96 04/23/24 07:51 FiO2 Intake & Output 04/22/24 04/23/24 04/23/24 18:59 06:59 18:59 Intake Total 700 Output Total 405 Balance 295 Weight 127.006 kg Intake: IV 700 Output: Urine 400 Estimated Blood Loss 5 Other: Voiding Method Toilet # Voids 3 - Constitutional General appearance: Present: no acute distress - Gastrointestinal General gastrointestinal: Present: soft. Absent: distended, tenderness - Labs CBC & Chem 7: 04/22/24 05:26 04/22/24 05:26 Labs: Abnormal Lab Results - Last 24 Hours (Table) 04/22/24 04/22/24 04/22/24 Range/Units 05:26 09:18 11:27 Carbon Dioxide 20.3 L (21.6-31.8) mmol/L BUN 42.8 H (9.0-27.0) mg/dL Creatinine 3.1 H (0.6-1.5) mg/dL Est GFR (CKD-EPI) 22 L (>=60) Glucose 142 H (70-110) mg/dL POC Glucose (mg/dL) 173 H 167 H (70-110) mg/dL Assessment and Plan Assessment: Status post right-sided ureteroscopy with holmium laser, doing well this morning. From urology standpoint he is stable for discharge, can follow-up with Dr. Hendricks in 1 to 2 weeks for cystoscopy stent removal
--- NOTE | 2024-04-23 11:48 | P.PN ---
Subjective Patient is seen for follow-up for acute kidney injury. Status post cystoscopy today with lithotripsy No complaints of pain today. Maintained on IV fluids. Serum creatinine at 3.1 yesterday. Labs are pending from today. Patient wants to go home. Objective - Vital Signs Vital signs: Vital Signs Temp 98.6 F 04/23/24 07:51 Pulse 64 04/23/24 07:51 Resp 18 04/23/24 07:51 BP 144/71 04/23/24 07:51 Pulse Ox 96 04/23/24 07:51 FiO2 Intake & Output 04/22/24 04/23/24 04/23/24 18:59 06:59 18:59 Intake Total 700 Output Total 405 Balance 295 Weight 127.006 kg Intake: IV 700 Output: Urine 400 Estimated Blood Loss 5 Other: Voiding Method Toilet Toilet # Voids 3 - Exam Patient is awake, comfortable, no acute distress. alert oriented 3. Examination of the lower extremities shows no significant edema [employer] exam grossly intact - Labs CBC & Chem 7: 04/22/24 05:26 04/22/24 05:26 Labs: Abnormal Lab Results - Last 24 Hours (Table) 04/22/24 Range/Units 05:26 Carbon Dioxide 20.3 L (21.6-31.8) mmol/L BUN 42.8 H (9.0-27.0) mg/dL Creatinine 3.1 H (0.6-1.5) mg/dL Est GFR (CKD-EPI) 22 L (>=60) Glucose 142 H (70-110) mg/dL Microbiology - Last 24 Hours (Table) 04/21/24 22:52 Urine Culture - Final Urine,Voided Assessment and Plan Assessment: 1. Acute kidney injury, obstructive uropathy with right hydronephrosis along with an element of ATN. Currently nonoliguric. UA shows small blood no protein 2. Right hydronephrosis with 0.4 cm renal stone, status post cystoscopy and lithotripsy 4. History of nephrolithiasis with multiple previous episodes of renal colic. Patient does admit to large intake of coke on a daily basis. 5. Type 2 diabetes 6. Chronic kidney disease NKF stage III a with baseline creatinine around 1.5- 1.6 with previous episodes of acute kidney injury in July 2023. Etiology is likely nephrosclerosis. 7. Coronary artery disease with history of coronary artery bypass surgery and bovine aortic valve replacement in 2019 Plan: patient can be discharged from nephrology standpoint. Follow-up as outpatient in 1-2 weeks. Follow-up on labs from today. Metformin and losartan on hold due to acute kidney injury.
--- NOTE | 2024-04-23 14:07 | P.DS ---
Providers Date of admission: 04/21/24 09:19 Expected date of discharge: 04/23/24 Attending physician: Sivakumar Seals MD Consults: 04/20/24 11:32 Consult Physician Urgent Consulting Provider: Tejas Hendricks Consult Reason/Comments: nephrolithiasis Do you want consulting provider notified?: Already Contacted 04/20/24 16:08 Consult Physician Routine Consulting Provider: Keo Esquivel Consult Reason/Comments: GI Do you want consulting provider notified?: Yes Primary care physician: Ro [facility] Hospital Course: Final Diagnoses: 1. Obstructive renal and ureteral calculi/hydronephrosis -CT reveals 0.4 cm obstructing mid right ureteral stone with moderate right hydronephrosis and hydroureter -Patient has been placed on IV fluids; pain control with IV morphine; Flomax 0.4 mg daily -We will consult urology -Patient is status post Cystoscopy, right retrograde pyelogram, right ureteroscopy with Holmium laser lithotripsy and stone basketing, right ureteral stent insertion on 04/22 2. Possible pyelonephritis; CT of the abdomen and pelvis revealed stranding adjacent to bilateral kidneys with concern for infectious etiology -Has been placed on IV Rocephin; await further recommendations from urology 3. Acute renal injury/CKD -Blood work reveals a creatinine of 3.3; CT reveals obstructing right ureteral calculus -Patient has a baseline creatinine around 1.5-1.6 -Patient remains on IV fluid hydration; strict SHELTON's, daily weights, renal function electrolytes; nephrotoxins and hypotension -Consult nephrology 4. Hypertension; patient takes Cozaar 25 mg daily along with Aldactone 50 mg daily which have been placed on hold given acute renal injury; continue with amlodipine 5 mg daily 5. COPD/asthma; in exacerbation; continue with home inhaler therapy 6. Diabetes mellitus; metformin and Ozempic on hold. Hospital course: 63 year old male presenting to the ER with a chief right flank pain. Patient has a past medical history significant of kidney stones and states this pain feels similar. Patient states pain started approximately 1 week ago. He is followed up at urgent care and PCP and was told he likely has a large stone. Patient is endorsing right flank with radiation to his right lower quadrant. He also is reporting hematuria, nausea and vomiting. He has taken prescribed Tylenol threes without relief. He denies any fevers or chills. Denies any constipation/diarrhea. Denies any chest pain, shortness of breath or peripheral edema. Laboratory studies obtained showing hyperkalemia 5.6, hyponatremia 135. BASILIA (BUN 53, creatinine 3.35) on CKD GFR 19. Urinalysis hemorrhagic with 32 RBCs. Rare bacteria. 4+ glucose likely related to diabetes. CT abdomen pelvis showing a 4 mm obstructing ureteral stone causing right-sided hydronephrosis and hydroureter. Stranding adjacent to bilateral kidneys. Admission considered due to BASILIA on CKD with concern of infection. 04/22 Patient admitted with acute kidney injury partly secondary to obstructive uropathy and right hydronephrosis secondary to obstructive right renal stone 0.4 cm. This morning patient underwent [Cystoscopy, right retrograde pyelogram, right ureteroscopy with Holmium laser lithotripsy and stone basketing, right ureteral stent insertion] today's postop day #0. Patient currently sitting in chair looks comfortable, no abdominal pain, no nausea vomiting, no chest pain or dyspnea. No other new complaint He remains on ceftriaxone. No urine culture is still pending. He remains on ceftriaxone for now Metformin Actos Aldactone and losartan 25 mg are on hold CBC is normal today. No creatinine level from today as of now. Creatinine on admission was 3.3 and 3.1, compared to baseline 1 of 1.5-1.6. Patient is eager to be discharged home tomorrow Continue monitoring creatinine 04/23/2024 labs/renal function pending for this morning. Attempted to update and explain plan of care -patient adamant about being discharged home. Patient will be discharged home today pending labs, final DC recommendations and clearance as per nephrology and urology, in a stable condition with guarded prognosis. The impression and plan of care has been dictated as directed. : I performed a history and examination of this patient, discussed the same with the dictator. I agree with the dictator's note ,documented as a scribe. Any additional findings or plans will be noted. Patient Condition at Discharge: Stable Plan - Discharge Summary Discharge Rx Participant: No New Discharge Prescriptions: New Docusate [Colace] 100 mg PO BID cap Continue amLODIPine [Norvasc] 5 mg PO DAILY@1200 #30 tab Aspirin 81 mg PO DAILY #30 chew Ezetimibe [Zetia] 10 mg PO DAILY #30 tab Metoprolol Tartrate [Lopressor] 25 mg PO BID #60 tab Pantoprazole [Protonix] 40 mg PO AC-BRKFST #30 tablet. Dapagliflozin Propanediol [Farxiga] 10 mg PO DAILY Pioglitazone [Actos] 15 mg PO DAILY Evolocumab [Repatha Sureclick] 140 mg SQ Q14D Beclomethasone Dipropionate [Qvar 80mcg Redihaler] 2 puff INHALATION RT-BID hydrALAZINE HCL 25 mg PO BID Tamsulosin HCl [Flomax] 0.4 mg PO DAILY Repaglinide [Prandin] 2 mg PO W/BRKFST Montelukast [Singulair] 10 mg PO HS Insulin Glargine,Hum.rec.anlog [Lantus Solostar Pen] 50 units SQ HS Albuterol Inhaler [Ventolin Hfa Inhaler] 2 puff INHALATION RT-QID Isosorbide Mononitrate ER [Imdur] 30 mg PO DAILY Acetaminophen-Codeine 300-30mg [Tylenol w/codeine #3] 1 tab PO Q6H PRN PRN Reason: Pain Discontinued Semaglutide [Ozempic] 2 mg SQ TU metFORMIN HCL [Glucophage] 1,000 mg PO BID Losartan [Cozaar] 25 mg PO DAILY #30 tab Spironolactone [Aldactone] 50 mg PO DAILY Discharge Medication List Aspirin 81 mg PO DAILY #30 chew 10/05/18 [Rx] Ezetimibe [Zetia] 10 mg PO DAILY #30 tab 10/05/18 [Rx] Metoprolol Tartrate [Lopressor] 25 mg PO BID #60 tab 10/05/18 [Rx] Pantoprazole [Protonix] 40 mg PO AC-BRKFST #30 tablet. 10/05/18 [Rx] amLODIPine [Norvasc] 5 mg PO DAILY@1200 #30 tab 10/05/18 [Rx] Albuterol Inhaler [Ventolin Hfa Inhaler] 2 puff INHALATION RT-QID 07/30/23 [History] Dapagliflozin Propanediol [Farxiga] 10 mg PO DAILY 07/30/23 [History] Insulin Glargine,Hum.rec.anlog [Lantus Solostar Pen] 50 units SQ HS 07/30/23 [History] Isosorbide Mononitrate ER [Imdur] 30 mg PO DAILY 07/30/23 [History] Montelukast [Singulair] 10 mg PO HS 07/30/23 [History] Pioglitazone [Actos] 15 mg PO DAILY 07/30/23 [History] Repaglinide [Prandin] 2 mg PO W/BRKFST 07/30/23 [History] Acetaminophen-Codeine 300-30mg [Tylenol w/codeine #3] 1 tab PO Q6H PRN 04/20/24 [History] Beclomethasone Dipropionate [Qvar 80mcg Redihaler] 2 puff INHALATION RT-BID 04/20/24 [History] Evolocumab [Repatha Sureclick] 140 mg SQ Q14D 04/20/24 [History] Tamsulosin HCl [Flomax] 0.4 mg PO DAILY 04/20/24 [History] hydrALAZINE HCL 25 mg PO BID 04/20/24 [History] Docusate [Colace] 100 mg PO BID cap 04/23/24 [Rx] Follow up Appointment(s)/Referral(s): Sivakumar Seals MD [STAFF PHYSICIAN] - 3 Days Tejas Hendricks MD [STAFF PHYSICIAN] - 10 Days Activity/Diet/Wound Care/Special Instructions: Follow-up with Dr. Hendricks week of 04/29/24 for office cystoscopy with stent removal
[2024-04-23 14:43] VITALS: BP 138/74; PULSE 72; RESP 17; TEMP 97.9
[2024-04-23 18:05] LABS: BUN/Creat Ratio 17.82 Ratio (12.00-20.00); Blood Urea Nitrogen 30.3 mg/dL (9.0-27.0); Calcium 9.5 mg/dL (8.7-10.3); Carbon Dioxide 21.4 mmol/L (21.6-31.8); Chloride 103 mmol/L (96-109); Glucose 254 mg/dL (70-110); Potassium 4.8 mmol/L (3.5-5.5); Sodium 138 mmol/L (135-145)
== END 2024-04-23 15:28 | disposition home or self-care (01) | DRG 660 ==
LOC: EC 06:59 → 4SSUR 11:53 → OBSVTOIN 04-21 09:19
PROVIDERS: ADMIT Family Medicine; ATTEND Family Medicine
PROC: BT1D1ZZ Fluoroscopy of Right Kidney, Ureter and Bladder using Low Osmolar Contrast (ICD-10-PCS; 2024-04-22)
PROC: 0TC68ZZ Extirpation of Matter from Right Ureter, Via Natural or Artificial Opening Endoscopic (ICD-10-PCS; 2024-04-22)
PROC: 0T768DZ Dilation of Right Ureter with Intraluminal Device, Via Natural or Artificial Opening Endoscopic (ICD-10-PCS; principal; 2024-04-22 08:00)
DX: N17.0 Acute kidney failure with tubular necrosis (principal); E87.1 Hypo-osmolality and hyponatremia; J44.1 Chronic obstructive pulmonary disease with (acute) exacerbation; J45.901 Unspecified asthma with (acute) exacerbation; N13.2 Hydronephrosis with renal and ureteral calculous obstruction; I12.9 Hypertensive chronic kidney disease with stage 1 through stage 4 chronic kidney disease, or unspecified chronic kidney disease; E11.22 Type 2 diabetes mellitus with diabetic chronic kidney disease; E78.5 Hyperlipidemia, unspecified; E87.5 Hyperkalemia; I25.10 Atherosclerotic heart disease of native coronary artery without angina pectoris; N18.30 Chronic kidney disease, stage 3 unspecified; R31.0 Gross hematuria; Z79.82 Long term (current) use of aspirin; Z79.84 Long term (current) use of oral hypoglycemic drugs; Z79.899 Other long term (current) drug therapy; Z87.442 Personal history of urinary calculi; Z87.891 Personal history of nicotine dependence; Z95.1 Presence of aortocoronary bypass graft; Z95.3 Presence of xenogenic heart valve; Z88.8 Allergy status to other drugs, medicaments and biological substances
CPT/HCPCS: 36415; 74176; 80048; 80053; 81001; 82365; 83605; 85025; 87086; 94640; 96361; 96365; 96366; 96375; 96376; 99285

== ENCOUNTER → 2024-07-11 | Outpatient (CLI) | payer MEDICARE ==
[2024-07-11 12:04] VITALS: BP 145/82; PULSE 72; RESP 16; TEMP 98.1
--- NOTE | 2024-07-11 14:35 | P.SLEEP ---
History of Present Illness DATE: 07/11/2024 CONSULTATION/NEW PATIENT EVALUATION HISTORY OF PRESENT ILLNESS/SLEEP-WAKE EVALUATION: 64-year-old gentleman had been evaluated in the sleep center for obstructive sleep apnea hypopnea syndrome. Patient has history of obstructive sleep apnea hypopnea syndrome for about 20 years, last CPAP unit he received in 2019. I checked CPAP unit. CPAP pressure is 12 cm of water. Usage is 100% of nights, average 9.6 hours per night. Leak is 4 L/min, which is perfect range. Apnea hypopnea index is 1.8 which is normal. SLEEP SCHEDULE: Usually sleep schedule from 11 PM to 8:30 AM. FALLING ASLEEP: Sometimes patient has difficulties with falling asleep. DURING SLEEP: No snoring on CPAP but patient wakes up from sleep up to 4 times with nocturia. No history of hypnogogical hallucinations, sleep paralysis, or cataplexy. DURING THE DAY/WAKE STATE: In the morning patient wake up tired, has problems with memory. Crescent sleepiness scale is 4. Patient takes nap at 3 PM. PAST MEDICAL HISTORY: COPD, hypertension, acid reflux, diabetes, coronary artery disease. PAST SURGICAL HISTORY: Aortic valve replacement, CABG. MEDICATIONS: Please see below. SOCIAL HISTORY: Please see below. FAMILY HISTORY: Please see below. REVIEW OF SYSTEMS: Multiple awakenings from sleep while using CPAP. No fevers. No double vision. No recent chest pain. No shortness of breath. No abdominal pain. No bleeding episodes. No blood in urine. No seizure episodes. PHYSICAL EXAMINATION: GENERAL: A pleasant patient without any distress. VITAL SIGNS: Please see below. HEENT: PERRLA, EOMI. Evaluation of oropharynx showed tongue protrudes midline, low position of soft palate Mallampati 4. NECK: Supple. No JVD. Thyroid is not palpable. 1.5 inches in circumference. LUNGS: Clear to percussion and to auscultation. Good air exchange. No wheezing or rhonchi. HEART: S1, S2 regular. No murmurs, gallops or rubs. ABDOMEN: Soft and nontender. Bowel sounds are present. No organomegaly appreciated. Obese EXTREMITIES: No clubbing or cyanosis. THERAPY MANAGER: Awake, alert, and oriented x3. Cranial nerves 2 to 7 intact. There is no fasciculation or atrophy noted. No focal deficits observed. ASSESSMENT: 1. Obstructive sleep apnea hypopnea syndrome for 20 years. Patient continued to use his CPAP equipment. No snoring with CPAP, but patient wakes up from sleep multiple times. Extremely low position of soft palate, extremely wide neck 20.5 inches in circumference. 2. Obesity, BMI 41.9. 3. Hypertension. 4. Coronary artery disease status post CABG. 5 diabetes mellitus. 6 . COPD. 7. Acid reflux. 8. Status post aortic valve replacement. 9 . Hyperlipidemia. PLAN: 1. Prescription for all necessary CPAP supplies including mask, tube, filters. 2. Patient will continue to use CPAP equipment every night for the whole night. 3. Preferable position during sleep on the side. 4. No driving if patient feels any sleepiness. Patient is aware of civil and criminal liability for unsafe driving. 5. Sleep hygiene with regular sleep time for at least 7.5-8 hours. 6. Watching and losing weight. 7. Follow-up visit in 8 months or earlier if patient has any problems. Thank you very much for referring this patient for consultation. Sincerely, Samy Yoo MD, PhD, FAASM. Diplomat of [place] [employer], Sleep Medicine Board by [place] [employer] [place] [employer] [facility] Supervisor of [facility] [place] cc: Ro Duke DO Past Medical History Past Medical History: Coronary Artery Disease (CAD), Chest Pain / Angina, COPD, Diabetes Mellitus, GERD/Reflux, Hyperlipidemia, Hypertension, Osteoarthritis (OA), Sleep Apnea/CPAP/BIPAP Additional Past Medical History / Comment(s): seasonal allergies History of Any Multi-Drug Resistant Organisms: None Reported Past Surgical History: Coronary Bypass/CABG, Joint Replacement, Orthopedic Surgery Additional Past Surgical History / Comment(s): right knee replaced, left shoulder surg., right arm surg., pilonidal cyst surg., multiple myringotomies. LEFT TOTAL KNEE ON 05/30/14. screws/plates in right arm Additional Past Anesthesia/Blood Transfusion Reaction / Comment(s): states has small airway, has had problems w/intubation in the past Past Psychological History: No Psychological Hx Reported Smoking Status: Former smoker Past Alcohol Use History: None Reported Past Drug Use History: None Reported - Past Family History Father Family Medical History: Congestive Heart Failure (CHF), Diabetes Mellitus, GERD/Reflux, Hyperlipidemia, Hypertension, Rheumatoid Arthritis (RA) Additional Family Medical History / Comment(s): snoring, lung problems,father at age 74-drowning. Mother History Unknown: Yes Family Medical History: No Reported History Additional Family Medical History / Comment(s): MOTHER AT AGE 70 OF UNKNOWN CAUSES. Medications and Allergies Home Medications Medication Instructions Recorded Confirmed Type Aspirin 81 mg PO DAILY #30 chew 10/05/18 07/11/24 Rx Ezetimibe [Zetia] 10 mg PO DAILY #30 tab 10/05/18 07/11/24 Rx Metoprolol Tartrate [Lopressor] 25 mg PO BID #60 tab 10/05/18 07/11/24 Rx Pantoprazole [Protonix] 40 mg PO AC-BRKFST #30 tablet.dr 10/05/18 07/11/24 Rx amLODIPine [Norvasc] 5 mg PO DAILY@1200 #30 tab 10/05/18 07/11/24 Rx Albuterol Inhaler [Ventolin Hfa 2 puff INHALATION RT-QID 07/30/23 07/11/24 History Inhaler] Dapagliflozin Propanediol [Farxiga] 10 mg PO DAILY 07/30/23 07/11/24 History Insulin Glargine,Hum.rec.anlog 50 units SQ HS 07/30/23 07/11/24 History [Lantus Solostar Pen] Isosorbide Mononitrate ER [Imdur] 30 mg PO DAILY 07/30/23 07/11/24 History Montelukast [Singulair] 10 mg PO HS 07/30/23 07/11/24 History Pioglitazone [Actos] 15 mg PO DAILY 07/30/23 07/11/24 History Repaglinide [Prandin] 2 mg PO W/BRKFST 07/30/23 07/11/24 History Acetaminophen-Codeine 300-30mg 1 tab PO Q6H PRN 04/20/24 04/20/24 History [Tylenol w/codeine #3] Beclomethasone Dipropionate [Qvar 2 puff INHALATION RT-BID 04/20/24 07/11/24 History 80mcg Redihaler] Evolocumab [Repatha Sureclick] 140 mg SQ Q14D 04/20/24 07/11/24 History Tamsulosin HCl [Flomax] 0.4 mg PO DAILY 04/20/24 04/20/24 History hydrALAZINE HCL 25 mg PO BID 04/20/24 07/11/24 History Docusate [Colace] 100 mg PO BID cap 04/23/24 Rx Allergies Allergy/AdvReac Type Severity Reaction Status Date / Time [id number] Reductase AdvReac muscle Verified 04/20/24 11:42 Inhibitor cramps [Wvyuvnf-Icf-Hzo Reductase Inhibitor] Physical Exam Vitals: Vital Signs Temp Pulse Resp BP Pulse Ox 07/11/24 12:03 98.1 F 72 16 145/82 97 Intake and Output 07/10/24 07/11/24 07/11/24 22:59 06:59 14:59 Other: Weight 127.006 kg Sleep Note - Sleep Data ESS Total: 4 - Sleep Note Sleep Note: Temperature: 98.1 F Pulse Rate: 72 Respiratory Rate: 16 Blood Pressure: 145/82 SpO2: 97 Height: 5 ft 8.5 in Weight: 127.006 kg BMI: Neck Circumference: 20.5
== END ==
LOC: 3 N SLEEP 11:19
PROVIDERS: ATTEND Internal Medicine
DX: G47.33 Obstructive sleep apnea (adult) (pediatric) (principal); E66.9 Obesity, unspecified; I10 Essential (primary) hypertension; I25.10 Atherosclerotic heart disease of native coronary artery without angina pectoris; E11.9 Type 2 diabetes mellitus without complications; J44.9 Chronic obstructive pulmonary disease, unspecified; K21.9 Gastro-esophageal reflux disease without esophagitis; E78.5 Hyperlipidemia, unspecified; Z95.2 Presence of prosthetic heart valve; Z95.1 Presence of aortocoronary bypass graft; Z99.89 Dependence on other enabling machines and devices; Z68.41 Body mass index [BMI] 40.0-44.9, adult; Z79.899 Other long term (current) drug therapy; Z79.4 Long term (current) use of insulin; Z87.891 Personal history of nicotine dependence
CPT/HCPCS: 99211

== ENCOUNTER → 2024-07-22 | Outpatient (CLI) | payer MEDICARE ==
--- NOTE | 2024-07-22 12:00 | US ---
EXAMINATION TYPE: US kidneys/renal and bladder DATE OF EXAM: 07/22/2024 COMPARISON: CT(04/20/2914) CLINICAL INDICATION: Male, 64 years old with history of N20.1 CALCULUS OF URETER; F/U from calculus f ound in ureter prior CT scan, pt had hx of stent put in rt ureter TECHNIQUE: Grayscale imaging of the bilateral kidneys and urinary bladder: FINDINGS: EXAM MEASUREMENTS: Right Kidney: 12.5x6.0x6.3 cm Left Kidney: 12.7x4.8x5.7 cm Right Kidney: No hydronephrosis or masses seen Left Kidney: Anechoic area seen measurin.8x1.5x2.1cm Bladder: Wall measures: 0.5cm ?thickened Bilateral Jets seen: No IMPRESSION: 1. Nonspecific hypoechoic lesion left kidney could reflect a complex cyst. Consider CT correlation wi th contrast. 2. Borderline urinary bladder wall thickening. [facility], , 07/22/2024 11:57 AM
== END | disposition home or self-care (01) ==
LOC: RADUSWWP 10:19
PROVIDERS: ATTEND Urology
DX: N20.1 Calculus of ureter (principal); N28.1 Cyst of kidney, acquired; Z87.442 Personal history of urinary calculi
CPT/HCPCS: 76770

== ENCOUNTER → 2025-02-07 | Outpatient (CLI) | payer MEDICARE | END | disposition home or self-care (01) | LOC: RADCTMAIN 11:42 | PROVIDERS: ATTEND Urology | DX: Z53.9 Procedure and treatment not carried out, unspecified reason (principal) ==

== ENCOUNTER → 2025-02-27 | Outpatient (CLI) | payer MEDICARE ==
--- NOTE | 2025-02-27 10:14 | US ---
EXAMINATION TYPE: US kidneys/renal and bladder DATE OF EXAM: 02/27/2025 COMPARISON: Ultrasound 07/22/2024. CLINICAL INDICATION: Male, 64 years old with history of N20.1 CALCULUS OF URETER; known cyst, reasses s cyst TECHNIQUE: Grayscale imaging of the bilateral kidneys and urinary bladder: FINDINGS: EXAM MEASUREMENTS: Right Kidney: 12.1 x 5.9 x 6.8 cm Left Kidney: 11.7 x 4.3 x 6.2 cm Right Kidney: No hydronephrosis or masses seen Left Kidney: 1.9 x 1.7 x 1.7cm inferior pole Bladder: wnl There is no evidence for hydronephrosis at this point in time. No nephrolithiasis is seen. No justin s are identified. The urinary bladder is anechoic. IMPRESSION: 1. No evidence for acute process. 2. Left renal cortical cyst and has a simple appearance.. [facility], , 02/27/2025 10:11 AM
== END | disposition home or self-care (01) ==
LOC: RADUSWWP 09:24
PROVIDERS: ATTEND Urology
DX: N20.1 Calculus of ureter (principal); N28.1 Cyst of kidney, acquired
CPT/HCPCS: 76770